=== PATIENT | female | born 1995 | race Caucasian/White ===

== ENCOUNTER 2024-06-17 13:11 | Observation (INO) | payer MEDICAID, SELFPAY ==
[2024-06-17] VITALS (9 sets, daily range): BP systolic 128–148; BP diastolic 59–83; PULSE 85–106
[2024-06-17 14:07] LABS: Basophils Percent Auto 0.2 % (0.2-2.0); Eosinophils Percent Auto 0.2 % (0.9-7.0); Hematocrit 31.7 % (36.0-48.0); Hemoglobin 10.5 g/dL (12.0-16.0); Immature Granulocytes Abs Auto 0.04 10^3/uL (0.00-0.03); Immature Granulocytes Pct Auto 0.4 % (0.0-0.5); Lymphocytes Absolute Auto 1.6 10^3/uL (1.2-3.8); Lymphocytes Percent Auto 16.9 % (20.5-60.0); Mean Corpuscular HGB Conc 33.1 g/dL (29.9-35.2); Mean Corpuscular Hemoglobin 26.5 pg (26.7-34.0); Mean Corpuscular Volume 80.1 fL (81.0-99.0); Mean Platelet Volume 14.3 fL (9.5-13.5); Monocytes Absolute Auto 0.4 10^3/uL (0.3-0.8); Monocytes Percent Auto 4.3 % (1.7-12.0); Neutrophils Absolute Auto 7.4 10^3/uL (1.4-6.5); Platelet Count 106 10^3/uL (150-450); Red Blood Count 3.96 10^6/uL (4.20-5.40); Red Cell Distribution Width 13.4 % (11.0-15.0); White Blood Count 9.5 10^3/uL (4.0-11.0)
[2024-06-17 14:17] LABS: Creatinine Urine Random 202.19 mg/dL (20.00-300.00); Protein Creatinine Ratio Urine 0.22; Total Protein Urine Random 43.5 mg/dL (<=11.9)
[2024-06-17 14:21] LABS: Alanine Aminotransferase 9 U/L (14-59); Albumin Globulin Ratio 0.6; Albumin Level 2.1 g/dL (3.4-5.0); Alkaline Phosphatase 172 U/L (46-116); Anion Gap 15.4; Aspartate Amino Transferase 10 U/L (15-37); BUN Creatinine Ratio 14.8; Bilirubin Total 0.2 mg/dL (0.2-1.0); Calcium 8.1 mg/dL (8.5-10.1); Carbon Dioxide 23.2 mmol/L (21.0-32.0); Chloride 106 mmol/L (98-107); Estimated GFR (African America >60 (>=60 mL/min/1.73m^2); Estimated GFR (Non-African Ame >60 (>=60 mL/min/1.73m^2); Globulin 3.7 g/dL; Glucose 93 mg/dL (74-106); Lactate Dehydrogenase 133 U/L (81-234); Potassium 3.6 mmol/L (3.5-5.1); Sodium 141 mmol/L (136-145); Total Protein 5.8 g/dL (6.4-8.2); Uric Acid 3.7 mg/dL (2.6-6.0)
== END 2024-06-17 15:04 | disposition home or self-care (01) ==
PROVIDERS: Admitting Provider Midwife; Visit Provider Midwife
DX: O16.3 Unspecified maternal hypertension, third trimester (principal); Z3A.37 37 weeks gestation of pregnancy
CPT/HCPCS: 36415; 80053; 82570; 83615; 84156; 84550; 85025; 86850; 86900; 86901; G0378; G0379

== ENCOUNTER 2024-07-01 12:33 | Inpatient (IN) | payer MEDICAID, SELFPAY ==
[2024-07-01] VITALS (18 sets, daily range): BP systolic 125–152; BP diastolic 57–81; PULSE 71–83; TEMP 36.3–36.8
--- NOTE | 2024-07-01 13:22 | PC.NURSE ---
1230: Patient arrived ambulatory with family for evaluation of elevated BP's in office appointment this morning. Oriented to room and plan of care. Color pink, skin warm and dry, resp easy and unlabored. Denies headache, blurred vision, epigastric or abdominal pain. Denies increased bilateral lower leg edema -currently 1-2+ pitting at the ankles. DTR's 1+ bilateral patellar and brachial. Patient pleasant and smiling -talking with family.
[2024-07-01 13:25] LABS: Bilirubin Urine NEGATIVE (NEGATIVE); Blood Urine LARGE (NEGATIVE); Clarity Urine CLEAR (CLEAR); Color Urine YELLOW (YELLOW); Glucose Urine UA NEGATIVE (NEGATIVE); Ketones Urine NEGATIVE (NEGATIVE); Leukocyte Esterase Urine NEGATIVE (NEGATIVE); Nitrite Urine NEGATIVE (NEGATIVE); Protein Urine 100 mg/dL (NEG/TRACE); Specific Gravity Urine 1.025 (1.005-1.025); Urobilinogen Urine 0.2 EU/dL (0.2-1.0)
[2024-07-01 13:29] LABS: Urine Microscopic Indicated YES
[2024-07-01 13:30] LABS: Creatinine Urine Random 161.33 mg/dL (20.00-300.00); Protein Creatinine Ratio Urine 0.52; Total Protein Urine Random 84.4 mg/dL (<=11.9)
[2024-07-01 13:30] LABS: Basophils Percent Auto 0.2 % (0.2-2.0); Eosinophils Percent Auto 0.2 % (0.9-7.0); Hematocrit 35.5 % (36.0-48.0); Hemoglobin 11.6 g/dL (12.0-16.0); Immature Granulocytes Abs Auto 0.04 10^3/uL (0.00-0.03); Immature Granulocytes Pct Auto 0.4 % (0.0-0.5); Lymphocytes Absolute Auto 1.5 10^3/uL (1.2-3.8); Lymphocytes Percent Auto 16.8 % (20.5-60.0); Mean Corpuscular HGB Conc 32.7 g/dL (29.9-35.2); Mean Corpuscular Volume 79.6 fL (81.0-99.0); Monocytes Absolute Auto 0.4 10^3/uL (0.3-0.8); Monocytes Percent Auto 4.2 % (1.7-12.0); Neutrophils Absolute Auto 7.2 10^3/uL (1.4-6.5); Neutrophils Percent Auto 78.2 % (43.0-75.0); Platelet Count 111 10^3/uL (150-450); Red Blood Count 4.46 10^6/uL (4.20-5.40); Red Cell Distribution Width 14.1 % (11.0-15.0); White Blood Count 9.2 10^3/uL (4.0-11.0)
[2024-07-01 13:32] LABS: RBC Urine 75-100 #/HPF (0-2)
[2024-07-01 13:33] LABS: Bacteria Urine TRACE #/HPF (NONE SEEN); Cast Seen? NONE SEEN #/LPF (NONE SEEN); Crystals Seen? None Seen #/HPF (None Seen); Mucus Urine MODERATE (NONE SEEN); Squamous Epithelial Cell Urine MODERATE #/LPF (NONE/RARE); Urine Culture Indicated NO
[2024-07-01 13:59] LABS: Alanine Aminotransferase 15 U/L (14-59); Albumin Globulin Ratio 0.6; Albumin Level 2.2 g/dL (3.4-5.0); Alkaline Phosphatase 203 U/L (46-116); Anion Gap 14.5; Aspartate Amino Transferase 10 U/L (15-37); Bilirubin Total 0.2 mg/dL (0.2-1.0); Calcium 8.7 mg/dL (8.5-10.1); Chloride 104 mmol/L (98-107); Estimated GFR (African America >60 (>=60 mL/min/1.73m^2); Estimated GFR (Non-African Ame >60 (>=60 mL/min/1.73m^2); Glucose 92 mg/dL (74-106); Lactate Dehydrogenase 137 U/L (81-234); Potassium 3.5 mmol/L (3.5-5.1); Sodium 137 mmol/L (136-145); Total Protein 6.2 g/dL (6.4-8.2); Uric Acid 3.3 mg/dL (2.6-6.0)
--- OUTSIDE RECORDS SUMMARY | 2024-07-01 15:56 | XMS_ITS | CCD ---
Author Organization [facility] Care Team Providers Care Geriatric Nursing Assistant Name Role Phone Adelaida Parks CNP Attending Unavailable Adelaida Parks CNP Primary Care Provider NO PCP, NO PCP Primary Care Unavailable DONTE VILLATORO Admitting Unavailable DONTE VILLATORO Attending Unavailable NO PCP, NO PCP Primary Care Unavailable DONTE VILLATORO Attending Unavailable DONTE VILLATORO Referring Unavailable NO PCP, NO PCP Primary Care Unavailable DONTE VILLATORO Attending Unavailable DONTE VILLATORO Referring Unavailable NO PCP, NO PCP Primary Care Unavailable GELACIO BOSTON Attending Unavailable NO PCP, NO PCP Primary Care Unavailable DONTE VILLATORO Admitting Unavailable DONTE VILLATORO Attending Unavailable NO PCP, NO PCP Primary Care Unavailable DONTE VILLATORO Attending Unavailable NO PCP, NO PCP Primary Care Unavailable Unavailable Primary Care Provider Unavailabl e No Pcp, No Pcp Primary Care Provider Unavailabl e DONTE VILLATORO Attending Unavailable NO PCP, NO PCP Primary Care Unavailable DONTE VILLATORO Attending Unavailable NO PCP, NO PCP Primary Care Unavailable No Pcp, No Pcp Primary Care Provider Unavailabl e ROGERS MOTA Attending Unavailable STEVE STOVER Referring Unavailable NO PCP, NO PCP Primary Care Unavailable VIVIANA BARKLEY Admitting Unavailable VIVIANA BARKLEY Attending Unavailable NO PCP, NO PCP Primary Care Unavailable DONTE VILLATORO Attending Unavailable DONTE VILLATORO Referring Unavailable NO PCP, NO PCP Primary Care Unavailable DONTE VILLATORO Referring Unavailable NO PCP, NO PCP Primary Care Unavailable BEN DANG Attending Unavailable BEN DANG Referring Unavailable NO PCP, NO PCP Primary Care Unavailable NO PCP, NO PCP Primary Care Unavailable BEN DANG Attending Unavailable Medications Current Medications Medication Drug Class(es) Dates Sig (Normalized) Sig (Original) acetaminophen 325 mg / oxyCODONE hydrochloride 5 mg oral tablet (4 sources) Opioid Agonist Start: 07-30-2023 End: 08-02-2023 oxyCODONE-acetamin ophen (PERCOCET) 5-325 mg per tablet Indications: Kidney stone Take 1 tablet by mouth 3 (three) times a day as needed for pain for up to 3 days. Max Daily Amount: 3 tablets 9 tablet 07/30/2023 08/02/2023 Active take 1 tablet by selina th every four hours as needed for pain oxyCODONE-acetaminophen (PERCOCET) 5-325 mg per tablet Indications: pain Take 1 tablet by mouth every 4 (four) hours as needed for pain Indications: pain. Suspended aspirin 81 mg delayed release oral tablet (3 sources) Platelet Aggregation Inhibitor, Nonsteroidal Anti-inflammatory Drug take 1 tablet by mouth in the morning aspirin 81 mg Take 1 tablet (81 mg total) by mouth in the morning. Active 24 hr buPROPion hydrochloride 150 mg extended release oral tablet (3 sources) Aminoketone Start: 09-12-19 take 1 tablet by mouth every twenty-four hours Wellbutrin XL 150 MG Oral Tablet Extended Release 24 Hour 09/11/2022 Provider: Cassandra Kee CNP busPIRone hydrochloride 10 mg oral tablet (6 sources) Start: 09-04-19 busPIRone HCl 10 MG Oral Tablet 09/03/2022 Provider: Adelaida Parks CNP Start: 08-08-2022 End: 09-03-2022 busPIRone HCl 5 MG Oral Tabl et 08/08/2022 - 09/03/2022 Provider: Adelaida Parks CNP cefadroxil 500 mg oral capsule (1 source) Cephalosporin Antibacterial Start: 08-09-2023 End: 08-12-2023 take 1 capsule by mouth in the morning, then take 1 capsule by mouth at bedtime cefaDROXil (DURICEF) 500 mg capsule Take 1 capsule (500 mg total) by mouth in the morning and 1 capsule (500 mg total) before bedtime. Do all this for 3 days. 6 capsule 08/09/2023 08/12/2023 Active cephalexin 500 mg oral capsule (6 sources) Cephalosporin Antibacterial Start: 06-17-2024 End: 06-27-2024 CEPHalexin (KEFLEX) 500 mg capsule Take 1 capsule (500 mg total) by mouth. 06/17/2024 06/27/2024 Active docusate sodium 100 mg oral capsule (13 sources) Start: 04-22-2024 End: 04-22-2025 take 1 capsule by mouth in the morning docusate sodium (Colace) 100 MG capsule Indications: Iron deficiency anemia, unspecified iron deficiency anemia type Take 1 capsule (100 mg) by mouth in the morning and 1 capsule (100 mg) before bedtime. 60 capsule 11 04/22/2024 04/22/2025 Active ergocalciferol 1.25 mg oral capsule (6 sources) Provitamin D2 Compound Start: 07-25-2023 take 1 capsule by mouth every week ergocalciferol (DRISDOL) 1,250 mcg (50,000 unit) capsule Take 1 capsule (50,000 Units total) by mouth once a week. Has not started 07/25/2023 Active ferrous sulfate 325 mg delayed release oral tablet (15 sources) Start: 04-22-2024 End: 04-22-2025 take 1 tablet by mouth in the morning ferrous sulfate (Fe Tabs) 325 (65 Fe) MG EC tablet Indications: Iron deficiency anemia, unspecified iron deficiency anemia type Take 1 tablet (325 mg) by mouth in the morning and 1 tablet (325 mg) before bedtime. Do not crush, chew, or split.. 60 tablet 11 04/22/2024 04/22/2025 Active ondansetron 8 mg disintegrating oral tablet (10 sources) Serotonin-3 Receptor Antagonist Start: 12-19-2023 End: 01-18-2024 take 1 tablet by mouth every eight hours for nausea ondansetron ODT (Zofran-ODT) 8 MG disintegrating tablet Indications: Nausea and vomiting during Take 1 tablet (8 mg) by mouth every 8 (eight) hours if needed for nausea or vomiting 20 tablet 1 12/19/2023 01/18/2024 Active Start: 07-30-2023 End: 08-06-2023 ondansetron ODT (ZOFRAN ODT) 4 mg disintegrating tablet Dissolve 1 tablet (4 mg total) on tongue 3 (three) times a day as needed for nausea for up to 3 doses. 3 tablet 07/30/2023 08/06/2023 Discontinued (Therapy completed) Start: 06-19-2023 take 1 tablet by selina th every eight hours as needed for nausea ondansetron ODT (ZOFRAN ODT) 4 mg disintegrating tablet Dissolve 1 tablet (4 mg total) on tongue every 8 (eight) hours as needed for nausea for up to 10 doses. 10 tablet 06/19/2023 Suspended 24 hr oxybutynin chloride 5 mg extended release oral tablet (7 sources) Cholinergic Muscarinic Antagonist Start: 08-09-2023 take 1 tablet by mouth every twenty-four hours in the morning oxybutynin XL (DITROPAN-XL) 5 mg 24 hr tablet Take 1 tablet (5 mg total) by mouth in the morning. 21 tablet 08/09/2023 Active phenazopyridine hydrochloride 100 mg oral tablet (1 source) Start: 08-09-2023 End: 08-11-2023 take 1 tablet by mouth three times daily phenazopyridine (PYRIDIUM) 100 mg tablet Take 1 tablet (100 mg total) by mouth 3 (three) times a day for 6 doses. 6 tablet 08/09/2023 08/11/2023 Active PNV no.95/ferrous fum/folic ac ( ORAL) (3 sources) take 1 tablet by mouth in the morning PNV no.95/ferrous fum/folic ac ( ORAL) Take 1 tablet by mouth in the morning. Active MV & Min w/FA-DHA ( GUMMIES PO) (20 sources) MV & Mi n w/FA-DHA ( GUMMIES PO) Take by mouth Active Completed/Discontinued Medications Medication Drug Class(es) Dates Sig (Normalized) Sig (Original) amoxicillin 875 mg / clavulanate 125 mg oral tablet (3 sources) Penicillin-class Antibacterial Start: 09-11-2022 End: 10-11-2022 Amoxicillin-Pot Clavulanate 875-125 MG Oral Tablet 09/11/2022 - 10/11/2022 Provider: Cassandra Kee CORRESPONDENCE COORDINATOR azithromycin 250 mg oral tablet (3 sources) Macrolide Antimicrobial Start: 08-08-2022 End: 09-11-2022 Azithromycin 250 MG Oral Tablet 08/08/2022 - 09/11/2022 Provider: Adelaida Parks CNP ibuprofen 600 mg oral tablet (4 sources) Nonsteroidal Anti-inflammatory Drug Start: 06-19-2023 take 1 tablet by mouth every eight hours as needed for pain ibuprofen (MOTRIN) 600 mg tablet Take 1 tablet (600 mg total) by mouth every 8 (eight) hours as needed for pain for up to 21 doses. 21 tablet 06/19/2023 Suspended Problems Active Problems Problem Classification Problem Date Documented Date Episodic/Chronic Anxiety disorders (19 sources) Generalized anxiety disorder; Translations: [Generalized anxiety disorder] Onset: 08-08-2022 08-08-2022 Chronic Coagulation and hemorrhagic disorders (4 sources) Platelet count below reference range; Translations: [Thrombocytopenia, unspecified] 06-24-2024 Chronic Deficiency and other anemia (3 sources) Normocytic anemia; Translations: [Anemia, unspecified] Onset: 06-26-2024 06-26-2024 Episodic Disorders of teeth and jaw (3 sources) Toothache; Translations: [Unspecified disorder of the teeth and supporting structures] Onset: 09-11-2022 Episodic Genitourinary symptoms and ill-defined conditions (8 sources) Presence of urogenital implants; Translations: [Other postprocedural status] Onset: 08-14-2023 08-14-2023 Chronic Hypertension complicating ; childbirth and the puerperium (2 sources) Hypertension complicating ; Translations: [Unspecified maternal hypertension, third trimester] 07-01-2024 Chronic Immunizations and screening for infectious disease (3 sources) Encounter for screening for human immunodeficiency virus [HIV]; Translations: [Screening For Hiv] Onset: 08-08-2022 Episodic Menstrual disorders (2 sources) Amenorrhea; Translations: [Amenorrhea, unspecified] 11-20-2023 Chronic Mood disorders (10 sources) Depressive disorder; Translations: [Depressive disorder] Onset: 07-05-2017 07-05-2017 Chronic Other complications of (4 sources) Finding related to ; Translations: [ related conditions, unspecified, second trimester] 01-16-2024 Episodic Other complications of (5 sources) Thrombocytopenic disorder; Translations: [Other diseases of the blood and blood-forming organs and certain disorders involving the immune mechanism complicating , unspecified trimester] Onset: 03-03-2024 03-03-2024 Episodic Other infections; including parasitic (4 sources) Personal history of other infectious and parasitic diseases; Translations: [History of COVID-19] 03-19-2024 Episodic Other nutritional; endocrine; and metabolic disorders (8 sources) Finding of body mass index; Translations: [Body mass index (observable entity)] Onset: 08-08-2022 Chronic Other nutritional; endocrine; and metabolic disorders (3 sources) Disorder of mineral metabolism, unspecified; 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, unspecified] Onset: 10-21-2023 Chronic Other nutritional; endocrine; and metabolic disorders (7 sources) Disorder of mineral metabolism; 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, unspecified] Onset: 10-21-2023 03-30-2024 Chronic Other and delivery including normal (16 sources) Second trimester ; Translations: [Encounter for supervision of normal first , second trimester] 01-16-2024 Episodic Other screening for suspected conditions (not mental disorders or infectious disease) (7 sources) Encounter for screening for diabetes mellitus; Translations: [Diabetes Risk Test Score] Onset: 08-08-2022 04-16-2024 Episodic Other upper respiratory infections (3 sources) Acute frontal sinusitis; Translations: [Acute frontal sinusitis] Onset: 08-08-2022 Episodic Unclassified (1 source) Nephrolithiasis [N20.0] Onset: 08-09-2023 Unclassified (20 sources) OB Reminders Onset: 01-03-2024 01-03-2024 Unclassified (1 source) Nephrolithiasis Onset: 07-31-2023 Unclassified (1 source) New Patient Onset: 06-26-2024 Past or Other Problems Problem Classification Problem Date Documented Da te Episodic/Chronic Abdominal pain (2 sources) Flank pain; Translations: [Abdominal pain] Onset: 07-29-2023 Episodic Calculus of urinary tract (18 sources) Calculus of kidney; Translations: [Kidney stone] Onset: 07-31-2023 03-30-2024 Episodic Gastrointestinal hemorrhage (4 sources) Hematemesis; Translations: [Hematemesis] Onset: 03-02-2024 03-03-2024 Episodic Nausea and vomiting (1 source) Vomiting Onset: 03-02-2024 Episodic Other complications of (3 sources) Disease caused by 2019-nCoV; Translations: [Other viral diseases complicating , second trimester] Onset: 03-03-2024 03-03-2024 Episodic Results Test Name Value Interpretation Reference Range Facility [facility] UA (CLEAN/CATCH) PURCHASER AUTOMOTIVE PARTS/KASSY RO IF IND.on 07-01-2024 BILIRUBIN URINE Negative NEGATIVE [facility] BLOOD URINE LARGE Abnormal NEGATIVE [facility] Clarity (U) CLEAR CLEAR [facility] Color (U) YELLOW YELLOW [facility] GLUCOSE URINE UA Negative NEGATIVE mg/dL [facility] Interpretation and review of laboratory results Abnormal [facility] Ketones Ql (U) Negative NEGATIVE mg/dL [facility] H e[facility]care Leukocyte esterase Test strip Ql (U) Negative NEGATIVE [facility] NITRITE URINE Negative NEGATIVE [facility] pH (U) 6.0 [pH] 5.0 - 9.0 [facility] Protein (U) [Mass/Vol] 100 mg/dL Abnormal NEG/TRACE [facility] SPECIFIC GRAVITY URINE 1.025 1.005 - 1.025 [facility] URINE MICROSCOPIC INDICATED YES [facility] UROBILINOGEN URINE 0.2 EU/dL 0.2 - 1.0 EU/dL [facility] ALL CBC WITH AUTO DIFFon BASOPHILS ABSOLUTE AUTO 0 [facility] Basophils/100 WBC (Bld) 0.2 % 0.2 - 2.0 % [facility] Eosinophils/100 WBC (Bld) 0.2 % Low 0.9 - 7.0 % [facility] Erythrocyte distribution width (RBC) [Ratio] 13.4 % 11.0 - 15.0 % [facility] Hematocrit (Bld) [Volume fraction] 31.7 % Low 36.0 - 48.0 % [facility] e Hemoglobin (Bld) [Mass/Vol] 10.5 g/dL Low 12.0 - 16.0 g/dL [facility] IMMATURE GRANULOCYTES ABS AUTO 0.04 High [facility] Immature granulocytes/100 WBC (Bld) 0.4 % 0.0 - 0.5 % [facility] Interpretation and review of laboratory results Abnormal [facility] LYMPHOCYTES ABSOLUTE AUTO 1.6 [facility] Lymphocytes/100 WBC (Bld) 16.9 % Low 20.5 - 60.0 % [facility] MCH (RBC) [Entitic mass] 26.5 pg Low 26.7 - 34.0 pg [facility] MCHC (RBC) [Mass/Vol] 33.1 g/dL 29.9 - 35.2 g/dL [facility] MCV (RBC) [Entitic vol] 80.1 fL Low 81.0 - 99.0 fL [facility] MONOCYTES ABSOLUTE AUTO 0.4 [facility] Monocytes/100 WBC (Bld) 4.3 % 1.7 - 12.0 % [facility] NEUTROPHILS ABSOLUTE AUTO 7.4 High [facility] Neutrophils/100 WBC (Bld) 78 % High 43.0 - 75.0 % [facility] Platelet mean volume (Bld) [Entitic vol] 14.3 fL High 9.5 - 13.5 fL [facility] EO # 0 [facility] PLT 106 Low [facility] RBC 3.96 Low [facility] WBC 9.5 [facility] URINE T PROTEIN CREAT RA TIOon 06-17-2024 CREATININE URINE RANDOM 202.19 mg/dL 20.00 - 300.00 mg/dL [facility] Interpretation and review of laboratory results Abnormal [facility] Protein (U) [Mass/Vol] 43.5 mg/dL High NINF - 11.9 mg/dL [facility] PROTEIN CREATININE RATIO URINE 0.22 [facility] COMPLETE BLOOD COUNTon 03-03 Erythrocyte distribution width (RBC) [Ratio] 13.8 % Normal 11.5-15.0 [facility] Comment on above: Performed By: #### C BC, CMP #### [facility] ([id number]) [address] [place] [address] 04438 Hematocrit (Bld) [Volume fraction] 33.4 % Low 35-47 [facility] Comment on above: Performed By: #### C BC, CMP #### [facility] ([id number]) [address] [place] [address] 50724 Hemoglobin (Bld) [Mass/Vol] 11.8 g/dL Normal 11.7-15.5 [facility] Comment on above: Performed By: #### C BC, CMP #### [facility] ([id number]) [address] [place] [address] 64032 MCH (RBC) [Entitic mass] 30.5 pg Normal 27-34 [facility] Comment on above: Performed By: #### C BC, CMP #### [facility] ([id number]) [address] [place] [address] 13409 MCHC (RBC) [Mass/Vol] 35.4 g/dL Normal 32-36 [facility] Comment on above: Performed By: #### C BC, CMP #### [facility] ([id number]) [address] [place] [address] 53951 MCV (RBC) [Entitic vol] 86 fL Normal 80-100 [facility] Comment on above: Performed By: #### C BC, CMP #### [facility] ([id number]) [address] [place] [address] 95464 Platelet mean volume (Bld) [Entitic vol] 12.5 fL High 7-12 [facility] Comment on above: Performed By: #### C BC, CMP #### [facility] ([id number]) [address] [place] [address] 20076 Platelets (Bld) [#/Vol] 108 10*3/uL Low 150-450 [facility] Comment on above: Performed By: #### C BC, CMP #### [facility] ([id number]) [address] [place] [address] 42116 RBC COUNT 3.87 X10E12/L Normal 3.80-5.20 [facility] Comment on above: Performed By: #### C BC, CMP #### [facility] ([id number]) [address] [place] [address] 62983 WBC (Bld) [#/Vol] 7.1 10*3/uL Normal 4.0-11.0 [facility] Comment on above: Performed By: #### C BC, CMP #### [facility] ([id number]) [address] [place] [address] 52439 COMPREHENSIVE METABOLIC PANE Skinny 03-03-2024 Albumin [Mass/Vol] 3.0 g/dL Low 3.2-5.3 [facility] Comment on above: Performed By: #### C BC, CMP #### [facility] ([id number]) [address] [place] [address] 75575 ALP [Catalytic activity/Vol] 53 U/L Normal 39-130 [facility] Comment on above: Performed By: #### C BC, CMP #### [facility] ([id number]) [address] [place] [address] 03326 ALT [Catalytic activity/Vol] 13 U/L Normal 0-31 [facility] Comment on above: Performed By: #### C BC, CMP #### [facility] ([id number]) [address] [place] [address] 98155 Anion gap [Moles/Vol] 11 mmol/L Normal 5-15 [facility] Comment on above: Performed By: #### C BC, CMP #### [facility] ([id number]) [address] [place] [address] 32029 AST [Catalytic activity/Vol] 20 U/L Normal 0-41 [facility] Comment on above: Performed By: #### C BC, CMP #### [facility] ([id number]) [address] [place] [address] 16858 Bilirubin [Mass/Vol] 0.2 mg/dL Low 0.3-1.2 [facility] Comment on above: Performed By: #### C BC, CMP #### [facility] ([id number]) [address] [place] [address] 11185 Calcium [Mass/Vol] 8.5 mg/dL Normal 8.5-10.5 [facility] Comment on above: Performed By: #### C BC, CMP #### [facility] ([id number]) [address] [place] [address] 58012 Chloride [Moles/Vol] 102 mmol/L Normal 98-109 [facility] Comment on above: Performed By: #### C BC, CMP #### [facility] ([id number]) [address] [place] [address] 21376 CO2 [Moles/Vol] 21 mmol/L Low 22-32 [facility] Comment on above: Performed By: #### C BC, CMP #### [facility] ([id number]) [address] [place] [address] 32935 Creatinine [Mass/Vol] 0.54 mg/dL Normal 0.40-1.00 [facility] Comment on above: Result Comment: METH OD TRACEABLE TO IDMS STANDARD Performed By: #### C BC, CMP #### [facility] ([id number]) [address] [place] [address] [place] [address] eGFR (CKD-EPI) NON-RACE DEPENDENT >90 Normal >59 [facility] Comment on above: Result Comment: Reported eGFR is based on the CKD-EPI 1 equation that does not use a race coefficient. Performed By: #### C BC, CMP #### [facility] ([id number]) [address] [place] [address] 42069 Glucose [Mass/Vol] 85 mg/dL Normal 65-99 [facility] Comment on above: Performed By: #### C BC, CMP #### [facility] ([id number]) [address] [place] [address] 87814 Potassium [Moles/Vol] 3.4 mmol/L Low 3.5-5.0 [facility] Comment on above: Performed By: #### C BC, CMP #### [facility] ([id number]) [address] [place] [address] 00901 Protein [Mass/Vol] 6.3 g/dL Normal 6.0-8.0 [facility] Comment on above: Performed By: #### C BC, CMP #### [facility] ([id number]) [address] [place] [address] 33763 Sodium [Moles/Vol] 134 mmol/L Normal 134-146 [facility] Comment on above: Performed By: #### C BC, CMP #### [facility] ([id number]) [address] [place] [address] 16837 Urea nitrogen [Mass/Vol] 8 mg/dL Normal 5-23 [facility] Comment on above: Performed By: #### C BC, CMP #### [facility] ([id number]) [address] [place] [address] 41997 DRUG SCREEN, URINEon 024 AMPHETAMINE/METHAMP Negative Normal NEG [facility] Comment on above: Result Comment: AMPH /METH screening cut off = 1000 ng/mL Performed By: #### C BC, CMP #### [facility] ([id number]) [address] [place] [address] 17723 BARBITURATES Negative Normal NEG [facility] Comment on above: Result Comment: Breonna iturates screening cut off value = 200 ng/mL Performed By: #### C BC, CMP #### [facility] ([id number]) [address] [place] [address] [place] [address] BENZODIAZEPINES Negative Normal NEG [facility] Comment on above: Result Comment: Eyal odiazepines screening cut off value = 200 ng/mL Performed By: #### C BC, CMP #### [facility] ([id number]) [address] [place] [address] 58049 CANNABINOIDS Negative Normal NEG [facility] Comment on above: Result Comment: Mary Ellen abinoids/THC screening cut off value = 50 ng/mL Performed By: #### C BC, CMP #### [facility] ([id number]) [address] [place] [address] [place] [address] COCAINE METABOLITE Negative Normal NEG [facility] Comment on above: Result Comment: Coca ine screening cut off value = 300 ng/mL Performed By: #### C BC, CMP #### [facility] ([id number]) [address] [place] [address] 48807 ECSTASY Negative Normal NEG [facility] Comment on above: Result Comment: Ecst asy screening cut off value = 500 ng/mL This report is intended for use in clinical monitoring or management of patients. Performed By: #### C BC, CMP #### [facility] ([id number]) [address] [place] [address] 07944 METHADONE Negative Normal [facility] Comment on above: Result Comment: Meth adone screening cut off value = 300 ng/mL. Performed By: #### C BC, CMP #### [facility] ([id number]) [address] [place] [address] 93638 OPIATES Negative Normal [facility] Comment on above: Result Comment: Opia sandra screening cut off value = 300 ng/mL NOTE: This test is used for the detection of codeine, hydrocodone (>1000 ng/mL), morphine and hydromorphone (>900 ng/mL) in urine. Performed By: #### C BC, CMP #### [facility] ([id number]) [address] [place] [address] [place] [address] OXYCODONE Negative Normal NEG [facility] Comment on above: Result Comment: Oxyc odone screening cut off value = 300 ng/mL NOTE: This test is used for the detection of oxycodone and oxymorphone in urine. Performed By: #### C BC, CMP #### [facility] ([id number]) [address] [place] [address] 64229 PHENCYCLIDINE Negative Normal NEG [facility] Comment on above: Result Comment: Phen cyclidine screening cut off value = 25 ng/mL Performed By: #### C BC, CMP #### [facility] ([id number]) [address] [place] [address] 53797 S. pyogenes Ag Ql (Throat)on 03-03-2024 DIRECT STREP A Negative Normal NEG [facility] Comment on above: Performed By: #### 1 8481-2 #### [facility] ([id number]) [address] [place] [address] 47677 #### [id number] #### [facility] ([id number]) [address] [place] [address] S. pyogenes DNA GHAZALA+probe No m (Unsp spec)on 03-03-2024 STREP PCR THROAT Negative Normal NEG [facility] Comment on above: Result Comment: Streptococcus Group A NOT detected by nucleic acid amplification. Performed By: #### 1 8481-2 #### [facility] ([id number]) [address] [place] [address] 16774 #### [id number] #### [facility] ([id number]) [address], [address] [place] [address] SARS/FLU A+B/RSV by NAAT/Mol ecularon 03-03-2024 SARS/FLU A+B/RSV by NAAT/Molecular FLU A PCR Negative (qualifier value) FLU B PCR Negative (qualifier value) RSV by PCR Negative (qualifier value) SARS CoV 2 Detected (qualifier value) NOTE The [employer] SARS-CoV-2/Flu/RSV Plus test is a rapid, multiplexed real-time RT-PCR test intended for the simultaneous qualitative detection and differentiation of SARS-CoV-2, influenza A, influenza B and respiratory syncytial virus (RSV) viral RNA from individuals suspected of respiratory viral infection consistent with COVID-19 by their healthcare provider. This test has not been validated in asymptomatic patients. The Xpert Xpress SARS-CoV-2 test is intended for use by qualified and trained operators who are performing tests using either GeneXpert DX or GeneXpert Chewse systems and is limited to laboratories that meet the CLIA requirements to perform high and moderate complexity tests. The Xpert Xpress SARS-CoV-2/Flu/RSV Plus is only for use under the Food and Drug Administration's Emergency Use Authorization. Results are for the simultaneous detection and differentiation of SARS-CoV-2, influenza A, influenza B and RSV nucleic acids in clinical specimens. SARS-CoV-2, influenza A, influenza B and RSV RNA identified by this test are generally detectable in upper respiratory samples during the acute phase of infection. Positive results are indicative of the presence of the identified virus, but do not rule out bacterial infection or co-infection with other pathogens not detected by this test. Clinical correlation with patient history and other diagnostic information is necessary to determine patient infection status. The agent detected may not be the definite cause of disease. Negative results do not preclude SARS-CoV-2, influenza A, influenza B and RSV infection and should not be used as the sole basis for treatment or other patient management decisions. Negative results must be combined with clinical observations, patient history and epidemiological information. An Invalid result may occur with specimen-associated inhibition unable to be resolved with specimen repeat. Fact Sheet for Healthcare Providers: https://www.fda.gov/ media/237239/downloa d Fact Sheet for Patients: https://www.fda.gov/ media/800937/downloa d Normal [facility] Comment on above: Performed By: #### C HARSH, CMP #### [facility] ([id number]) [address] [place] [address] 79691 URINALYSISon 03-03-2024 Bilirubin Ql (U) Negative Normal NEG [facility] Comment on above: Performed By: #### C HARSH, CMP #### [facility] ([id number]) [address] [place] [address] 39875 BLOOD/HGB Negative Normal NEG [facility] Comment on above: Performed By: #### C HARSH, CMP #### [facility] ([id number]) [address] [place] [address] 24370 Color (U) YELLOW Normal YELLOW [facility] Comment on above: Performed By: #### C BC, CMP #### [facility] ([id number]) [address] [place] [address] 23587 Glucose Ql (U) Negative Normal NEG [facility] Comment on above: Performed By: #### C BC, CMP #### [facility] ([id number]) [address] [place] [address] 61373 Ketones Ql (U) Negative Normal NEG [facility] Comment on above: Performed By: #### C BC, CMP #### [facility] ([id number]) [address] [place] [address] 76824 Leukocyte esterase Test strip Ql (U) Trace Abnormal NEG [facility] Comment on above: Performed By: #### C BC, CMP #### [facility] ([id number]) [address] [place] [address] [place] [address] Nitrite Ql (U) Negative Normal NEG [facility] Comment on above: Performed By: #### C BC, CMP #### [facility] ([id number]) [address] [place] [address] [place] [address] pH (U) 6.0 [pH] Normal 5.0-8.5 [facility] Comment on above: Performed By: #### C BC, CMP #### [facility] ([id number]) [address] [place] [address] [place] [address] Protein Ql (U) Negative Normal NEG [facility] Comment on above: Performed By: #### C BC, CMP #### [facility] ([id number]) [address] [place] [address] [place] [address] R.B.CELLS 0 /hpf Normal 0-5 [facility] Comment on above: Performed By: #### C BC, CMP #### [facility] ([id number]) [address] [place] [address] 43461 Specific gravity (U) [Rel density] 1.020 Normal 1.003-1.035 [facility] Comment on above: Performed By: #### C BC, CMP #### [facility] ([id number]) [address] [place] [address] 81225 SQUAMOUS EPITHELIUM 6 /hpf High 0-5 [facility] Comment on above: Performed By: #### C BC, CMP #### [facility] ([id number]) [address] [place] [address] 84725 TURBIDITY CLEAR Normal CLEAR [facility] Comment on above: Performed By: #### C BC, CMP #### [facility] ([id number]) [address] [place] [address] 70893 Urobilinogen Qn (U) 0.2 {Kyra'U}/dL Normal <1.1 [facility] Comment on above: Performed By: #### C BC, CMP #### [facility] ([id number]) [address] [place] [address] 58247 W.B.CELLS 1 /hpf Normal 0-5 [facility] Comment on above: Performed By: #### C BC, CMP #### [facility] ([id number]) [address] [place] [address] 95462 URINE CULTUREon 03-03-2024 Bacteria identified Cx Nom (U) CULTURE RESULTS 10-50,000 ORGANISMS/mL NORMAL UROGENITAL LEONCIO Normal [facility] Comment on above: Performed By: #### C BC, CMP #### [facility] ([id number]) [address] [place] [address] 13113 US RETROPERITONEAL COMPLETEo n 12-27-2023 US RETROPERITONEAL COMPLETE US RETROPERITONEAL COMPLETE COMPLETE RETROPERITONEAL ULTRASOUND CLINICAL STATEMENT: Nephrolithiasis, mineral metabolism disorder COMPARISON: Retroperitoneal ultrasound 09/20/2023 Technique: Multiple real-time grayscale images in transverse and sagittal projections. Color Doppler, and Doppler spectral analysis was performed. FINDINGS: Right kidney: 11.19 cm x 5.55 cm x 5.59 cm cm. Cortical thickness is 0.7 cm. Unremarkable echogenicity without evidence of focal lesion or shadowing foci. No contour deforming mass. Unremarkable color flow. Mild prominence of the right renal pelvis without calyceal dilatation. Left kidney: 12.34 cm x 5.68 cm x 5.74 cm cm. Cortical thickness is 0.70 cm cm. 2 shadowing echogenic foci with twinkle artifact, largest in the inferior pole measures 0.4 cm. Unremarkable parenchymal color flow no collecting system dilatation. The urinary bladder prevoid volume is 49.59 ml mL. Bilateral ureteral jets were visualized. IMPRESSION: * There are 2 left renal calculi, largest in the inferior pole measures 0.4 cm. * Mild prominence of the right renal pelvis without calyceal dilatation. Approved by Resident Lit Leonard DO on 12/27/2023 2:19 PM IDonte MD have personally reviewed the image(s) and agree with and/or edited the report Finalized by Donte Rey MD on 12/27/2023 2:34 PM Normal [facility] HCG ( test) Ql (U)o n 11-20-2023 Interpretation and review of laboratory results Abnormal [facility] Healthcare Preg Test, Ur Positive [facility] Healthcar e US RETROPERITONEAL COMPLETEo n 09-21-2023 US RETROPERITONEAL COMPLETE US RETROPERITONEAL COMPLETE HISTORY: A 27-year-old female with the history of the ureteroscopy and removal of the calculus in July 2023. Follow-up examination for nephrolithiasis. TECHNIQUE: Multiple real-time images of both kidneys and the urinary bladder are obtained. Color Doppler study is performed. COMPARISON: Comparison is made with renal ultrasound examination of 11/24/[address] scan of the abdomen and pelvis of 07/29/2023. FINDINGS: Kidneys are normal in position and configuration. Right kidney measures 11.4 x 5.0 x 5.3 cm. Right renal cortical thickness measures 1 cm. Left kidney measures 12.2 x 4.7 x 5.4 cm. Left renal cortical thickness was a 1.1 cm. There is a 7 mm echogenic focus in the left mid kidney suggestive of calculus. There is a residual hydronephrosis of the left kidney. There is fullness of the right renal pelvis and measures 1.2 cm. No significant hydronephrosis is seen. There is no evidence of the cystic or solid renal mass. No perinephric fluid collection is seen. Urinary bladder volume is 77 mL. No intraluminal abnormality seen. Left-sided ureteric jets are visualized. Right-sided ureteric jets are not visualized. Small amount of post void residual urine and measures 3 mL. IMPRESSION: * There is a 7 mm echogenic calculus in the left mid kidney. Residual left-sided hydronephrosis. Fullness of the right renal pelvis without evidence of hydronephrosis. * No evidence of renal mass. * Left-sided ureteric jets are visualized. Right-sided ureteric jets are not visualized. Small amount of post void residual urine and measures 3 mL. Finalized by Renny York MD on 09/21/2023 10:14 AM Normal [facility] HCG ( test) Ql (U)o n 08-09-2023 Beta HCG ( test) Ql (U) Negative Normal NEG [facility] Comment on above: Result Comment: TEST PERFORMED AT [facility] [address] [facility] [address] CT ABDOMEN AND PELVIS WO CON Ton 07-30-2023 CT ABDOMEN AND PELVIS WO CONT CT ABDOMEN AND PELVIS WO CONT CLINICAL INFORMATION: Abdominal/flank pain, stone suspected. TECHNIQUE: CT Abdomen and Pelvis without intravenous contrast. All CT scans at this facility use dose modulation, iterative reconstruction, and/or weight based dosing when appropriate to reduce radiation dose to as low as reasonably achievable. COMPARISON: CT abdomen pelvis 06/19/2023 FINDINGS: 6 mm calcified stone at the proximal left renal pelvis is grossly stable. The remaining renal exam is unremarkable. Visceral organs are grossly unremarkable given lack of IV dye. Bowel loops are unremarkable. Urinary bladder, uterus and both adnexa are unremarkable. There is decrease in left ovarian cyst likely within physiologic range for patient's age group. IMPRESSION: * Stable 6 mm left renal pelvis stone with mild peripelvic stranding. Finalized by Loan Leon MD on 07/30/2023 12:34 AM Normal [facility] COMPLETE BLOOD COUNTon 07-28 Erythrocyte distribution width (RBC) [Ratio] 13.4 % Normal 11.5-15.0 [facility] Comment on above: Performed By: #### C BC, CMP #### [facility] ([id number]) [address] [place] [address] 67561 Hematocrit (Bld) [Volume fraction] 41.4 % Normal 35-47 [facility] Comment on above: Performed By: #### C HARSH, CMP #### [facility] ([id number]) [address] [place] [address] 19097 Hemoglobin (Bld) [Mass/Vol] 13.9 g/dL Normal 11.7-15.5 [facility] Comment on above: Performed By: #### C HARSH, CMP #### [facility] ([id number]) [address] [place] [address] 35934 MCH (RBC) [Entitic mass] 28.4 pg Normal 27-34 [facility] Comment on above: Performed By: #### C HARSH, CMP #### [facility] ([id number]) [address] [place] [address] 24630 MCHC (RBC) [Mass/Vol] 33.7 g/dL Normal 32-36 [facility] Comment on above: Performed By: #### C BC, CMP #### [facility] ([id number]) [address] [place] [address] 07954 MCV (RBC) [Entitic vol] 84 fL Normal 80-100 [facility] Comment on above: Performed By: #### C BC, CMP #### [facility] ([id number]) [address] [place] [address] 88598 Platelet mean volume (Bld) [Entitic vol] 11.6 fL Normal 7-12 [facility] Comment on above: Performed By: #### C BC, CMP #### [facility] ([id number]) [address] [place] [address] 54292 Platelets (Bld) [#/Vol] 146 10*3/uL Low 150-450 [facility] Comment on above: Performed By: #### C BC, CMP #### [facility] ([id number]) [address] [place] [address] 73092 RBC COUNT 4.90 X10E12/L Normal 3.80-5.20 [facility] Comment on above: Performed By: #### C BC, CMP #### [facility] ([id number]) [address] [place] [address] 14098 WBC (Bld) [#/Vol] 11.2 10*3/uL High 4.0-11.0 [facility] Comment on above: Performed By: #### C BC, CMP #### [facility] ([id number]) [address] [place] [address] 77785 COMPREHENSIVE METABOLIC PANE Skinny 07-29-2023 Albumin [Mass/Vol] 4.0 g/dL Normal 3.2-5.3 [facility] Comment on above: Performed By: #### C BC, CMP #### [facility] ([id number]) [address] [place] [address] 50958 ALP [Catalytic activity/Vol] 67 U/L Normal 39-130 [facility] Comment on above: Performed By: #### C BC, CMP #### [facility] ([id number]) [address] [place] [address] 88317 ALT [Catalytic activity/Vol] 30 U/L Normal 0-31 [facility] Comment on above: Performed By: #### C BC, CMP #### [facility] ([id number]) [address] [place] [address] 56034 Anion gap [Moles/Vol] 6 mmol/L Normal 5-15 [facility] Comment on above: Performed By: #### C BC, CMP #### [facility] ([id number]) [address] [place] [address] 89069 AST [Catalytic activity/Vol] 25 U/L Normal 0-41 [facility] Comment on above: Performed By: #### C BC, CMP #### [facility] ([id number]) [address] [place] [address] 70206 Bilirubin [Mass/Vol] 1.1 mg/dL Normal 0.3-1.2 [facility] Comment on above: Performed By: #### C BC, CMP #### [facility] ([id number]) [address] [place] [address] 42321 Calcium [Mass/Vol] 8.4 mg/dL Low 8.5-10.5 [facility] Comment on above: Performed By: #### C HARSH, CMP #### [facility] ([id number]) [address] [place] [address] 38530 Chloride [Moles/Vol] 104 mmol/L Normal 98-109 [facility] Comment on above: Performed By: #### C BC, CMP #### [facility] ([id number]) [address] [place] [address] 57405 CO2 [Moles/Vol] 23 mmol/L Normal 22-32 [facility] Comment on above: Performed By: #### C BC, CMP #### [facility] ([id number]) [address] [place] [address] 77834 Creatinine [Mass/Vol] 0.60 mg/dL Normal 0.40-1.00 [facility] Comment on above: Result Comment: METH OD TRACEABLE TO IDMS STANDARD Performed By: #### C BC, CMP #### [facility] ([id number]) [address] [place] [address] 63344 eGFR (CKD-EPI) NON-RACE DEPENDENT >90 Normal >59 [facility] Comment on above: Result Comment: Reported eGFR is based on the CKD-EPI 2020 equation that does not use a race coefficient. Performed By: #### C BC, CMP #### [facility] ([id number]) [address] [place] [address] 52536 Glucose [Mass/Vol] 107 mg/dL High 65-99 [facility] Comment on above: Performed By: #### C BC, CMP #### [facility] ([id number]) [address] [place] [address] 16256 Potassium [Moles/Vol] 3.7 mmol/L Normal 3.5-5.0 [facility] Comment on above: Performed By: #### C BC, CMP #### [facility] ([id number]) [address] [place] [address] 11774 Protein [Mass/Vol] 7.2 g/dL Normal 6.0-8.0 [facility] Comment on above: Performed By: #### C BC, CMP #### [facility] ([id number]) [address] [place] [address] 97054 Sodium [Moles/Vol] 133 mmol/L Low 134-146 [facility] Comment on above: Performed By: #### C BC, CMP #### [facility] ([id number]) [address] [place] [address] 77724 Urea nitrogen [Mass/Vol] 9 mg/dL Normal 5-23 [facility] Comment on above: Performed By: #### C BC, CMP #### [facility] ([id number]) [address] [place] [address] 63504 HCG ( test) Ql (U)o n 07-29-2023 Beta HCG ( test) Ql (U) Negative Normal NEG [facility] Comment on above: Performed By: #### 2 106-3 #### [facility] ([id number]) [address] [place] [address] 84909 UA (MICROSCOPIC)on 4 R.B.CELLS >100 High 0-5 [facility] Comment on above: Performed By: #### U KASSY #### [facility] ([id number]) [address] [place] [address] 60889 SQUAMOUS EPITHELIUM PRESENT Normal 0-5 [facility] Comment on above: Performed By: #### U KASSY #### [facility] ([id number]) [address] [place] [address] 92387 Urinalysis dipstick W Reflex Microscopic panel (U) Results maybe affected due to High RBC count, interpretwith caution. Normal [facility] Comment on above: Performed By: #### U KASSY #### [facility] ([id number]) [address] [place] [address] 74701 W.B.CELLS PRESENT Normal 0-[address] [place] [address] Comment on above: Performed By: #### U KASSY #### [facility] ([id number]) [address] [place] [address] 52619 URINE CULTUREon 07-29-2023 Bacteria identified Cx Nom (U) CULTURE RESULTS 50-100,000 ORGANISMS/ML NORMAL UROGENITAL LEONCIO Normal [facility] Comment on above: Performed By: #### 6 30-4 #### [facility] ([id number]) [address] [place] [address] Vital Signs Date Time Vital Sign Value Performing Clinician Facility 07-01-2024 10:33-0400 Body mass index (BMI) [Ratio] 45.53 kg/m2 Steve Stover [facility] Work Phone: [facility] 07-01-2024 10:33-0400 Body weight 116.57 kg Steve Stover CNM Work Phone: [facility] 07-01-2024 10:33-0400 Diastolic blood pressure 100 mm[Hg] Steve Stover CNM Work Phone: [facility] Comment on above: recheck 150/100 07-01-2024 10:33-0400 Systolic blood pressure 150 mm[Hg] Steve Stover CNM Work Phone: [facility] Comment on above: recheck 150/100 06-26-2024 09:52-0400 Body height 162.6 cm Rogers [facility] 06-26-2024 09:52-0400 Body mass index (BMI) [Ratio] 44.5 kg/m2 Rogers Mota MD [facility] 06-26-2024 09:52-0400 Body temperature 97.9 [degF] Rogers Mota MD Work Phone: [facility] [employer] 06-26-2024 09:52-0400 Body weight 117.66 kg [facility] 06-26-2024 09:52-0400 Diastolic blood pressure 89 mm[Hg] Rogers [facility] 06-26-2024 09:52-0400 Heart rate 81 /min Rogers Mota MD [facility] 06-26-2024 09:52-0400 Respiratory rate 20 /min Rogers Mota MD [facility] 06-26-2024 09:52-0400 SaO2% (BldA) [Mass fraction] 100 % Rogers Mota MD [facility] 06-26-2024 09:52-0400 Systolic blood pressure 146 mm[Hg] Rogers Mota MD [facility] Phone[facility] 06-24-2024 11:35-0400 Body mass index (BMI) [Ratio] 45.53 kg/m2 Steve Floro CNM Work Phone: [facility] 06-24-2024 11:35-0400 Body weight 116.57 kg Steve Floro CNM Work Phone: [facility] 06-24-2024 11:35-0400 Diastolic blood pressure 80 mm[Hg] Steve Floro CNM Work Phone: [facility] 06-24-2024 11:35-0400 Systolic blood pressure 120 mm[Hg] Steve Floro CNM Work Phone: [facility] 06-10-2024 10:50-0400 Body mass index (BMI) [Ratio] 45.17 kg/m2 Steve Floro CNM Work Phone: [facility] 06-10-2024 10:50-0400 Body weight 115.67 kg Steve Floro CNM Work Phone: [facility] 06-10-2024 10:50-0400 Diastolic blood pressure 80 mm[Hg] Steve Floro CNM Work Phone: [facility] 06-10-2024 10:50-0400 Systolic blood pressure 120 mm[Hg] Steve Floro CNM Work Phone: [facility] 04-16-2024 09:33-0500 Body mass index (BMI) [Ratio] 42.51 kg/m2 Steve Floro CNM Work Phone: [facility] 04-16-2024 09:33-0500 Body weight 108.86 kg Steve Floro CNM Work Phone: [facility] 04-16-2024 09:33-0500 Diastolic blood pressure 80 mm[Hg] Steve Floro CNM Work Phone: [facility] 04-16-2024 09:33-0500 Systolic blood pressure 118 mm[Hg] Steve Floro CNM Work Phone: [facility] 03-30-2024 16:18-0500 Body height 162.6 cm Donte Villatoro MD Work Phone: [facility] 03-30-2024 16:18-0500 Body mass index (BMI) [Ratio] 39.99 kg/m2 Donte Villatoro MD Work Phone: [facility] 03-30-2024 16:18-0500 Body weight 105.69 kg Donte Villatoro MD Work Phone: [facility] 03-30-2024 16:18-0500 Diastolic blood pressure 47 mm[Hg] Donte Villatoro MD Work Phone: [facility] 03-30-2024 16:18-0500 Heart rate 79 /min Donte Villatoro MD Work Phone: [facility] 03-30-2024 16:18-0500 Systolic blood pressure 130 mm[Hg] Donte Villatoro MD Work Phone: [facility] 03-19-2024 09:52-0500 Body mass index (BMI) [Ratio] 41.81 kg/m2 Steve Floro CNM Work Phone: [facility] 03-19-2024 09:52-0500 Body weight 107.05 kg Steve Floro CNM Work Phone: [facility] 03-19-2024 09:52-0500 Diastolic blood pressure 80 mm[Hg] Steve Floro CNM Work Phone: [facility] 03-19-2024 09:52-0500 Systolic blood pressure 122 mm[Hg] Steve Floro CNM Work Phone: [facility] 02-12-2024 09:09-0500 Body mass index (BMI) [Ratio] 40.21 kg/m2 Steve Floro CNM Work Phone: [facility] 02-12-2024 09:09-0500 Body weight 102.97 kg Steve Floro CNM Work Phone: [facility] 02-12-2024 09:09-0500 Diastolic blood pressure 80 mm[Hg] Steve Floro CNM Work Phone: [facility] 02-12-2024 09:09-0500 Systolic blood pressure 118 mm[Hg] Steve Floro CNM Work Phone: [facility] 01-16-2024 10:04-0400 Body mass index (BMI) [Ratio] 39.33 kg/m2 Steve Floro CNM Work Phone: [facility] 01-16-2024 10:04-0400 Body weight 100.7 kg Steve Floro CNM Work Phone: [facility] 01-16-2024 10:04-0400 Diastolic blood pressure 80 mm[Hg] Steve Floro CNM Work Phone: [facility] 01-16-2024 10:04-0400 Systolic blood pressure 120 mm[Hg] Steve Floro CNM Work Phone: [facility] 11-20-2023 11:14-0400 Diastolic blood pressure 80 mm[Hg] Steve Floro CNM Work Phone: [facility] 11-20-2023 11:14-0400 Systolic blood pressure 122 mm[Hg] Steve Floro CNM Work Phone: [facility] 10-21-2023 15:00-0400 Body height 162.6 cm Donte Villatoro MD Work Phone: [facility] 10-21-2023 15:00-0400 Body mass index (BMI) [Ratio] 38.11 kg/m2 Donte Villatoro MD Work Phone: [facility] 10-21-2023 15:00-0400 Body weight 100.7 kg Donte Villatoro MD Work Phone: [facility] 10-21-2023 15:00-0400 Diastolic blood pressure 80 mm[Hg] Donte Villatoro MD Work Phone: [facility] 10-21-2023 15:00-0400 Heart rate 65 /min Donte Villatoro MD Work Phone: [facility] 10-21-2023 15:00-0400 Systolic blood pressure 127 mm[Hg] Donte Villatoro MD Work Phone: [facility] 08-06-2023 15:29-0400 Body height 162.6 cm [facility] 08-06-2023 15:29-0400 Body mass index (BMI) [Ratio] 38.11 kg/m2 [facility] 08-06-2023 15:29-0400 Body weight 100.7 kg [facility] 07-31-2023 14:09-0400 Body height 162.6 cm Donte Villatoro MD Work Phone: [facility] 07-31-2023 14:09-0400 Body mass index (BMI) [Ratio] 38.11 kg/m2 Donte Villatoro MD Work Phone: [facility] 07-31-2023 14:09-0400 Body weight 100.7 kg Donte Villatoro MD Work Phone: [facility] 07-31-2023 14:09-0400 Diastolic blood pressure 82 mm[Hg] Donte Villatoro MD Work Phone: [facility] 07-31-2023 14:09-0400 Heart rate 58 /min Donte Villatoro MD Work Phone: [facility] 07-31-2023 14:09-0400 Systolic blood pressure 129 mm[Hg] Donte Villatoro MD Work Phone: [facility] 10-11-2022 13:56-0400 Body height 157.48 cm Adelaida Parks CNP Work Phone: [facility] Work Phone: 10-11-2022 13:56-0400 Body mass index (BMI) [Ratio] 43.5 kg/m2 Adelaida Parks CNP Work Phone: [facility] Work Phone: 10-11-2022 13:56-0400 Body surface area Derived from formula 2.1 m2 Adelaida Parks CNP Work Phone: [facility] Work Phone: 10-11-2022 13:56-0400 Body temperature 98.4 [degF] Adelaida Parks CORRESPONDENCE COORDINATOR Work Phone: [facility] Work Phone: 10-11-2022 13:56-0400 Body weight 107.96 kg Adelaida Parks CORRESPONDENCE COORDINATOR Work Phone: [facility] Work Phone: 10-11-2022 13:56-0400 Diastolic blood pressure 84 mm[Hg] Adelaida Parks CORRESPONDENCE COORDINATOR Work Phone: [facility] Work Phone: 10-11-2022 13:56-0400 Heart rate 78 /min Adelaida Parks CORRESPONDENCE COORDINATOR Work Phone: [facility] Work Phone: 10-11-2022 13:56-0400 SaO2% (BldA) [Mass fraction] 98 % Adelaida Parks CNP Work Phone: [facility] Work Phone: 10-11-2022 13:56-0400 Systolic blood pressure 123 mm[Hg] Adelaida Parks CORRESPONDENCE COORDINATOR Work Phone: [facility] Work Phone: 09-19-2022 17:02-0400 Diastolic blood pressure 73 mm[Hg] Adelaida Parks CORRESPONDENCE COORDINATOR Work Phone: [facility] Work Phone: 09-19-2022 17:02-0400 Heart rate 71 /min Adelaida Parks CORRESPONDENCE COORDINATOR Work Phone: [facility] Work Phone: 09-19-2022 17:02-0400 Systolic blood pressure 127 mm[Hg] Adelaida Parks CNP Work Phone: [facility] Work Phone: 09-11-2022 16:33-0400 Diastolic blood pressure 86 mm[Hg] Adelaida Parks CNP Work Phone: [facility] Work Phone: 09-11-2022 16:33-0400 Systolic blood pressure 123 mm[Hg] Adelaida Parks CNP Work Phone: [facility] Work Phone: 09-11-2022 16:29-0400 Body height 157.48 cm Adelaida Parks CNP Work Phone: [facility] Work Phone: 09-11-2022 16:29-0400 Body mass index (BMI) [Ratio] 43.9 kg/m2 Adelaida Parks CNP Work Phone: [facility] Work Phone: 09-11-2022 16:29-0400 Body surface area Derived from formula 2.1 m2 Adelaida Parks CNP Work Phone: [facility] Work Phone: 09-11-2022 16:29-0400 Body temperature 98.6 [degF] Adelaida Parks CNP Work Phone: [facility] Work Phone: 09-11-2022 16:29-0400 Body weight 108.86 kg Adelaida Parks CNP Work Phone: [facility] Work Phone: 09-11-2022 16:29-0400 Diastolic blood pressure 91 mm[Hg] Adelaida Parks CNP Work Phone: [facility] Work Phone: 09-11-2022 16:29-0400 Heart rate 68 /min Adelaida Parks CNP Work Phone: [facility] Work Phone: 09-11-2022 16:29-0400 SaO2% (BldA) [Mass fraction] 98 % Adelaida Parks CNP Work Phone: [facility] Work Phone: 09-11-2022 16:29-0400 Systolic blood pressure 137 mm[Hg] Adelaida Parks CNP Work Phone: [facility] Work Phone: 08-08-2022 17:13-0400 Body height 157.48 cm Adelaida Parks CNP Work Phone: [facility] Work Phone: 08-08-2022 17:13-0400 Body mass index (BMI) [Ratio] 43.2 kg/m2 Adelaida Parks CNP Work Phone: [facility] Work Phone: 08-08-2022 17:13-0400 Body surface area Derived from formula 2.1 m2 Adelaida Parks CNP Work Phone: [facility] Work Phone: 08-08-2022 17:13-0400 Body temperature 97.4 [degF] Adelaida Parks CNP Work Phone: [facility] Work Phone: 08-08-2022 17:13-0400 Body weight 107.05 kg Adelaida Parks CNP Work Phone: [facility] Work Phone: 08-08-2022 17:13-0400 Diastolic blood pressure 80 mm[Hg] Adelaida Parks CNP Work Phone: [facility] Work Phone: 08-08-2022 17:13-0400 Heart rate 111 /min Adelaida Parks CNP Work Phone: [facility] Work Phone: 08-08-2022 17:13-0400 SaO2% (BldA) [Mass fraction] 98 % Adelaida Parks CNP Work Phone: [facility] Work Phone: 08-08-2022 17:13-0400 Systolic blood pressure 130 mm[Hg] Adelaida Parks CNP Work Phone: [facility] Work Phone: Encounters Encounter Date Encounter Type Care Provider Facility Start: 07-01-2024 End: 07-01-2024 Bamboo flowsheet Steve Vorao CNM Work Phone: [facility] Start: 07-01-2024 End: 07-01-2024 Bamboo flowsheet Steve Vorao CNM Work Phone: [facility] Start: 07-01-2024 End: 07-01-2024 Clinisync Result Encounter Steve Ian Vorao CNM Work Phone: [facility] Unsolicited Start: 07-01-2024 End: 07-01-2024 Office outpatient visit 15 minutes Steve Vorao CNM Work Phone: [facility] Comment on above: Encounter for prenat al care of first , third trimester (Primary Dx); Low platelet count (CMS/HCC); History of COVID-19; Elevated blood pressure affecting in third trimester, antepartum Start: 06-26-2024 End: 06-26-2024 Documentation procedure Contreras [facility] Start: 06-26-2024 End: 06-26-2024 ambulatory ROGERS MOTA [facility] Start: 06-26-2024 End: 06-26-2024 Office outpatient new 60 minutes Rogers Mota MD [facility] Comment on above: Thrombocytopenia aff ecting (Primary Dx); Normocytic anemia Start: 06-24-2024 End: 06-24-2024 Bamboo flowsheet Steve L Floro CNM Work Phone: [facility] Start: 06-24-2024 End: 06-24-2024 Bamboo flowsheet Steve L Floro CNM Work Phone: [facility] Start: 06-24-2024 End: 06-24-2024 Office outpatient visit 15 minutes Steve L Floro CNM Work Phone: [facility] Comment on above: Encounter for prenat al care of first , third trimester (Primary Dx); Low platelet count (CMS/HCC) Start: 06-17-2024 End: 06-17-2024 Bamboo flowsheet Steve L Floro CNM Work Phone: [facility] Start: 06-17-2024 End: 06-17-2024 Bamboo flowsheet Steve L Floro CNM Work Phone: [facility] Start: 06-17-2024 End: 06-17-2024 Clinisync Result Encounter Stvee L Floro CNM Work Phone: [facility] Unsolicited Start: 06-10-2024 End: 06-10-2024 Bamboo flowsheet Steve L Floro CNM Work Phone: [facility] Start: 06-10-2024 End: 06-10-2024 Bamboo flowsheet Steve L Floro CNM Work Phone: [facility] Start: 06-10-2024 End: 06-10-2024 Office outpatient visit 15 minutes Steve L Floro CNM Work Phone: [facility] Comment on above: Encounter for prenat al care of first , third trimester (Primary Dx) Start: 05-13-2024 End: 05-13-2024 Bamboo flowsheet Steve L Floro CNM Work Phone: [facility] Start: 05-13-2024 End: 05-13-2024 Bamboo flowsheet Steve L Floro CNM Work Phone: [facility] Start: 04-16-2024 End: 04-16-2024 Bamboo flowsheet Steve L Floro CNM Work Phone: [facility] Start: 04-16-2024 End: 04-16-2024 Bamboo flowsheet Steve L Floro CNM Work Phone: [facility] Start: 04-16-2024 End: 04-16-2024 Office outpatient visit 15 minutes Steve L Floro CNM Work Phone: [facility] Comment on above: Encounter for prenat al care of first , third trimester (Primary Dx); Screening for diabetes mellitus (DM); Screening for iron deficiency anemia; related condition in third trimester Start: 03-30-2024 End: 03-30-2024 Office outpatient visit 15 minutes Donte Villatoro MD Work Phone: [facility] Comment on above: Nephrolithiasis (Courtney nicko Dx); Mineral metabolism disorder Start: 03-30-2024 End: 03-30-2024 ambulatory DONTE VILLATORO [facility] Start: 03-19-2024 End: 03-19-2024 Bamboo flowsheet Steve L Floro CNM Work Phone: [facility] Start: 03-19-2024 End: 03-19-2024 Bamboo flowsheet Steve L Floro CNM Work Phone: [facility] Start: 03-19-2024 End: 03-19-2024 Office outpatient visit 15 minutes Steve L Floro CNM Work Phone: [facility] Comment on above: Encounter for prenat al care of first , second trimester (Primary Dx); History of COVID-19 Start: 03-03-2024 End: 04-23-2024 Telephone encounter Steve L Floro CNM Work Phone: [facility] Start: 03-02-2024 End: 03-03-2024 ambulatory VIVIANA BARKLEY [facility] Start: 02-11-2024 End: 02-11-2024 Office outpatient visit 15 minutes Steve L Floro CNM Work Phone: [facility] Comment on above: Encounter for prenat al care of first , second trimester (Primary Dx) Start: 01-16-2024 End: 01-16-2024 Bamboo flowsheet Steve L Floro CNM Work Phone: [facility] Start: 01-16-2024 End: 01-16-2024 Bamboo flowsheet Steve L Floro CNM Work Phone: [facility] Start: 01-16-2024 End: 01-16-2024 Office outpatient visit 15 minutes Steve L Floro CNM Work Phone: [facility] Comment on above: Encounter for prenat al care of first , second trimester (Primary Dx); related condition in second trimester Start: 12-26-2023 End: 12-26-2023 ambulatory DONTE VILLATORO [facility] Start: 11-20-2023 End: 11-20-2023 Bamboo flowsheet Steve L Floro CNM Work Phone: [facility] Start: 11-20-2023 End: 11-20-2023 Bamboo flowsheet Steve L Floro CNM Work Phone: [facility] Start: 11-20-2023 End: 11-20-2023 Office outpatient visit 15 minutes Steve L Floro CNM Work Phone: [facility] Comment on above: examinatio n or test, positive result; Amenorrhea Start: 10-23-2023 End: 10-23-2023 Telephone encounter Soha Kitchen [facility] Start: 10-21-2023 End: 10-21-2023 Office outpatient visit 15 minutes Donte Villatoro MD Work Phone: [facility] Comment on above: Mineral metabolism d isorder (Primary Dx); Nephrolithiasis Start: 10-21-2023 End: 10-21-2023 ambulatory DONTE VILLATORO [facility] Start: 09-20-2023 End: 09-20-2023 [facility] Start: 08-20-2023 End: 08-20-2023 Telephone encounter Donte Villatoro MD Work Phone: [facility] Start: 08-20-2023 End: 08-20-2023 [facility] Start: 08-09-2023 End: 08-09-2023 Telephone encounter Donte Villatoro MD Work Phone: [facility] Start: 08-09-2023 End: 08-10-2023 [facility] Start: 08-09-2023 End: 08-09-2023 Evaluation and management of inpatient [facility] Start: 08-06-2023 End: 08-06-2023 Evaluation and management of inpatient NO PCP NO PCP [facility] Start: 08-05-2023 End: 08-06-2023 Admission to [facility] Phone Call Provider 3 [facility] Start: 07-31-2023 End: 07-31-2023 Office outpatient new 45 minutes Donte Villatoro MD Work Phone: [facility] Comment on above: Nephrolithiasis (Courtney nicko Dx) Start: 07-31-2023 End: 07-31-2023 Telephone encounter Donte Villatoro MD Work Phone: [facility] Start: 07-31-2023 End: 07-31-2023 ambulatory DONTE Lopez [facility] Start: 07-30-2023 End: 07-31-2023 Emergency department patient visit BEN DANG [facility] Start: 07-29-2023 End: 07-30-2023 Emergency department patient visit NO PCP NO PCP [facility] Start: 10-11-2022 End: 10-11-2022 FQHC visit, estab pt Tran MCCOY Work Phone: [facility] Work Phone: Start: 09-19-2022 End: 09-19-2022 General Leah Phillips DDS Work Phone: [facility] Work Phone: Start: 09-11-2022 End: 09-11-2022 FQHC visit, estab pt Tran GOODWS Work Phone: [facility] Work Phone: Start: 08-08-2022 End: 08-08-2022 General Leah Phillips DDS Work Phone: [facility] Work Phone: Start: 08-08-2022 End: 08-08-2022 Adult health examination Adelaida Parks CORRESPONDENCE COORDINATOR Work Phone: [facility] Work Phone: Start: 08-08-2022 End: 08-08-2022 FQHC visit new patient Adelaida Parks CORRESPONDENCE COORDINATOR Work Phone: [facility] Work Phone: Start: 08-08-2022 End: 09-11-2022 FQHC visit, estab pt Cassandra Kee CORRESPONDENCE COORDINATOR Work Phone: [facility] Work Phone: Start: 08-08-2022 comprehensive oral evaluation - new or established patient Leah Phillips DDS Work Phone: [facility] Start: 07-06-2022 ambulatory Adelaida Parks PAPITO [facility] Procedures Date Procedure Procedure Detail Performing Clinician Start: 07-01-2024 TB UA (CLEAN/CATCH) PURCHASER AUTOMOTIVE PARTS/MICRO IF IND. Steve Ian Vorao CNM Work Phone: Start: 06-17-2024 ALL CBC WITH AUTO DIFF Steve L Floro CNM Work Phone: Start: 06-17-2024 TB URINE T PROTEIN CREAT RATIO Steve L Floro CNM Work Phone: Start: 11-20-2023 Urine test visual color cmprsn meths Steve L Floro CNM Work Phone: Start: 10-21-2023 Follow-up visit Follow-up DONTE VILLATORO Start: 07-31-2023 Follow-up visit Follow-up DONTE VILLATORO Start: 10-11-2022 Most recent diastoli c blood pressure 80-89 mm hg Adelaida Parks CORRESPONDENCE COORDINATOR Work Phone: Start: 10-11-2022 Most recent systolic blood pressure <130 mm hg Adelaida Parks CORRESPONDENCE COORDINATOR Work Phone: Start: 10-11-2022 Psychotherapy w/yadiel ent 30 minutes Tran Short [facility] Work Phone: Start: 09-19-2022 extraction, erupted tooth or exposed root (elevation and/or forceps removal) Leah Phillips DDS Work Phone: Start: 09-11-2022 Most recent diastoli c blood pressure 80-89 mm hg Cassandra Kee CORRESPONDENCE COORDINATOR Work Phone: Start: 09-11-2022 Most recent systolic blood pressure <130 mm hg Cassandra Kee CORRESPONDENCE COORDINATOR Work Phone: Start: 09-11-2022 Psychotherapy w/yadiel ent 30 minutes Tran Short [facility] Work Phone: Start: 08-08-2022 Antibody hiv-1&hiv-2 single result Adelaida Kasey CORRESPONDENCE COORDINATOR Work Phone: Start: 08-08-2022 Extraction of wisdom tooth Adelaida Parks CNP Work Phone: Start: 08-08-2022 Hemoglobin glycosylated a1c Adelaida Parks CNP Work Phone: Start: 08-08-2022 intraoral - complete series of radiographic images Leah Phillips DDS Work Phone: Start: 08-08-2022 Most recent diastoli c blood pressure 80-89 mm hg Adelaida Parks CNP Work Phone: Start: 08-08-2022 Most recent systolic blood press 130-139mm hg Adelaida Parks CNP Work Phone: Start: 08-08-2022 panoramic radiograph ic image Leah Phillips DDS Work Phone: Start: 08-08-2022 Pt-focused hlth risk assmt score doc stnd instrm Adelaida Parks CNP Work Phone: Plan of Treatment Date Care Activity Detail Author Start: 03-30-2025 Adult BMI Screening Adult BMI Screen ing [facility] Start: 03-30-2025 Tobacco Screening Tobacco Screening [facility] Start: 11-16-2024 Influenza vaccination [facility] Start: 10-20-2024 Adult BMI Screening Adult BMI Screen ing [facility] Start: 10-20-2024 Tobacco Screening Tobacco Screening [facility] Start: 09-30-2024 End: 09-30-2024 Patient encounter procedure 09/30/2024 2:15 PM EDT Office Visit [facility] [address] [place] [address] [place] [address] Donte Villatoro MD [address] [place] [address] [facility] Start: 09-15-2024 End: 06-26-2025 CBC W Auto Differential panel - Blood CBC with auto diff Lab Routine Nephrolithiasis Thrombocytopenia affecting Expected: 09/15/2024, Expires: 06/26/2025 [facility] Work Phone: Comment on above: Expected: 09/15/2024 , Expires: 06/26/2025 Start: 09-15-2024 End: 06-26-2025 Ferritin [Mass/volume] in Serum or Plasma Ferritin Lab Routine Nephrolithiasis Thrombocytopenia affecting Expected: 09/15/2024, Expires: 06/26/2025 [facility] Comment on above: Expected: 09/15/2024 , Expires: 06/26/2025 Start: 09-15-2024 End: 06-26-2025 Iron and TIBC Iron and TIBC Lab Routine Nephrolithiasis Thrombocytopenia affecting Expected: 09/15/2024, Expires: 06/26/2025 [facility] Comment on above: Expected: 09/15/2024 , Expires: 06/26/2025 Start: 08-19-2024 Adult BMI Screening Adult BMI Screen ing [facility] Start: 08-19-2024 Tobacco Screening Tobacco Screening [facility] Start: 08-08-2024 Adult BMI Screening Adult BMI Screen ing [facility] Start: 08-08-2024 Tobacco Screening Tobacco Screening [facility] Start: 07-30-2024 Adult BMI Screening Adult BMI Screen ing [facility] Start: 07-30-2024 Tobacco Screening Tobacco Screening [facility] Start: 07-06-2024 End: 07-06-2024 Patient encounter procedure 07/06/2024 1:30 PM EDT Routine [facility] [address] [place] [phone] Steve Stover, CNM [address] [place] [address] [facility] Start: 07-01-2024 End: 07-01-2024 Patient encounter procedure 07/01/2024 10:30 AM EDT Routine [facility] [address] [place] [phone] Steve Stover, CNM [address] [place] [address] [facility] Start: 06-24-2024 End: 06-24-2024 Patient encounter procedure 06/24/2024 11:30 AM EDT Routine [facility] [address] [facility] [place] [phone] Steve Stover, CN [address] [place] [address] [facility] Start: 06-17-2024 End: 06-17-2024 Patient encounter procedure 06/17/2024 10:45 AM EDT Routine [facility] [address] [facility] [place] [phone] Steve Stover, CN [address] [place] [address] [facility] Start: 05-13-2024 End: 05-13-2024 Patient encounter procedure [facility] Comment on above: Arrived Start: 05-01-2024 End: 05-01-2024 Professional / ancillary services management 05/01/2024 10:00 AM EST Ancillary Procedure [facility] [address] [place] [address] [facility] Start: 04-29-2024 End: 04-29-2024 Patient encounter procedure 04/29/2024 3:00 PM EST Office Visit [facility] [address] [place] [phone] Steve Stover, CNM [address] [place] [address] [facility] Start: 04-16-2024 End: 04-16-2025 CBC panel - Blood by Automated count CBC Lab Routine Screening for iron deficiency anemia Expected: 04/16/2024 (Approximate), Expires: 04/16/2025 [facility] Comment on above: Expected: 04/16/2024 (Approximate), Expires: 04/16/2025 Start: 04-16-2024 End: 04-16-2025 GLUCOSE, GESTATIONAL SCREEN (50G)-135 CUTOFF GLUCOSE, GESTATIONAL SCREEN (50G)-135 CUTOFF Lab Routine Screening for diabetes mellitus (DM) Expected: 04/16/2024 (Approximate), Expires: 04/16/2025 [facility] Work Phone: Comment on above: Expected: 04/16/2024 (Approximate), Expires: 04/16/2025 Start: 04-16-2024 End: 04-16-2025 US for US OB follow up transabdominal approach Imaging Routine related condition in third trimester Expected: 04/16/2024, Expires: 04/16/2025 [facility] Comment on above: Expected: 04/16/2024 , Expires: 04/16/2025 Start: 04-16-2024 End: 04-16-2024 Patient encounter procedure 04/16/2024 9:30 AM EST Routine [facility] [address] [place] [address] Steve Stover, CN [address] [place] [address] [facility] Start: 02-11-2024 End: 02-11-2024 Patient encounter procedure 02/11/2024 10:30 AM EST Routine [facility] [address] [place] [phone] Steve Stover, CNM [address] [place] [address] [facility] Start: 02-11-2024 End: 02-11-2024 Professional / ancillary services management 02/11/2024 10:00 AM EST Ancillary Procedure [facility] [address] [address] [facility] Start: 01-16-2024 End: 01-15-2025 US for US OB 14+ weeks anatomy scan Imaging Routine related condition in second trimester Expected: 01/16/2024, Expires: 01/15/2025 [facility] Work Phone: Comment on above: Expected: 01/16/2024 , Expires: 01/15/2025 Start: 01-16-2024 End: 01-16-2024 Patient encounter procedure 01/16/2024 10:00 AM EDT Routine [facility] [address] [place] [phone] Steve Stover, [place] [address] [place] [address] Arrived [facility] Comment on above: Arrived Start: 12-30-2023 End: 12-30-2023 Patient encounter procedure 12/30/2023 3:15 PM EDT Office Visit [facility] [address] [place] [address] A [facility] [place] [address] Donte Villatoro MD [address] [place] [address] [facility] Start: 12-26-2023 End: 10-20-2024 US Retroperitoneum Ultrasound retroperitoneal complete Imaging Routine Mineral metabolism disorder Nephrolithiasis Expected: 12/26/2023 (Approximate), Expires: 10/20/2024 [facility] Work Phone: Comment on above: Expected: 12/26/2023 (Approximate), Expires: 10/20/2024 Start: 12-19-2023 End: 12-19-2023 Patient encounter procedure 12/19/2023 10:00 AM EDT Routine [facility] [address] [place] [phone] Steve Stover, [address] [address] [facility] Start: 11-20-2023 End: 11-19-2024 Bacteria identified in Urine by Culture Urine culture Microbiology Routine Amenorrhea examination or test, positive result Expected: 11/20/2023 (Approximate), Expires: 11/19/2024 [facility] Comment on above: Expected: 11/20/2023 (Approximate), Expires: 11/19/2024 Start: 11-20-2023 End: 11-19-2024 DRUG TOX MONITORIGN 6 W/ CONF,URINE DRUG TOX MONITORIGN 6 W/ CONF,URINE Lab Routine Amenorrhea examination or test, positive result Expected: 11/20/2023 (Approximate), Expires: 11/19/2024 [facility] Comment on above: Expected: 11/20/2023 (Approximate), Expires: 11/19/2024 Start: 11-20-2023 End: 11-19-2024 Neisseria gonorrhoeae DNA [Presence] in Cervical mucus by GHAZALA with probe detection C. trachomatis / N. gonorrhoeae, DNA probe Lab Routine Amenorrhea examination or test, positive result Expected: 11/20/2023 (Approximate), Expires: 11/19/2024 [facility] Comment on above: Expected: 11/20/2023 (Approximate), Expires: 11/19/2024 Start: 11-20-2023 End: 11-19-2024 TSH W/REFLEX TO FT4 TSH W/REFLEX TO FT4 Lab Routine Amenorrhea examination or test, positive result Expected: 11/20/2023 (Approximate), Expires: 11/19/2024 [facility] Comment on above: Expected: 11/20/2023 (Approximate), Expires: 11/19/2024 Start: 11-20-2023 End: 11-19-2024 URINALYSIS MICROSCOPIC URINALYSIS MICROSCOPIC Lab Routine Amenorrhea examination or test, positive result Expected: 11/20/2023 (Approximate), Expires: 11/19/2024 [facility] Comment on above: Expected: 11/20/2023 (Approximate), Expires: 11/19/2024 Start: 11-20-2023 End: 11-20-2023 Patient encounter procedure 11/20/2023 11:30 AM EDT Routine [facility] [address] [place] [address] Steve Stover, CNM [address] [place], [place] [phone] Arrived [facility] Comment on above: Arrived Start: 11-20-2023 End: 11-20-2023 Professional / ancillary services management 11/20/2023 10:30 AM EDT Ancillary Procedure [facility] [address] [place] [address] [facility] Start: 11-17-2023 Influenza vaccination P [facility] Start: 08-09-2023 End: 08-09-2023 Admission to same day surgery center 08/09/2023 7:00 AM EDT - 08/09/2023 8:15 AM EDT [facility] [address] [place] [address] [address] [place] [phone] Donte Villatoro MD [address] [place] [address] LASER HOLMIUM URETEROSCOPY RENAL STONES < OR=1CM [08288 (CPT )] [facility] Surgery A Division [facility] Comment on above: LASER HOLMIUM URETER OSCOPY RENAL STONES < OR=1CM [97180 (CPT )] Start: 08-09-2023 End: 08-09-2023 Anesthesia consultation 08/09/2023 7:00 AM EDT Anesthesia Event [facility] Surgery A Division [facility] Surgery [address] [place] [address] [address] [place] [id number] Gelacio Boston DO [address] [place] [address] [facility] Start: 08-09-2023 End: 08-09-2023 Cysto w/insert ureteral stent [facility] Start: 08-09-2023 End: 08-09-2023 Cysto w/ureteroscopy w/lithotripsy [facility] Start: 08-09-2023 Subsequent hospital visit by physician Kate [facility] of [facility] - Surgery Comment on above: Arrived Start: 11-12-2022 FQHC visit, estab pt Medical E stablished Patient [facility] Work Phone: Start: 10-29-2022 Emergency department patient visit Dental Emergency [facility] Work Phone: Start: 10-16-2022 Emergency department patient visit Dental Emergency [facility] Work Phone: Start: 10-11-2022 FQHC visit, estab pt Medical E stablished Patient [facility] Work Phone: Start: 10-11-2022 End: 10-11-2022 Patient education based on identified need [facility] Start: 09-19-2022 Extraction Health Par [facility] Work Phone: Start: 09-11-2022 End: 09-11-2022 Patient education based on identified need [facility] Start: 08-13-2022 CBC W Auto Different ial panel - Blood [facility] Start: 08-13-2022 Lipid 1996 panel - S salma or Plasma LIPID PROFILE [facility] Start: 08-08-2022 End: 08-08-2022 Patient education based on identified need [facility] Start: 2017 Screening for malign ant neoplasm of cervix Pap Smear [facility] Start: 10-25-2015 DTaP,Tdap and Td Vaccines (1 - Tdap) DTaP,Tdap and Td Vaccines (1 - Tdap) [facility] Start: 2014 Adult BMI Follow Up Plan Adult BMI F ollow Up Plan [facility] Start: 2008 Depression Screening Depression Scre ening [facility] ABO/Rh ABO/Rh Lab Routi ne Amenorrhea examination or test, positive result Ordered: 11/20/2023 [facility] Comment on above: Ordered: 11/20/2023 Antibody screen Antibody screen Lab Routine Amenorrhea examination or test, positive result Ordered: 11/20/2023 [facility] Comment on above: Ordered: 11/20/2023 CBC panel - Blood by Automated count CBC Lab Routine Amenorrhea examination or test, positive result Ordered: 11/20/2023 [facility] Comment on above: Ordered: 11/20/2023 Hemoglobin A1c/Hemoglobin.total in Blood Hemoglobin A1c Lab Routine Amenorrhea examination or test, positive result Ordered: 11/20/2023 [facility] Comment on above: Ordered: 11/20/2023 Hepatitis B virus surface Ag [Presence] in Serum or Plasma by Immunoassay Hepatitis B surface antigen Lab Routine Amenorrhea examination or test, positive result Ordered: 11/20/2023 [facility] Work Phone: Comment on above: Ordered: 11/20/2023 Hepatitis C virus Ab [Presence] in Serum or Plasma by Immunoassay Hepatitis C antibody Lab Routine Amenorrhea examination or test, positive result Ordered: 11/20/2023 [facility] Comment on above: Ordered: 11/20/2023 HIV-1/HIV-2 antigen/antibody combination immunoassay HIV-1 and HIV-2 antibodies Lab Routine Amenorrhea examination or test, positive result Ordered: 11/20/2023 [facility] Comment on above: Ordered: 11/20/2023 End: 10-20-2024 Litholink 48 Hour Litholink 48 Hour Lab Routine Mineral metabolism disorder Nephrolithiasis 1 Occurrences starting 10/21/2023 until 10/20/2024 [facility] Comment on above: 1 Occurrences starti ng 10/21/2023 until 10/20/2024 Reagin Ab [Presence] in Serum by RPR RPR Lab Routine Amenorrhea examination or test, positive result Ordered: 11/20/2023 [facility] Comment on above: Ordered: 11/20/2023 Rubella antibody, IgG Rubella an tibody, IgG Lab Routine Amenorrhea examination or test, positive result Ordered: 11/20/2023 [facility] Comment on above: Ordered: 11/20/2023 Immunizations Immunization Date Immunization Notes Care Provider Nicci morelos 11-22-2009 tetanus toxoid, redu arnaldo diphtheria toxoid, and acellular pertussis vaccine, adsorbed Adelaida Parks CORRESPONDENCE COORDINATOR Work Phone: [facility] 01-12-2003 hepatitis B vaccine, pediatric or pediatric/adolescent dosage Adelaida Kasey CORRESPONDENCE COORDINATOR Work Phone: [facility] 01-12-2003 poliovirus vaccine, inactivated Adelaida Kasey CORRESPONDENCE COORDINATOR Work Phone: [facility] 12-01-2002 measles, mumps and rubella virus vaccine Adelaida Kasey CORRESPONDENCE COORDINATOR Work Phone: [facility] 12-01-2002 poliovirus vaccine, inactivated Adelaida Kasey CORRESPONDENCE COORDINATOR Work Phone: [facility] 11-04-2002 hepatitis B vaccine, pediatric or pediatric/adolescent dosage Adelaida Kasey CORRESPONDENCE COORDINATOR Work Phone: [facility] 11-04-2002 measles, mumps and rubella virus vaccine Adelaida Kasey CORRESPONDENCE COORDINATOR Work Phone: [facility] 11-04-2002 poliovirus vaccine, inactivated Adelaida Kasey CORRESPONDENCE COORDINATOR Work Phone: [facility] 1996 hepatitis B vaccine, pediatric or pediatric/adolescent dosage Adelaida Kasey CORRESPONDENCE COORDINATOR Work Phone: [facility] Payers Date Payer Category Payer Medicaid [id number] 2022 Medicaid [id number] 1995 Unknown [id number] 2.16.8 [id number] 1996 Unknown [id number] 2.16.8 [id number] 1996 Unknown [id number] 2.16.8 [id number] 1996 Unknown [id number] 2.16.8 [id number] 1996 Unknown [id number] 2.16.8 [id number] 1996 Unknown [id number] 2.16.8 [id number] 1996 Unknown [id number] 2.16.8 [id number] 1996 Unknown [id number] 2.16.8 [id number] 1996 Unknown [id number] 2.16. [id number] 1996 Unknown [id number] 2.16.8 [id number] 1996 Unknown [id number] 2.16. [id number] 1996 Unknown [id number] 2.16.8 [id number] 1996 Unknown [id number] 2.16.8 [id number] 1996 Unknown [id number] 2.16.8 [id number] 1996 Unknown [id number] 2.16.8 [id number] 1996 Unknown [id number] 2.16.8 [id number] Self-pay [id number] [id number] Social History Date Type Detail Facility Assertion Lives with miranda nion (finding) [facility] Emotional stress (finding) [facility] Assertion Gender identity finding (finding) [facility] Assertion Exposure to poll ution (event) [facility] Finding of sexua l orientation (finding) [facility] Social drinker (finding) [facility] Attending school (finding) [facility] Lives alone (finding) [facility] Assertion Full-time employ ment (finding) [facility] Assertion Sexually active (finding) [facility] Tobacco smoking status Unknown if ever smoked [facility] Work Phone: Start: 04-25-2023 End: 07-31-2023 Tobacco smoking status NHIS Never smoked tobacco [facility] Start: 04-25-2023 End: 07-31-2023 Tobacco use and exposure Smokeless tobacco non-user [facility] Start: 11-20-2023 End: 06-26-2024 Alcoholic beverage intake Current drinker of alcohol (finding) [facility] Start: 04-25-2023 End: 11-20-2023 History of Social function [facility] Start: 04-25-2023 End: 11-20-2023 Tobacco use panel [facility] Start: 10-11-2023 [facility] Start: 1995 [facility] Start: 04-25-2023 Gender identity Identifies as female gender (finding) [facility] Start: 04-25-2023 Sexual orientation Heterosexual (fin ding) [facility] How hard is it for you to pay for the very basics like food, housing, medical care, and heating Not very hard [facility] Start: 03-30-2024 Alcohol Comment Maybe once kate r 3 months [facility] Start: 1995 Sex assigned at Not on file [facility] Start: 10-19-2014 Sex Female (finding) [facility] Start: 08-09-2023 Alcohol Comment occasional [facility] Start: 08-06-2023 Alcoholic beverage intake Ex-drinker (finding) [facility] NEGATED: Highlighted row Assertion Current drinker of alcohol (finding) [facility] NEGATED: Highlighted row Assertion [facility] NEGATED: Highlighted row Assertion Contraception (finding) [facility] NEGATED: Highlighted row Assertion Exposure to pollution (event) [facility] Medical Equipment Procedure Code Equipment Code Equipment Origin al Text Equipment Identifier Dates Stent Uret 6fr 26cm 2 Pgtl Crv Rdpq Pstnr Mfl [facility] [id number] - [id number], [id number], [id number] FDA Start: 08-09-2023 Comment on above: Description: string off Goals Date Patient Goal Desired Activity /State Personal health goal Mental Status Date Assessment Result Facility Cognitive function The estimated intelligence was normal Intelligence finding (finding) [facility] Work Phone: Clinical Notes 08-08-2022 to 07-01-2024 Steve Stover CNM - 07/01/2024 10:30 AM Joanie Whitten RN - 06/26/2024 10:16 AM Vinh Mota MD - 06/26/2024 9:45 AM EDTPatient Cherelle Stover CNM - 06/24/2024 11:30 AM EDT Note Date & Type Note Facility 07-01-2024 History of Presen t illness Narrative Subjective No chief complaint on file. Osiris Hayward is a 28 y.o. at 39w5d with a working estimated date of delivery of 07/03/2024, by Last Menstrual Period who presents for a routine visit. She denies vaginal bleeding, leakage of fluid, decreased movements, or contractions. OB History Para Term AB Living 1 0 0 0 0 0 SAB IAB Ectopic Multiple Live Births 0 0 0 0 0 # Outcome Date GA Lbr Crow/2nd Weight Sex Type Anes PTL Lv 1 Current Her is complicated by: Objective Physical Exam weight: 257 lb Expected Total Weight Gain: 11 lb-19 lb Pregravid BMI: 38.27 BP: (!) 150/100 Urine protein +100 Urine glucose negative Blood noted- s/p vaginal exam Assessment/Plan Diagnoses and all orders for this visit: Encounter for care of first , third trimester Low platelet count (CMS/HCC) History of COVID-19 Elevated blood pressure affecting in third trimester, antepartum Continue vitamin. Labs reviewed. GBS negative Expected mode of delivery Patient's blood pressure is elevated today, orders called to [facility] for patient. I want her to go to the hospital for pre-clampsia work up documented in this encounter [facility] 06-26-2024 History of Presen t illness Narrative Pt here for consult low plt. Per Dr. Mota: Ok for procedure as long as plt over 100K. CBC and iron studies 3 months after delivery. Hold aspirin from now. Labs scheduled. documented in this encounter [facility] 06-26-2024 History of Presen t illness Narrative Images from the original note were not included. [facility] 06/26/24 Osiris Hayward is a 28 y.o. year old female seen today in the oncology clinic. Chief Complaint Patient presents with New Patient History of Present Illness: Ms. Hayward is a 28 y.o. female currently in her 3rd trimester of with baby boy. Her due date is going to be July 03. She is referred to Hematology for thrombocytopenia. The patient's platelet count after dropped down from normal to 120 in December 2023, down to 108 in February 2024. Most recently her platelet count is still stable around 106 K. she denies any significant bleeding. She had a COVID infection February 2024, was started on baby aspirin for DVT prophylaxis. She has no previous complications. She is considering using epidural during delivery. Past Medical History: Diagnosis Date Arthritis Kidney stones 10/28/2023 Past Surgical History: Procedure Laterality Date CYSTOSCOPY INSERTION STENT URETER Left 08/09/2023 Performed by Donte Villatoro MD at [facility] CYSTOSCOPY REMOVAL STENT Left 08/20/2023 Performed by Donte Villatoro MD at [facility] CYSTOSCOPY RETROGRADE PYELOGRAM Left 08/09/2023 Performed by Donte Villatoro MD at [facility] LASER HOLMIUM URETEROSCOPY RENAL STONES < OR=1CM Left 08/09/2023 Performed by Donte Villatoro MD at [facility] Family History Problem Relation Age of Onset COPD Father Social History Socioeconomic History Marital status: Single Tobacco Use Smoking status: Never Smokeless tobacco: Never Vaping Use Vaping status: Every Day Substances: THC Devices: Pre-filled pod Substance and Sexual Activity Alcohol use: Yes Comment: Maybe once ever 3 months Drug use: Yes Types: Marijuana Comment: Last use 08/19/2023 Sexual activity: Yes Partners: Male control/protection: None Social Drivers of Health Financial Resource Strain: Low Risk (03/03/2024) Overall Financial Resource Strain (CARDIA) Difficulty of Paying Living Expenses: Not very hard Food Insecurity: No Food Insecurity (03/30/2024) Hunger Screening Food Insecurity - Worry: Never True Food Insecurity - Inability: Never True Transportation Needs: No Transportation Needs (03/03/2024) PRAPARE - Transportation Lack of Transportation (Medical): No Lack of Transportation (Non-Medical): No Housing Instability: Low Risk (03/03/2024) Housing Instability Housing Instability: No No Known Allergies Medication List Accurate as of June 26, 2024 10:29 AM. If you have any questions, ask your nurse or doctor. Medications Continued This Visit aspirin 81 mg Refills: 0 Dose: 81 mg CEPHalexin 500 mg capsule Refills: 0 Dose: 500 mg Commonly known as: KEFLEX ergocalciferol 1,250 mcg (50,000 unit) capsule Refills: 0 Dose: 50,000 Units Commonly known as: DRISDOL ferrous sulfate 325 (65 FE) mg EC tablet Refills: 0 Dose: 325 mg oxybutynin XL 5 mg 24 hr tablet Quantity: 21 tablet Refills: 0 Dose: 5 mg Signed by: Dr. Vlilatoro 5 mg, oral, Daily Commonly known as: DITROPAN-XL ORAL Refills: 0 Dose: 1 tablet Review of Symptoms: Review of Systems ECO- Symptomatic; fully ambulatory Physical Exam: General: Well appearing, in no acute distress. Vitals: BP 146/89 Pulse 81 Temp 36.6 C (97.9 F) (Oral) Resp 20 Ht 162.6 cm (5' 4.02 ) Wt 117.7 kg (259 lb 6.4 oz) LMP 09/27/2023 Comment: urine hcg 08-09-2023 negative SpO2 100% BMI 44.50 kg/m Body mass index is 44.5 kg/m . Eyes: No icterus, no conjuctival erythema ENT: Pharyngeal mucosa was moist without exudate and inflammation or ulcerations. Tongue was midline and appeared normal.Gums were unremarkable. Lymph nodes: No palpable adenopathy Neck: Supple. There were no masses, tenderness. Trachea was midline. Respiratory: Respirations were non-labored. Lungs were clear to auscultation. There was no dullness to percussion. Cardiac: Regular rate and rhythm, S1 and S2 sounds were normal. There were no rubs or gallops. Abdomen: Soft, non-tender, Nondistended. Bowel sounds audible in all four quadrants. There were no palpable masses. The liver and spleen were not enlarged. Extremities: There was no clubbing, Cyanosis, edema. Skin: There was no obvious rashes, bruising or ecchymosis. Back exam: No palpable tenderness was appreciated. Neurologic: There was no unilateral weakness. Mood and affect: Normal. Recent Imaging: No results found. Recent Labs: No results found for this or any previous visit (from the past 2 weeks). Diagnosis Problem list: Problem List Items Addressed This Visit Hematopoietic and Hemostatic Thrombocytopenia affecting - Primary Relevant Medications ferrous sulfate 325 (65 FE) mg EC tablet Normocytic anemia Relevant Medications ferrous sulfate 325 (65 FE) mg EC tablet Impression: Gestational thrombocytopenia Plan: I reviewed the patient's blood work, her platelet count slowly drift down from normal range to 100-120K after . Overall it remains very stable over the past 3 months. Most recent platelet count rating is 108K. Hemoglobin is stable around 10.6-11. Ok for invasive procedure such as epidural as long as plt over 100K. CBC and iron studies 3 months after delivery. Hold aspirin from now. Return to Hematology as needed. Thank you. Rogers Mota MD Please note that portions of this note were generated using voice recognition [employer] dictation software. Although every effort was made to ensure the accuracy of this automated program analyst, some errors in program analyst may have occurred. CC: Patient Care Team: No Pcp No Pcp as PCP - General (Family Medicine) PCP:NO PCP, NO PCP Referring MD: Steve Stover APRN-CNM documented in this encounter [facility] 06-26-2024 Instructions Rogers Mota MD - 06/26/2024 9:45 AM EDT Ok for procedure as long as plt over 100K. CBC and iron studies 3 months after delivery. Hold aspirin from now. documented in this encounter [facility] 06-24-2024 History of Presen t illness Narrative Subjective No chief complaint on file. Osiris Hayward is a 28 y.o. at 38w5d with a working estimated date of delivery of 07/03/2024, by Last Menstrual Period who presents for a routine visit. She denies vaginal bleeding, leakage of fluid, decreased movements, or contractions. OB History Para Term AB Living 1 0 0 0 0 0 SAB IAB Ectopic Multiple Live Births 0 0 0 0 0 # Outcome Date GA Lbr Crow/2nd Weight Sex Type Anes PTL Lv 1 Current Her is complicated by: history of kidney stones, low platelets Objective Physical Exam weight: 257 lb Expected Total Weight Gain: 11 lb-19 lb Pregravid BMI: 38.27 BP: 120/80 Urine protein-negative Urine glucose-negative Assessment/Plan Diagnoses and all orders for this visit: Encounter for care of first , third trimester Low platelet count (CMS/HCC) Continue vitamin. Labs reviewed. GBS negative Expected mode of delivery Follow up in 1 week for a routine visit. documented in this encounter [facility] 06-10-2024 History of Presen t illness Narrative Subjective No chief complaint on file. Osiris Hayward is a 28 y.o. at 36w5d with a working estimated date of delivery of 07/03/2024, by Last Menstrual Period who presents for a routine visit. She denies vaginal bleeding, leakage of fluid, decreased movements, or contractions. OB History Para Term AB Living 1 0 0 0 0 0 SAB IAB Ectopic Multiple Live Births 0 0 0 0 0 # Outcome Date GA Lbr Crow/2nd Weight Sex Type Anes PTL Lv 1 Current Her is complicated by: Objective Physical Exam weight: 255 lb Expected Total Weight Gain: 11 lb-19 lb Pregravid BMI: 38.27 BP: 120/80 visit today. Patient is doing well, reports frequent, regular movement. No c/o at this visit. Denies pain, leaking of fluid, no bleeding and no contractions. Urine protein Urine glucose Assessment/Plan Diagnoses and all orders for this visit: Encounter for care of first , third trimester Continue vitamin. Labs reviewed. GBS negative Expected mode of delivery Follow up in 1 week for a routine visit. documented in this encounter [facility] 04-16-2024 History of Presen t illness Narrative Subjective No chief complaint on file. Osiris Leal is a 28 y.o. at 28w6d with a working estimated date of delivery of 07/03/2024, by Last Menstrual Period who presents for a routine visit. She denies vaginal bleeding, leakage of fluid, decreased movements, or contractions. OB History Para Term AB Living 1 0 0 0 0 0 SAB IAB Ectopic Multiple Live Births 0 0 0 0 0 # Outcome Date GA Lbr Crow/2nd Weight Sex Type Anes PTL Lv 1 Current Her is complicated by: The following portions of the chart were reviewed this encounter and updated as appropriate: Objective Physical Exam weight: 240 lb Expected Total Weight Gain: 11 lb-19 lb Pregravid BMI: 38.27 BP: 118/80 Urine protein Urine glucose Labs: reviewed Imaging Assessment/Plan Diagnoses and all orders for this visit: Encounter for care of first , third trimester Screening for diabetes mellitus (DM) - GLUCOSE, GESTATIONAL SCREEN (50G)-135 CUTOFF; Future Screening for iron deficiency anemia - CBC; Future related condition in third trimester - US OB follow up transabdominal approach; Future Continue vitamin. Labs reviewed. Rhogam GTT . Follow up in 2 weeks for a routine visit. documented in this encounter [facility] 03-30-2024 History of Presen t illness Narrative Images from the original note were not included. [address] [place] [address] [address] [facility] [id number] Patient: Osiris Hayward Date of : 1995 Encounter Date: 03/30/2024 History of Present Illness: The patient is a 28 y.o. female, an established patient, and is here for Chief Complaint Patient presents with Follow-up . History stones. Had an ultrasound. No renal colic. She is currently 6 months . No 24 urine litho link yet but that is fine. Urinalysis today: No results for input(s): EXTPOCURCO , EXTPOCURCH , EXTPOCAPP , EXTPOCURBS , EXTPOCURBIL , EXTPOCUKET , EXTPOCUSPG , EXTPOCUHGB , EXTPOCUPRO , EXTPOCUURO , EXTPOCULEU , EXTPOCUNIT , EXTPOCUWBC , EXTPOCUBLD , EXTPOCURBC , EXTPOCUCRY , EXTPOCUBAC , EXTPOCUTREP , EXTPOCUPH , EXTPOCULEE in the last 72 hours. Last BUN and creatinine: Lab Results Component Value Date BUN 8 03/03/2024 Lab Results Component Value Date CREATININE 0.54 03/03/2024 Last PSA: No results found for: PSA No results found for: PROSTATICSP Past Medical, Family, and Social History Update: The following portions of the patient's history were reviewed and updated as appropriate: allergies, current medications, past family history, past medical history, past social history, past surgical history and problem list. Past Medical History: Diagnosis Date Arthritis Kidney stones 10/28/2023 Past Surgical History: Procedure Laterality Date CYSTOSCOPY INSERTION STENT URETER Left 08/09/2023 Performed by Donte Villatoro MD at [facility] CYSTOSCOPY REMOVAL STENT Left 08/20/2023 Performed by Donte Villatoro MD at [facility] CYSTOSCOPY RETROGRADE PYELOGRAM Left 08/09/2023 Performed by Donte Villatoro MD at [facility] LASER HOLMIUM URETEROSCOPY RENAL STONES < OR=1CM Left 08/09/2023 Performed by Donte Villatoro MD at [facility] Family History Problem Relation Age of Onset COPD Father Current Outpatient Medications Medication Sig Dispense Refill aspirin 81 mg Take 1 tablet (81 mg total) by mouth in the morning. PNV no.95/ferrous fum/folic ac ( ORAL) Take 1 tablet by mouth in the morning. ergocalciferol (DRISDOL) 1,250 mcg (50,000 unit) capsule Take 1 capsule (50,000 Units total) by mouth once a week. Has not started (Patient not taking: Reported on 03/30/2024) oxybutynin XL (DITROPAN-XL) 5 mg 24 hr tablet Take 1 tablet (5 mg total) by mouth in the morning. (Patient not taking: Reported on 03/30/2024) 21 tablet 0 No current facility-administered medications for this visit. (All medications reviewed and updated by provider since last office visit or hospitalization) Allergies: Patient has no known allergies. Tobacco History: Social History Tobacco Use Smoking Status Never Smokeless Tobacco Never (If patient a smoker, smoking cessation counseling offered) Social History: Social History Substance and Sexual Activity Alcohol Use Yes Comment: Maybe once ever 3 months Review of Systems: General: Negative for chills and fever. Cardiovascular: Negative for chest pain and shortness of breath. Gastrointestinal: Negative for constipation, diarrhea, nausea, and vomitting. -per HPI Physical Exam: BP 130/47 Pulse 79 Ht 162.6 cm (5' 4 ) Wt 105.7 kg (233 lb) LMP 09/27/2023 Comment: urine hcg 08-09-2023 negative BMI 39.99 kg/m Nontoxic no apparent distress. Respirations nonlabored. Skin is dry. Awake alert oriented x3. Assessment and Plan: Osiris was seen today for follow-up. Diagnoses and all orders for this visit: Nephrolithiasis Mineral metabolism disorder Problem List High Nephrolithiasis - Primary Overview ==== 03/30/2024 ==== no hydronephrosis. Doing well asymptomatic currently . Will see her in 6 months ==== 10/21/2023 ==== ##### status post left-sided stone treatment left ureteroscopy holmium laser lithotripsy. Stent placement stent removal asymptomatic. Ultrasound discusses some potential dilation left side. But she does have a left ureteral jet. Right side pelvis maybe lateral full but she had a CT scan that was negative any stones at all and that was just recently. Plan: Monitor. Repeat ultrasound few months any questions then CT ==== 07/31/2023 ==== history of left renal pelvic stone. About 7 mm. Appears calcified. Hounsfield units about 850 or so. Subjective fevers at the time of the ER that did resolve. At the time of ER visit white count was barely elevated her culture was negative. No fever as well. Clinically she is nontoxic. Mineral metabolism disorder Overview ==== 03/30/2024 ==== Currently 6 months. Will have to see her back in 6 months and then initiate litho link ==== 10/21/2023 ==== history of 4th stone episode. Her serum calcium is below 9. No chronic diarrhea. Potentially family history stones but not strong PLAN: 48 hour urine litho link return clinic Follow-up: Donte Villatoro MD This note was created with the assistance of a speech recognition program. While intending to generate a timely document that accurately reflects the content of the visit, no guarantee can be provided that every grammatical or spelling mistake has been or will be identified or corrected. Thank you for your understanding. documented in this encounter [facility] 03-19-2024 History of Presen t illness Narrative Subjective No chief complaint on file. Osiris Leal is a 28 y.o. at 24w6d with a working estimated date of delivery of 07/03/2024, by Last Menstrual Period who presents for a routine visit. She denies vaginal bleeding, leakage of fluid, decreased movements, or contractions. OB History Para Term AB Living 1 0 0 0 0 0 SAB IAB Ectopic Multiple Live Births 0 0 0 0 0 # Outcome Date GA Lbr Crow/2nd Weight Sex Type Anes PTL Lv 1 Current Her is complicated by: early hyperemesis, and COVID before Earth. Taking baby ASA daily The following portions of the chart were reviewed this encounter and updated as appropriate: Objective Physical Exam weight: 236 lb Expected Total Weight Gain: 11 lb-19 lb Pregravid BMI: 38.27 BP: 122/80 Urine protein Urine glucose Labs: reviewed Imaging Assessment/Plan Diagnoses and all orders for this visit: Encounter for care of first , second trimester History of COVID-19 Continue vitamin. Labs reviewed. Rhogam GTT at 28 weeks Follow up in 2 weeks for a routine visit. documented in this encounter [facility] 03-16-2024 Telephone encounter Note Called pt left vm to call me back. [facility] 03-16-2024 Miscellaneous Notes Called pt left vm to call me back. Pt called back, read Jamgle message. Pt is scheduled. She states she feels better from ER visit, they only gave tylenol and something for nausea while pt was there- nothing sent home with her I have called pt multiple times. She is due to for an appt with [facility] as well. Left vm to call me back Called pt left vm to call me back Pt is currently 22 wks and was at [facility] last night diagnosted with covid, sx headache, body aches, sore throat, was vomitting and vomit had blood which is why she went to ER. Fever was 107 did break with tylenol. Pt states she feels better, but not her best, they advised her to let OB know in case you wanted to see her at all. documented in this encounter [facility] 03-13-2024 Telephone encounter Note Pt called back, read vals message. Pt is scheduled. She states she feels better from ER visit, they only gave tylenol and something for nausea while pt was there- nothing sent home with her [facility] 03-13-2024 Telephone encounter Note I have called pt multiple times. She is due to for an appt with June as well. [facility] 03-06-2024 Telephone encounter Note Left vm to call me back [facility] 03-04-2024 Telephone encounter Note Called pt left vm to call me back [facility] 03-03-2024 Telephone encounter Note Pt is currently 22 wks and was at [facility] last night diagnosted with covid, sx headache, body aches, sore throat, was vomitting and vomit had blood which is why she went to ER. Fever was 107 did break with tylenol. Pt states she feels better, but not her best, they advised her to let OB know in case you wanted to see her at all. [facility] 02-11-2024 History of Presen t illness Narrative Subjective No chief complaint on file. Osiris Leal is a 28 y.o. at 19w5d with a working estimated date of delivery of 07/03/2024, by Last Menstrual Period who presents for a routine visit. She denies vaginal bleeding, leakage of fluid, decreased movements, or contractions. OB History Para Term AB Living 1 0 0 0 0 0 SAB IAB Ectopic Multiple Live Births 0 0 0 0 0 # Outcome Date GA Lbr Crow/2nd Weight Sex Type Anes PTL Lv 1 Current Her is complicated by: history of COVID this , patient taking baby ASA, kidney stones July 2023 The following portions of the chart were reviewed this encounter and updated as appropriate: Objective Physical Exam weight: 227 lb Expected Total Weight Gain: 11 lb-19 lb Pregravid BMI: 38.27 BP: 118/80 Urine protein-negative Urine glucose-negative Labs: reviewed Imaging Assessment/Plan Continue vitamin. Labs reviewed. Rhogam GTT . Follow up in 2 weeks for a routine visit. documented in this encounter [facility] 01-16-2024 History of Presen t illness Narrative Subjective No chief complaint on file. Osiris Leal is a 28 y.o. at 15w6d with a working estimated date of delivery of 07/03/2024, by Last Menstrual Period who presents for a routine visit. She denies vaginal bleeding, leakage of fluid, decreased movements, or contractions. OB History Para Term AB Living 1 0 0 0 0 0 SAB IAB Ectopic Multiple Live Births 0 0 0 0 0 # Outcome Date GA Lbr Crow/2nd Weight Sex Type Anes PTL Lv 1 Current Her is complicated by: kidney stones The following portions of the chart were reviewed this encounter and updated as appropriate: Objective Physical Exam weight: 222 lb Expected Total Weight Gain: 11 lb-19 lb Pregravid BMI: 38.27 BP: 120/80 Urine protein Urine glucose Labs: reviewed Imaging Assessment/Plan Diagnoses and all orders for this visit: Encounter for care of first , second trimester related condition in second trimester - US OB 14+ weeks anatomy scan; Future Continue vitamin. Labs reviewed Rhogam not needed A+ positive GTT at 28 weeks Follow up in 4 weeks for a routine visit. documented in this encounter [facility] 11-20-2023 History of Presen t illness Narrative Subjective Osiris Leal is a 28 y.o. at 7w5d with a working estimated date of delivery of 07/03/2024, by Last Menstrual Period who presents for an initial visit. This is planned. 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 OB History Para Term AB Living 1 0 0 0 0 0 SAB IAB Ectopic Multiple Live Births 0 0 0 0 0 # Outcome Date GA Lbr Crow/2nd Weight Sex Type Anes PTL Lv 1 Current Her is complicated by: Patient referred by self Gynecology History Last Pap 04/25/23 The following portions of the chart were reviewed this encounter and updated as appropriate: Review of Systems Negative Objective Physical Exam Expected Total Weight Gain: Could not be calculated Pregravid BMI: Could not be calculated Urine protein Urine glucose Labs Assessment/Plan Diagnoses and all orders for this visit: examination or test, positive result - Hepatitis B surface antigen - Rubella antibody, IgG - CBC - Antibody screen - RPR - Hemoglobin A1c - TSH W/REFLEX TO FT4; Future - HIV-1 and HIV-2 antibodies - ABO/Rh - DRUG TOX MONITORIGN 6 W/ CONF,URINE; Future - Hepatitis C antibody - Urine culture; Future - URINALYSIS MICROSCOPIC; Future - C. trachomatis / N. gonorrhoeae, DNA probe; Future Amenorrhea - POCT , urine - Hepatitis B surface antigen - Rubella antibody, IgG - CBC - Antibody screen - RPR - Hemoglobin A1c - TSH W/REFLEX TO FT4; Future - HIV-1 and HIV-2 antibodies - ABO/Rh - DRUG TOX MONITORIGN 6 W/ CONF,URINE; Future - Hepatitis C antibody - Urine culture; Future - URINALYSIS MICROSCOPIC; Future - C. trachomatis / N. gonorrhoeae, DNA probe; Future Blue education folder given. Patient educated on safe medication list. Genetic testing information given. Discussed the do's and don'ts in the blue folder. We discussed labs and what we draw and what we are testing for. Patient is also informed that we do a urine drug test. Patient also given office phone number and [facility] number to call in case of an emergency or after hours needs. PVU and all questions answered. We did discuss place of delivery. Patient should plan to go to [facility] for all services unless an emergency and they need to go to the closest ER. We can make other arrangements possibly if patient would like to deliver at another facility but I did explain I am now at [facility] 100% of the time and would like to do all deliveries there. Patient was smoking marijuana and states she stopped when she found out she was . She does not desire genetic testing and we will obtain labs at the next appt. documented in this encounter [facility] 10-23-2023 Miscellaneous Notes Litholink order faxed 10/23/23 documented in this encounter [facility] 10-23-2023 Telephone encounter Note Litholink order faxed 10/23/23 [facility] 10-21-2023 History of Presen t illness Narrative Images from the original note were not included. [address] [place] [id number] Patient: Osiris Hayward Date of : 1995 Encounter Date: 10/21/2023 History of Present Illness: The patient is a 27 y.o. female, an established patient, and is here for History of potential mineral metabolism disorder. Details as below. No chronic diarrhea. She has done well after stent removal. Ultrasound as below.. Urinalysis today: No results for input(s): EXTPOCURCO , EXTPOCURCH , EXTPOCAPP , EXTPOCURBS , EXTPOCURBIL , EXTPOCUKET , EXTPOCUSPG , EXTPOCUHGB , EXTPOCUPRO , EXTPOCUURO , EXTPOCULEU , EXTPOCUNIT , EXTPOCUWBC , EXTPOCUBLD , EXTPOCURBC , EXTPOCUCRY , EXTPOCUBAC , EXTPOCUTREP , EXTPOCUPH in the last 72 hours. Last BUN and creatinine: Lab Results Component Value Date BUN 9 07/29/2023 Lab Results Component Value Date CREATININE 0.60 07/29/2023 Last PSA: No results found for: PSA No results found for: PROSTATICSP Past Medical, Family, and Social History Update: The following portions of the patient's history were reviewed and updated as appropriate: allergies, current medications, past family history, past medical history, past social history, past surgical history and problem list. Past Medical History: Diagnosis Date Kidney stones Past Surgical History: Procedure Laterality Date CYSTOSCOPY INSERTION STENT URETER Left 08/09/2023 Performed by Donte Villatoro MD at [facility] CYSTOSCOPY REMOVAL STENT Left 08/20/2023 Performed by Donte Villatoro MD at [facility] CYSTOSCOPY RETROGRADE PYELOGRAM Left 08/09/2023 Performed by Donte Villatoro MD at [facility] LASER HOLMIUM URETEROSCOPY RENAL STONES < OR=1CM Left 08/09/2023 Performed by Donte Villatoro MD at [facility] History reviewed. No pertinent family history. Current Outpatient Medications Medication Sig Dispense Refill ergocalciferol (DRISDOL) 1,250 mcg (50,000 unit) capsule Take 1 capsule (50,000 Units total) by mouth once a week. Has not started (Patient not taking: Reported on 10/21/2023) oxybutynin XL (DITROPAN-XL) 5 mg 24 hr tablet Take 1 tablet (5 mg total) by mouth in the morning. (Patient not taking: Reported on 10/21/2023) 21 tablet 0 No current facility-administered medications for this visit. (All medications reviewed and updated by provider since last office visit or hospitalization) Allergies: Patient has no known allergies. Tobacco History: Social History Tobacco Use Smoking Status Never Smokeless Tobacco Never (If patient a smoker, smoking cessation counseling offered) Social History: Social History Substance and Sexual Activity Alcohol Use Yes Comment: occasional Review of Systems: General: Negative for chills and fever. Cardiovascular: Negative for chest pain and shortness of breath. Gastrointestinal: Negative for constipation, diarrhea, nausea, and vomitting. Physical Exam: BP 127/80 Pulse 65 Ht 162.6 cm (5' 4 ) Wt 100.7 kg (222 lb) BMI 38.11 kg/m Nontoxic no apparent distress. Respirations nonlabored. Skin is dry. Awake alert oriented x3. Assessment and Plan: Osiris was seen today for follow-up. 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 Stent placement stent removal asymptomatic. Ultrasound discusses some potential dilation left side. But she does have a left ureteral jet. Right side pelvis maybe lateral full but she had a CT scan that was negative any stones at all and that was just recently. Plan: Monitor. Repeat ultrasound few months any questions then CT ==== 07/31/2023 ==== history of left renal pelvic stone. About 7 mm. Appears calcified. Hounsfield units about 850 or so. Subjective fevers at the time of the ER that did resolve. At the time of ER visit white count was barely elevated her culture was negative. No fever as well. Clinically she is nontoxic. Relevant Orders Ultrasound retroperitoneal complete Litholink 48 Hour Mineral metabolism disorder - Primary Overview ==== 10/21/2023 ==== history of beer 4th stone episode. Her serum calcium is below 9. No chronic diarrhea. Potentially family history stones but not strong PLAN: 48 hour urine litho link return clinic Relevant Orders Ultrasound retroperitoneal complete Litholink 48 Hour Follow-up: 40 hour urine litho link. Return clinic after. Few weeks before she comes back to the office also renal bladder ultrasound. Donte Villatoro MD This note was created with the assistance of a speech recognition program. While intending to generate a timely document that accurately reflects the content of the visit, no guarantee can be provided that every grammatical or spelling mistake has been or will be identified or corrected. Thank you for your understanding. documented in this encounter [facility] 08-20-2023 Miscellaneous Notes Have patient see me in the office in about 6 weeks or so renal ultrasound 1 week prior. Spoke with pt, she is going to call central scheduling to get the US and will call back to schedule follow up documented in this encounter [facility] 08-20-2023 Telephone encounter Note Have patient see me in the office in about 6 weeks or so renal ultrasound 1 week prior. [facility] 08-20-2023 Telephone encounter Note Spoke with pt, she is going to call central scheduling to get the US and will call back to schedule follow up [facility] 08-09-2023 Miscellaneous Notes Approximately 10 day cysto stent removal local [place] left side diagnosis left stent documented in this encounter [facility] 08-09-2023 Telephone encounter Note Approximately 10 day cysto stent removal local [place] left side diagnosis left stent [facility] 08-05-2023 Instructions Formatting of th is note might be different from the original. Your Procedure/Surgery is scheduled at [facility] on 08/09[facility]2023 [facility], [address] [place] [address] You will receive a phone call from [facility] the day before your surgery to verify your arrival time. If you have any questions prior to your surgery, please call Pre-Admission Clinic at [phone] between 7:30 am and 4:30 pm Saturday through Saturday. For questions the day of surgery, please call the Pre-op Department at [phone]. Notify your SURGEON if you develop any illness such as a cold, cough, fever, sore throat, vomiting or are hospitalized between now and your surgery. CONTINUE TO TAKE YOUR MEDICATIONS PRESCRIBED. DO NOT STOP YOUR PRESCRIBED MEDICATIONS UNLESS DIRECTED BY YOUR PRESCRIBING PHYSICIAN Take the following medications the morning of surgery with a sip of water: Percocet if needed. Weight loss medications: NA Take inhalers as prescribed the morning of surgery. . Blood thinners: Medications such as Coumadin, Heparin, Aspirin, Plavix, Eliquis, Pradaxa) Please contact your physician regarding a stop/hold date for these medications. Diabetics: If you take insulin, contact your prescribing doctor for instructions on how to manage this the night before and the morning of surgery. Non-steriodal Anti-Inflammatory Drugs (NSAIDS)- Stop 3 days prior to surgery unless otherwise directed by your surgeon. Vitamins/Herbal Products: You may continue to take your prescribed vitamins such as potassium, iron, vitamin B, vitamin C, or multivitamin unless specifically instructed by your surgeon to stop. STOP taking all herbal products/teas one week prior to your surgery. Marijuana: Stop marijuana 72 hours prior to surgery, stop CBD oil 48 hours prior to surgery. If you have been given bowel prep instructions by your surgeon, please call the surgeon's office with any questions about these instructions. What do I do the day of Surgery? Age 2 through adult - Stop all solids by midnight, You may have clear liquids up to 2 hours before surgery, unless otherwise instructed by your surgeon Clear liquids are: water, sports drinks such as Gatorade or G2, or apple juice. You may NOT have: tube feedings, dairy products, alcoholic beverages, orange juice, or any liquids with solids or pulp in it If applicable, shower again with CHG soap the morning of your surgery. If you received a green plastic bracelet, bring it with you the day of surgery and your nurse will put it on you. What do I need to do to prepare for surgery? If you will be going home the same day as your surgery, arrange for an adult over [address] If your transportation is by cab, uber, bus, you must be accompanied by somone over 18 years of age. You cannot ride alone. You should not smoke or drink alcohol 24 hours before your surgery. Do not wear lotion, cream, powder, perfume, make up, cologne or after-shaves day of surgery. Remove ALL jewelry including wedding rings, body piercings,hair extensions that contain metal,make-up, and contact lens. You may brush your teeth the morning of surgery. Wear your dentures and partial plates to the hospital (no adhesive). If applicable, the evening before surgery, shower with chlorhexidine gluconate (CHG soap). What should I bring to the hospital? If you received a green plastic bracelet, bring it with you the day of surgery and your nurse will put it on you. Eyeglass, contact lens and/or denture cases. If you will be spending the night, please bring personal care items and leave them in the car until you are taken to your room after surgery. Leave ALL valuables at home. If any of these instructions conflict with those you recieved from the surgeon, please seek clarification from your surgeon's office. DEEP BREATHING EXERCISES This exercise helps promote good air exchange and helps to prevent pneumonia after surgery. Breathe in slowly and deeply through the nose. Hold your breath for a few seconds and then exhale slowly through the mouth. Repeat this three times and then cough.Coughing helps to clear your lungs. If you have had a surgery with an incision into your abdomen or chest, press gently against your incision with a pillow or a folded blanket when you cough. Please be aware - it may not be stewart to cough following some types of surgeries involving the eyes, ears, sinuses and throat. Always follow your doctor's instructions. LEG EXERCISE These exercises help promote good circulation and help to prevent blood clots after surgery. Point your toes to the ceiling and then point them to the wall. Do this slowly about 15-20 times. You may also move your feet in circles. Do the exercise that is most comfortable for you. If you have had surgery involving your shoulder or arm, we recommend you move your fingers. PRACTICING We ask that you begin practicing these exercises before your surgery. After surgery try to do both exercises at least every 2 hours during the day and early evening. Surgical Site Infection Prevention What is a Surgical Site Infection? Infection can happen to the area of the body where surgery is done. This is called a surgical site infection (SSI). A SSI does not happen very often. Can SSIs be treated? Antibiotics are used to treat SSI. Some patients may need another surgery to treat the infection. The doctor will discuss treatment options with you. What are some of the things that hospitals are doing to prevent SSIs? Soap and water or alcohol hand rub are used before and after caring for each patient. Special soap is used to clean surgery workers hands and arms just before the surgery. Masks, gowns, gloves and hair covers are worn during the surgery to keep the area clean. Hair in the surgery area may be removed with clippers (not razors). A special soap that kills germs is used to clean the skin at the surgery site. Antibiotics may be given before the surgery starts. What can you do to prevent SSIs? Before surgery: You may be asked to shower or bathe with a special soap that kills germs the night before and the day of surgery. Use the soap as you were told. If you smoke, stop or cut down. Ask your doctor about ways to quit. Do not shave near where you will have surgery. Shaving can irritate the skin and make it easier to get and infection. After surgery: Be sure that the doctors and nurses clean their hands before and after touching you. Be sure your family and friends clean their hands before and after visiting you. Do not be afraid to remind them. * Care for your wound at home as told by your doctor or nurse * Call your doctor right away if you have fever, redness, increased pain, or drainage at the surgery site. Further questions? Contact the doctor, nurse or the Infection Prevention and Control department if you have any questions. PATIENT RIGHTS AND RESPONSIBILITIES As a patient at [facility], you have the right to: Receive medical care and be informed of who is taking care of you Be treated with dignity and respect Have a family member/cash applications representative of choice and your physician notified of your admission Receive information and actively participate in decisions about your care and treatment Refuse care, treatment and services Decide who may provide your support and speak for you Access religion and spiritual services Participate in ethical issues and questions about your care Receive private and confidential care Have appropriate assessment and management of your pain Know guest visitation restrictions or limitations Have an advance directive Access protective services Consent or refuse to participate in research studies or production or recordings, films or other images Have resolution of your complaints Receive information of hospital charges and payment methods Patient/patient cash applications representative responsibilities are to: Provide information about health status to facilitate care, treatment and services Follow the treatment, plan, keep appointments and speak up when you do not understand the plan Respect the rights of other patients and healthcare personnel Follow organizational rules and regulations that support quality care and a safe environment Fulfill financial obligations as promptly as possible PATIENT RIGHTS AND RESPONSIBILITIES As a patient at [facility], you have the right to: Receive medical care and be informed of who is taking care of you Be treated with dignity and respect Have a family member/cash applications representative of choice and your physician notified of your admission Receive information and actively participate in decisions about your care and treatment Refuse care, treatment and services Decide who may provide your support and speak for you Access religion and spiritual services Participate in ethical issues and questions about your care Receive private and confidential care Have appropriate assessment and management of your pain Know guest visitation restrictions or limitations Have an advance directive Access protective services Consent or refuse to participate in research studies or production or recordings, films or other images Have resolution of your complaints Receive information of hospital charges and payment methods Patient/patient cash applications representative responsibilities are to: Provide information about health status to facilitate care, treatment and services Follow the treatment, plan, keep appointments and speak up when you do not understand the plan Respect the rights of other patients and healthcare personnel Follow organizational rules and regulations that support quality care and a safe environment Fulfill financial obligations as promptly as possible Surgical Site Infection Prevention What is a Surgical Site Infection? Infection can happen to the area of the body where surgery is done. This is called a surgical site infection (SSI). A SSI does not happen very often. Can SSIs be treated? Antibiotics are used to treat SSI. Some patients may need another surgery to treat the infection. The doctor will discuss treatment options with you. What are some of the things that hospitals are doing to prevent SSIs? Soap and water or alcohol hand rub are used before and after caring for each patient. Special soap is used to clean surgery workers hands and arms just before the surgery. Masks, gowns, gloves and hair covers are worn during the surgery to keep the area clean. Hair in the surgery area may be removed with clippers (not razors). A special soap that kills germs is used to clean the skin at the surgery site. Antibiotics may be given before the surgery starts. What can you do to prevent SSIs? Before surgery: You may be asked to shower or bathe with a special soap that kills germs the night before and the day of surgery. Use the soap as you were told. If you smoke, stop or cut down. Ask your doctor about ways to quit. Do not shave near where you will have surgery. Shaving can irritate the skin and make it easier to get and infection. After surgery: Be sure that the doctors and nurses clean their hands before and after touching you. Be sure your family and friends clean their hands before and after visiting you. Do not be afraid to remind them. * Care for your wound at home as told by your doctor or nurse * Call your doctor right away if you have fever, redness, increased pain, or drainage at the surgery site. Further questions? Contact the doctor, nurse or the Infection Prevention and Control department if you have any questions. [facility] 08-05-2023 Miscellaneous Notes Your Procedure/Surgery is scheduled at [facility] on 08/09/2023 [facility], [address] [place] [address] You will receive a phone call from [facility] the day before your surgery to verify your arrival time. If you have any questions prior to your surgery, please call Pre-Admission Clinic at [phone] between 7:30 am and 4:30 pm Saturday through Saturday. For questions the day of surgery, please call the Pre-op Department at [phone]. Notify your SURGEON if you develop any illness such as a cold, cough, fever, sore throat, vomiting or are hospitalized between now and your surgery. CONTINUE TO TAKE YOUR MEDICATIONS PRESCRIBED. DO NOT STOP YOUR PRESCRIBED MEDICATIONS UNLESS DIRECTED BY YOUR PRESCRIBING PHYSICIAN Take the following medications the morning of surgery with a sip of water: Percocet if needed. Weight loss medications: NA Take inhalers as prescribed the morning of surgery. . Blood thinners: Medications such as Coumadin, Heparin, Aspirin, Plavix, Eliquis, Pradaxa) Please contact your physician regarding a stop/hold date for these medications. Diabetics: If you take insulin, contact your prescribing doctor for instructions on how to manage this the night before and the morning of surgery. Non-steriodal Anti-Inflammatory Drugs (NSAIDS)- Stop 3 days prior to surgery unless otherwise directed by your surgeon. Vitamins/Herbal Products: You may continue to take your prescribed vitamins such as potassium, iron, vitamin B, vitamin C, or multivitamin unless specifically instructed by your surgeon to stop. STOP taking all herbal products/teas one week prior to your surgery. Marijuana: Stop marijuana 72 hours prior to surgery, stop CBD oil 48 hours prior to surgery. If you have been given bowel prep instructions by your surgeon, please call the surgeon's office with any questions about these instructions. What do I do the day of Surgery? Age 2 through adult - Stop all solids by midnight, You may have clear liquids up to 2 hours before surgery, unless otherwise instructed by your surgeon Clear liquids are: water, sports drinks such as Gatorade or G2, or apple juice. You may NOT have: tube feedings, dairy products, alcoholic beverages, orange juice, or any liquids with solids or pulp in it If applicable, shower again with CHG soap the morning of your surgery. If you received a green plastic bracelet, bring it with you the day of surgery and your nurse will put it on you. What do I need to do to prepare for surgery? If you will be going home the same day as your surgery, arrange for an adult over [address] If your transportation is by cab, uber, bus, you must be accompanied by somone over 18 years of age. You cannot ride alone. You should not smoke or drink alcohol 24 hours before your surgery. Do not wear lotion, cream, powder, perfume, make up, cologne or after-shaves day of surgery. Remove ALL jewelry including wedding rings, body piercings,hair extensions that contain metal,make-up, and contact lens. You may brush your teeth the morning of surgery. Wear your dentures and partial plates to the hospital (no adhesive). If applicable, the evening before surgery, shower with chlorhexidine gluconate (CHG soap). What should I bring to the hospital? If you received a green plastic bracelet, bring it with you the day of surgery and your nurse will put it on you. Eyeglass, contact lens and/or denture cases. If you will be spending the night, please bring personal care items and leave them in the car until you are taken to your room after surgery. Leave ALL valuables at home. If any of these instructions conflict with those you recieved from the surgeon, please seek clarification from your surgeon's office. DEEP BREATHING EXERCISES This exercise helps promote good air exchange and helps to prevent pneumonia after surgery. Breathe in slowly and deeply through the nose. Hold your breath for a few seconds and then exhale slowly through the mouth. Repeat this three times and then cough.Coughing helps to clear your lungs. If you have had a surgery with an incision into your abdomen or chest, press gently against your incision with a pillow or a folded blanket when you cough. Please be aware - it may not be stewart to cough following some types of surgeries involving the eyes, ears, sinuses and throat. Always follow your doctor's instructions. LEG EXERCISE These exercises help promote good circulation and help to prevent blood clots after surgery. Point your toes to the ceiling and then point them to the wall. Do this slowly about 15-20 times. You may also move your feet in circles. Do the exercise that is most comfortable for you. If you have had surgery involving your shoulder or arm, we recommend you move your fingers. PRACTICING We ask that you begin practicing these exercises before your surgery. After surgery try to do both exercises at least every 2 hours during the day and early evening. Surgical Site Infection Prevention What is a Surgical Site Infection? Infection can happen to the area of the body where surgery is done. This is called a surgical site infection (SSI). A SSI does not happen very often. Can SSIs be treated? Antibiotics are used to treat SSI. Some patients may need another surgery to treat the infection. The doctor will discuss treatment options with you. What are some of the things that hospitals are doing to prevent SSIs? Soap and water or alcohol hand rub are used before and after caring for each patient. Special soap is used to clean surgery workers hands and arms just before the surgery. Masks, gowns, gloves and hair covers are worn during the surgery to keep the area clean. Hair in the surgery area may be removed with clippers (not razors). A special soap that kills germs is used to clean the skin at the surgery site. Antibiotics may be given before the surgery starts. What can you do to prevent SSIs? Before surgery: You may be asked to shower or bathe with a special soap that kills germs the night before and the day of surgery. Use the soap as you were told. If you smoke, stop or cut down. Ask your doctor about ways to quit. Do not shave near where you will have surgery. Shaving can irritate the skin and make it easier to get and infection. After surgery: Be sure that the doctors and nurses clean their hands before and after touching you. Be sure your family and friends clean their hands before and after visiting you. Do not be afraid to remind them. * Care for your wound at home as told by your doctor or nurse * Call your doctor right away if you have fever, redness, increased pain, or drainage at the surgery site. Further questions? Contact the doctor, nurse or the Infection Prevention and Control department if you have any questions. PATIENT RIGHTS AND RESPONSIBILITIES As a patient at [facility], you have the right to: Receive medical care and be informed of who is taking care of you Be treated with dignity and respect Have a family member/cash applications representative of choice and your physician notified of your admission Receive information and actively participate in decisions about your care and treatment Refuse care, treatment and services Decide who may provide your support and speak for you Access religion and spiritual services Participate in ethical issues and questions about your care Receive private and confidential care Have appropriate assessment and management of your pain Know guest visitation restrictions or limitations Have an advance directive Access protective services Consent or refuse to participate in research studies or production or recordings, films or other images Have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 Behavior: - Motor Activity Normal Activity. - Eye Contact Appropriate. Affect: - Tearful. Thought Content: - Insight was intact. - No delusions. - No suicidal ideation. - No Passive thoughts of . - No suicidal plans. - No suicidal intent. - No homicidal ideations. - No homicidal plans. - No homicidal intent. Past Medical: - No repetitive self injurious behavior. - No access to weapons / guns in home. Assessment - F41.1 - Generalized anxiety disorder Therapy - Brief solution-focused therapy. - Adherent with medications. - Plan - do not modify medication at this time. Patient was encouraged to resume taking medications as prescribed. Patient feels that they were somehwat helpful when she did take them. Collaborated with patient and provider: Counseling/Education [facility] provided supportive and active listening, allowing patient the space to discuss concerns and explored with patient coping strategies to manage increased anxiety and stressors. [facility] discussed community resourcces should they be needed. Health instructional coach to reach out to patient next week regarding additional resources. P discussed benefit in individual counseling and supports. Plan Patient to take medications as prescribed and contact the office with any questions or concerns. Patient to implement coping skills and positive supports as discussed. P spoke with dental regarding follow-up and they will put patient on the schedule to further evaluate. [facility] to follow-up with patient at next visit as scheduled. Health Reminders - Assess Tobacco Use satisfied 10/11/2022. [facility]06-27-2023 Evaluation note Includes: Assessments for all patient encounters Findings Encounter Date Generalized anxiety disorder BH Establis hed Patient with Tran Short LISWS 09/11/2022 Last Documented On 3 7:50PM ; [facility] [K08.89 - Other specified di sorders of teeth and supporting structures] tooth pain Medical Established Patient with Cassandra Kee CORRESPONDENCE COORDINATOR 09/11/2022 Last Documented On 3 8:31AM ; [facility] [Z68.41 - Body mass index [B OK] 40.0-44.9, adult] assessment of body mass index Medical Established Patient with Cassandra Kee CORRESPONDENCE COORDINATOR 09/11/2022 Last Documented On 3 8:31AM ; [facility] Generalized anxiety disorder Medical Est ablished Patient with Cassandra Kee CORRESPONDENCE COORDINATOR 09/11/2022 Last Documented On 3 8:31AM ; [facility] Generalized anxiety disorder BH Establis hed Patient with Tran Short LISWS 08/08/2022 Last Documented On 3 7:40PM ; [facility] [F41.1 - Generalized anxiety disorder] generalized anxiety disorder Medical New Patient with Adelaida Parks CORRESPONDENCE COORDINATOR 08/08/2022 Last Documented On 3 5:55PM ; [facility] [J01.10 - Acute frontal sinu sitis, unspecified] acute frontal sinusitis Medical New Patient with Adelaida Parks CORRESPONDENCE COORDINATOR 08/08/2022 Last Documented On 3 5:55PM ; [facility] [Z68.41 - Body mass index [B OK] 40.0-44.9, adult] assessment of body mass index Medical New Patient with Adelaida Parks CORRESPONDENCE COORDINATOR 08/08/2022 Last Documented On 3 5:55PM ; [facility] Diabetes Risk Test Score was three score 08/08/2022 Medical New Patient with Adelaida Parks CORRESPONDENCE COORDINATOR 08/08/2022 Last Documented On 3 5:55PM ; [facility] Screening for HIV Medical New Patient with Adelaida Parks CORRESPONDENCE COORDINATOR 08/08/2022 Last Documented On 3 5:55PM ; [facility] Visit for routine adult H&P without abnormal findings Medical New Patient with Adelaida Parks CORRESPONDENCE COORDINATOR 08/08/2022 Last Documented On 3 5:55PM ; [facility] Work Phone: 1(645) 266-957506-27-2023 History general Narrative - Reported Includes: Medical History in patient's chart Description Last Updated No previous hospitalizations 09/11/2022 Last Documented On 3 8:31AM ; [facility] No previous suicide attempt 08/08/2022 Last Documented On 3 7:40PM ; [facility] Safety Measures BHP discusse d with patient crisis resource information should it be needed 08/08/2022 Last Documented On 3 7:40PM ; [facility] broke left wrist as a child 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 ~history of kidney stones 08/08/2022 Last Documented On 3 5:55PM ; [facility] Planning to have a baby in the next 12 m [facility] 08/08/2022 Last Documented On 3 5:55PM ; [facility] Work Phone: [phone]) 421-681306-27-2023 History general Narrative - Reported Includes: Medical History in patient's chart Description Last Updated No previous hospitalizations 09/11/2022 Last Documented On 3 8:31AM ; [facility] No previous suicide attempt 08/08/2022 Last Documented On 3 7:40PM ; [facility] Safety Measures BHP discusse d with patient crisis resource information should it be needed 08/08/2022 Last Documented On 3 7:40PM ; [facility] broke left wrist as a child 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 ~history of kidney stones 08/08/2022 Last Documented On 3 5:55PM ; [facility] Planning to have a baby in the next 12 m [facility] 08/08/2022 Last Documented On 3 5:55PM ; [facility] Work Phone: [phone]) 126-166906-27-2023 History general Narrative - Reported Includes: Medical History in patient's chart Description Last Updated No previous hospitalizations 09/11/2022 Last Documented On 3 8:31AM ; [facility] No previous suicide attempt 08/08/2022 Last Documented On 3 7:40PM ; [facility] Safety Measures [facility] discusse d with patient crisis resource information should it be needed 08/08/2022 Last Documented On 3 7:40PM ; [facility] broke left wrist as a child 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 ~history of kidney stones 08/08/2022 Last Documented On 3 5:55PM ; [facility] Planning to have a baby in the next 12 m [facility] 08/08/2022 Last Documented On 3 5:55PM ; [facility] Work Phone: [phone]) 635-336506-27-2023 Progress note* Progress note Date Encounter Last Documented by 09/11/2022 [facility] Patient Last docu mented on 09/11/2022; 7:50 PM, Tran MCCOY; [facility] Active Problems & Conditions - F41.1 - Generalized Anxiety Disorder Chief Complaint The Chief Complaint is: [facility] met with patient to follow-up regarding mood and medications. Patient reports that she has taken Buspar as prescribed, but unable to tell if there was an improvement to anxiety. Patient reports that she has had a lot of stressors recently with completing school and car issues, but feels that she has been able to cope more effectively than she did prior to starting medications. Patient does feel that she zones out some initially when taking Buspar, but feels that it passes. Patient reports that she is concerned about concentration and focus and mood and anxiety. Patient has not yet further looked into counseling. No thoughts of harm toward self or others. History of Present Illness Osiris Hayward is a 26 year old female. - No Irritability - Normal appetite - Anxiety - Depression - Loss of interest in activities - Energy level is fair - Feeling guilty - Easily distracted - Racing thoughts - No sleep disturbances - No social isolation - No impulsive behavior Current Medication - Amoxicillin-Pot Clavulanate 875-125 MG Oral Tablet Take one tablet by mouth twice daily x 7 days, 7 days, 0 refills - busPIRone HCl 10 MG Oral Tablet take 1 tablet by mouth twice daily (d/c rx for 5 mg tablets), 30 days, 5 refills - Wellbutrin XL 150 MG Oral Tablet Extended Release 24 Hour Take one tablet by mouth daily in the morning., 30 days, 1 refills Social History Environmental Exposure: No secondhand cigarette smoke exposure. Personal: Recent emotional stress. Behavioral: Not a current tobacco user. Alcohol: Not using alcohol. Drug Use: Not using drugs. Housing And Economic Circumstances: Lives with significant other. Physical Findings General Appearance: - Normal Appearance. Neurological: - Estimated intelligence was normal. - Oriented to time, place, and person. - No hallucinations. - Judgement was not impaired. Speech: - Is Normal. Psychiatric: - Mood was anxious. - Mood was concerned. - Attitude Open. Demonstrated Behavior: - Motor Activity Normal Activity. - Eye Contact Appropriate. Affect: - Congruent with the mood. Thought Content: - Insight was intact. - No delusions. - No suicidal ideation. - No Passive thoughts of . - No suicidal plans. - No suicidal intent. - No homicidal ideations. - No homicidal plans. - No homicidal intent. Past Medical: - No repetitive self injurious behavior. - No access to weapons / guns in home. Assessment - F41.1 - Generalized anxiety disorder Therapy - Brief solution-focused therapy. - Adherent with medications. - Plan - PCP to have patient continue Buspar and start Wellbutrin XL 150 MG in the morning. Patient verbalized understanding and Collaborated with patient and provider: Counseling/Education P offered active and supportive listening. P discussed coping skills to implement in daily routine. P encouraged patient to contact a therapist to schedule counseling. Plan Patient to take medications as prescribed and contact the office with any questions or concerns. Patient to implement coping skills and positive supports as discussed. P to follow-up with patient via phone in 2 weeks and at next visit as scheduled. Health Reminders - Assess Tobacco Use satisfied 09/11/2022. [facility]06-27-2023 Progress note* Progress note Date Encounter Last Documented by 09/11/2022 Medical Established Patient Last documented on 09/12/2022; 8:31 AM, Cassandra Kee CNP; [facility] Active Problems & Conditions - F41.1 - Generalized Anxiety Disorder Chief Complaint The Chief Complaint is: 1 month medication F/U. Referred Here No prior encounters. History of Present Illness Osiris Hayward is a 26 year old female. - Allergy list reviewed - Reviewed Medications - Medication list reviewed Patient presents for a one month F/U. Her Buspar was increased a month ago. She doesn't feel a big difference however, she seems to be handling life stressors more effectively than she did prior to starting the medication one month medication follow up, buspar increase to 10mg BID, she states after the first 2 hours of taking the medication she is dazed and then nothing changes. She is sleeping and states this is more than usual d/t her sleep schedule changing. She typically is on an ATB for dental work, should she get some for her appt next week. Current Medication - busPIRone HCl 10 MG Oral Tablet take 1 tablet by mouth twice daily (d/c rx for 5 mg tablets), 30 days, 5 refills Past Medical/Surgical History Other: No previous suicide attempt Reported: Safety Measures BHP discussed with patient crisis resource information should it be needed. Medical: No previous hospitalizations. : Planning to have a baby in the next 12 months. 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 Surgical: - Extraction of wisdom tooth Social History Environmental Exposure: Secondhand cigarette smoke exposure. Behavioral: Not a current tobacco user. Tobacco use: Not using electronic cigarettes/vaping. Sexual: Sexual orientation Straight (not lesbian or dangelo) and gender identity Female. Allergies - No Known Allergies Family History Systemic hypertension paternal grandfather Review Of Systems Cardiovascular: No cardiovascular symptoms and no chest pain or discomfort. Pulmonary: No pulmonary symptoms. Neurological: No neurological symptoms, no dizziness, no vertigo, and no lightheadedness. Psychological: Anxiety, depression, sleep, and thought content. Physical Findings - Vitals taken 09/11/2022 04:29 pm BP-Sitting R137/91 mmHg BP Cuff SizeLarge Pulse Rate-Fueqlzo59 bpm Temp-Oral98.6 F Qcoiky61 in Muqhth826 lbs Body Mass Index43.9 kg/m2 Body Surface Area2.1 m2 Oxygen Awofpwtazk48 % - Vitals taken 09/11/2022 04:33 pm BP-Sitting R123/86 mmHg General Appearance: - Awake. - Alert. - Well developed. - Well nourished. - In no acute distress. Lungs: - Normal. - Respiration rhythm and depth was normal. - Clear to auscultation. Cardiovascular: Auscultation: - Normal. Heart Rate And Rhythm: - Normal. Heart Sounds: - Normal. Neurological: - No confusion was observed. - No delirium was noted. - No disorientation was observed. - Oriented to time, place, and person. Speech: - Normal. Coordination / Cerebellum: - No coordination/cerebellum abnormalities were noted. Balance: - Normal. Gait And Stance: - Normal. Psychiatric: - Mood was anxious. - Expression of emotions finding was normal. - Mood normal. Appearance: - Not tired. - Clothing was appropriate. - Grooming was normal. Demonstrated Behavior: - Appropriate behavior for patient. Attitude: - Not abnormal. Affect: - Normal. Thought Processes: - No thought disorder was noted. General body state finding: - In good general health. Assessment - K08.89 - Other specified disorders of teeth and supporting structures - Z68.41 - Body mass index [BMI] 40.0-44.9, adult - F41.1 - Generalized anxiety disorder Therapy - Patient refused flu vaccine. Discussed benefits of flu vaccine with Patient. Vaccinations - Did not receive dose of Reported: Patient has not received the Covid Vaccine Counseling/Education - Discussed nutritional needs teach healthy choices including fruits and vegetables - Patient education about a proper diet - Lifestyle education - Patient education about medication - Patient education about mental health - Discussed concerns about exercise: promote physical activity Plan StartCited- Generalized anxiety disorder Wellbutrin XL 150 MG tablet Take one tablet by mouth daily in the morning., 30 days, 1 refills EndCited StartCited- Other Follow-up Appointment F/U 1 month for med check EndCited StartCited- Other specified disorders of teeth and supporting structures Amoxicillin-Pot Clavulanate 875-125 MG tablet Take one tablet by mouth twice daily x 7 days, 7 days, 0 refills EndCited - Continue current medication Start Wellbutrin daily in the morning. Augmentin for tooth pain. F/U in 1 month for med check. Practice Management Systolic blood pressure < 130 mmHg and diastolic 80-89 mmHg diastolic 80-89 mmHg. Health Reminders - Assess BMI satisfied 09/11/2022. - Assess Tobacco Use satisfied 09/11/2022. - Follow Up Plan BMI Management satisfied 09/11/2022. [facility]05-24-2023 Progress note* Progress note Date Encounter Last Documented by 08/08/2022 Established Patient Last docu mented on 08/08/2022; 7:40 PM, Tran MCCOY; [facility] Active Problems & Conditions - F41.1 - Generalized Anxiety Disorder Chief Complaint The Chief Complaint is: Patient is in to establish care and [facility] met with patient to follow-up regarding mood and PHQ score of 4 and DEUCE score of 11. Patient reports that she has not been to a family doctor as an adult and only saw a doctor growing up if something was wrong. Patient reports that she has noticed increased anxiety with racing thoughts, worry, trouble relaxing, restlessness and feeling easily annoyed. Patient reports that she has about 3 weeks left of school at [employer] and her graduation date keeps getting pushed back due to calling in due to anxiety. Patient reports that she is experiencing low energy, feeling poorly about herself and trouble concentrating in addition to anxiety. Patient is open to starting medications. Patient reports no thoughts of harm towards self or others. History of Present Illness Osiris Hayward is a 26 year old female. - Normal appetite. - Anxiety with persistent worry - With fear of losing self-control - With rapid heartbeat - Feelings of panic - Interfering with social activities - Interfering with work - Sleep disturbances - Energy level is fair - Easily distracted - Racing thoughts - No depression - No loss of interest in activities - No social isolation - No impulsive behavior - No high involvement in pleasurable activities - Irritability Current Medication - Azithromycin 250 MG Oral Tablet take 2 tablets by mouth today then 1 tablet daily on days 2-5, 5 days, 0 refills - busPIRone HCl 5 MG Oral Tablet take 1 tablet by mouth twice daily, 30 days, 1 refills Past Medical/Surgical History Other: No previous suicide attempt Reported: Safety Measures [facility] discussed with patient crisis resource information should it be needed. Social History Environmental Exposure: No secondhand cigarette smoke exposure. Personal: Recent emotional stress. Behavioral: Not a current tobacco user. Alcohol: A social drinker. Drug Use: Using marijuana only from dispensary. Housing And Economic Circumstances: Lives alone. Education: Currently in school. 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 Physical Findings General Appearance: - Normal Appearance. Neurological: - Estimated intelligence was normal. - Oriented to time, place, and person. - No hallucinations. - Judgement was not impaired. Speech: - Is Normal. Psychiatric: - Mood was anxious. - Mood was concerned. - Attitude Open. Demonstrated Behavior: - Motor Activity Normal Activity. - Eye Contact Appropriate. Affect: - Tearful. Thought Content: - Insight was intact. - No delusions. - No suicidal ideation. - No Passive thoughts of . - No suicidal plans. - No suicidal intent. - No homicidal ideations. - No homicidal plans. - No homicidal intent. Past Medical: - No repetitive self injurious behavior in several years. Patient reports in 2017 she went through a very bad break up and attempted to engage in SIB but ex called the defence force member other ranks and she was admitted in to [facility]. - No access to weapons / guns in home. Assessment - F41.1 - Generalized anxiety disorder Therapy - SBIRT Screen Neg. - Brief solution-focused therapy. - Referral to mental health team. - Plan - PCP to start patient on Buspar 5mg twice daily. Patient verbalized understanding of plan and Collaborated with patient and provider: Counseling/Education [facility] introduced patient to [facility] integrated model of care. [facility] offered active and supportive listening, normalized emotions and feelings, and processed current stressors related to school. [facility] discussed with patient coping skills and supports that can be implemented such as breathing techniques, mindfulness and meditation. [facility] discussed potential benefit in individual therapy. Patient discussed history of previous therapy as a teenager and feeling that the therapist was not helpful and is not sure that she wants to try again. [facility] discussed with patient potential resources where she is able to pick her own therapist and talk with them prior to establishing care. [facility] discussed with patient dental services and connected patient with [facility] dental team. Plan Patient to take medications as prescribed and contact the office with any questions or concerns. Patient to implement coping skills and positive supports as discussed. [facility]HP to follow-up with patient via phone in 2 weeks and at next visit as scheduled. Health Reminders - Assess Tobacco Use satisfied 08/08/2022. - PHQ9 / PHQA satisfied 08/08/2022. - SBIRT satisfied 08/08/2022. User Defined 1 Has not worked without getting the payment you thought you would, has not felt pressured to do something against will to keep job, have not felt threatened in a relationship, has not been put down, humilitated, or someone has tried to control them, has not been hit, kicked, punched, or sexually forced to do something, or hurt, and not afraid of someone you have a relationship with. Domestic Violence/ Human Trafficking Screening was completed. She has not had 4 or more drinks in a day within the past year., no misuse of prescription only drugs, and not illicit. Little interest or pleasure in doing things in the last 2 weeks? 0 pt Not at all, Feeling down, depressed, or hopeless in the last 2 weeks? 0 pt Not at all, and [PHQ-2] Patient Health Questionnaire 2 item total score: 0 pts (Scale: 0-6) PHQ2. DEUCE-7 score was eleven 08/08/2022 [DEUCE-7] Feeling nervous, anxious or on edge? + 2 pt : More than half the days, [DEUCE-7] Not being able to stop or control worrying? + 1 pt : Several days, [DEUCE-7] Worrying too much about different things? + 0 pt : Not at all, [DEUCE-7] Trouble relaxing? + 1 pt : Several days, [DEUCE-7] Being so restless that it's hard to sit still? + 2 pt : More than half the days, [DEUCE-7] Becoming easily annoyed or irritable? + 3 pt : Nearly every day, [DEUCE-7] Feeling afraid as if something awful might happen? + 2 pt : More than half the days, Patient Health Questionnaire 9-Item total score was four 08/08/2022 If you checked off problems, how difficult is it for you to do your work? + : Somewhat difficult, [PHQ-9-1] Little interest or pleasure in doing things? + 0 pt : Not at all, [PHQ-9-2] Feeling down, depressed, or hopeless? + 0 pt : Not at all, [PHQ-9-3] Trouble falling or staying asleep or sleeping too much? + 0 pt : Not at all, [PHQ-9-4] Feeling tired or having little energy? + 1 pt : Several days, [PHQ-9-5] Poor appetite or overeating? + 0 pt : Not at all, [PHQ-9-6] Feeling bad about yourself-or that you are a failure + 1 pt : Several days, [PHQ-9-7] Trouble concentrating on things such as reading the newspaper + 2 pt : More than half the days, [PHQ-9-8] Moving or speaking so slowly that other people have noticed. + 0 pt : Not at all, [PHQ-9-9] Thoughts that you would be better off or hurting yourself? + 0 pt : Not at all, and DEUCE If you checked off problems, how difficult is it for you to do your work, take care of things, or get along? Somewhat difficult. [facility]05-24-2023 Progress note* Progress note Date Encounter Last Documented by 08/08/2022 Medical New Patient Sukhwinder zavala on 08/08/2022; 5:55 PM, Adelaida Parks CNP; [facility] Active Problems & Conditions - F41.1 - Generalized Anxiety Disorder Chief Complaint The Chief Complaint is: Establish care Feelings of anxiety and depression for awhile now. Referred Here No prior encounters. History of Present Illness Osiris Hayward is a 26 year old female. - Allergy list reviewed - Reviewed Medications - Medication list reviewed - Date of last menstruation 07/23/2022 Presents to establish care and talk about anxiety . getting ready to graduate [employer] Records. upper respiratory congestion x 1 week Patient has had cold symptoms from over a week. Wakes up in the a.m. with sore and dry throat. Sinus pressure and dry cough. No fevers. Loss of appetite. Nausea at times. No vomitting. No loss of taste or smell. OTC: dayquil and nyquil. Past Medical/Surgical History Reported: : Planning to have a baby in the next 12 months. 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 Surgical: - Extraction of wisdom tooth Social History Environmental Exposure: No secondhand cigarette smoke exposure. Behavioral: Not a current tobacco user. Tobacco use: Using electronic cigarettes/vaping. Alcohol: Not using alcohol. Drug Use: Using marijuana daily. Sexual: Sexually active age of sexual partner is years old 24, sexual orientation Straight (not lesbian or dangelo), and gender identity Female. No report of control being practiced. Allergies - No Known Allergies Family History Systemic hypertension paternal grandfather Review Of Systems Head: No head symptoms. Neck: No neck symptoms. Eyes: No eye symptoms. Otolaryngeal: Ear symptoms and nasal discharge. No nose and sinus finding, no throat symptoms, no oral cavity symptoms, and no jaw symptoms. Breasts: No breast symptoms. Cardiovascular: No cardiovascular symptoms. Pulmonary: No pulmonary symptoms. Gastrointestinal: No gastrointestinal symptoms. Genitourinary: No genitourinary symptoms. Musculoskeletal: No musculoskeletal symptoms. Neurological: No neurological symptoms. Psychological: Anxiety. No depression. Skin: No skin symptoms. Physical Findings - Vitals taken 08/08/2022 05:13 pm BP-Sitting L130/80 mmHg BP Cuff SizeLarge Pulse Rate-Ugnpdtr867 bpm Temp-Uctsmswm99.4 F Pginjh85 in Udxjok933 lbs Body Mass Index43.2 kg/m2 Body Surface Area2.1 m2 Oxygen Ndriesnfpp48 % General Appearance: - Awake. - Alert. - Well developed. - Well nourished. - In no acute distress. Head: Appearance: - Head normocephalic. Scar: - No scar on the head. Scalp: - Normal. Skull Tenderness: - No skull tenderness. Crepitus: - Head showed no crepitus. Temporal Arteries: - Normal. Neck: Appearance: - Of the neck was normal. Palpation: - Of the neck revealed no abnormalities. Suppleness: - Neck demonstrated no decrease in suppleness. Maneuvers: - Neck maneuvers elicited no abnormal responses. Weakness: - No neck weakness was seen. Thyroid: - Not diffusely enlarged. - Did not have a mass. - Did not have a nodule. - Not irregular to palpation. - Not tender. Cervical Mass: - No cervical mass was seen. Scar: - No surgical/traumatic scar was seen on the neck. Eyes: General/bilateral: Extraocular Movements: - Normal. Pupils: - PERRLA. - Size of the pupil was normal. - Reactive to light. - Showed normal accommodation. - No abnormal pupil function. External: - Eyelids showed no abnormalities. Sclera: - Normal. Ears: General/bilateral: Outer Ear: - Normal. Tympanic Membrane: - Examined. - Bulging. Hearing: - No hearing abnormalities. Right Ear: - Examined. Left Ear: - Examined. Nose: General/bilateral: Discharge: - No nasal discharge. Nasal Malformation: - No nasal malformation. External Deformities: - No external nose deformities. External Mass: - No external nasal mass. Piercings: - Nose was not pierced. Cavity: - No nasal cavity abnormalities. Nasal Erythema: - No nasal erythema was noted. Nasal Edema: - No nasal edema was noted. Nasal Bone Tenderness: - No nasal bone tenderness. Sinus Tenderness: - No sinus tenderness. Oral Cavity: - Odor of breath was normal. Lips: - Showed no abnormalities. Frenum Attachment: - Showed no abnormalities. Gums: - Examination showed no abnormalities. Teeth: - Dental no abnormalities. Buccal Mucosa: - Showed no mucosal abnormalities. Tongue: - Examination showed no abnormalities. Salivary Glands: - No salivary calculus was found. - Sublingual glands were not tender. - Sublingual glands were not swollen. - Sublingual glands did not have erythematous overlying mucosa. Palate: - Hard palate was normal. - Not cleft. - Showed no mucosal abnormalities. Pharynx: Nasopharynx: - Normal. Oropharynx: - Normal. Hypopharynx: - Normal. Mucosal: - Pharynx had no mucosal abnormalities. Lungs: - Respiration rhythm and depth was normal. Cardiovascular: Heart Rate And Rhythm: - Normal. Heart Sounds: - Normal. Abdomen: Visual Inspection: - Abdomen was normal on visual inspection. Musculoskeletal System: General/bilateral: - Normal movement of all extremities. Neurological: - Oriented to time, place, and person. Skin: - General appearance was normal. Tests Blood Analysis: Blood Endocrine Laboratory Tests: ValueDate Blood glucose level by fingerstick Non-fasting 110 mg/dl08/08/2022 Blood hemoglobin A1c 4.7%08/08/2022 Laboratory-based Chemistry: Immunology Studies: HIV test was negative. Assessment - Z00.00 - Encounter for general adult medical examination without abnormal findings - Z11.4 - Encounter for screening for human immunodeficiency virus [HIV] - Z68.41 - Body mass index [BMI] 40.0-44.9, adult - Z13.1 - Encounter for screening for diabetes mellitus - J01.10 - Acute frontal sinusitis, unspecified - F41.1 - Generalized anxiety disorder Therapy - Patient refused flu vaccine. Discussed benefits of flu vaccine with Patient. Vaccinations - Hep B, adolescent or pediatric (Engerix-B) Dose #1 Status: Prev Hist Date: 1996 - Hep B, adolescent or pediatric (Engerix-B) Dose #2 Status: Prev Hist Date: 11/04/2002 - Hep B, adolescent or pediatric (Engerix-B) Dose #3 Status: Prev Hist Date: 01/12/2003 - IPV (IPOL) Dose #1 Status: Prev Hist Date: 11/04/2002 - IPV (IPOL) Dose #2 Status: Prev Hist Date: 12/01/2002 - IPV (IPOL) Dose #3 Status: Prev Hist Date: 01/12/2003 - MMR (MMR-II) Dose #1 Status: Prev Hist Date: 11/04/2002 - MMR (MMR-II) Dose #2 Status: Prev Hist Date: 12/01/2002 - Tdap (Boostrix) Dose #1 Status: Prev Hist Date: 11/22/2009 - Did not receive dose of Reported: Patient has not received the Covid Vaccine Counseling/Education - No not wishing to stop using electronic cigarettes/vaping - Discussed nutritional needs teach healthy choices including fruits and vegetables - Patient education about a proper diet - Discussed concerns about exercise: promote physical activity Plan StartCited- Acute frontal sinusitis, unspecified Azithromycin 250 MG tablet take 2 tablets by mouth today then 1 tablet daily on days 2-5, 5 days, 0 refills EndCited StartCited- Encntr for general adult medical exam w/o abnormal findings Lab: CBC WITH DIFF Lab: COMP METABOLIC PROF Lab: THYROXINE, FREE Lab: LIPID PROFILE Lab: TRIIODOTHYRONINE T3 Lab: TOTAL INSULIN Lab: THYROID STIM. HORM. Lab: VITAMIN D 25 OH EndCited StartCited- Generalized anxiety disorder busPIRone HCl 5 MG tablet take 1 tablet by mouth twice daily, 30 days, 1 refills EndCited StartCited- Other Follow-up Appointment 1 month med check EndCited Notes - Patient is not interested in the COVID-19 vaccination at this time. Practice Management Hemoglobin A1c level < 7.0%, for blood pressure systolic < 140 mmHg systolic 130 - 139 mmHg systolic 130 - 139 mmHg, and diastolic 80-89 mmHg diastolic 80-89 mmHg. Health Reminders - Adult Well Visit 18 years and older satisfied 08/08/2022. - Assess BMI satisfied 08/08/2022. - Assess Tobacco Use satisfied 08/08/2022. - Diabetes Risk Screening Needed satisfied 08/08/2022. - Follow Up Plan BMI Management satisfied 08/08/2022. - HIV Screen satisfied 08/08/2022. User Defined 1 No (0 points) [Pre-DM]: Patient has not been diagnosed with gestational diabetes or given to a baby weighing 9 pounds or more, No (0 points) [Pre-DM]: No, mother, father, sister, or brother does not have DM, No (0 points) [Pre-DM]: No, patient has not been diagnosed with high blood pressure, No (1 point) [Pre-DM]: No, not physically active, and Woman (0 Points) [Pre-DM]. Less than 40 years (0 points) [Pre-DM]. [facility]05-24-[facility]23 Reason for referral (narrative)* Date Encounter Description Provider Reason for Referral 08/08/22 Established Patient Tran MACDONALD S Referral To Mental Health Team Health [facility] Work Phone: Evaluation note* Diagnosis Encounter for care of first , second trimester- Primary related condition in second trimester [facility] Diagnosis examination or test, positive result Amenorrhea Absence of menstruation [facility] Diagnosis Encounter for care of first , second trimester- Primary History of COVID-19 [facility]* Diagnosis Nephrolithiasis- Primary Calculus of kidney Nephrolithiasis- Primary Calculus of kidney 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 [facility] Diagnosis Encounter for care of first , third trimester- Primary Screening for diabetes mellitus (DM) Screening for diabetes mellitus Screening for iron deficiency anemia related condition in third trimester [facility] Diagnosis Nephrolithiasis- Primary Calculus of kidney [facility] Diagnosis 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 Nephrolithiasis Calculus of kidney [facility] Diagnosis Encounter for care of first , second trimester- Primary [facility] Diagnosis Encounter for care of first , third trimester- Primary [facility]* Diagnosis Encounter for care of first , third trimester- Primary Low platelet count (CMS/HCC) [facility] Diagnosis Nephrolithiasis- Primary Calculus of kidney Nephrolithiasis- Primary Calculus of kidney Thrombocytopenia affecting [facility] Diagnosis Nephrolithiasis- Primary Calculus of kidney Thrombocytopenia affecting - Primary Normocytic anemia Unspecified anemia [facility] Diagnosis Encounter for care of first , third trimester- Primary Low platelet count (CMS/HCC) History of COVID-19 Elevated blood pressure affecting in third trimester, antepartum [facility] Narrative History of Present Illness not supported for this document type No History of Present Illness RecordedHealth [facility] Work Phone: Instructions Includes: Instructions for all patient encounters Education and Decision Aids were provided during visit for: [facility] offered active and suppo rtive listening. ~[facility] discussed coping skills to implement in daily routine. [facility] encouraged patient to contact a therapist to schedule counseling Last Documented On 3 7:49PM ; [facility] Discussed nutritional needs teach healthy choices including fruits and vegetables Last Documented On 3 4:31PM ; [facility] Patient education about a pr oper diet Last Documented On 3 4:31PM ; [facility] Lifestyle education Last Documented On 3 5:08PM ; [facility] Patient education about medi cation Last Documented On 3 5:08PM ; [facility] Patient education about ment al health Last Documented On 3 5:08PM ; [facility] Discussed concerns about exe rcise : promote physical activity Last Documented On 3 4:31PM ; [facility] introduced patient to [facility] integrated model of care. ~[facility] offered active and supportive listening, normalized emotions and feelings, and processed current stressors related to school. ~[facility] discussed with patient coping skills and supports that can be implemented such as breathing techniques, mindfulness and meditation. ~[facility] discussed potential benefit in individual therapy. Patient discussed history of previous therapy as a teenager and feeling that the therapist was not helpful and is not sure that she wants to try again. [facility] discussed with patient potential resources where she is able to pick her own therapist and talk with them prior to establishing care. ~[facility] discussed with patient dental services and connected patient with [facility] dental team Last Documented On 3 7:35PM ; [facility] Discussed nutritional needs teach healthy choices including fruits and vegetables Last Documented On 3 5:17PM ; [facility] Patient education about a pr oper diet Last Documented On 3 5:17PM ; [facility] Discussed concerns about exe rcise : promote physical activity Last Documented On 3 5:17PM ; [facility] Work Phone: Instructions Includes: Instructions for all patient encounters Education and Decision Aids were provided during visit for: Discussed nutritional needs teach healthy choices including fruits and vegetables Last Documented On 3 1:59PM ; [facility] Patient education about a pr oper diet Last Documented On 3 1:59PM ; [facility] Discussed concerns about exe rcise : promote physical activity Last Documented On 3 1:59PM ; [facility] offered active and suppo rtive listening. ~[facility] discussed coping skills to implement in daily routine. [facility] encouraged patient to contact a therapist to schedule counseling Last Documented On 3 7:49PM ; [facility] Discussed nutritional needs teach healthy choices including fruits and vegetables Last Documented On 3 4:31PM ; [facility] Patient education about a pr oper diet Last Documented On 3 4:31PM ; [facility] Lifestyle education Last Documented On 3 5:08PM ; [facility] Patient education about medi cation Last Documented On 3 5:08PM ; [facility] Patient education about ment al health Last Documented On 3 5:08PM ; [facility] Discussed concerns about exe rcise : promote physical activity Last Documented On 3 4:31PM ; [facility] introduced patient to [facility] integrated model of care. ~[facility] offered active and supportive listening, normalized emotions and feelings, and processed current stressors related to school. ~[facility] discussed with patient coping skills and supports that can be implemented such as breathing techniques, mindfulness and meditation. ~[facility] discussed potential benefit in individual therapy. Patient discussed history of previous therapy as a teenager and feeling that the therapist was not helpful and is not sure that she wants to try again. [facility] discussed with patient potential resources where she is able to pick her own therapist and talk with them prior to establishing care. ~[facility] discussed with patient dental services and connected patient with [facility] dental team Last Documented On 3 7:35PM ; [facility] Discussed nutritional needs teach healthy choices including fruits and vegetables Last Documented On 3 5:17PM ; [facility] Patient education about a pr oper diet Last Documented On 3 5:17PM ; [facility] Discussed concerns about exe rcise : promote physical activity Last Documented On 3 5:17PM ; [facility] Work Phone: Instructions Includes: Instructions for all patient encounters Education and Decision Aids were provided during visit for: [facility] provided supportive and active listening, allowing patient the space to discuss concerns and explored with patient coping strategies to manage increased anxiety and stressors. ~[facility] discussed community resourcces should they be needed. Health instructional coach to reach out to patient next week regarding additional resources. ~[facility] discussed benefit in individual counseling and supports Last Documented On 3 9:45AM ; [facility] Discussed nutritional needs teach healthy choices including fruits and vegetables Last Documented On 3 1:59PM ; [facility] Patient education about a pr oper diet Last Documented On 3 1:59PM ; [facility] Discussed concerns about exe rcise : promote physical activity Last Documented On 3 1:59PM ; [facility] offered active and suppo rtive listening. ~[facility] discussed coping skills to implement in daily routine. [facility] encouraged patient to contact a therapist to schedule counseling Last Documented On 3 7:49PM ; [facility] Discussed nutritional needs teach healthy choices including fruits and vegetables Last Documented On 3 4:31PM ; [facility] Patient education about a pr oper diet Last Documented On 3 4:31PM ; [facility] Lifestyle education Last Documented On 3 5:08PM ; [facility] Patient education about medi cation Last Documented On 3 5:08PM ; [facility] Patient education about ment al health Last Documented On 3 5:08PM ; [facility] Discussed concerns about exe rcise : promote physical activity Last Documented On 3 4:31PM ; [facility] introduced patient to [facility] integrated model of care. ~[facility] offered active and supportive listening, normalized emotions and feelings, and processed current stressors related to school. ~[facility] discussed with patient coping skills and supports that can be implemented such as breathing techniques, mindfulness and meditation. ~[facility] discussed potential benefit in individual therapy. Patient discussed history of previous therapy as a teenager and feeling that the therapist was not helpful and is not sure that she wants to try again. [facility] discussed with patient potential resources where she is able to pick her own therapist and talk with them prior to establishing care. ~[facility] discussed with patient dental services and connected patient with [facility] dental team Last Documented On 3 7:35PM ; [facility] Discussed nutritional needs teach healthy choices including fruits and vegetables Last Documented On 3 5:17PM ; [facility] Patient education about a pr oper diet Last Documented On 3 5:17PM ; [facility] Discussed concerns about exe rcise : promote physical activity Last Documented On 3 5:17PM ; [facility] Work Phone: InstructionsNot on filedocumented in this encounter [facility] filedocument[facility] in this encounter [facility] filedocumented in this encounter [facility] filedocumented in this encounter [facility] on filedocumented in this encounter [facility] on filedocumented in this encounter [facility] outcome Narrative Includes: Evaluations & Outcomes for active Goals [facility]: Review of systems Narrative - Reported Review of Systems not supported for this document type No [facility]: Summary Purpose Family History Description Last Updated Family history of systemic hypertension paternal grandfather 08/08/2022 Last Documented On 3 5:55PM ; [facility] Description Last Updated Family history of systemic hypertension paternal grandfather 08/08/2022 Last Documented On 3 5:55PM ; [facility] Description Last Updated Family history of systemic hypertension paternal grandfather 08/08/2022 Last Documented On 3 5:55PM ; [facility] Advance Directives No Advanced Directives Records Found Includes: Current Advance Directives No Advance Directives Recorded Includes: Current Advance Directives No Advance Directives Recorded Includes: Current Advance Directives No Advance Directives RecordedNo Advanced Directives Records FoundNo Advanced Directives Records FoundNo Advanced Directives Records FoundNo Advanced Directives Records Found Physical Exam Physical Exam not supported for this document type No Physical Exam Recorded Physical Exam not supported for this document type No Physical Exam Recorded Physical Exam not supported for this document type No Physical Exam Recorded Additional Source Comments INFORMATION SOURCE (unrecogn ized section and content) DATE CREATED AUTHOR 07/07/2022 [facility] - [facility] DATE CREATED AUTHOR AUTHOR'S ORGANIZ ATION 08/21/2023 [facility] DATE CREATED AUTHOR AUTHOR'S ORGANIZ ATION 10/23/2023 [facility] DATE CREATED AUTHOR AUTHOR'S ORGANIZ ATION 04/03/2024 [facility] DATE CREATED AUTHOR AUTHOR'S ORGANIZ ATION 06/28/2024 [facility] Reason for Visit (unrecogniz ed section and content) Reason Comments Initial Visit Reason Comments Follow-up Reason Comments Nephrolithiasis Follow-up Reason Comments New Patient Specialty Diagnoses / Procedures Referred By Janene garcia Referred To Contact Hematology Diagnoses Low platelet count Procedures [place] OFFICE OUTPATIENT VISIT 60-74 MINS HIGH MDM [id number] (SNOMED CT) - AMB REFERRAL TO HEMATOLOGY Steve Stover APRN-CNM [address] [place] [address] Phone: tel: fax: Rogers Mota MD [address] [place] [id number] Phone: tel: fax: Referral ID Status Reason Start Date Expiration Date Visits Re quested Visits Authorized [id number] Closed 06/10/2024 12/07/2024 1 1 Care Teams (unrecognized sec tion and content) Geriatric Nursing Assistant Relationship Specialty Start Date End Date No Pcp, [place] [address] PCP - General Family Medicine 06/19/23 Geriatric Nursing Assistant Relationship Specialty Start Date End Date No Pcp, [place] [address] PCP - General Family Medicine 06/19/23 Geriatric Nursing Assistant Relationship Specialty Start Date End Date No Pcp, [place] [address] PCP - General Family Medicine 06/19/23 Geriatric Nursing Assistant Relationship Specialty Start Date End Date No Pcp, [place] [address] PCP - General Family Medicine 06/19/23 Geriatric Nursing Assistant Relationship Specialty Start Date End Date No Pcp, [place] [address] PCP - General Family Medicine 06/19/23 Geriatric Nursing Assistant Relationship Specialty Start Date End Date No Pcp, [place] [address] PCP - General Family Medicine 06/19/23 Geriatric Nursing Assistant Relationship Specialty Start Date End Date No Pcp, [place] [address] PCP - General Family Medicine 06/19/23 Geriatric Nursing Assistant Relationship Specialty Start Date End Date No Pcp, [place] [address] PCP - General Family Medicine 06/19/23 Geriatric Nursing Assistant Relationship Specialty Start Date End Date No Pcp, [place] [address] PCP - General Family Medicine 06/19/23 FOR RECORDS PERTAINING TO PATIENTS WHO ARE OR HAVE BEEN ENROLLED IN A CHEMICAL DEPENDENCY/SUBSTANCEABUSE PROGRAM, SOME INFORMATION MAY BE OMITTED. This clinical summary was aggregated from multiple sources. Caution should be exercised in using it in the provision of clinical care. This summary normalizes information from multiple sources, and as a consequence, information in this document may materially change the coding, format and clinical context of patient data. In addition, data may be omitted in some cases. CLINICAL DECISIONS SHOULD BE BASED ON THE PRIMARY CLINICAL RECORDS. [employer] [facility]. provides no warranty or guarantee of the accuracy or completeness of information in this document.
[2024-07-01] MEDS: DINOPROSTONE 10 MG VAG INSERT.ER VAGINAL (16:22)
[2024-07-01] MEDS: LABETALOL HCL 100 MG TABLET PO (16:22)
[2024-07-01 17:30] LABS: Amphetamine Screen Urine NEGATIVE (NEGATIVE); Barbiturates Screen Urine NEGATIVE (NEGATIVE); Benzodiazepines Screen Urine NEGATIVE (NEGATIVE); Buprenorphine Screen Urine NEGATIVE (NEGATIVE); Cannabinoid Screen Urine NEGATIVE (NEGATIVE); Cocaine Screen Urine NEGATIVE (NEGATIVE); Methadone Screen Urine NEGATIVE (NEGATIVE); Methamphetamines Screen Urine NEGATIVE (NEGATIVE); Opiate Screen Urine NEGATIVE (NEGATIVE); Oxycodone Screen Urine NEGATIVE (NEGATIVE); Phencyclidine Screen Urine NEGATIVE (NEGATIVE); Tricyclic Antidepressant Urine NEGATIVE (NEGATIVE)
[2024-07-01] MEDS: ACETAMINOPHEN 500 MG TABLET 1000 MG PO (21:35)
[2024-07-01] MEDS: ONDANSETRON PF 4 MG/2 ML VIAL IV (22:44)
[2024-07-01] MEDS: ZOLPIDEM TARTRATE 5 MG TABLET PO (23:01)
[2024-07-02] VITALS (19 sets, daily range): BP systolic 123–145; BP diastolic 58–78; PULSE 75–114; TEMP 36.6–37.1
[2024-07-02] MEDS: NALBUPHINE HCL 10 MG/ML AMPULE 20 MG IM (02:04)
[2024-07-02] MEDS: LACTATED RINGER'S SOLUTION 1,000 ML 125 ML IV (04:45)
[2024-07-02] MEDS: OXYTOCIN/0.9 % SODIUM CHLORIDE 20 UNITS/1,000 ML PLAST..BAG 125 UNIT IV (05:30)
[2024-07-02] MEDS: LIDOCAINE HCL 1% 200 MG/20 ML MDV INJ (05:30)
--- NOTE | 2024-07-02 06:46 | P.OBHP_ITS ---
OB - H&P: HPI History of Present Illness Chief complaint: HIGH BLOOD PRESSURE 39 WKS : 1 Para: 0 Gestational age based on last menstrual period: 39.5 Indications for induction: maternal hypertension History of Present Dating criteria: LMP confirmed by 1st trimester US care: good care Ultrasounds: normal 1st trimester US complications comment: elevated blood pressure [id number] in office Medical complications OB: none Labs Blood type: A (+) positive Rubella: nonimmune RPR/VDLR: nonreactive GBS status: negative HBsAG: negative Review of Systems ROS Status of ROS: 10 or more systems reviewed and unremarkable except as noted in history and below PFSH PFSH Social History Little interest or pleasure in doing things: not at all Feeling down, depressed, or hopeless: not at all Meds Home Medications and Allergies Home Medications ?Medication ?Instructions ?Recorded ?Confirmed ?Type ferrous sulfate 325 mg (65 mg 65 mg PO DAILY 06/17/24 06/17/24 History iron) tablet,delayed release Allergies Allergy/AdvReac Type Severity Reaction Status Date / Time No Known Drug Allergies Allergy Verified 06/17/24 13:36 Exam Constitutional Vital Signs, click to edit/add: Last Vital Signs Temp 97.3 F L 07/01/24 16:45 Pulse 85 07/02/24 06:31 BP 132/63 07/02/24 06:31 O2 Del Method Room Air 07/01/24 16:45 Documenting provider has reviewed patient's vital signs: yes Common normals: no apparent distress and oriented x3 General appearance: cooperative Orientation/consciousness: Yes awake, Yes oriented to person, Yes oriented to p lace and Yes oriented to time HENMT Common normals: normocephalic Eye Common normals: EOMs intact bilaterally General eye: normal appearance of both eyes Neck & C-Spine Common normals: no lymphadenopathy General: normal visual inspection Lymph Lymphatic: no lymphadenopathy noted Chest Common normals: inspection of chest normal Respiratory Common normals: normal respiratory effort Effort & inspection: able to speak in complete sentences Auscultation: clear to auscultation bilaterally Cardio Common normals: regular rate and regular rhythm Rate: regular rate Rhythm: regular rhythm GI Common normals: Normal to inspection, nondistended, normoactive bowel sounds present Palpation: soft Common normals: no CVA tenderness Back & Pelvis Common normals: no CVA tenderness Extremity Common normals: normal to inspection and full ROM Neuro Common normals: oriented x3 Sensorium/orientation: awake, alert, oriented to person, oriented to place and oriented to time Psych Common normals: mental status grossly normal, thought process normal, cooperative, affect normal, speech normal, activity/motor behavior normal, denies hallucinations, denies homicidal ideation and denies suicidal ideation Attitude: calm Speech: normal speech Thought process: normal thought process Results Labs Labs: Short CBC 07/01/24 Range/Units 13:00 WBC 9.2 (4.0-11.0) 10^3/uL Hgb 11.6 L (12.0-16.0) g/dL Hct 35.5 L (36.0-48.0) % Plt Count 111 L (150-450) 10^3/uL BMP 07/01/24 13:00 Sodium 137 Potassium 3.5 Chloride 104 Carbon Dioxide 22.0 BUN 9.0 Creatinine 0.53 L Glucose 92 Calcium 8.7 Liver Function 07/01/24 Range/Units 13:00 Total Bilirubin 0.2 (0.2-1.0) mg/dL AST 10 L (15-37) U/L ALT 15 (14-59) U/L Alkaline Phosphatase 203 H (46-116) U/L Albumin 2.2 L (3.4-5.0) g/dL Urine 07/01/24 Range/Units 12:55 Urine Color Yellow (YELLOW) Urine Clarity Clear (CLEAR) Urine pH 6.0 (5.0-9.0) Ur Specific [place] 1.025 (1.005-1.025) Urine Protein 100 A (NEG/TRACE) mg/dL Urine Glucose (UA) Negative (NEGATIVE) mg/dL OB - A/P Assessment and Plan (1) Elevated blood pressure affecting in third trimester, antepartum: (2) Term :
--- NOTE | 2024-07-02 06:52 | PM.OBPRCVD ---
Procedure Induction method: other (cervidil ) Delivery monitor: external FHT and external uterine Route of delivery: Episiotomy Description: none L&D Laceration Description: perineal - 2nd degree and labial (periclitoral not repaired- no bleeding noted ) Delivery repair: Vicryl Estimated blood loss (mL): 400 Anesthesia type: Local (lidocaine 2% injected locally before repair ) Infant Delivery date: 07/02/24 Gender: male presentation: vertex Placental delivery description: Spontaneous cord description: 3 Vessels heart rate - 1 minute: 100 bpm or Greater respiratory effort - 1 minute: Spontaneous/Strong Cry muscle tone - 1 minute: Active Movement reflex response - 1 minute: Prompt Response color - 1 minute: Bluish Hands or Feet total score - 1 minute: 9 heart rate - 5 minute: 100 bpm or Greater respiratory effort - 5 minute: Spontaneous/Strong Cry muscle tone - 5 minute: Active Movement reflex response - 5 minute: Prompt Response color - 5 minute: [place]/No Cyanosis total score - 5 minute: 10
[2024-07-02] MEDS: BENZOCAINE/MENTHOL 85 GRAM SPRAY BOTTLE 1 APPLIC TOPICAL (14:45)
[2024-07-02] MEDS: IBUPROFEN 600 MG TABLET PO (14:45)
[2024-07-02] MEDS: GLYCERIN/WITCH HAZEL PADS 1 PAD TOPICAL (14:46)
[2024-07-02] MEDS: ACETAMINOPHEN 500 MG TABLET 1000 MG PO (18:07)
[2024-07-02] MEDS: LABETALOL HCL 100 MG TABLET PO (19:23)
[2024-07-03] MEDS: IBUPROFEN 600 MG TABLET PO ×3 (00:57→13:26)
[2024-07-03 05:22] VITALS: BP 119/59; PULSE 91
[2024-07-03 05:25] VITALS: TEMP 36.6
[2024-07-03 06:59] LABS: Basophils Percent Auto 0.2 % (0.2-2.0); Eosinophils Percent Auto 0.3 % (0.9-7.0); Hematocrit 26.3 % (36.0-48.0); Hemoglobin 8.3 g/dL (12.0-16.0); Immature Granulocytes Abs Auto 0.06 10^3/uL (0.00-0.03); Immature Granulocytes Pct Auto 0.5 % (0.0-0.5); Lymphocytes Absolute Auto 2.8 10^3/uL (1.2-3.8); Lymphocytes Percent Auto 23.4 % (20.5-60.0); Mean Corpuscular HGB Conc 31.6 g/dL (29.9-35.2); Mean Corpuscular Hemoglobin 25.8 pg (26.7-34.0); Mean Corpuscular Volume 81.7 fL (81.0-99.0); Monocytes Absolute Auto 0.6 10^3/uL (0.3-0.8); Neutrophils Absolute Auto 8.4 10^3/uL (1.4-6.5); Neutrophils Percent Auto 70.6 % (43.0-75.0); Platelet Count 101 10^3/uL (150-450); Red Blood Count 3.22 10^6/uL (4.20-5.40); Red Cell Distribution Width 14.3 % (11.0-15.0); White Blood Count 11.8 10^3/uL (4.0-11.0)
[2024-07-03 09:15] VITALS: TEMP 36.6
[2024-07-03 09:16] VITALS: BP 117/54; PULSE 96
[2024-07-03] MEDS: LABETALOL HCL 100 MG TABLET PO (09:19)
--- NOTE | 2024-07-03 10:55 | P.OBPN_ITS ---
OB - PN: Subj Subjective Patient comments: no complaints and pain well controlled [place] status: doing well Exam Constitutional Vital Signs, click to edit/add: Last Vital Signs Temp 97.8 F 07/03/24 05:25 Pulse 96 H 07/03/24 09:16 Resp 18 07/03/24 05:25 BP 117/54 07/03/24 09:16 O2 Del Method Room Air 07/03/24 05:25 Documenting provider has reviewed patient's vital signs: yes Common normals: no apparent distress Respiratory Common normals: clear to auscultation bilaterally Cardio Common normals: regular rate and regular rhythm GI Common normals: Normal to inspection, nondistended, normoactive bowel sounds present Extremity Common normals: no calf tenderness Results Labs Labs: Short CBC 07/03/24 Range/Units 06:44 WBC 11.8 H (4.0-11.0) 10^3/uL Hgb 8.3 L (12.0-16.0) g/dL Hct 26.3 L (36.0-48.0) % Plt Count 101 L (150-450) 10^3/uL OB - PN: A/P Assessment and Plan (1) Elevated blood pressure affecting in third trimester, antepartum: (2) Term : Plan - Vaginal Delivery day: 1 Plan: routine care, discharge home and follow up 6 weeks Time Spent with Patient Time: Total time spent is greater than 50% in coordination of care (as documented) at patient's floor/unit and/or counseling patient: Total time spent with greater than 50% in coordination of care (as documented) at patient's floor/unit and/or counseling patient: less than 15 minutes
[2024-07-03] MEDS: MEASLES,MUMPS,RUBELLA VACC/PF 0.5 ML VIAL SQ (16:06)
== END 2024-07-03 18:00 | disposition home or self-care (01) | DRG 560 ==
PROVIDERS: Admitting Provider Midwife; Visit Provider Midwife
DX: O16.4 Unspecified maternal hypertension, complicating childbirth (principal); O70.1 Second degree perineal laceration during delivery; Z3A.39 39 weeks gestation of pregnancy; Z37.0 Single live birth; Z23 Encounter for immunization
CPT/HCPCS: 36415; 59025; 59050; 59410; 80053; 80307; 81001; 82570; 83615; 84156; 84550; 85025; 86850; 86900; 86901; 90707; J2300; J2405

== ENCOUNTER 2024-09-30 10:10 | Outpatient (OUT) | payer MEDICAID, SELFPAY ==
--- OUTSIDE RECORDS SUMMARY | 2023-12-03 10:23 | XMS_ITS | Continuity of Care Document ---
Author Organization [facility] Address [address] [place] [phone] Phone Care Team Providers Care Paper Hanger Name Role Phone Shanna Khan APRN Unavailable [...] Diagnoses Date Provider Providers Copied on Encounter [facility], [address] [place] [address], [id number] , [place] tel:+ [phone] [facility] No Information 4 Romana VALLEJO-Nahid Otero. [address] [place] [address], [address], [place]. tel:+ [phone] [facility], [address] [place] [address], [id number] , [place] tel:+ [phone] [facility] History of kidney stonesVitamin D deficiencyPlatelets decreased 4 Romana VALLEJO-C Shanna. [address] [place] [address], [address], [place]. tel:+ [phone] PREV VISIT, NEW, AGE 18-39 [facility], [address] [place] [address], [id number] , [place] tel:+ [phone] [facility] Establish care (chief complaint) Lab draw (chief complaint) Encounter for general adult medical examination without abnormal findingsHistory of kidney stonesEncounter for screening for HIVNeed for hepatitis C screening testEncounter for vitamin deficiency screeningScreening for diabetes mellitusScreening for thyroid disorderEncounter for screening for cardiovascular disordersBody mass index [BMI] 39.0-39.9, adultEncounter for screening for COVID-19Increased urinary frequencySore throatNasal congestionMarijuana abuse Romana Otero. [address] [place] [address], [address], [place]. tel:+ [phone] Family History Family Member Type Diagnosis Age At Onset Mother Problem Illegal drug use Mother Problem Alcoholism Payers Payer name Insurance type Covered republican ID Authoriza tion(s) Hum[employer] Medicaid [facility] 0223 [id number] Medicaid Wrap - [facility] [id number] Social History Type Description Quantity Date Captured [...] use screening . Due on due Goal Hep A. Due on du e Goal PRAPARE ASSESSMENT. Due on due Goal Influenza vaccine. Due on Ma due Goal Tdap. Due on due Goal [...] Date Complaint History Of Prese nt Illness Counts Include [facility] care Presents to diego valladares. Reports [...] single. No children. Is employed at a [employer] in [employer] and [employer]. Does not drink ETOH. Does not smoke cigarettes. Vapes marijuana and uses gummies. No other drug use. 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
--- OUTSIDE RECORDS SUMMARY | 2024-09-16 14:25 | XMS_ITS | Encounter Summary ---
Author Organization [facility] [employer] [facility] tem Address [facility] – [id number] [address] [place] [address] Care Team Providers Care Bolt Maker Name Role Phone No Pcp, No Pcp Primary Care Provider Unavailabl e Reason for Referral * Consultation (Routine) - Pending Review Specialty Diagnoses / Procedures Referred By Janene garcia Referred To Contact Urology Diagnoses Nephrolithiasis Stacey Hankins, TALENT SOLUTIONS MANAGER-TURN DOWN WORKER [address] [place] [address] Phone: tel: fax: Jarret Villatoro MD [address] [place] [address] Phone: tel: fax: Referral ID Status Reason Start Date Expiration Date Visits Requested Visits Authorized [id number] Pending Review Specialty Services Required 09/16/2024 09/16/2025 1 1 Reason for Visit * Reason Comments Blood in Urine Blood in urine recen tly , pain in the left flank , hx of kidney stones. Encounter Details Date Type Department Care Team (Late st Contact Info) Description 09/16/2024 2:25 PM EDT - 09/16/2024 5:38 PM EDT Emergency [facility] - Emergency [address] [place] [id number] Kevin Michaud MD [address] [place] [address] Nephrolithiasis (Primary Dx) Discharge Disposition: Home Social History Tobacco Use Types Packs/Day Years Used Date Smoking Tobacco: Never Smokeless Tobacco: Never Alcohol Use Standard Drinks/Week Comments Yes 0 (1 standard drink = 0.6 oz pur e alcohol) Maybe once ever 3 months Overall Financial Resource Strain (CARDIA) Answe r Date Recorded How hard is it for you to pa y for the very basics like food, housing, medical care, and heating? Not very hard 03/03/2024 PRAPARE - Transportation Answer Date Re corded In the past 12 months, has l ack of transportation kept you from medical appointments or from getting medications? No 02/15 In the past 12 months, has l ack of transportation kept you from meetings, work, or from getting things needed for daily living? No 03/03/2024 Housing Instability Answer Date Recorde d Are you worried or concerned that in the next two months you may not have stable housing that you own, rent or stay in as a part of a household? No 03/03/2024 Childcare Answer Date Recorded Childcare Unknown 08/25/2018 Employment Answer Date Recorded Employment Unknown 08/25/2018 Hunger Screening Answer Date Recorded Within the past 12 months we worried whether our food would run out before we got money to buy more. Never True 09/16/2024 Within the past 12 months th e food we bought just didn't last and we didn't have money to get more. Never True 09/16/2024 Purpose - Life Answer Date Recorded Purpose and direction in life Unknown Comments Unknown Sex and Gender Information Value Date Recorded Sex Assigned at Not on file Legal Sex Female 4:36 PM EDT Gender Identity Not on file Sexual Orientation Not on file documented as of this encounter Last Filed Vital Signs Vital Sign Reading Time Taken Comments Blood Pressure 120/62 09/16/2024 5:15 PM EDT Pulse 80 09/16/2024 5:15 PM EDT Temperature 36.9 C (98.4 F) 09/16/2024 2:21 PM EDT Respiratory Rate 19 09/16/2024 5:15 PM EDT Oxygen Saturation 96% 09/16/2024 5:15 PM EDT Inhaled Oxygen Concentration - - Weight 100 kg (220 lb 7.4 oz) 09/16/2024 2:21 PM EDT Height 160 cm (5' 3 ) 09/16/2024 2:21 PM EDT Body Mass Index 39.05 09/16/2024 2:21 PM EDT documented in this encounter Discharge Instructions * Discharge Instructions* MARQUITA Doran - 09/16/2024 4:42 PM EDT Tylenol or motrin for pain Please call to follow up with urology - see referral Return to ER immediately for new, worse or worrisome concerns * Attachments The following attachments cannot be sent through Care Everywhere. * Kidney Stone? Adult ED (Portuguese) documented in this encounter Medications at Time of Discharge ergocalciferol (DRISDOL) 1,250 mcg (50,000 unit) capsule Take 1 capsule (50,000 Units total) by mouth once a week. Has not started 07/25/2023 oxybutynin XL (DITROPAN-XL) 5 mg 24 hr tablet Take 1 tablet (5 mg total) by mouth in the morning. 21 tablet 08/09/2023 documented as of this encounter ED Notes * Kevin Michaud MD - 09/16/2024 4:25 PM EDT Images from the original note were not included. [facility] - EMERGENCY Pt Name: Osiris Hayward Birthdate: 1995 Chief Complaint: Chief Complaint Patient presents with Blood in Urine Blood in urine recently , pain in the left flank , hx of kidney stones. History of Present Illness: Patient here for left sided flank pain and blood in the urine for about 2 weeks. She has had kidneystones in the past, one needing intervention with Dr. Villatoro. She denies frequency, urgency, or dysuria. No fevers or chills. Nausea without vomiting. She is currently breast feeding. She denies any other medical problems. Taking otc meds at home for pain. Past Medical History: Past Medical History: Diagnosis Date Arthritis Kidney stones 10/28/2023 Past Surgical History: Past Surgical History: Procedure Laterality Date CYSTOSCOPY INSERTION STENT URETER Left 08/09/2023 Performed by Jarret Villatoro MD at [facility] CYSTOSCOPY REMOVAL STENT Left 08/20/2023 Performed by Jarret Villatoro MD at [facility] CYSTOSCOPY RETROGRADE PYELOGRAM Left 08/09/2023 Performed by Jarret Villatoro MD at [facility] LASER HOLMIUM URETEROSCOPY RENAL STONES < OR=1CM Left 08/09/2023 Performed by Jarret Villatoro MD at [facility] Family History: Family History Problem Relation Age of Onset COPD Father Social History: Social History Socioeconomic History Marital status: Single [...] very hard Food Insecurity: No Food Insecurity (09/16/2024) Hunger Screening Food Insecurity - Worry: Never True Food Insecurity - Inability: Never True Transportation Needs: No Transportation Needs (03/03/2024) PRAPARE - Transportation Lack of Transportation (Medical): No Lack of Transportation (Non-Medical): No Housing Instability: Low Risk (03/03/2024) Housing Instability Housing Instability: No Review of Systems: Review of Systems Physical Exam: ED Triage Vitals Temp Heart Rate Resp BP SpO2 09/16/24 1421 09/16/24 1421 09/16/24 1421 09/16/24 1421 09/16/24 1421 36.9 ??C (98.4 ??F) 81 18 135/80 99 % Temp Source Heart Rate Source Patient Position BP Location FiO2 (%) 09/16/24 1421 09/16/24 1540 09/16/24 1540 09/16/24 1540 -- Oral Monitor High-fowlers Right arm Vitals: 09/16/24 1630 09/16/24 1645 09/16/24 1700 09/16/24 1715 BP: 113/58 115/63 113/65 120/62 Temp: TempSrc: Pulse: 70 71 70 80 Resp: 14 15 21 19 SpO2: 98% 95% 97% 96% MAP (mmHg): Height: Weight: Physical Exam Vitals reviewed. HENT: Head: Normocephalic and atraumatic. Eyes: Conjunctiva/sclera: Conjunctivae normal. Cardiovascular: Rate and Rhythm: Normal rate. Pulmonary: Effort: Pulmonary effort is normal. Breath sounds: Normal breath sounds. Abdominal: General: There is no distension. Palpations: Abdomen is soft. Tenderness: There is no right CVA tenderness or left CVA tenderness. Musculoskeletal: General: Normal range of motion. Cervical back: Normal range of motion and neck supple. Skin: General: Skin is warm and dry. Neurological: General: No focal deficit present. Mental Status: She is alert and oriented to person, place, and time. GCS: GCS eye subscore is 4. GCS verbal subscore is 5. GCS motor subscore is 6. Procedure: Procedures Re-evaluation: Re-Evaluation Medical Decision Making Here for 2 weeks of left flank pain and hematuria, nausea without vomiting. Previous history of kidney stones. Work up here shows left intrarenal stone which seems to have been seen previously as they comment the stone is larger. She is afebrile, non toxic, tolerating oral. Pain controlled. Urine does not appear to be infected and was sent for culture. I will refer her back to Dr Villatoro. I sent referral asked that she call the next business day. To return including worsening pain, fever, intractable vomiting, or any new worse or worrisome concerns. 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 The patient verbalized understanding and she is agreeable to the plan of care Amount and/or Complexity of Data Reviewed Labs: ordered. Details: Labs notable for: normal kidney function. Urine with leuks and blood Radiology: ordered. Risk Prescription drug management. ED Course: Clinical Impressions as of 09/16/24 1728 Nephrolithiasis . ED Disposition ED Disposition Discharge Date/Time SatSep 16, 2024 4:42 PM Comment At the time of discharge, the plan has been discussed with the patient regarding the diagnosis and prognosis. All questions have been answered. Verbal discharge instructions were discussed with the patient. The patient has been advised to follow up w ith their Specialist as needed. The patient was also instructed to return to the ED if their symptoms change, worsen, new symptoms arise or if they have any additional concerns. Shared/Split Visit 16:26 EDT Deepa Baxter (scribe), scribed for and in the presence of: Dr. Dmitry Michaud who performed the above service. I, Dr. Dr. Dmitry Michaud personally performed a wjwy-[id number] diagnostic evaluation on this patient. I personally made and approved the management plan for this patient and take responsibility for the patient management. Additional Notes/Findings: Osiris Hayward is a 28 y.o. female presenting to the ED for chief complaint of blood in urine. Exam findings as follows: Constitutional: Awake and alert HENT: Head normocephalic and atraumatic Eyes: conjunctiva unremarkable Cardiovascular: Heart rate regular Pulmonary: Easy work of breathing, speaking full sentences Abdominal: Flat and non-distended, blood in urine, large kidney stone Skin: Warm and dry Musculoskeletal: Moving all extremities spontaneously Neurological: no focal deficit Please note that portions of this note were completed with a voice recognition program. Efforts were made to edit the dictations but occasionally words are mis-transcribed. MARQUITA Doran 09/16/24 1625 Deepa Hogan 09/16/24 1629 MARQUITA Doran 09/16/24 1706 Stacey Hankins APRNPAPITO 09/16/24 1728 Kevin Michaud MD 09/16/24 9889 documented in this encounter Plan of Treatment Scheduled Referrals Name Type Priority Associated Diagnoses Order Schedule Ambulatory referral to Urology (Non-[facility]) Outpatient Referral Routine Nephrolithiasis 1 Occurrences starting 09/16/2024 until 09/16/2025 documented as of this encounter Procedures Procedure Name Priority Date/Time Associated Diagnosis Comments CT ABDOMEN AND PELVIS WO CONT STAT 09/16/2024 3:38 PM EDT EXTRA TUBES BLUE TOP Routine 09/16/2024 3:18 PM EDT EXTRA TUBES Routine 09/16/2024 3:18 PM EDT CBC WITH AUTO DIFFERENTIAL STAT 09/16/2024 3:18 PM EDT COMPREHENSIVE METABOLIC PANEL STAT 09/16/2024 3:18 PM EDT POCT , URINE (NUCG) Routine 09/16/2024 2:46 PM EDT POCT NURSING URINE MACROSCOPIC UA Routine 09/16/2024 2:45 PM EDT ER EXTRA URINE MARBLE STAT 09/16/2024 2:34 PM EDT ER EXTRA URINE STAT 09/16/2024 2:34 PM EDT URINE CULTURE STAT 09/16/2024 2:34 PM EDT documented in this encounter Results * CT abdomen and pelvis without contrast (09/16/2024 3:38 PM EDT) Anatomical Region Laterality Modality Body, Abdomen, Body Covera N/A Compu lucas Tomography 09/16/2024 4:17 PM EDT Narrative 09/16/2024 4:19 PM EDT STUDY: Abdomen and pelvis CT without intravenous contrast . CLINICAL HISTORY: Flank pain, progressive. COMPARISON: None. TECHNIQUE: Abdomen and pelvis CT was performed without intravenous contrast utilizing 5 mm axial reconstructions with coronal and sagittal reformatted images. Automated exposure control was utilized. FINDINGS: Assessment in the absence of intravenous contrast is suboptimal, especially with respect to vasculature, metastatic disease, and infectious precesses [if clinically relevant]. Despite this constraint, best attempt is made: No significant findings lower thorax. Unremarkable liver,, spleen, adrenal glands, pancreas. Cholelithiasis without acute cholecystitis. Left renal pelvic calculi, larger of which measures 1.4 cm; associated urothelial thickening. Mild right caliectasis. Adjacent smaller calculus. 2 mm nonobstructing right lower pole renal calculus. No definite calculus along the course of either ureter. Unremarkable uterus, ovaries. No dilatation or wall thickening of the bowel. Normal appendix. No free fluid or fluid collections. IMPRESSION: 1. Left renal pelvic calculi, larger measures 1.4 cm; associated renal pelvic urothelial thickening and indistinctness, which may be reactive to the calculus. Mild right caliectasis. All CT scans at this facility use dose modulation, iterative reconstruction, and/or weight based dosing when appropriate to reduce radiation dose to as low as reasonably achievable. Finalized by David Freitas MD on 09/16/2024 4:19 PM Procedure Note David Freitas MD - 09/16/2024 STUDY: Abdomen and pelvis CT without intravenous contrast . CLINICAL HISTORY: Flank pain, progressive. COMPARISON: None. TECHNIQUE: Abdomen and pelvis CT was performed without intravenouscontrast utilizing 5 mm axial reconstructions with coronal and sagittalreformatted images. Automated exposure control was utilized. FINDINGS: Assessment in the absence of intravenous contrast is suboptimal,especially with respect to vasculature, metastatic disease, and infectiousprecesses [if clinically relevant]. Despite this constraint, best attemptis made: No significant findings lower thorax. Unremarkable liver,, spleen, adrenal glands, pancreas. Cholelithiasiswithout acute cholecystitis. Left renal pelvic calculi, larger of which measures 1.4 cm; associatedurothelial thickening. Mild right caliectasis. Adjacent smallercalculus. 2 mm nonobstructing right lower pole renal calculus. No definite calculusalong the course of either ureter. Unremarkable uterus, ovaries. No dilatation or wall thickening of thebowel. Normal appendix. No free fluid or fluid collections. IMPRESSION: 1. Left renal pelvic calculi, larger measures 1.4 cm; associated renalpelvic urothelial thickening and indistinctness, which may be reactive tothe calculus. Mild right caliectasis. All CT scans at this facility use dose modulation, iterativereconstruction, and/or weight based dosing when appropriate to reduceradiation dose to as low as reasonably achievable. Finalized by David Freitas MD on 09/16/2024 4:19 PM Stacye Hankins TALENT SOLUTIONS MANAGER-TURN DOWN WORKER IMG CT ORDERABLES Fin al Result * Light Blue Top (09/16/2024 3:18 PM EDT) Extra Tube Auto Resulted 09/16/2024 5:02 PM EDT [facility] Blood Venous blood / Unknown 09/16/2024 3:18 PM EDT 09/16/2024 3:21 PM EDT Stacey Hankins TALENT SOLUTIONS MANAGER-TURN DOWN WORKER LAB BLOOD ORDERABLES Final Result [facility] [address] [place] [address], * (ABNORMAL) Comprehensive metabolic panel (09/16/2024 3:18 PM EDT) SODIUM 137 134 - 146 mmol/L 09/16/2024 3:44 PM EDT [facility] POTASSIUM 4.3 3.5 - 5.0 mmol/L 09/16/2024 3:44 PM EDT [facility] CHLORIDE 103 98 - 109 mmol/L 09/16/2024 3:44 PM EDT [facility] CARBON DIOXIDE 22 22 - 32 mmol/L 09/16/2024 3:44 PM EDT [facility] ANION GAP 12 5 - 15 mmol/L 09/16/2024 3:44 PM EDT [facility] BLOOD UREA NITROGEN 13 5 - 23 mg/dL 09/16/2024 3:44 PM EDT [facility] CREATININE 0.68 0.40 - 1.00 mg/dL 09/16/2024 3:44 PM EDT [facility] Comment:METHOD TRACEABLE TO IDMS STANDARD GLUCOSE 105(H) 65 - 99 mg/dL 09/16/2024 3:44 PM EDT [facility] CALCIUM 9.1 8.5 - 10.5 mg/dL 09/16/2024 3:44 PM EDT [facility] TOTAL PROTEIN 7.7 6.0 - 8.0 g/dL 09/16/2024 3:44 PM EDT [facility] ALBUMIN 3.9 3.2 - 5.3 g/dL 09/16/2024 3:44 PM EDT [facility] ALKALINE PHOSPHATASE 114 39 - 130 U/L 09/16/2024 3:44 PM EDT [facility] AST 18 <=41 U/L 09/16/2024 3:44 PM EDT [facility] ALT 23 <=31 U/L 09/16/2024 3:44 PM EDT [facility] BILIRUBIN,TOTAL 0.7 0.3 - 1.2 mg/dL 09/16/2024 3:44 PM EDT [facility] EGFR Non-Race Dependent >90 >=60 ml/min/1.7 3sq.m 09/16/2024 3:44 PM EDT [facility] Comment: eGFR not reported due to non-numeric value for Creatinine. Reported eGFR is based on the CKD-EPI 2020 equation that does not use a race coefficient. Blood Venous blood / Unknown 09/16/2024 3:18 PM EDT 09/16/2024 3:21 PM EDT us Stacey Hankins TALENT SOLUTIONS MANAGER-TURN DOWN WORKER LAB BLOOD ORDERABLES Final Result [facility] [address] [place] [address], * (ABNORMAL) CBC auto differential (09/16/2024 3:18 PM EDT) WBC 8.8 4 - 11 x10E9/L 09/16/2024 4:13 PM EDT [facility] RBC Count 5.25(H) 3.8 - 5.2 X10E12/L 09/16/2024 4:13 PM EDT [facility] Hemoglobin 12.3 11.7 - 15.5 g/dL 09/16/2024 4:13 PM EDT [facility] Hematocrit 38.5 35 - 47 % 09/16/2024 4:13 PM EDT [facility] MCV 73(L) 80 - 100 fL 09/16/2024 4:13 PM EDT [facility] MCH 23.4(L) 27 - 34 pg 09/16/2024 4:13 PM EDT [facility] MCHC 31.9(L) 32 - 36 g/dL 09/16/2024 4:13 PM EDT [facility] RDW 14.6 11.5 - 15 % 09/16/2024 4:13 PM EDT [facility] Platelet Count 161 150 - 450 X10E9/L 09/16/2024 4:13 PM EDT [facility] MPV 11.5 7 - 12 fL 09/16/2024 4:13 PM EDT [facility] Neutrophils % 87.5 % 09/16/2024 4:13 PM EDT [facility] Lymphocytes % 9.5 % 09/16/2024 4:13 PM EDT [facility] Monocytes % 2.7 % 09/16/2024 4:13 PM EDT [facility] Eosinophils % 0.1 % 09/16/2024 4:13 PM EDT [facility] Basophils % 0.2 % 09/16/2024 4:13 PM EDT [facility] Neutrophils Absolute (A) 7.7(H) 1.5 - 6.6 10*3/uL 09/16/2024 4:13 PM EDT [facility] Lymphocytes Absolute 0.8(L) 1.0 - 3.5 10*3/uL 09/16/2024 4:13 PM EDT [facility] Monocytes Absolute 0.2 0.0 - 0.9 10*3/uL 09/16/2024 4:13 PM EDT [facility] Eosinophils Absolute 0.0 0.0 - 0.4 10*3/uL 09/16/2024 4:13 PM EDT [facility] Basophils Absolute 0.0 0.0 - 0.2 10*3/uL 09/16/2024 4:13 PM EDT [facility] Differential Type AUTOMATED DIFFERENTIAL 09/16/2024 4:13 PM EDT [facility] Blood Venous blood / Unknown 09/16/2024 3:18 PM EDT 09/16/2024 3:21 PM EDT Stacey Hankins TALENT SOLUTIONS MANAGER-TURN DOWN WORKER LAB BLOOD ORDERABLES Final Result Performing Organization Address City/[facility]/ZIP Co de Phone Number [address] [place] [address], [place] * POCT , urine (09/16/2024 2:46 PM EDT) POC Urine Negative Negative, Indeterminate 09/16/2024 2:44 PM EDT [facility] Urine 09/16/2024 2:46 PM EDT 09/16/2024 2:44 PM EDT us POINT OF CARE TEST ORDERABLES Fi nal Result Performing Organization Address City/[facility] Co de Phone Number [address] [place] [address], [place] * (ABNORMAL) POCT Nursing Urine Macroscopic UA (09/16/2024 2:45 PM EDT) POC Urine Specific [place] >=1.030(A) 1.010, 1.015, 1.020, 1.025 09/16/2024 2:38 PM EDT [facility] POC Urine Leukocyte Esterase Trace(A) Negative 09/16/2024 2:38 PM EDT [facility] POC Urine Nitrite Negative Negative 09/16/2024 2:38 PM EDT [facility] POC Urine pH 6.0 5.0, 6.0, 6.5, 7.0, 7.5, 8.0, 8.5, 5.5 09/16/2024 2:38 PM EDT [facility] POC Urine Protein 100 mg/dL(A) Negative 09/16/2024 2:38 PM EDT [facility] POC Urine Glucose Negative Negative 09/16/2024 2:38 PM EDT [facility] POC Urine Ketones Negative Negative 09/16/2024 2:38 PM EDT [facility] POC Urine Urobilinogen 0.2 E.U./dL 09/16/2024 2:38 PM EDT [facility] POC Urine Bilirubin Negative Negative 09/16/2024 2:38 PM EDT [facility] POC Urine Blood/HGB Large(A) Negative 09/16/2024 2:38 PM EDT [facility] Urine 09/16/2024 2:45 PM EDT 09/16/2024 2:38 PM EDT us POINT OF CARE TEST ORDERABLES Fi nal Result Performing Organization Address [facility]/ZIP Co de Phone Number [facility] [address] [place] [address], [place] * Urine Culture Urine, Clean Catch Midstream (09/16/2024 2:34 PM EDT) CULTURE RESULTS 10-50,000 ORGANISMS/mL NORMAL UROGENITAL LEONCIO 09/17/2024 2:40 PM EDT [facility] Urine Urine specimen collection, clean catch / Unknown 09/16/2024 2:34 PM EDT 09/16/2024 2:53 PM EDT us Stacey Hankins TALENT SOLUTIONS MANAGER-TURN DOWN WORKER MICROBIOLOGY - GENERA L ORDERABLES Final Result [facility] [address] [place] [address], [place] [phone] * Extra Urine [place] (09/16/2024 2:34 PM EDT) Extra Tube Auto Resulted 09/16/2024 4:02 PM EDT [facility] Urine Urine specimen collection, clean catch / Unknown 09/16/2024 2:34 PM EDT 09/16/2024 2:53 PM EDT Stacey Hankins TALENT SOLUTIONS MANAGER-TURN DOWN WORKER URINE ORDERABLES Marilee l Result Performing Organization Address City/[facility] Co de Phone Number [address] [place] [address], [place] * Extra Urine (09/16/2024 2:34 PM EDT) Extra Tube Auto Resulted 09/16/2024 4:02 PM EDT [facility] Urine Urine specimen collection, clean catch / Unknown 09/16/2024 2:34 PM EDT 09/16/2024 2:52 PM EDT Stacey Hankins TALENT SOLUTIONS MANAGER-TURN DOWN WORKER URINE ORDERABLES Marilee l Result Performing Organization Address [facility] Co de Phone Number [address] [place] [address], documented in this encounter Visit Diagnoses Diagnosis Nephrolithiasis- Primary Calculus of kidney documented in this encounter Administered Medications Inactive Administered Medications - up to 3 most recent administrations Medication Order MAR Action Action Date Dose Rate Site ketorolac (TORADOL) injection 15 mg 15 mg, intravenous, Once, On Sat09/16/24 at 1450, For 1 dose, Look-alike/sound-alike medication - verify indication for use. Duration of therapy is not to exceed 5 days. Maximum recommended dose + 120mg/24 hours. Given 09/16/2024 3:22 PM EDT 15 mg ondansetron (PF) (ZOFRAN) injection 4 mg 4 mg, intravenous, Once, On Sat09/16/24 at 1450, For 1 dose, Intravenous administration preferred to be given over 2-5 minutes. Given 09/16/2024 3:18 PM EDT 4 mg sodium chloride 0.9 % bolus 1,000 mL, intravenous, at 984 mL/hr, Administer over 61 Minutes, Once, On Sat09/16/24 at 1450, For 1 dose Restarted 09/16/2024 3:39 PM EDT 999 mL/hr New Bag 09/16/2024 3:11 PM EDT 1,000 mL 999 mL/hr sodium chloride 0.9 % flush 3 mL 3 mL, intravenous, As needed, line care, before and after each intermittent use, Starting on Sat09/16/24 at 1443 documented in this encounter Active and Recently Administered Medications Times are shown in EDT. Scheduled Medication Order 09/14/2024 09/15/2024 09/16/2024 ketorolac (TORADOL) injection 15 mg (COMPLETED) 15 mg, intravenous, Once, On Sat09/16/24 at 1450, For 1 dose, Look-alike/sound-alike medication - verify indication for use. Duration of therapy is not to exceed 5 days. Maximum recommended dose + 120mg/24 hours. 1522 (Given - Provid er: Kristi Garcia RN) ondansetron (PF) (ZOFRAN) injection 4 mg (COMPLETED) 4 mg, intravenous, Once, On Sat09/16/24 at 1450, For 1 dose, Intravenous administration preferred to be given over 2-5 minutes. 1518 (Given - Provid er: Kristi Garcia RN) sodium chloride 0.9 % bolus (COMPLETED) 1,000 mL, intravenous, at 984 mL/hr, Administer over 61 Minutes, Once, On Sat09/16/24 at 1450, For 1 dose 1511 (New Bag - Prov ider: Kristi Garcia RN)1528 (Paused - Provider: Kristi Garcia, RN)1539 (Restarted - Provider: Kristi Garcia, RN)1627 (Stop Bag - Provider: Kristi Garcia, RN) PRN Medication Order 09/14/2024 09/15/2024 09/16/2024 sodium chloride 0.9 % flush 3 mL 3 mL, intravenous, As needed, line care, before and after each intermittent use, Starting on Sat09/16/24 at 1443 documented in this encounter Care Teams Bolt Maker Relationship Specialty Start Date End Date No Pcp, No Pcp [place], [place] [id number] PCP - General Family Medicine 09/16/24 documented as of this encounter
--- OUTSIDE RECORDS SUMMARY | 2024-09-24 23:59 | XMS_ITS | Continuity of Care Document ---
Author Organization [facility] Address [address] [place] [address] Encounter VINCENT_VETO [id number] Date(s): 09/24/24 - 09/24/24 [facility] [address], [address] [place] [address]- Encounter Diagnosis History of kidney stones(Discharge Diagnosis) - 09/24/24 Kidney stones(Discharge Diagnosis) - 09/24/24 Gross hematuria(Discharge Diagnosis) - 09/24/24 Discharge Disposition: Home (Routine DC) Attending Physician: Tigist Blount MD Encounter Type: Clinic Allergies, Adverse Reactions, Alerts No Known Allergies Medications No Known Medications Problem List Condition Confirmation Course Effective Dates Status Health St atus Informant Acute arthritis Confirmed Active Gross hematuria Confirmed Active History of kidney stones Confirmed Active Kidney disease Confirmed Active Kidney stones Confirmed Active Social History Social History Type Response Smoking Status Never (less than 100 in lifetime);Never entered on: 09/24/24 Sex Female Sex Representation Female (finding) Hospital Discharge Instructions Patient Education 09/24/2024 10:51:25 Dietary Guidelines to Help Prevent Kidney Stones Dietary Guidelines to Help Prevent Kidney Stones Kidney stones are deposits of minerals and salts that form inside your kidneys. Your risk of developing kidney stones may be greater depending on your diet, your lifestyle, the medicines you take, and whether you have certain medical conditions. Most people can lower their risks of developing kidney stones by following these dietary guidelines. Your dietitian may give you more specific instructions depending on your overall health and the type of kidney stones you tend to develop. What are tips for following this plan? Reading food labels ??? Choose foods with no salt added or low-salt labels. Limit your salt (sodium) intake to lessthan 1,500 mg a day. ??? Choose foods with calcium for each meal and snack. Try to eat about 300 mg of calcium at each meal. Foods that contain 200???500 mg of calcium a serving include: ??? 8 oz (237 mL) of milk, pjqgxcc-skepaproiunh-hvtqc milk, and calcium- fortifiedfruit juice. Calcium-fortified means that calcium has been added to these drinks. ??? 8 oz (237 mL) of kefir, yogurt, and soy yogurt. ??? 4 oz (114 g) of tofu. ??? 1 oz (28 g) of cheese. ??? 1 cup (150 g) of dried figs. ??? 1 cup (91 g) of cooked broccoli. ??? One 3 oz (85 g) can of sardines or mackerel. Most people need 1,000???1,500 mg of calcium a day. Talk to your dietitian about how much calcium is recommended for you. Shopping ??? Buy plenty of fresh fruits and vegetables. Most people do not need to avoid fruits and vegetables, even if these foods contain nutrients that may contribute to kidney stones. ??? When shopping for convenience foods, choose: ??? Whole pieces of fruit. ??? Pre-made salads with dressing on the side. ??? Low-fat fruit and yogurt smoothies. ??? Avoid buying frozen meals or prepared deli foods. These can be high in sodium. ??? Look for foods with live cultures, such as yogurt and kefir. ??? Choose high-fiber grains, such as whole-wheat breads, oat bran, and wheat cereals. Cooking ??? Do not add salt to food when cooking. Place a salt shaker on the table and allow each person toadd their own salt to taste. ??? Use vegetable protein, such as beans, textured vegetable protein (TVP), or tofu, instead of meat in pasta, casseroles, and soups. Meal planning ??? Eat less salt, if told by your dietitian. To do this: ??? Avoid eating processed or pre-made food. ??? Avoid eating fast food. ??? Eat less animal protein, including cheese, meat, poultry, or fish, if told by your dietitian. To do this: ??? Limit the number of times you have meat, poultry, fish, or cheese each week. Eat a diet free ofmeat at least 2 days a week. ??? Eat only one serving each day of meat, poultry, fish, or seafood. ??? When you prepare animal proteins, cut pieces into small portion sizes. For most meat and fish, one serving is about the size of the palm of your hand. ??? Eat at least five servings of fresh fruits and vegetables each day. To do this: ??? Keep fruits and vegetables on hand for snacks. ??? Eat one piece of fruit or a handful of berries with breakfast. ??? Have a salad and fruit at lunch. ??? Have two kinds of vegetables at dinner. ??? You may be told to limit foods that are high in a substance called oxalate. These include: ??? Spinach (cooked), rhubarb, beets, sweet potatoes, and [place] chard. ??? Peanuts. ??? Potato chips, sammarinese fries, and baked potatoes with skin on. ??? Nuts and nut products. ??? Chocolate. ??? If you regularly take a diuretic medicine, make sure to eat at least 1 or 2 servings of fruits or vegetables that are high in potassium each day. These include: ??? Avocado. ??? Banana. ??? [place], prune, carrot, or tomato juice. ??? Baked potato. ??? Cabbage. ??? Beans and split peas. Lifestyle ??? Drink enough fluid to keep your urine pale yellow. This is the most important thing you can do.Spread your fluid intake throughout the day. ??? If you drink alcohol: ??? Limit how much you have to: ??? 0???1 drink a day for women who are not . ??? 0???2 drinks a day for men. ??? Know how much alcohol is in your drink. In the [place] one drink equals one 12 oz bottle of beer (355 mL), one 5 oz glass of wine (148 mL), or one 1?? oz glass of hard liquor (44 mL). ??? Lose weight if told by your health care provider. Work with your dietitian to find an eating plan and weight loss strategies that work best for you. General information ??? Talk to your health care provider and dietitian about taking daily supplements. Depending on your health and the cause of your kidney stones, you may be told: ??? Do not take high-dose supplements of vitamin C (1,000 mg a day or more). ??? To take a calcium supplement. ??? To take a daily probiotic supplement. ??? To take other supplements such as magnesium, fish oil, or vitamin B6. ??? Take bify-usx-ekxpxhb and prescription medicines only as told by your health care provider. These include supplements. What foods should I limit? Limit your intake of the following foods, or eat them as told by your dietitian. Vegetables Spinach. Rhubarb. Beets. Canned vegetables. Pickles. Olives. Baked potatoes with skin. Grains Wheat bran. Baked goods. Salted crackers. Cereals high in sugar. Meats and other proteins Nuts. Nut butters. Large portions of meat, poultry, or fish. Salted, precooked, or cured meats, such as sausages, meat loaves, and hot dogs. Dairy Cheeses. Beverages Regular soft drinks. Regular vegetable juice. Seasonings and condiments Seasoning blends with salt. Salad dressings. Soy sauce. Ketchup. Barbecue sauce. Other foods Canned soups. Canned pasta sauce. Casseroles. Pizza. Lasagna. Frozen meals. Potato chips. [place]rugu[place] fries. The items listed above may not be a complete list of foods and beverages you should limit. Contact a dietitian for more information. What foods should I avoid? Talk to your dietitian about specific foods you should avoid based on the type of kidney stones youhave and your overall health. Fruits Grapefruit. The item listed above may not be a complete list of foods and beverages you should avoid. Contact adietitian for more information. Summary ??? Kidney stones are deposits of minerals and salts that form inside your kidneys. ??? You can lower your risk of kidney stones by making changes to your diet. ??? The most important thing you can do is drink enough fluid. Drink enough fluid to keep your urine pale yellow. ??? Talk to your dietitian about how much calcium you should have each day, and eat less salt and animal protein as told by your dietitian. This information is not intended to replace advice given to you by your health care provider. Make sure you discuss any questions you have with your health care provider. Document Revised: 06/14/2022 Document Reviewed: 06/14/2022 [employer] Patient Education ?? 2023 [email or web address]. 09/24/2024 10:51:24 Ureteroscopy Ureteroscopy Ureteroscopy is a procedure to check for and treat problems inside part of the urinary tract. In this procedure, a long rigid or flexible tube with a lens and light at the end (ureteroscope) is used to look at the inside of the kidneys and the ureters. The ureters are the tubes that carry urine from the kidneys to the bladder. The ureteroscope is inserted into one or both of the ureters. You may need this procedure if you have frequent urinary tract infections (UTIs), blood in your urine, or a stone in one or both of your ureters. A ureteroscopy can be done: ??? To find the cause of urine blockage in a ureter and to evaluate other abnormalities inside the ureters or kidneys. ??? To remove stones. ??? To remove or treat growths of tissue (polyps), abnormal tissue, and some types of tumors. ??? To remove a tissue sample and check it for disease under a microscope (biopsy). Tell a health care provider about: ??? Any allergies you have. ??? All medicines you are taking, including vitamins, herbs, eye drops, creams, and flfu-qrq-jvurrjc medicines. ??? Any problems you or family members have had with anesthetic medicines. ??? Any bleeding problems you have. ??? Any surgeries you have had. ??? Any medical conditions you have. ??? Whether you are or may be . What are the risks? Your health care provider will talk with you about risks. These may include: ??? Abdominal pain or a burning feeling or pain while urinating. ??? Abnormal bleeding. ??? A UTI. ??? Allergic reactions to medicines. ??? Scarring that narrows the ureter (stricture) or swelling. ??? Creating a hole (perforation) in the ureter. ??? Damage to other structures or organs, such as the part of your body that drains urine from yourbladder (urethra), your bladder, or your uterus. What happens before the procedure? When to stop eating and drinking ??? 8 hours before your procedure ??? Stop eating most foods. Do not eat meat, fried foods, or fatty foods. ??? Eat only light foods, such as toast or crackers. ??? All liquids are okay except energy drinks and alcohol. ??? 6 hours before your procedure ??? Stop eating. ??? Drink only clear liquids, such as water, clear fruit juice, black coffee, plain tea, and sportsdrinks. ??? Do not drink energy drinks or alcohol. ??? 2 hours before your procedure ??? Stop drinking all liquids. ??? You may be allowed to take medicines with small sips of water. Medicines Ask your health care provider about: ??? Changing or stopping your regular medicines. These include any diabetes medicines or blood thinners you take. ??? Taking medicines such as aspirin and ibuprofen. These medicines can thin your blood. Do not take these medicines unless your health care provider tells you to. ??? Taking mmmn-bef-lofiulg medicines, vitamins, herbs, and supplements. General instructions ??? Do not use any products that contain nicotine or tobacco for at least 4 weeks before the procedure. These products include cigarettes, chewing tobacco, and vaping devices, such as e-cigarettes. If you need help quitting, ask your health care provider. ??? If you will be going home right after the procedure, plan to have a responsible adult: ??? Take you home from the hospital or clinic. You will not be allowed to drive. ??? Care for you for the time you are told. ??? Ask your health care provider what steps will be taken to help prevent infection. These may include: ??? Washing skin with a soap that kills germs. ??? Receiving antibiotic medicine. Tests ??? You may have an exam or testing. ??? You may have a urine sample taken to check for infection. What happens during the procedure? An IV will be inserted into one of your veins. ??? You may be given: ??? A sedative. This helps you relax. ??? Anesthesia. This will: ??? Numb certain areas of your body. ??? Make you fall asleep for surgery. ??? Your urethra will be cleaned with a germ-killing solution. ??? The ureteroscope will be passed through your urethra into your bladder. ??? A salt-water solution will be sent through the ureteroscope to fill your bladder. This will help the health care provider see the openings of your ureters more clearly. ??? The ureteroscope will be passed into your ureter. ??? If a growth is found, a biopsy may be done. ??? If a stone is found, it may be removed through the ureteroscope, or the stone may be broken up using a laser, shock waves, or electrical energy. ??? In some cases, if the ureter is too small, a tube may be inserted that keeps the ureter open (ureteral stent). The stent may be left in place for 1 or 2 weeks, and then the ureteroscopy procedurewill be done again. ??? The scope will be removed, and your bladder will be emptied. The procedure may vary among health care providers and hospitals. What happens after the procedure? Your blood pressure, heart rate, breathing rate, and blood oxygen level will be monitored untilyou leave the hospital or clinic. ??? It is up to you to get the results of your procedure. Ask your health care provider, or the department that is doing the procedure, when your results will be ready. Summary ??? Ureteroscopy is a procedure used to look at the inside of the kidneys and the ureters. ??? You may need this procedure if you have frequent urinary tract infections (UTIs), blood in yoururine, or a stone in one or both of your ureters. ??? Follow instructions from your health care provider about eating and drinking. ??? In some cases, if the ureter is too small, a tube may be inserted that keeps the ureter open (ureteral stent). The stent may be left in place for 1 or 2 weeks to keep the ureter open, and then the ureteroscopy procedure will be done again. This information is not intended to replace advice given to you by your health care provider. Make sure you discuss any questions you have with your health care provider. Document Revised: 02/04/2023 Document Reviewed: 02/04/2023 [employer] Patient Education ?? 2023 [employer] Follow Up Care 09/23/2024 16:13:48 With:Jose Alejandro RUBIO, MAGGIE Gonzalez, URO Address: When: Unknown Insurance Providers Guarantor name: [employer] Plan Information #: 1 Payer: NA Payer Identifier: [id number] Member Number: [id number] Group Number: [id number] Subscriber Identifier: [id number] Relationship to Subscriber: Self Coverage Type: MEDICAID Coverage Verification Date: 24 Telecom: JOHNATHAN Address: NA
--- OUTSIDE RECORDS SUMMARY | 2024-09-30 10:12 | XMS_ITS | Encounter Summary ---
Author Organization [facility] Address [address] [place] [address] Care Team Providers Care Bacteriology Research Assistant Name Role Phone Unavailable Primary Care Provider Unavailabl e Encounter Details Date Type Department Care Team (Late st Contact Info) Description 06/18/2024 Orders Only [facility] [address] [place] [address] Unallocated, [facility] Provider, [address] [place] [address] Social History Tobacco Use Types Packs/Day Years Used Date Smoking Tobacco: Never Smokeless Tobacco: Never Alcohol Use Standard Drinks/Week Comments Yes 0 (1 standard drink = 0.6 oz pur e alcohol) Comments Yes Sex and Gender Information Value Date Recorded Sex Assigned at Female 04/25/2023 2:44 PM EST Legal Sex Female 12:13 PM EST Gender Identity Female 04/25/2023 2:44 PM EST Sexual Orientation Straight 04/25/2023 2: 44 PM EST documented as of this encounter Plan of Treatment Not on file documented as of this encounter Goals Goal Patient Goal Type Associated Problems Recent Progress Patient-Stated? Author Reminders Care Plan OB Reminders No Open Scheduling, Background documented as of this encounter Procedures Procedure Name Priority Date/Time Associated Diagnosis Comments SCANNED LABS Routine 06/18/2024 10:28 AM EDT documented in this encounter Results * SCANNED LABS (06/18/2024 10:28 AM EDT) us [facility] Provider Unallocated LAB CHG PERFORMABLE S Final Result documented in this encounter Visit Diagnoses Not on filedocumented in this encounter Additional Health Concerns Active Problems Noted Date Diagnosed Date OB Reminders 01/03/2024 documented as of this encounter
--- OUTSIDE RECORDS SUMMARY | 2024-09-30 10:12 | XMS_ITS | Encounter Summary ---
Author Organization [facility] Address [id number] [address] [place] [address] Care Team Providers Care Accounts Receivable Collector Name Role Phone No Pcp, No Pcp Primary Care Provider Unavailabl e Encounter Details Date Type Department Care Team (Late st Contact Info) Description 11/12/2023 Orders Only [facility] [address] [place] [id number] Bren Davila Mineral metabolism disorder; Nephrolithiasis Social History Tobacco Use Types Packs/Day Years Used Date Smoking Tobacco: Never Smokeless Tobacco: Never Alcohol Use Standard Drinks/Week Comments Yes 0 (1 standard drink = 0.6 oz pur e alcohol) occasional Childcare Answer Date Recorded Childcare Unknown 08/25/2018 Employment Answer Date Recorded Employment Unknown 08/25/2018 Hunger Screening Answer Date Recorded Within the past 12 months we worried whether our food would run out before we got money to buy more. Never True 10/21/2023 Within the past 12 months th e food we bought just didn't last and we didn't have money to get more. Never True 10/21/2023 Purpose - Life Answer Date Recorded Purpose and direction in life Unknown Comments No Sex and Gender Information Value Date Recorded Sex Assigned at Not on file Legal Sex Female 4:36 PM EDT Gender Identity Not on file Sexual Orientation Not on file documented as of this encounter Plan of Treatment Not on file documented as of this encounter Procedures Procedure Name Priority Date/Time Associated Diagnosis Comments LITHOLINK 48 HOUR Routine 11/04/2023 Mineral metabolism disorder Nephrolithiasis documented in this encounter Results * Litholink 48 Hour (11/04/2023) 11/04/2023 us Jarret Villatoro MD URINE ORDERABLES Final Resul t MANUALLY TRANSCRIBED RESULTS documented in this encounter Visit Diagnoses Diagnosis 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
--- OUTSIDE RECORDS SUMMARY | 2024-09-30 10:12 | XMS_ITS | Encounter Summary ---
Author Organization [facility] Address [id number] [address] [place] [address] Care Team Providers Care Tanning Drum Operator Name Role Phone No Pcp, No Pcp Primary Care Provider Unavailabl e Encounter Details Date Type Department Care Team (Late st Contact Info) Description 09/21/2024 Telephone [facility] [address] [place] [address] Lisbet Roberson RMA Social History Tobacco Use Types Packs/Day Years [...] on file documented as of this encounter Miscellaneous Notes * Telephone Encounter - ANTHONY [place] - 09/21/2024 2:22 PM EDT Pt calls stating she was in the ED on 09/16/2024 for a kidney stone. She is asking if you can look ather CT and advise from there? * Telephone Encounter - Jarret Villatoro MD - 09/21/2024 2:22 PM EDT Sorry I was off last week and just getting to messages. Patient should be seen in the office with myself or mid level provider for further discussion as to what to do regarding the stone. * Telephone Encounter - ANTHONY [place] - 09/21/2024 2:22 PM EDT I left a detailed vm to call back and schedule. documented in this encounter Plan of Treatment Not on file documented as of this encounter Visit Diagnoses Not on filedocumented in this encounter Care Teams Tanning Drum Operator Relationship Specialty Start Date End Date No Pcp, [place] [id number] PCP - General Family Medicine 09/16/24 documented as of this encounter
--- OUTSIDE RECORDS SUMMARY | 2024-09-30 10:12 | XMS_ITS | Clinical Summary ---
Author Organization [facility] Address [address] [place] [address] Care Team Providers Care Agency Sales Representative Name Role Phone Unavailable Primary Care Provider Unavailabl e Allergies No known active allergies Medications docusate sodium (Colace) 100 MG capsuleIndicatio ns:Iron deficiency anemia, unspecified iron deficiency anemia type Take 1 capsule (100 mg) by mouth in the morning and 1 capsule (100 mg) before bedtime. 60 capsule 11 04/22/2024 04/22/19 26 Active labetalol (Normodyne) 200 MG tablet Take 1 tablet by mouth in the morning and 1 tablet before bedtime. 07/03/2024 Active Encounters Date Type Department Care Team Description 07/15/2024 10:45 AM EDT Visit [facility] OB [facility] [place] [phone] Smita Stover CNM Elevated blood pressure affecting in third trimester, antepartum ([facility]) (Primary Dx) 07/09/2024 2:30 PM EDT Visit [facility] OB [address] [place] [phone] Smita Stover CNM 07/06/2024 11:30 AM EDT Visit [facility] OB [facility] [place] [phone] Smita Stover CNM Elevated blood pressure affecting in third trimester, antepartum ([facility]) (Primary Dx) 07/03/2024 Clinisync Result Encounter [facility] External Department Unsolicited Smita Stover CNM 07/01/2024 10:30 AM EDT Routine [facility] [address] [place] [address] Smita Stover CNM Encounter for care of first , third trimester ([facility]) (Primary Dx); Low platelet count; History of COVID-19; Elevated blood pressure affecting in third trimester, antepartum ([facility]) 07/01/2024 Clinisync Result Encounter [facility] Department Unsolicited Smita Stover CNM 07/01/2024 Bamboo flowsheet [facility] [address] [place] [phone] Smita Stover CNM from Last 3 Months Family History Medical History Relation Name Comments COPD Father Relation Name Status Comments Father Alive Mother Alive Social History Tobacco Use Types Packs/Day Years Used Date Smoking Tobacco: Never Smokeless Tobacco: Never Tobacco Cessation:Counseling Given: Not Answered Alcohol Use Standard Drinks/Week Comments Not Currently 0 (1 standard drink = 0.6 oz pur e alcohol) Comments No Sex and Gender Information Value Date Recorded Sex Assigned at Female 04/25/2023 2:44 PM EST Legal Sex Female 12:13 PM EST Gender Identity Female 04/25/2023 2:44 PM EST Sexual Orientation Straight 04/25/2023 2: 44 PM EST Last Filed Vital Signs Vital Sign Reading Time Taken Comments Blood Pressure 120/80 07/15/2024 10:45 AM EDT Pulse - - Temperature - - Respiratory Rate - - Oxygen Saturation - - Inhaled Oxygen Concentration - - Weight 105 kg (232 lb) 07/15/2024 10:45 AM EDT Height 160 cm (5' 3 ) 04/25/2023 2:02 PM EST Body Mass Index 41.1 04/25/2023 2:02 PM EST Plan of Treatment Health Maintenance Due Date Last Done Comments Influenza Vaccine (#1) 2024 Goals Goal Patient Goal Type Associated Problems Recent Progress Patient-Stated? Author Reminders Care Plan OB Reminders No Open Scheduling, Background Procedures Procedure Name Priority Date/Time Associated Diagnosis Comments ALL CBC WITH AUTO DIFF Routine 07/03/2024 6:44 AM EDT [facility] DRUG SCREEN RAPID (URINE) Routine 07/01/2024 1:00 PM EDT ALL LDH Routine 07/01/2024 1:00 PM EDT ALL URIC ACID Routine 07/01/2024 1:00 PM EDT [facility] CMP (CMP) (FOR REMOTE [facility] USE) Routine 07/01/2024 1:00 PM EDT ALL CBC WITH AUTO DIFF Routine 07/01/2024 1:00 PM EDT TBH URINE MICROSCOPIC ONLY Routine 07/01/2024 12:55 PM EDT TBH URINE T PROTEIN CREAT RATIO Routine 07/01/2024 12:55 PM EDT TBH UA (CLEAN/CATCH) SENIOR FIRE PROTECTION ENGINEER/MICRO IF IND. Routine 07/01/2024 12:55 PM EDT from Last 3 Months Results * (ABNORMAL) ALL CBC WITH AUTO DIFF (07/03/2024 6:44 AM EDT) Only the most recent of2 resultswithin the time period is included. TBH WBC 11.8(H) 4.0 - 11.0 10 3/uL TBH TBH RBC 3.22(L) 4.20 - 5.40 10 6/uL TBH TBH HGB 8.3(L) 12.0 - 16.0 g/dL TBH TBH HCT 26.3(L) 36.0 - 48.0 % TBH TBH MCV 81.7 81.0 - 99.0 fL TBH TBH MCH 25.8(L) 26.7 - 34.0 pg TBH TBH MCHC 31.6 29.9 - 35.2 g/dL TBH TBH RDW 14.3 11.0 - 15.0 % TBH TBH PLT 101(L) 150 - 450 10 3/uL TBH NEUTROPHILS PERCENT AUTO 70.6 43.0 - 75.0 % TBH LYMPHOCYTES PERCENT AUTO 23.4 20.5 - 60.0 % TBH MONOCYTES PERCENT AUTO 5.0 1.7 - 12.0 % TBH TBH EO % 0.3(L) 0.9 - 7.0 % TBH BASOPHILS PERCENT AUTO 0.2 0.2 - 2.0 % TBH IMMATURE GRANULOCYTES PCT AUTO 0.5 0.0 - 0.5 % TBH NEUTROPHILS ABSOLUTE AUTO 8.4(H) 1.4 - 6.5 10 3/uL TBH LYMPHOCYTES ABSOLUTE AUTO 2.8 1.2 - 3.8 10 3/uL TBH MONOCYTES ABSOLUTE AUTO 0.6 0.3 - 0.8 10 3/uL TBH TBH EO # 0.0 0.0 - 0.7 10 3/uL TBH BASOPHILS ABSOLUTE AUTO 0.0 0.0 - 0.1 10 3/uL TBH IMMATURE GRANULOCYTES ABS AUTO 0.06(H) 0.00 - 0.03 10 3/uL TBH 07/03/2024 6:44 AM EDT 07/03/2024 6:49 AM EDT Narrative CLINISYNC - 07/03/2024 7:04 AM EDT Smita Stover CNM CLINISYNC Final Result CLINIS[facility]NC [facility] * TBH DRUG SCREEN RAPID (URINE) (07/01/2024 1:00 PM EDT) Pathologist [facility] CANNABINOID SCREEN URINE NEGATIVE NEGATIVE TBH PHENCYCLIDINE SCREEN URINE NEGATIVE NEGATIVE TBH COCAINE SCREEN URINE NEGATIVE NEGATIVE TBH METHAMPHETAMINES SCREEN URINE NEGATIVE NEGATIVE TBH OPIATE SCREEN URINE NEGATIVE NEGATIVE TBH AMPHETAMINE SCREEN URINE NEGATIVE NEGATIVE TBH BENZODIAZEPINES SCREEN URINE NEGATIVE NEGATIVE TBH TRICYCLIC ANTIDEPRESSANT URINE NEGATIVE NEGATIVE TBH METHADONE SCREEN URINE NEGATIVE NEGATIVE TBH BARBITURATES SCREEN URINE NEGATIVE NEGATIVE TBH OXYCODONE SCREEN URINE NEGATIVE NEGATIVE TBH BUPRENORPHINE SCREEN URINE NEGATIVE NEGATIVE TBH Comment: DRUG CLASS TEST SYSTEM CUT-OFF CONCENTRATIONS ARE FOLLOWS: AMP (Amphetamine): 500 ng/mL BAR (Barbiturates): 200 ng/mL BZO (Benzodiazepines): 150 ng/mL BUP (Buprenorphine): 10 ng/mL DARIEN (Cocaine): 150 ng/mL mAMP (Methamphetamine): 500 ng/mL MTD (Methadone): 200 ng/mL OPI (Opiates): 100 ng/mL OXY (Oxycodone): 100 ng/mL PCP (Phencyclidine): 25 ng/mL THC (Cannabinoids): 50 ng/mL TCA (Trycyclic Antidepressants): 300 ng/mL 07/01/2024 1:00 PM EDT 07/01/2024 5:17 PM EDT Narrative CLINISYNC - 07/01/2024 5:30 PM EDT us Smita Stover CNCindy CLINISYNC Final Result CLINISYNC TB * (ABNORMAL) [facility] CMP (CMP) (FOR REMOTE [facility] USE) (07/01/2024 1:00 PM EDT) SODIUM 137 136 - 145 mmol/L TBH POTASSIUM 3.5 3.5 - 5.1 mmol/L TBH CHLORIDE 104 98 - 107 mmol/L TBH CARBON DIOXIDE 22.0 21.0 - 32.0 mmol/L TBH ANION GAP 14.5 TBH GLUCOSE 92 74 - 106 mg/dL TBH BLOOD UREA NITROGEN 9.0 7.0 - 18.0 mg/dL TBH CREATININE 0.53(L) 0.55 - 1.02 mg/dL TBH TBH EGFR-AF UGANDAN >60 >=60 mL/min/1. 73m 2 TBH TBH EGFR-NON AF UGANDAN >60 >=60 mL/min/1. 73m 2 TBH BUN CREATININE RATIO 17.0 TBH CALCIUM 8.7 8.5 - 10.1 mg/dL TBH BILIRUBIN TOTAL 0.2 0.2 - 1.0 mg/dL TBH ASPARTATE AMINO TRANSFERASE 10(L) 15 - 37 U/L TBH ALANINE AMINOTRANSFERASE 15 14 - 59 U/L TBH ALKALINE PHOSPHATASE 203(H) 46 - 116 U/L TBH TOTAL PROTEIN 6.2(L) 6.4 - 8.2 g/dL TBH ALBUMIN LEVEL 2.2(L) 3.4 - 5.0 g/dL TBH GLOBULIN 4.0 g/dL TBH ALBUMIN GLOBULIN RATIO 0.6 TBH 07/01/2024 1:00 PM EDT 07/01/2024 1:20 PM EDT Narrative CLINISYNC - 07/01/2024 2:00 PM EDT us Smita L Floro CNM CLINISYNC Final Result CLINISYNC TBH * ALL URIC ACID (07/01/2024 1:00 PM EDT) URIC ACID 3.3 2.6 - 6.0 mg/dL TBH 07/01/2024 1:00 PM EDT 07/01/2024 1:20 PM EDT Narrative CLINISYNC - 07/01/2024 2:00 PM EDT us Smita L Floro CN CLINISYNC Final Result Performing Organization Address [facility]/ZIP Co de Phone Number CLINISYNC TBH * ALL LDH (07/01/2024 1:00 PM EDT) LACTATE DEHYDROGENASE 137 81 - 234 U/L TBH 07/01/2024 1:00 PM EDT 07/01/2024 1:20 PM EDT Narrative CLINISYNC - 07/01/2024 2:00 PM EDT us Smita L Floro CN CLINISYNC Final Result Performing Organization Address [facility]/ZIP Co de Phone Number CLINISYNC TBH * (ABNORMAL) TBH URINE T PROTEIN CREAT RATIO (07/01/2024 12:55 PM EDT) TOTAL PROTEIN URINE RANDOM 84.4(H) <=11.9 mg/dL TBH CREATININE URINE RANDOM 161.33 20.00 - 300.00 mg/dL TBH PROTEIN CREATININE RATIO URINE 0.52 TBH 07/01/2024 12:5 5 PM EDT 07/01/2024 1:20 PM EDT Narrative CLINISYNC - 07/01/2024 1:31 PM EDT Smita ROBLES CLINISYNC Final Result Performing Organization Address [facility] de Phone Number CLINISYNC TBH * (ABNORMAL) TBH URINE MICROSCOPIC ONLY (07/01/2024 12:55 PM EDT) TB WBC 2-5(A) NONE SEEN #/HPF TBH TBH RBC 75-100(A) 0 - 2 #/HPF TBH BACTERIA URINE TRACE(A) NONE SEEN #/HPF TBH MUCUS URINE MODERATE(A ) NONE SEEN TBH SQUAMOUS EPITHELIAL CELL URINE MODERATE(A ) NONE/RARE #/LPF TBH CRYSTALS SEEN? None Seen None Seen #/HPF TBH CAST SEEN? NONE SEEN NONE SEEN #/LPF TBH URINE CULTURE INDICATED NO TBH 07/01/2024 12:5 5 PM EDT 07/01/2024 1:20 PM EDT Narrative CLINISYNC - 07/01/2024 1:33 PM EDT Smita Ian ROBLES CLINISYNC Final Result Performing Organization Address [facility] de Phone Number CLINISYNC TBH * (ABNORMAL) TBH UA (CLEAN/CATCH) SENIOR FIRE PROTECTION ENGINEER/MICRO IF IND. (07/01/2024 12:55 PM EDT) COLOR URINE YELLOW YELLOW TBH CLARITY URINE CLEAR CLEAR TBH SPECIFIC GRAVITY URINE 1.025 1.005 - 1.025 TBH PH URINE 6.0 5.0 - 9.0 TBH PROTEIN URINE 100(A) NEG/TRACE mg/dL TBH GLUCOSE URINE UA NEGATIVE NEGATIVE mg/dL TBH BILIRUBIN URINE NEGATIVE NEGATIVE TBH KETONES URINE NEGATIVE NEGATIVE mg/dL TBH BLOOD URINE LARGE(A) NEGATIVE TBH NITRITE URINE NEGATIVE NEGATIVE TBH UROBILINOGEN URINE 0.2 0.2 - 1.0 EU/dL TBH LEUKOCYTE ESTERASE URINE NEGATIVE NEGATIVE TBH URINE MICROSCOPIC INDICATED YES TBH 07/01/2024 12:5 5 PM EDT 07/01/2024 1:20 PM EDT Narrative CLINISYNC - 07/01/2024 1:33 PM EDT us Smita Stover CNM CLINISYNC Final Result CLINISYNC TBH from Last 3 Months Additional Health Concerns Active Problems Noted Date Diagnosed Date OB Reminders 01/03/2024 Insurance [employer]
--- OUTSIDE RECORDS SUMMARY | 2024-09-30 10:12 | XMS_ITS | Encounter Summary ---
Author Organization [facility] Address [id number] [place] [address] Care Team Providers Care Classifier Operator Name Role Phone No Pcp, No Pcp Primary Care Provider Unavailabl e Encounter Details Date Type Department Care Team (Latest Contact Info) Description 09/16/2024 Travel Social History Tobacco Use Types Packs/Day Years [...] on filedocumented in this encounter Care Teams Classifier Operator Relationship Specialty Start Date End Date No Pcp, [place] [address] PCP - General Family Medicine 09/16/24 documented as of this encounter
--- OUTSIDE RECORDS SUMMARY | 2024-09-30 10:12 | XMS_ITS | Encounter Summary ---
Author Organization [facility] tem Address [id number] [address] [place] [address] Care Team Providers Care Television Schedule Coordinator Name Role Phone No Pcp, No Pcp Primary Care Provider Unavailabl e Encounter Details Date Type Department Care Team (Late st Contact Info) Description 03/05/2024 Orders Only [facility] [address] [place] [address] Marysol Loredo RN Social History Tobacco Use Types Packs/Day Years Used Date Smoking Tobacco: Never Smokeless Tobacco: Never Alcohol Use Standard Drinks/Week Comments Yes 0 (1 standard drink = 0.6 oz pur e alcohol) occasional Overall Financial Resource Strain (CARDIA) Answe r [...] got money to buy more. Never True 03/03/2024 Within the past 12 months th e food we bought just didn't last and we didn't have money to get more. Never True 03/03/2024 Purpose - Life Answer Date Recorded Purpose and direction in life Unknown Comments Yes Sex and Gender Information Value Date Recorded Sex Assigned at Not on file Legal Sex Female 4:36 PM EDT Gender Identity Not on file Sexual Orientation Not on file documented as of this encounter Plan of Treatment Not on file documented as of this encounter Visit Diagnoses Not on filedocumented in this encounter Additional Health Concerns Infection Onset Date Last Indicated Resolved Time COVID-19 Positive Comment:Past 10 day isolation window 03/03/2024 03/03/202408/2024 8:16 AM EST documented as of this encounter Care Teams Television Schedule Coordinator Relationship Specialty Start Date End Date No Pcp, [place] [address] PCP - General Family Medicine 09/16/24 documented as of this encounter
--- OUTSIDE RECORDS SUMMARY | 2024-09-30 10:12 | XMS_ITS | Clinical Summary ---
Author Organization [employer] Address [id number] [address] [place] [address] Care Team Providers Care Kitchen Food Assembler Name Role Phone No Pcp, No Pcp Primary Care Provider Unavailabl e Allergies No known active allergies Medications * This document contains information received from the source organization and may not represent a complete record from that organization. oxybutynin XL (DITROPAN-XL) 5 mg 24 hr tablet Take 1 tablet (5 mg total) by mouth in the morning. 21 tablet 08/09/19 24 Active Additional Information Patient not taking.Reported on 06/26/2024 ergocalciferol (DRISDOL) 1,250 mcg (50,000 unit) capsule Take 1 capsule (50,000 Units total) by mouth once a week. Has not started 07/25/19 24 Active PNV no.95/ferrous fum/folic ac ( ORAL) Take 1 tablet by mouth in the morning. 025 Discontinued aspirin 81 mg Take 1 tablet (81 mg total) by mouth in the morning. 025 Discontinued ferrous sulfate 325 (65 FE) mg EC tablet Take 1 tablet (325 mg total) by mouth in the morning and 1 tablet (325 mg total) before bedtime. 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 Will have to see her back in 6 months and then initiate litho link ==== 10/21/2023 ==== history of 4th stone episode. Her serum calcium is below 9. No chronic diarrhea. Potentially family history stones but not strong PLAN: 48 hour urine litho link return clinic Ureteral stent present 08/14/2023 Nephrolithiasis 07/31/2023 Overview (03/30/2024): ==== 03/30/2024 ==== no hydronephrosis. Doing well [...] fever as well. Clinically she is nontoxic. Assessment & Plan (07/31/2023 2:32 PM EDT): Stone I believe was too large the [...] in that fashion. Will set it up. Depressive disorder 07/05/2017 Encounters Date Type Department Care Team Description 09/21/2024 [facility] [address] [place] [address] Da LisbetANTHONY 09/16/2024 2:25 PM EDT - 09/16/2024 5:38 PM EDT Emergency [facility] - Emergency [address] [place] [address] Kevin Michaud MD Nephrolithiasis (Primary Dx) Discharge Disposition: Home 09/16/2024 Travel from Last 3 Months Family History Medical History Relation Name Comments COPD Father Sanjay Hayward Relation Name Status Comments Father Sanjay Hayward Social History Tobacco Use Types Packs/Day Years Used Date Smoking Tobacco: Never Smokeless Tobacco: Never Tobacco Cessation:Counseling Given: Not Answered Alcohol Use Standard Drinks/Week Comments Yes 0 [...] on file Sexual Orientation Not on file Last Filed Vital Signs Vital Sign Reading [...] Mass Index 39.05 09/16/2024 2:21 PM EDT Plan of Treatment Health Maintenance Due Date Last Done Comments Depression Screening 2008 Adult BMI Follow Up Plan 2014 Pap Smear 2017 DTaP,Tdap and Td Vaccines (6 - Td or Tdap) 11/23/2019 11/22/2009, 07/20/2003, 01/12/2003, Additional history exists Influenza Vaccine 11/16/2024 Tobacco Screening 06/26/2025 06/26/2024 Adult BMI Screening 09/16/2025 09/16/2024 Medical Devices Explanted Type Area Slabbing Machine Operator Device Identifier Shelf Expiration Date Model / Serial / Lot Stent Uret 6fr 26cm 2 Pgtl Crv Rdpq Pstnr Mfl [facility] [id number] - [id number] Implanted:Qty : 1 on 08/09/2023 by Jarret Villatoro MD at [facility] Explanted:Qty : 1 on 08/20/2023 by Jarret Villatoro MD at [facility] Stent Left: Ureter [employer] [id number] 06/06/2026 [id number] / [id number] / [id number] Description:string off Procedures Procedure Name Priority Date/Time Associated Diagnosis Comments CT ABDOMEN AND PELVIS WO CONT STAT 09/16/2024 3:38 PM EDT EXTRA TUBES BLUE TOP Routine 09/16/2024 3:18 PM EDT EXTRA TUBES Routine 09/16/2024 3:18 PM EDT COMPREHENSIVE METABOLIC PANEL STAT 09/16/2024 3:18 PM EDT CBC WITH AUTO DIFFERENTIAL STAT 09/16/2024 3:18 PM EDT POCT , URINE (NUCG) Routine 09/16/2024 2:46 PM EDT POCT NURSING URINE MACROSCOPIC UA Routine 09/16/2024 2:45 PM EDT ER EXTRA URINE MARBLE STAT 09/16/2024 2:34 PM EDT ER EXTRA URINE STAT 09/16/2024 2:34 PM EDT URINE CULTURE STAT 09/16/2024 2:34 PM EDT from Last 3 Months Results * CT abdomen and pelvis without [...] David Freitas MD on 09/16/2024 4:19 PM us Stacey Hankins MACHINE CEMENTER-QUALITY CONTROL REPRESENTATIVE IMG CT ORDERABLES Fin al Result * Light Blue Top (09/16/2024 3:18 PM EDT) Extra Tube Auto Resulted 09/16/2024 5:02 PM EDT [facility] Blood Venous blood / Unknown 09/16/2024 3:18 PM EDT 09/16/2024 3:21 PM EDT us Stacey Hankins MACHINE CEMENTER-QUALITY CONTROL REPRESENTATIVE LAB BLOOD ORDERABLES Final Result [facility] [address] [place] [address], [place] * (ABNORMAL) CBC auto differential (09/16/2024 3:18 PM EDT) WBC 8.8 4 - 11 x10E9/L 09/16/2024 4:13 PM EDT [facility] RBC Count 5.25(H) 3.8 - 5.2 X10E12/L 09/16/2024 4:13 PM EDT [facility] Hemoglobin 12.3 11.7 - 15.5 g/dL 09/16/2024 4:13 PM EDT [facility] Hematocrit 38.5 35 - 47 % 09/16/2024 4:13 PM EDT [facility] MCV 73(L) 80 - 100 fL 09/16/2024 4:13 PM EDT [facility] MCH 23.4(L) 27 - 34 pg 09/16/2024 4:13 PM EDT [facility] MCHC 31.9(L) 32 - 36 g/dL 09/16/2024 4:13 PM EDT [facility] RDW 14.6 11.5 - 15 % 09/16/2024 4:13 PM EDT [facility] Platelet Count 161 150 - 450 X10E9/L 09/16/2024 4:13 PM EDT [facility] MPV 11.5 7 - 12 fL 09/16/2024 4:13 PM EDT [facility] Neutrophils % 87.5 % 09/16/2024 4:13 PM EDT [facility] Lymphocytes % 9.5 % 09/16/2024 4:13 PM EDT [facility] Monocytes % 2.7 % 09/16/2024 4:13 PM EDT [facility] Eosinophils % 0.1 % 09/16/2024 4:13 PM EDT [facility] Basophils % 0.2 % 09/16/2024 4:13 PM EDT [facility] Neutrophils Absolute (A) 7.7(H) 1.5 - 6.6 10*3/uL 09/16/2024 4:13 PM EDT [facility] Lymphocytes Absolute 0.8(L) 1.0 - 3.5 10*3/uL 09/16/2024 4:13 PM EDT [facility] Monocytes Absolute 0.2 0.0 - 0.9 10*3/uL 09/16/2024 4:13 PM EDT [facility] Eosinophils Absolute 0.0 0.0 - 0.4 10*3/uL 09/16/2024 4:13 PM EDT [facility] Basophils Absolute 0.0 0.0 - 0.2 10*3/uL 09/16/2024 4:13 PM EDT [facility] Differential Type AUTOMATED DIFFERENTIAL 09/16/2024 4:13 PM EDT [facility] Blood Venous blood / Unknown 09/16/2024 3:18 PM EDT 09/16/2024 3:21 PM EDT us Stacey Hankins MACHINE CEMENTER-QUALITY CONTROL REPRESENTATIVE LAB BLOOD ORDERABLES Final Result [facility] [address] [place] [address]. [place] [address], [place] * (ABNORMAL) Comprehensive metabolic panel (09/16/2024 3:18 PM EDT) SODIUM 137 134 - 146 mmol/L 09/16/2024 3:44 PM EDT [facility] POTASSIUM 4.3 3.5 - 5.0 mmol/L 09/16/2024 3:44 PM EDT [facility] CHLORIDE 103 98 - 109 mmol/L 09/16/2024 3:44 PM EDT [facility] CARBON DIOXIDE 22 22 - 32 mmol/L 09/16/2024 3:44 PM EDT [facility] ANION GAP 12 5 - 15 mmol/L 09/16/2024 3:44 PM EDT [facility] BLOOD UREA NITROGEN 13 5 - 23 mg/dL 09/16/2024 3:44 PM EDT [facility] CREATININE 0.68 0.40 - 1.00 mg/dL 09/16/2024 3:44 PM EDT [facility] Comment:METHOD TRACEABLE TO IDMS STANDARD GLUCOSE 105(H) 65 - 99 mg/dL 09/16/2024 3:44 PM EDT [facility] CALCIUM 9.1 8.5 - 10.5 mg/dL 09/16/2024 3:44 PM EDT [facility] TOTAL PROTEIN 7.7 6.0 - 8.0 g/dL 09/16/2024 3:44 PM EDT [facility] ALBUMIN 3.9 3.2 - 5.3 g/dL 09/16/2024 3:44 PM EDT [facility] ALKALINE PHOSPHATASE 114 39 - 130 U/L 09/16/2024 3:44 PM EDT [facility] AST 18 <=41 U/L 09/16/2024 3:44 PM EDT [facility] ALT 23 <=31 U/L 09/16/2024 3:44 PM EDT [facility] BILIRUBIN,TOTAL 0.7 0.3 - 1.2 mg/dL 09/16/2024 3:44 PM EDT [facility] EGFR Non-Race Dependent >90 >=60 ml/min/1.7 3sq.m 09/16/2024 3:44 PM EDT [facility] Comment: eGFR not reported due to non-numeric value for Creatinine. Reported eGFR is based on the CKD-EPI 2020 equation that does not use a race coefficient. Blood Venous blood / Unknown 09/16/2024 3:18 PM EDT 09/16/2024 3:21 PM EDT Stacey Hankins MACHINE CEMENTER-QUALITY CONTROL REPRESENTATIVE LAB BLOOD ORDERABLES Final Result Performing Organization Address City/[facility]/ZIP Co de Phone Number [address] [place] [address], [place] * POCT , urine (09/16/2024 2:46 PM EDT) POC Urine Negative Negative, Indeterminate 09/16/2024 2:44 PM EDT [facility] Urine 09/16/2024 2:46 PM EDT 09/16/2024 2:44 PM EDT POINT OF CARE TEST ORDERABLES Fi nal Result Performing Organization Address [facility]/ZIP Co de Phone Number [address] [place] [address], [place] * (ABNORMAL) POCT Nursing Urine Macroscopic UA (09/16/2024 2:45 PM EDT) POC Urine Specific [place] >=1.030(A) 1.010, 1.015, 1.020, 1.025 09/16/2024 2:38 PM EDT [facility] POC Urine Leukocyte Esterase Trace(A) Negative 09/16/2024 2:38 PM EDT [facility] POC Urine Nitrite Negative Negative 09/16/2024 2:38 PM EDT [facility] POC Urine pH 6.0 5.0, 6.0, 6.5, 7.0, 7.5, 8.0, 8.5, 5.5 09/16/2024 2:38 PM EDT [facility] POC Urine Protein 100 mg/dL(A) Negative 09/16/2024 2:38 PM EDT [facility] POC Urine Glucose Negative Negative 09/16/2024 2:38 PM EDT [facility] POC Urine Ketones Negative Negative 09/16/2024 2:38 PM EDT [facility] POC Urine Urobilinogen 0.2 E.U./dL 09/16/2024 2:38 PM EDT [facility] POC Urine Bilirubin Negative Negative 09/16/2024 2:38 PM EDT [facility] POC Urine Blood/HGB Large(A) Negative 09/16/2024 2:38 PM EDT [facility] Urine 09/16/2024 2:45 PM EDT 09/16/2024 2:38 PM EDT us POINT OF CARE TEST ORDERABLES Fi nal Result Performing Organization Address [facility]/ZIP Co de Phone Number [address] [place] [address], [place] * Extra Urine [place] (09/16/2024 2:34 PM EDT) Extra Tube Auto Resulted 09/16/2024 4:02 PM EDT [facility] Urine Urine specimen collection, clean catch / Unknown 09/16/2024 2:34 PM EDT 09/16/2024 2:53 PM EDT us Stacey Hankins MACHINE CEMENTER-QUALITY CONTROL REPRESENTATIVE URINE ORDERABLES Marilee l Result Performing Organization Address City/[facility]/ZIP Co de Phone Number [address] [place] [address], [place] * Extra Urine (09/16/2024 2:34 PM EDT) Extra Tube Auto Resulted 09/16/2024 4:02 PM EDT [facility] Urine Urine specimen collection, clean catch / Unknown 09/16/2024 2:34 PM EDT 09/16/2024 2:52 PM EDT Stacey Hankins MACHINE CEMENTER-QUALITY CONTROL REPRESENTATIVE URINE ORDERABLES Marilee l Result [facility] [address] [facility] [place] [address], [place] * Urine Culture Urine, Clean Catch Midstream (09/16/2024 2:34 PM EDT) CULTURE RESULTS 10-50,000 ORGANISMS/mL NORMAL UROGENITAL LEONCIO 09/17/2024 2:40 PM EDT [facility] Urine Urine specimen collection, clean catch / Unknown 09/16/2024 2:34 PM EDT 09/16/2024 2:53 PM EDT Stacey Hankins APRN-QUALITY CONTROL REPRESENTATIVE MICROBIOLOGY - GENERA L ORDERABLES Final Result [facility] [address] [place] [address], [place] [phone] from Last 3 Months Insurance [facility] Care Teams Kitchen Food Assembler Relationship Specialty Start Date End Date No Pcp, [place] [address] PCP - General Family Medicine 09/16/24
--- OUTSIDE RECORDS SUMMARY | 2024-09-30 10:12 | XMS_ITS | Encounter Summary ---
Author Organization [employer] Address [id number] [address] [place] [address] Care Team Providers Care Die Designer Name Role Phone No Pcp, No Pcp Primary Care Provider Unavailabl e Encounter Details Date Type Department Care Team (Late st Contact Info) Description 08/09/2023 Telephone [facility] [address] [place] [phone] Jarret Villatoro MD [address] [place] [address] [id number] Social History Tobacco Use Types Packs/Day Years [...] got money to buy more. Never True 08/06/2023 Within the past 12 months th e food we bought just didn't last and we didn't have money to get more. Never True 08/06/2023 Purpose - Life Answer Date Recorded Purpose [...] documented as of this encounter Care Teams Die Designer Relationship Specialty Start Date End Date No Pcp, [place] [address] PCP - General Family Medicine 09/16/24 documented as of this encounter
== END 2024-09-30 10:11 | disposition home or self-care (01) ==
LOC: PST 10:10
PROVIDERS: Visit Provider Urology
DX: Z01.818 Encounter for other preprocedural examination (principal); N20.0 Calculus of kidney

== ENCOUNTER 2024-10-07 12:05 | Day surgery (SDC) | payer MEDICAID, SELFPAY ==
--- OUTSIDE RECORDS SUMMARY | 2023-12-03 10:23 | XMS_ITS | Continuity of Care Document ---
Author Organization [facility] Address [address] [place] [phone] Phone Care Team Providers Care Muffler Hand Name Role Phone Shanna Khan APRN Unavailable [...] Diagnoses Date Provider Providers Copied on Encounter [facility], [address] [place] [address], [id number] , [place] tel:+ [phone] [facility] No Information 4 Romana VALLEJO-Nahid Otero. [address] [place] [address], [address], [place]. tel:+ [phone] [facility], [address] [place] [address], [id number] , [place] tel:+ [phone] [facility] History of kidney stonesVitamin D deficiencyPlatelets decreased 4 Romana VALLEJO-C Shanna. [address] [place] [address], [address], [place]. tel:+ [phone] PREV VISIT, NEW, AGE 18-39 [facility], [address] [place] [address], [id number] , [place] tel:+ [phone] [facility] Establish care (chief complaint) Lab draw (chief complaint) Encounter for general adult medical examination without abnormal findingsHistory of kidney stonesEncounter for screening for HIVNeed for hepatitis C screening testEncounter for vitamin deficiency screeningScreening for diabetes mellitusScreening for thyroid disorderEncounter for screening for cardiovascular disordersBody mass index [BMI] 39.0-39.9, adultEncounter for screening for COVID-19Increased urinary frequencySore throatNasal congestionMarijuana abuse Romana Otero. [address] [place] [address], [address], [place]. tel:+ [phone] Family History Family Member Type Diagnosis Age At Onset Mother Problem Illegal drug use Mother Problem Alcoholism Payers Payer name Insurance type Covered democrat ID Authoriza tion(s) Humana Medicaid [facility] 0223 [id number] Medicaid Wrap - [facility] [id number] Social History Type Description Quantity Date Captured [...] Goal Influenza vaccine. Due on due Goal PAP. Due on due Goal Unhealthy drug use screening . Due on due Goal Tdap Vaccine. Due on 2023 due Goal Depression screening. Due on due Goal RLP. Due on due Goal Hepatitis C screening. Due o n due Goal Hep A. Due on du e Goal Tdap. Due on due Goal Influenza vaccine. Due on due Goal PRAPARE ASSESSMENT. Due on due Goal Unhealthy drug use screening . Due on due Goal Influenza vaccine. Due on due Goal Hepatitis C screening. Due o n due Goal PAP. Due on due Goal Tdap Vaccine. Due on 2023 due Goal Depression screening. Due on due Goal PRAPARE ASSESSMENT. Due on due Goal Tdap. Due on due Goal RLP. Due on due Goal Dietary management education , guidance, and counseling completed Goal Dietary management education , guidance, and counseling completed History Of Present Illness Encounter Date Complaint History Of Prese nt Illness [facility] care Presents to diego valladares. Reports that [...] single. No children. Is employed at a [employer] in [employer]. Does not drink ETOH. Does not smoke cigarettes. Vapes marijuana and uses gummies. No other drug use. 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
[2024-09-30 10:25] VITALS: BP 128/75; PULSE 68; TEMP 36.3; O2SAT 95; BMI 39.3
[2024-10-07] VITALS (10 sets, daily range): BP systolic 128–144; BP diastolic 52–93; PULSE 76–100; TEMP 36.1–36.4; O2SAT 93–98; BMI 38.8
--- OUTSIDE RECORDS SUMMARY | 2024-10-07 12:07 | XMS_ITS | Encounter Summary ---
Author Organization [facility] tem Address [id number] [address] [place] [address] Care Team Providers Care Head Of Ethics And Compliance Name Role Phone No Pcp, No Pcp Primary Care Provider Unavailabl e Encounter Details Date Type Department Care Team (Late st Contact Info) Description 03/05/[address] [facility] [address] [place] [address] Marysol Loredo RN Social History Tobacco Use [...] documented as of this encounter Care Teams Head Of Ethics And Compliance Relationship Specialty Start Date End Date No Pcp, [place] [address] PCP - General Family Medicine 09/16/24 documented as of this encounter
--- OUTSIDE RECORDS SUMMARY | 2024-10-07 12:07 | XMS_ITS | Clinical Summary ---
Author Organization [employer] Address [id number] [address] [place] [address] Care Team Providers Care In Home Baby Sitter Name Role Phone No Pcp, No Pcp [...] Type Department Care Team Description 09/21/2024 [facility] [address] [place] [address] Da LisbetANTHONY 09/16/2024 2:25 PM EDT - 09/16/2024 5:38 PM EDT Emergency [facility] - Emergency [address] [place] [place] [address] Kevin Michaud MD Nephrolithiasis (Primary [...] 09/16/2025 09/16/2024 Medical Devices Explanted Type Area Setter Off Device Identifier Shelf Expiration Date Model / Serial / Lot Stent Uret 6fr 26cm 2 Pgtl Crv Rdpq Pstnr Mfl [facility] [id number] - [id number] Implanted:Qty : 1 on 08/09/2023 by Jarret Villatoro MD at [facility] Explanted:Qty : 1 on 08/20/2023 by Jarret Villatoro MD at [facility] Stent Left: Ureter [employer] [id number] 06/06/2026 [id number] / [id number] / [id number] Description:string off Procedures Procedure Name Priority Date/Time [...] on 09/16/2024 4:19 PM us Stacey Hankins INTERNET SALES DIRECTOR-GENERAL DENTIST IMG CT ORDERABLES Fin al Result * Light Blue Top (09/16/2024 3:18 PM EDT) Extra Tube Auto Resulted 09/16/2024 5:02 PM EDT [facility] Blood Venous blood / Unknown 09/16/2024 3:18 PM EDT 09/16/2024 3:21 PM EDT us Stacey Hankins INTERNET SALES DIRECTOR-GENERAL DENTIST LAB BLOOD ORDERABLES Final Result [facility] [address] [place] [address], [place] * (ABNORMAL) CBC auto differential (09/16/2024 3:18 PM EDT) WBC 8.8 4 - 11 x10E9/L 09/16/2024 4:13 PM EDT [facility] RBC Count 5.25(H) 3.8 - 5.2 X10E12/L 09/16/2024 4:13 PM EDT [facility] Hemoglobin 12.3 11.7 - 15.5 g/dL 09/16/2024 4:13 PM EDT [facility] Hematocrit 38.5 35 - 47 % 09/16/2024 4:13 PM EDT [facility] MCV 73(L) 80 - 100 fL 09/16/2024 4:13 PM EDT [facility] MCH 23.4(L) 27 - 34 pg 09/16/2024 4:13 PM EDT [facility] MCHC 31.9(L) 32 - 36 g/dL 09/16/2024 4:13 PM EDT [facility] RDW 14.6 11.5 - 15 % 09/16/2024 4:13 PM EDT [facility] Platelet Count 161 150 - 450 X10E9/L 09/16/2024 4:13 PM EDT [facility] MPV 11.5 7 - 12 fL 09/16/2024 4:13 PM EDT [facility] Neutrophils % 87.5 % 09/16/2024 4:13 PM EDT [facility] Lymphocytes % 9.5 % 09/16/2024 4:13 PM EDT [facility] Monocytes % 2.7 % 09/16/2024 4:13 PM EDT [facility] Eosinophils % 0.1 % 09/16/2024 4:13 PM EDT [facility] Basophils % 0.2 % 09/16/2024 4:13 PM EDT [facility] Neutrophils Absolute (A) 7.7(H) 1.5 - 6.6 10*3/uL 09/16/2024 4:13 PM EDT [facility] Lymphocytes Absolute 0.8(L) 1.0 - 3.5 10*3/uL 09/16/2024 4:13 PM EDT [facility] Monocytes Absolute 0.2 0.0 - 0.9 10*3/uL 09/16/2024 4:13 PM EDT [facility] Eosinophils Absolute 0.0 0.0 - 0.4 10*3/uL 09/16/2024 4:13 PM EDT [facility] Basophils Absolute 0.0 0.0 - 0.2 10*3/uL 09/16/2024 4:13 PM EDT [facility] Differential Type AUTOMATED DIFFERENTIAL 09/16/2024 4:13 PM EDT [facility] Blood Venous blood / Unknown 09/16/2024 3:18 PM EDT 09/16/2024 3:21 PM EDT us Stacey Hankins INTERNET SALES DIRECTOR-GENERAL DENTIST LAB BLOOD ORDERABLES Final Result [facility] [address] [place] [address]. [place] [address], [place] * (ABNORMAL) Comprehensive metabolic panel (09/16/2024 3:18 PM EDT) SODIUM 137 134 - 146 mmol/L 09/16/2024 3:44 PM EDT [facility] POTASSIUM 4.3 3.5 - 5.0 mmol/L 09/16/2024 3:44 PM EDT [facility] CHLORIDE 103 98 - 109 mmol/L 09/16/2024 3:44 PM EDT [facility] CARBON DIOXIDE 22 22 - 32 mmol/L 09/16/2024 3:44 PM EDT [facility] ANION GAP 12 5 - 15 mmol/L 09/16/2024 3:44 PM EDT [facility] BLOOD UREA NITROGEN 13 5 - 23 mg/dL 09/16/2024 3:44 PM EDT [facility] CREATININE 0.68 0.40 - 1.00 mg/dL 09/16/2024 3:44 PM EDT [facility] Comment:METHOD TRACEABLE TO IDMS STANDARD GLUCOSE 105(H) 65 - 99 mg/dL 09/16/2024 3:44 PM EDT [facility] CALCIUM 9.1 8.5 - 10.5 mg/dL 09/16/2024 3:44 PM EDT [facility] TOTAL PROTEIN 7.7 6.0 - 8.0 g/dL 09/16/2024 3:44 PM EDT [facility] ALBUMIN 3.9 3.2 - 5.3 g/dL 09/16/2024 3:44 PM EDT [facility] ALKALINE PHOSPHATASE 114 39 - 130 U/L 09/16/2024 3:44 PM EDT [facility] AST 18 <=41 U/L 09/16/2024 3:44 PM EDT [facility] ALT 23 <=31 U/L 09/16/2024 3:44 PM EDT [facility] BILIRUBIN,TOTAL 0.7 0.3 - 1.2 mg/dL 09/16/2024 3:44 PM EDT [facility] EGFR Non-Race Dependent >90 >=60 ml/min/1.7 3sq.m 09/16/2024 3:44 PM EDT [facility] Comment: eGFR not reported due to non-numeric value for Creatinine. Reported eGFR is based on the CKD-EPI 2020 equation that does not use a race coefficient. Blood Venous blood / Unknown 09/16/2024 3:18 PM EDT 09/16/2024 3:21 PM EDT Stacey Hankins INTERNET SALES DIRECTOR-GENERAL DENTIST LAB BLOOD ORDERABLES Final Result Performing Organization Address City/[facility]/ZIP Co de Phone Number [address] [place] [address], [place] * POCT , urine (09/16/2024 2:46 PM EDT) POC Urine Negative Negative, Indeterminate 09/16/2024 2:44 PM EDT [facility] Urine 09/16/2024 2:46 PM EDT 09/16/2024 2:44 PM EDT POINT OF CARE TEST ORDERABLES Fi nal Result Performing Organization Address [facility]/ZIP Co de Phone Number [address] [place] [address], [place] * (ABNORMAL) POCT Nursing Urine Macroscopic UA (09/16/2024 2:45 PM EDT) POC Urine Specific [place] >=1.030(A) 1.010, 1.015, 1.020, 1.025 09/16/2024 2:38 PM EDT [facility] POC Urine Leukocyte Esterase Trace(A) Negative 09/16/2024 2:38 PM EDT [facility] POC Urine Nitrite Negative Negative 09/16/2024 2:38 PM EDT [facility] POC Urine pH 6.0 5.0, 6.0, 6.5, 7.0, 7.5, 8.0, 8.5, 5.5 09/16/2024 2:38 PM EDT [facility] POC Urine Protein 100 mg/dL(A) Negative 09/16/2024 2:38 PM EDT [facility] POC Urine Glucose Negative Negative 09/16/2024 2:38 PM EDT [facility] POC Urine Ketones Negative Negative 09/16/2024 2:38 PM EDT [facility] POC Urine Urobilinogen 0.2 E.U./dL 09/16/2024 2:38 PM EDT [facility] POC Urine Bilirubin Negative Negative 09/16/2024 2:38 PM EDT [facility] POC Urine Blood/HGB Large(A) Negative 09/16/2024 2:38 PM EDT [facility] Urine 09/16/2024 2:45 PM EDT 09/16/2024 2:38 PM EDT us POINT OF CARE TEST ORDERABLES Fi nal Result Performing Organization Address [facility]/ZIP Co de Phone Number [address] [place] [address], [place] * Extra Urine [place] (09/16/2024 2:34 PM EDT) Extra Tube Auto Resulted 09/16/2024 4:02 PM EDT [facility] Urine Urine specimen collection, clean catch / Unknown 09/16/2024 2:34 PM EDT 09/16/2024 2:53 PM EDT us Stacey Hankins INTERNET SALES DIRECTOR-GENERAL DENTIST URINE ORDERABLES Marilee l Result Performing Organization Address City/[facility]/ZIP Co de Phone Number [address] [place] [address], [place] * Extra Urine (09/16/2024 2:34 PM EDT) Extra Tube Auto Resulted 09/16/2024 4:02 PM EDT [facility] Urine Urine specimen collection, clean catch / Unknown 09/16/2024 2:34 PM EDT 09/16/2024 2:52 PM EDT Stacey Hankins INTERNET SALES DIRECTOR-GENERAL DENTIST URINE ORDERABLES Marilee l Result [facility] [address] [place] [address], [place] * Urine Culture Urine, Clean Catch Midstream (09/16/2024 2:34 PM EDT) CULTURE RESULTS 10-50,000 ORGANISMS/mL NORMAL UROGENITAL LEONCIO 09/17/2024 2:[address] [facility] Urine Urine specimen collection, clean catch / Unknown 09/16/2024 2:34 PM EDT 09/16/2024 2:53 PM EDT Stacey Hankins APRN-GENERAL DENTIST MICROBIOLOGY - GENERA L ORDERABLES Final Result [facility] [address] [place] [address], [place] [phone] from Last 3 Months Insurance [facility] MEDICAID Care Teams In Home Baby Sitter Relationship Specialty Start Date End Date No Pcp, [place] [id number] PCP - General Family Medicine 09/16/24
--- OUTSIDE RECORDS SUMMARY | 2024-10-07 12:07 | XMS_ITS | Clinical Summary ---
Author Organization [facility] Address [address] [place] [address] Care Team Providers Care Dialysis Equipment Technician Name Role Phone Unavailable Primary Care Provider [...] Team Description 07/15/2024 10:45 AM EDT Visit [facility] [address] [place] [phone] Smita Stover CNM Elevated blood pressure affecting in third trimester, antepartum ([facility]) (Primary Dx) 07/09/2024 2:30 PM EDT Visit [facility] [address] [place] [phone] Smita Stover CNM from Last 3 Months [...] Plan OB Reminders No Open Scheduling, Background Additional Health Concerns Active Problems Noted Date Diagnosed Date OB Reminders 01/03/2024 Insurance [employer] [place] [address]
--- OUTSIDE RECORDS SUMMARY | 2024-10-07 12:07 | XMS_ITS | Encounter Summary ---
Author Organization [facility] Address [facility] [id number] [address] [place] [address] Care Team Providers Care Licensed Esthetician Name Role Phone No Pcp, No Pcp Primary Care Provider Unavailabl e Encounter Details Date Type Department Care Team (Late st Contact Info) Description 09/21/2024 Telephone [facility] [address] [place] [phone] Lisbet Roberson RMA Social History [...] on filedocumented in this encounter Care Teams Licensed Esthetician Relationship Specialty Start Date End Date No Pcp, [place] [address] PCP - General Family Medicine 09/16/24 documented as of this encounter
--- OUTSIDE RECORDS SUMMARY | 2024-10-07 12:07 | XMS_ITS | Encounter Summary ---
Author Organization [facility] Address [address] [place] [address] Care Team Providers Care Thinner Sprayer Name Role Phone Unavailable Primary Care Provider Unavailabl e Encounter Details Date Type Department Care Team (Late st Contact Info) Description 06/18/2024 Orders Only [facility] [address] [place] [phone] Unallocated, [facility] Provider, [address] [place] [address] Social History Tobacco Use Types Packs/Day Years [...]
--- OUTSIDE RECORDS SUMMARY | 2024-10-07 12:07 | XMS_ITS | Encounter Summary ---
Author Organization [facility] Address [facility] [id number] [address] [place] [address] Care Team Providers Care Sheet Metal Roofer Name Role Phone No Pcp, No Pcp Primary Care Provider Unavailabl e Encounter Details Date Type Department Care Team (Late st Contact Info) Description 11/12/2023 Orders Only [facility] [address] [place] [phone] Bren Davila Mineral metabolism disorder; Nephrolithiasis Social [...] documented as of this encounter Care Teams Sheet Metal Roofer Relationship Specialty Start Date End Date No Pcp, [place] [address] PCP - General Family Medicine 09/16/24 documented as of this encounter
--- OUTSIDE RECORDS SUMMARY | 2024-10-07 12:07 | XMS_ITS | Encounter Summary ---
Author Organization [employer] Address [facility] [id number] [address] [place] [address] Care Team Providers Care Professional Volleyball Player Name Role Phone No Pcp, No Pcp Primary Care Provider Unavailabl e Encounter Details Date Type Department Care Team (Late st Contact Info) Description 08/09/2023 Telephone [facility] [address] [place] [phone] Jarret Villatoro MD [address] [place] [address] [phone] Social History Tobacco Use Types Packs/Day Years [...] documented as of this encounter Care Teams Professional Volleyball Player Relationship Specialty Start Date End Date No Pcp, [place] [address] PCP - General Family Medicine 09/16/24 documented as of this encounter
--- OUTSIDE RECORDS SUMMARY | 2024-10-07 12:25 | XMS_ITS | CCD ---
Author Organization [facility] Care Team Providers Care Brick Baker Name Role Phone Adelaida Parks CNP Attending Unavailable Adelaida Parks CNP Primary Care Provider [phone] NO PCP, NO PCP Primary Care Unavailable [...] Primary Care Provider Unavailabl e DONTE VILLATORO Referring Unavailable NO PCP, NO PCP Primary Care Unavailable DONTE VILLATORO Attending Unavailable DONTE VILLATORO Referring Unavailable NO PCP, NO PCP Primary Care Unavailable VIVIANA BARKLEY Admitting Unavailable VIVIANA BARKLEY Attending Unavailable NO PCP, NO PCP Primary Care Unavailable ROGERS MOTA Attending Unavailable SMITA STOVER Referring Unavailable NO PCP, NO PCP Primary Care Unavailable NO PCP, NO PCP Primary Care Unavailable YOLANDA DANIEL Attending Unavailable No Pcp, No Pcp Primary Care Provider Unavailabl e Tigist Blount Attending Unavailable Tigist Blount Attending Unavailable Allergies Allergy Classification Reported Allergen(s) Allergy Type Date of Onset Reaction(s) Facility (1 source) No Known Medication Allergies; Translations: [No Known Medication Allergies] Propensity to adverse reactions (disorder) [facility] Repository Medications Current Medications Medication Drug Class(es) Dates [...] 08/12/2023 Active cephalexin 500 mg oral capsule (2 sources) Cephalosporin Antibacterial Start: 06-17-2024 End: 06-27-2024 CEPHalexin (KEFLEX) 500 mg capsule Take 1 capsule (500 mg total) by mouth. 06/17/2024 06/27/2024 Active ergocalciferol 1.25 mg oral capsule (7 sources) Provitamin D2 Compound Start: 07-25-2023 take 1 capsule by mouth every week ergocalciferol (DRISDOL) 1,250 mcg (50,000 unit) capsule Take 1 capsule (50,000 Units total) by mouth once a week. Has not started 07/25/2023 Active ferrous sulfate 325 mg delayed release oral tablet (2 sources) Start: 04-22-2024 End: 04-22-2025 take 1 tablet by mouth in the morning, then take 1 tablet by mouth at bedtime ferrous sulfate 325 (65 FE) mg EC tablet Take 1 tablet (325 mg total) by mouth in the morning and 1 tablet (325 mg total) before bedtime. 04/22/2024 04/22/2025 Active 24 hr oxybutynin chloride 5 mg extended release oral tablet (8 sources) Cholinergic Muscarinic Antagonist Start: 08-09-2023 take [...] tablet by mouth in the morning. Active Completed/Discontinued Medications Medication Drug Class(es) Dates Sig (Normalized) Sig (Original) amoxicillin 875 mg / clavulanate 125 mg oral tablet (3 sources) Penicillin-class Antibacterial Start: 09-11-2022 End: 10-11-2022 Amoxicillin-Pot Clavulanate 875-125 MG Oral Tablet 09/11/2022 - 10/11/2022 Provider: Cassandra Kee [employer] azithromycin 250 mg oral tablet (3 sources) [...] to 21 doses. 21 tablet 06/19/2023 Suspended ondansetron 4 mg disintegrating oral tablet (7 sources) Serotonin-3 Receptor Antagonist Start: 07-30-2023 End: 08-06-2023 ondansetron ODT (ZOFRAN [...] to 10 doses. 10 tablet 06/19/2023 Suspended Problems Active Problems Problem Classification Problem Date Documented Date Episodic/Chronic Anxiety disorders (19 sources) Generalized anxiety disorder; Translations: [Generalized anxiety disorder] Onset: 08-08-2022 08-08-2022 Chronic Calculus of urinary tract (20 sources) Calculus of kidney; Translations: [Kidney stone] Onset: 07-31-2023 03-30-2024 Episodic Deficiency and other anemia (4 sources) Normocytic anemia; Translations: [Anemia, unspecified] Onset: 06-26-2024 06-26-2024 Episodic Disorders of teeth and jaw (3 sources) Toothache; Translations: [Unspecified disorder of the teeth and supporting structures] Onset: 09-11-2022 Episodic Genitourinary symptoms and ill-defined conditions (9 sources) Presence of urogenital implants; Translations: [Other postprocedural status] Onset: 08-14-2023 08-14-2023 Chronic Genitourinary symptoms and ill-defined conditions (3 sources) Blood in urine; Translations: [Gross hematuria] Onset: 09-16-2024 Episodic Immunizations and screening for infectious disease (3 sources) Encounter for screening for human immunodeficiency virus [HIV]; Translations: [Screening For Hiv] Onset: 08-08-2022 Episodic Mood disorders (11 sources) Depressive disorder; Translations: [Depressive disorder] Onset: 07-05-2017 07-05-2017 Chronic Other diseases of kidney and ureters (1 source) Kidney disease 09-24-2024 Episodic Other non-traumatic joint disorders (1 source) Acute arthritis 09-24-2024 Chronic Other nutritional; endocrine; and metabolic disorders (8 sources) Finding of body mass index; Translations: [Body mass index (observable entity)] Onset: 08-08-2022 Chronic Other nutritional; endocrine; and metabolic disorders (3 sources) Disorder of mineral metabolism, unspecified; 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, unspecified] Onset: 10-21-2023 Chronic Other nutritional; endocrine; and metabolic disorders (8 sources) Disorder of mineral metabolism; 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, unspecified] Onset: 10-21-2023 03-30-2024 Chronic Other screening for suspected conditions (not mental disorders or infectious disease) (3 sources) Encounter for screening for diabetes mellitus; Translations: [Diabetes Risk Test Score] Onset: 08-08-2022 Episodic Other upper respiratory infections (3 sources) Acute frontal sinusitis; Translations: [Acute frontal sinusitis] Onset: 08-08-2022 Episodic Unclassified (1 source) Nephrolithiasis [N20.0] Onset: 08-09-2023 Unclassified (1 source) Nephrolithiasis Onset: 07-31-2023 Unclassified (1 source) Flank Pain; Sweating; Vomiting Onset: 09-16-2024 Unclassified (1 source) New Patient Onset: 06-26-2024 Past or Other Problems Problem Classification Problem Date Documented Da te Episodic/Chronic Gastrointestinal hemorrhage (5 sources) Hematemesis; Translations: [Hematemesis] Onset: 03-03-2024 Episodic Nausea and vomiting (1 source) Vomiting Onset: 4 Episodic Other complications of (6 sources) Thrombocytopenic disorder; Translations: [Other diseases of the blood and blood-forming organs and certain disorders involving the immune mechanism complicating , unspecified trimester] Onset: 4 03-03-2024 Episodic Other complications of (4 sources) Disease caused by 2019-nCoV; Translations: [Other viral diseases complicating , second trimester] Onset: 4 03-03-2024 Episodic Results Test Name Value Interpretation Reference Range Facil ity Ambulatory Visit Summaryon 0 09-24-2024 Ambulatory Visit Summary Ambulatory Visit Summary OSIRIS HAYWARD :1995 Visit Date:09/24/2024 Ambulatory Visit Instructions Your Diagnosis Kidney stones Gross hematuria Your Care Team Attending Physician - Tigist Blount MD Discharge Vitals Temperature (Oral) 36.9 ???C Heart Rate (Peripheral) 86 Respiratory Rate 16 Blood Pressure 134/84 Height 162 cm Height 64 in Weight 99 kg Weight 218.257 lb BMI 37.72 What to do next You Need to Schedule the Following Appointments Follow Up with Tigist Blount MD, URL, URO When: Where: Allergies No Known Allergies No Known Medication Allergies Problems Ongoing - Any problem that you are currently receiving treatment for. Acute arthritis Gross hematuria Kidney disease Kidney stones Patient Survey You may receive a survey via text or e-mail asking about your office visit. Please share your experience with us by completing your survey. We appreciate your feedback and thank you for choosing us for your care. Education Materials Dietary Guidelines to Help Prevent Kidney Stones [...] labels. Limit your salt (sodium) intake to less than 1,500 mg a day. ??? Choose foods with calcium for each meal and snack. Try to eat about 300 mg of calcium at each meal. Foods that contain 200???500 mg of calcium a serving include: ? 8 oz (237 mL) of milk, calcium-fortifiednon -dairy milk, and calcium-fortifiedfru it juice. Calcium-fortified means that calcium has been added to these drinks. ? 8 oz (237 mL) of kefir, yogurt, and soy yogurt. ? 4 oz (114 g) of tofu. ? 1 oz (28 g) of cheese. ? 1 cup (150 g) of dried figs. ? 1 cup (91 g) of cooked broccoli. ? One 3 oz (85 g) can of [...] ??? When shopping for convenience foods, choose: ? Whole pieces of fruit. ? Pre-made salads with dressing on the side. ? Low-fat fruit and yogurt smoothies. ??? Avoid [...] on the table and allow each person to add their own salt to taste. ??? Use vegetable protein, such as beans, textured vegetable protein (TVP), or tofu, instead of meat in pasta, casseroles, and soups. Meal planning ??? Eat less salt, if told by your dietitian. To do this: ? Avoid eating processed or pre-made food. ? Avoid eating fast food. ??? Eat less animal protein, including cheese, meat, poultry, or fish, if told by your dietitian. To do this: ? Limit the number of times you have meat, poultry, fish, or cheese each week. Eat a diet free of meat at least 2 days a week. ? Eat only one serving each day of meat, poultry, fish, or seafood. ? When you prepare animal proteins, cut pieces into small portion sizes. For most meat and fish, one serving is about the size of the palm of your hand. ??? Eat at least five servings of fresh fruits and vegetables each day. To do this: ? Keep fruits and vegetables on hand for snacks. ? Eat one piece of fruit or a handful of berries with breakfast. ? Have a salad and fruit at lunch. ? Have two kinds of vegetables at dinner. ??? You may be told to limit foods that are high in a substance called oxalate. These include: ? Spinach (cooked), rhubarb, beets, sweet potatoes, and [place]rugu[place] chard. ? Peanuts. ? Potato chips, grenadian fries, and baked potatoes with skin on. ? Nuts and nut products. ? Chocolate. ??? If you regularly take a diuretic medicine, make sure to eat at least 1 or 2 servings of fruits or vegetables that are high in potassium each day. These include: ? Avocado. ? Banana. ? Hall, prune, carrot, or tomato juice. ? Baked potato. ? Cabbage. ? Beans and split peas. Lifestyle ??? Drink enough (more content not included)... Normal [facility] Urology Office/Clinic Noteon 09-24-2024 Urology Office/Clinic Note Urology Office/Clinic Note Chief Complaint amie f/u HPI Staff 28 yr old female here for ER f/u due to blood in urine, CT done 09/16/24 pt states she has only noticed blood in urine 2x, no blood clots. pt still having pain on left side History of Present Illness Tests reviewed: reviewed UA and external records: CT, ER note, labs. I have reviewed the previous health record information and history for this patient from external provider I have reviewed and verified the staff HPI to be accurate for this encounter. Review of Systems PHQ Score Initial Depression Screen Score: 0 SCORE ROS - Provider Constitutional: denies weight loss, denies hot flashes. Eyes: denies eye problems. Gastrointestinal: denies nausea, denies vomiting. Cardiovascular: denies chest pain or angina. Integumentary: no dryness Musculoskeletal: denies musculoskeletal symptoms. ENMT: denies otolaryngeal symptoms. Respiratory: no shortness of breath. Heme/Lymph: denies easy bleeding tendency, denies easy bruising tendency. Psychiatric: no confusion, no anxiety. Genitourinary: See HPI. Physical Exam Vitals & Measurements T: 36.9 ???C(Oral) HR: 86(Peripheral) RR: 16 BP: 134/84 HT: 162 cm HT: 64 in WT: 99 kg WT: 218.257 lb BMI: 37.72 General Appearance: alert , no acute distress, well nourished, well developed female. Head: normocephalic . Eyes: normal orbit and globe. ENMT: normal examination of external ears. Psychiatric: cooperative, affect appropriate for age, normal judgement, euthymic mood. Assessment/Plan 28 yo overall healthy F new pt here for recent [facility] ER visit. Follows with Dr. Donte Villatoro at [facility]. Currently breast feeding. BBSQ 9 1. Kidney stones (N20.0: Calculus of kidney) First stone event when she was 17 yo. Pt states from [age] yo she had no stones. Dr. Villatoro treated L sided stone last year that measured 7 mm. Did require stent. Grandfather had extensive kidney stones which resulted in nephrectomy. Pt presented to [facility] ER 09/16/24 with gross hematuria and L flank pain with associated nausea without vomiting. CT AP wo con - L renal pelvic calculi, larger of which measures 1.4 cm; associated urothelial thickening. Mild right caliectasis. Adjacent smaller calculus. 2 mm RLP calculus. Unable to independently view CT image. UCx mixed leoncio. Still experiencing L sided pain. Has only noticed gross hematuria twice, denies clots. Denies fever or chills. Denies dysuria. Discussed management options including observation (not recommended) vs intervention including extracorporeal shockwave lithotripsy w/stent (staged) vs possibly staged ureteroscopy with laser lithotripsy/stone basket extraction possible stent. Risks/benefits of each were discussed including but not limited to: observation - renal damage, pain or infection; ESWL-bleeding, hematoma, pain, infection, inability to break up the stone, ureteral obstruction, cardiac arrhythmias, damage to surrounding structures and need for additional procedures; ureteroscopy - bleeding, pain, infection, damage to surrounding structures, ureteral perforation, stricture, inability to treat the stone and need for additional procedures. If a stent is placed, pt understands this is not permanent and needs to be removed or exchanged within 3 months to prevent encrustation, infection, permanent renal damage and need for more invasive procedures. Discussed PCNL as a definitive treatment. Pt elects to proceed with URS and laser litho. Given stone burden, may need staged procedure -Increase water intake, aim for 2-3 L of water daily, dietary modifications discussed. -Complete met w/up once stone free -Pump more frequently due to upcoming anesthesia, will be unable to breastfeed post op -Schedule cysto, Left ureteroscopy with laser litho, L stent, risks as above. -Present to ER if uncontrolled pain, fever, chills, as stone may be intermittently obstructive due to renal pelvis location -Will need to review images prior to surgery, asked to push to our PACS Ordered: 1126F Pain severity quantified; no pain present Current tobacco non-user 1036F Functional status assessed 1170F Medication list documented in medical record 1159F Most recent diastolic blood pressure 80-89 mm Hg 3079F Review of all meds by a prescribing practitioner or clinical pharmacist documented in EHR 1160F Systolic BP 130-139 mm Hg (Most Recent) 3075F Urnls Dip Stick Auto w/o Microscopy POC 30220 Urology Procedure Order 2. Gross hematuria (R31.0: Gross hematuria) See #1. 3. History of kidney stones (Z87.442: Personal history of urinary calculi) See #1 Follow-up With When Contact Information Tigist Blount MD, URL, URO Additional Instructions: Schedule cysto, R URS, laser litho, stent Patient Education Dietary Guidelines to Help Prevent Kidney Stones Ureteroscopy IAnyi, personally scribed for Dr. Blount on 09/24/2024 10:52:49. Electronically signed by nikia Sims (more content not included)... Normal [facility] Comment on above: Result Comment: Elec tronically Signed By: Tigist Blount MD\.br\Date and Time Signed: 09/24/24 11:03 EDT\.br\Electronically Co-Signed By: Anyi Varner\Date and Time Co-Signed: 09/24/24 10:53 EDT CBC WITH AUTO DIFFERENTIALon 09-16-2024 BASOPHILS ABSOLUTE COUNT (10*3/UL) BY AUTOMATED COUNT 0.0 10*3/uL Normal 0.0-0.2 [facility] Comment on above: Performed By: #### C BCA ####[facility] ([address] [address] VIR BASOPHILS RELATIVE PERCENT BY AUTOMATED COUNT 0.2 % Normal [facility] Comment on above: Performed By: #### C BCA ####[address] [address] VIR CELLAVISION DIFFERENTIAL TYPE AUTOMATED DIFFERENTIAL Normal [facility] Comment on above: Performed By: #### C BCA ####[address] [address] VIR Eosinophils (Bld) [#/Vol] 0.0 10*3/uL Normal 0.0-0.4 [facility] Comment on above: Performed By: #### C BCA ####[address] [address] VIR EOSINOPHILS RELATIVE PERCENT BY AUTOMATED COUNT 0.1 % Normal [facility] Comment on above: Performed By: #### C BCA ####[address] [address] VIR Erythrocyte distribution width (RBC) [Ratio] 14.6 % Normal 11.5-15 [facility] Comment on above: Performed By: #### C BCA ####[address] [address] VIR Hematocrit (Bld) [Volume fraction] 38.5 % Normal 35-47 [facility] Comment on above: Performed By: #### C BCA ####[facility] ([address] [address] VIR Hemoglobin (Bld) [Mass/Vol] 12.3 g/dL Normal 11.7-15.5 [facility] Comment on above: Performed By: #### C BCA ####[facility] ([address] [address] VIR LYMPHOCYTES ABSOLUTE COUNT (10*3/UL) BY AUTOMATED COUNT 0.8 10*3/uL Low 1.0-3.5 [facility] Comment on above: Performed By: #### C BCA ####[facility] ([address] [address] VIR LYMPHOCYTES RELATIVE PERCENT BY AUTOMATED COUNT 9.5 % Normal [facility] Comment on above: Performed By: #### C BCA ####[address] [address] VIR MCH (RBC) [Entitic mass] 23.4 pg Low 27-34 [facility] Comment on above: Performed By: #### C BCA ####[address] [address] VIR MCHC (RBC) [Mass/Vol] 31.9 g/dL Low 32-36 [facility] Comment on above: Performed By: #### C BCA ####[address] [address] VIR MCV (RBC) [Entitic vol] 73 fL Low 80-100 [facility] Comment on above: Performed By: #### C BCA ####[address] [address] VIR MONOCYTES ABSOLUTE COUNT (10*3/UL) BY AUTOMATED COUNT 0.2 10*3/uL Normal 0.0-0.9 [facility] Comment on above: Performed By: #### C BCA ####[facility] ([address] [place] [address] VIR MONOCYTES RELATIVE PERCENT BY AUTOMATED COUNT 2.7 % Normal [facility] Comment on above: Performed By: #### C BCA ####[facility] ([facility])[address] [place] [address].[place] [address] VIR NEUTROPHILS ABSOLUTE COUNT BY AUTOMATED COUNT 7.7 10*3/uL High 1.5-6.6 [facility] Comment on above: Performed By: #### C BCA ####[facility] ([address] [place] [address] VIR NEUTROPHILS RELATIVE PERCENT BY AUTOMATED COUNT 87.5 % Normal [facility] Comment on above: Performed By: #### C BCA ####[facility] ([address] [place] [address] VIR Platelet mean volume (Bld) [Entitic vol] 11.5 fL Normal 7-12 [facility] Comment on above: Performed By: #### C BCA ####[facility] ([address] [place] [address] VIR Platelets (Bld) [#/Vol] 161 10*3/uL Normal 150-450 [facility] Comment on above: Performed By: #### C BCA ####[facility] ([address] [place] [address] VIR RBC COUNT 5.25 X10E12/L High 3.8-5.2 [facility] Comment on above: Performed By: #### C BCA ####[facility] ([address] [place] [address] VIR WBC (Bld) [#/Vol] 8.8 10*3/uL Normal 4-11 [facility] Comment on above: Performed By: #### C BCA ####[facility] ([address] [place] [address] VIR COMPREHENSIVE METABOLIC PANE Skinny 07-02-2025 Albumin [Mass/Vol] 3.9 g/dL Normal 3.2-5.3 [facility] Comment on above: Performed By: #### C MP ####[facility] ([facility] [address] VIR ALP [Catalytic activity/Vol] 114 U/L Normal 39-130 [facility] Comment on above: Performed By: #### C MP ####[facility] ([place] [address] [address] VIR ALT [Catalytic activity/Vol] 23 U/L Normal <=31 [facility] Comment on above: Performed By: #### C MP ####[facility] ([place] [address] [place] [address] VIR Anion gap [Moles/Vol] 12 mmol/L Normal 5-15 [facility] Comment on above: Performed By: #### C MP ####[facility] ([place] [address] [place] [address] VIR AST [Catalytic activity/Vol] 18 U/L Normal <=41 [facility] Comment on above: Performed By: #### C MP ####[facility] ([place] [address] [place] [address] VIR Bilirubin [Mass/Vol] 0.7 mg/dL Normal 0.3-1.2 [facility] Comment on above: Performed By: #### C MP ####[facility] ([place] [address] [place] [address] VIR Calcium [Mass/Vol] 9.1 mg/dL Normal 8.5-10.5 [facility] Comment on above: Performed By: #### C MP ####[facility] ([place] [address] [place] [address] VIR Chloride [Moles/Vol] 103 mmol/L Normal 98-109 [facility] Comment on above: Performed By: #### C MP ####[facility] ([address] [place] [address] VIR CO2 [Moles/Vol] 22 mmol/L Normal 22-32 [facility] Comment on above: Performed By: #### C MP ####[facility] ([address] [place] [address] VIR Creatinine [Mass/Vol] 0.68 mg/dL Normal 0.40-1.00 [facility] Comment on above: Result Comment: METH OD TRACEABLE TO IDMS STANDARD Performed By: #### C MP ####[facility] ([address] [address] VIR EGFR (CKD-EPI) NON-RACE DEPENDENT >^90 Normal >=60 [facility] Comment on above: Result Comment: eGFR not reported due to non-numeric value for Creatinine. Reported eGFR is based on the CKD-EPI 2021 equation that does not use a race coefficient. Performed By: #### C MP ####[facility] ([address] [address] VIR Glucose [Mass/Vol] 105 mg/dL High 65-99 [facility] Comment on above: Performed By: #### C MP ####[facility] ([address] [place] [address] VIR Potassium [Moles/Vol] 4.3 mmol/L Normal 3.5-5.0 [facility] Comment on above: Performed By: #### C MP ####[facility] ([address] [place] [address] VIR Protein [Mass/Vol] 7.7 g/dL Normal 6.0-8.0 [facility] Comment on above: Performed By: #### C MP ####[facility] ([address] [place] [address] VIR Sodium [Moles/Vol] 137 mmol/L Normal 134-146 [facility] Comment on above: Performed By: #### C MP ####[facility] ([facility])[address] [place] [address] [place] [address] VIR Urea nitrogen [Mass/Vol] 13 mg/dL Normal 5-23 [facility] Comment on above: Performed By: #### C MP ####[facility] ([facility])[address] [place] [address] [place] [address] ABDOMEN AND PELVIS WO CON Ton 09-16-2024 CT ABDOMEN AND PELVIS WO CONT CT ABDOMEN AND PELVIS WO CONT STUDY: Abdomen and pelvis CT without intravenous [...] David Freitas MD on 09/16/2024 4:19 PM Normal [facility] POCT NURSING URINE MACROSCOP IC UAon 07-02-2025 BILIRUBIN LINETTE Negative Normal Negative [facility] Comment on above: Performed By: #### N UM ####[facility] ([place] [address] [place] [address] VIR BLOOD/HGB LINETTE Large Abnormal Negative [facility] Comment on above: Performed By: #### N UM ####[facility] ([place] [address] [place] [address] VIR GLUCOSE LINETTE Negative Normal Negative [facility] [facility] Comment on above: Performed By: #### N UM ####[facility] ([place] [address] [place] [address] VIR KETONES LINETTE Negative Normal Negative [facility] Comment on above: Performed By: #### N UM ####[facility] ([address] [place] [address] VIR LEUKOCYTE ESTERASE LINETTE Trace Abnormal Negative [facility] Comment on above: Performed By: #### N UM ####[facility] ([address] [place] [address] VIR NITRITE LINETTE Negative Normal Negative [facility] Comment on above: Performed By: #### N UM ####[facility] ([address] [place] [address] VIR PH LINETTE 6.0 Normal 5.0, 6.0, 6.5, 7.0, 7.5, 8.0, 8.5, 5.5 [facility] Comment on above: Performed By: #### N UM ####[facility] ([address] [place] [address] VIR PROTEIN LINETTE 100 mg/dL Abnormal Negative [facility] Comment on above: Performed By: #### N UM ####[facility] ([place] [address] [place] [address] VIR SPECIFIC GRAVITY LINETTE >=1.030 Abnormal 1.010, 1.015, 1.020, 1.025 [facility] Comment on above: Performed By: #### N UM ####[facility] ([facility])[address] [place] [address] VIR UROBILINOGEN LINETTE 0.2 E.U./dL Normal [facility] Comment on above: Performed By: #### N UM ####[facility] ([facility])[address] [place] [address] VIR POCT , URINE (NUCG) on 09-16-2024 Beta HCG ( test) Ql (U) Negative Normal Negative, Indeterminate [facility] Comment on above: Performed By: #### N UCG ####[facility] ([facility])[address] [place] [address] VIR URINE CULTUREon 09-16-2024 Bacteria identified Cx Nom (U) CULTURE RESULTS 10-50,000 ORGANISMS/mL NORMAL UROGENITAL LEONCIO Normal [facility] Comment on above: Performed By: #### U C ####[facility] ([facility])[address] [place] [address] VIR COMPLETE BLOOD COUNTon 03-03 Erythrocyte distribution width (RBC) [Ratio] 13.8 % Normal 11.5-15.0 [facility] Comment on above: Performed By: #### C BC, CMP #### [facility] ([id number]) [address] [place] [address] Hematocrit (Bld) [Volume fraction] 33.4 % Low 35-47 [facility] Comment on above: Performed By: #### C BC, CMP #### [facility] ([id number]) [address] [place] [address] Hemoglobin (Bld) [Mass/Vol] 11.8 g/dL Normal 11.7-15.5 [facility] Comment on above: Performed By: #### C BC, CMP #### [facility] ([id number]) [address] [place] [address] 34251 MCH (RBC) [Entitic mass] 30.5 pg Normal 27-34 [facility] Comment on above: Performed By: #### C BC, CMP #### [facility] ([id number]) [address] [place] [address] 60832 MCHC (RBC) [Mass/Vol] 35.4 g/dL Normal 32-36 [facility] Comment on above: Performed By: #### C BC, CMP #### [facility] ([id number]) [address] [place] [address] 98286 MCV (RBC) [Entitic vol] 86 fL Normal 80-100 [facility] Comment on above: Performed By: #### C HARSH, CMP #### [facility] ([id number]) [address] [place] [address] 65916 Platelet mean volume (Bld) [Entitic vol] 12.5 fL High 7-12 [facility] Comment on above: Performed By: #### C HARSH, CMP #### [facility] ([id number]) [address] [place] [address] 50953 Platelets (Bld) [#/Vol] 108 10*3/uL Low 150-450 [facility] Comment on above: Performed By: #### C BC, CMP #### [facility] ([id number]) [address] [place] [address] 68501 RBC COUNT 3.87 X10E12/L Normal 3.80-5.20 [facility] Comment on above: Performed By: #### C BC, CMP #### [facility] ([id number]) [address] [place] [address] 98817 WBC (Bld) [#/Vol] 7.1 10*3/uL Normal 4.0-11.0 [facility] Comment on above: Performed By: #### C BC, CMP #### [facility] ([id number]) [address] [place] [address] 11020 COMPREHENSIVE METABOLIC PANE Skinny 03-03-2024 Albumin [Mass/Vol] 3.0 g/dL Low 3.2-5.3 [facility] Comment on above: Performed By: #### C BC, CMP #### [facility] ([id number]) [address] [place] [address] 05712 ALP [Catalytic activity/Vol] 53 U/L Normal 39-130 [facility] Comment on above: Performed By: #### C BC, CMP #### [facility] ([id number]) [address] [place] [address] 79066 ALT [Catalytic activity/Vol] 13 U/L Normal 0-31 [facility] Comment on above: Performed By: #### C BC, CMP #### [facility] ([id number]) [address] [place] [address] 06992 Anion gap [Moles/Vol] 11 mmol/L Normal 5-15 [facility] Comment on above: Performed By: #### C BC, CMP #### [facility] ([id number]) [address] [place] [address] 49814 AST [Catalytic activity/Vol] 20 U/L Normal 0-41 [facility] Comment on above: Performed By: #### C BC, CMP #### [facility] ([id number]) [address] [place] [address] 58145 Bilirubin [Mass/Vol] 0.2 mg/dL Low 0.3-1.2 [facility] Comment on above: Performed By: #### C BC, CMP #### [facility] ([id number]) [address] [place] [address] 14288 Calcium [Mass/Vol] 8.5 mg/dL Normal 8.5-10.5 [facility] Comment on above: Performed By: #### C HARSH, CMP #### [facility] ([id number]) [address] [place] [address] 90565 Chloride [Moles/Vol] 102 mmol/L Normal 98-109 [facility] Comment on above: Performed By: #### C HARSH, CMP #### [facility] ([id number]) [address] [place] [address] 38734 CO2 [Moles/Vol] 21 mmol/L Low 22-32 [facility] Comment on above: Performed By: #### C HARSH, CMP #### [facility] ([id number]) [address] [place] [address] 90534 Creatinine [Mass/Vol] 0.54 mg/dL Normal 0.40-1.00 [facility] Comment on above: Result Comment: METH OD TRACEABLE TO IDMS STANDARD Performed By: #### C HARSH, CMP #### [facility] ([id number]) [address] [place] [address] 73661 eGFR (CKD-EPI) NON-RACE DEPENDENT >90 Normal >59 [facility] Comment on above: Result Comment: Reported eGFR is based on the CKD-EPI 2020 equation that does not use a race coefficient. Performed By: #### C HARSH, CMP #### [facility] ([id number]) [address] [place] [address] 17292 Glucose [Mass/Vol] 85 mg/dL Normal 65-99 [facility] Comment on above: Performed By: #### C BC, CMP #### [facility] ([id number]) [address] [place] [address] 17974 Potassium [Moles/Vol] 3.4 mmol/L Low 3.5-5.0 [facility] Comment on above: Performed By: #### C BC, CMP #### [facility] ([id number]) [address] [place] [address] 85352 Protein [Mass/Vol] 6.3 g/dL Normal 6.0-8.0 [facility] Comment on above: Performed By: #### C BC, CMP #### [facility] ([id number]) [address] [place] [address] 82490 Sodium [Moles/Vol] 134 mmol/L Normal 134-146 [facility] Comment on above: Performed By: #### C BC, CMP #### [facility] ([id number]) [address] [place] [address] 01593 Urea nitrogen [Mass/Vol] 8 mg/dL Normal 5-23 [facility] Comment on above: Performed By: #### C BC, CMP #### [facility] ([id number]) [address] [place] [address] 22771 DRUG SCREEN, URINEon 024 AMPHETAMINE/METHAMP Negative Normal NEG [facility] Comment on above: Result Comment: AMPH /METH screening cut off = 1000 ng/mL Performed By: #### D SARMIENTO #### [facility] ([id number]) [address] [place] [address] 60730 BARBITURATES Negative Normal NEG [facility] Comment on above: Result Comment: Breonna iturates screening cut off value = 200 ng/mL Performed By: #### D SARMIENTO #### [facility] ([id number]) [address] [place] [address] 42565 BENZODIAZEPINES Negative Normal NEG [facility] Comment on above: Result Comment: Eyal odiazepines screening cut off value = 200 ng/mL Performed By: #### D SARMIENTO #### [facility] ([id number]) [address] [place] [address] 57384 CANNABINOIDS Negative Normal NEG [facility] Comment on above: Result Comment: Mary Ellen abinoids/THC screening cut off value = 50 ng/mL Performed By: #### D SARMIENTO #### [facility] ([id number]) [address] [place] [address] 38935 COCAINE METABOLITE Negative Normal NEG [facility] Comment on above: Result Comment: Coca ine screening cut off value = 300 ng/mL Performed By: #### D SARMIENTO #### [facility] ([id number]) [address] [place] [address] 65557 ECSTASY Negative Normal NEG [facility] Comment on above: Result Comment: Ecst asy screening cut off value = 500 ng/mL This report is intended for use in clinical monitoring or management of patients. Performed By: #### D SARMIENTO #### [facility] ([id number]) [address] [place] [address] 46911 METHADONE Negative Normal [facility] Comment on above: Result Comment: Meth adone screening cut off value = 300 ng/mL. Performed By: #### D SARMIENTO #### [facility] ([id number]) [address] [place] [address] 96519 OPIATES Negative Normal [facility] Comment on above: Result Comment: Opia sandra screening cut off value = 300 ng/mL NOTE: This test is used for the detection of codeine, hydrocodone (>1000 ng/mL), morphine and hydromorphone (>900 ng/mL) in urine. Performed By: #### D SARMIENTO #### [facility] ([id number]) [address] [place] [address] 65008 OXYCODONE Negative Normal [facility] Comment on above: Result Comment: Oxyc odone screening cut off value = 300 ng/mL NOTE: This test is used for the detection of oxycodone and oxymorphone in urine. Performed By: #### D SARMIENTO #### [facility] ([id number]) [address] [place] [address] 34553 PHENCYCLIDINE Negative Normal NEG [facility] Comment on above: Result Comment: Phen cyclidine screening cut off value = 25 ng/mL Performed By: #### D SARMIENTO #### [facility] ([id number]) [address] [place] [address] 39472 S. pyogenes Ag Ql (Throat)on 03-03-2024 DIRECT STREP A Negative Normal NEG [facility] Comment on above: Performed By: #### 4 9610-9 #### [facility] ([id number]) [address] [place] [address], [address] [place] [address]82 #### [id number] #### [facility] ([id number]) [address] [place] [address] 46819 S. pyogenes DNA GHAZALA+probe No m (Unsp spec)on 03-03-2024 STREP PCR THROAT Negative Normal NEG [facility] Comment on above: Result Comment: Streptococcus Group A NOT detected by nucleic acid amplification. Performed By: #### 4 9610-9 #### [facility] ([id number]) [address] [place] [address], [address] [place] [address] 47026 #### [id number] #### [facility] ([id number]) [address] [place] [address] 43459 SARS/FLU A+B/RSV by NAAT/Mol ecularon 03-03-2024 SARS/FLU [...] operators who are performing tests using either [employer] or [employer] systems and is limited to laboratories that [...] repeat. Fact Sheet for Healthcare Providers: https://www.fda.gov/ media/236310/downloa d Fact Sheet for Patients: https://www.fda.gov/ media/519311/downloa d Normal [facility] Comment on above: Performed By: #### C OVFLR #### [facility] ([id number]) [address] [place] [address] 03481 URINALYSISon 03-03-2024 Bilirubin Ql (U) Negative Normal NEG [facility] Comment on above: Performed By: #### U A #### [facility] ([id number]) [address] [place] [address] 60447 BLOOD/HGB Negative Normal NEG [facility] Comment on above: Performed By: #### U A #### [facility] ([id number]) [address] [place] [address], [place] [address] Color (U) YELLOW Normal YELLOW [facility] Comment on above: Performed By: #### U A #### [facility] ([id number]) [address] [place] [address] 25654 Glucose Ql (U) Negative Normal NEG [facility] Comment on above: Performed By: #### U A #### [facility] ([id number]) [address] [place] [address] 62263 Ketones Ql (U) Negative Normal NEG [facility] Comment on above: Performed By: #### U A #### [facility] ([id number]) [address] [place] [address] 19671 Leukocyte esterase Test strip Ql (U) Trace Abnormal NEG [facility] Comment on above: Performed By: #### U A #### [facility] ([id number]) [address] [place] [address] 75940 Nitrite Ql (U) Negative Normal NEG [facility] Comment on above: Performed By: #### U A #### [facility] ([id number]) [address] [place] [address] 01096 pH (U) 6.0 [pH] Normal 5.0-8.5 [facility] Comment on above: Performed By: #### U A #### [facility] ([id number]) [address] [place] [address] 15119 Protein Ql (U) Negative Normal NEG [facility] Comment on above: Performed By: #### U A #### [facility] ([id number]) [address] [place] [address] 28979 R.B.CELLS 0 /hpf Normal 0-5 [facility] Comment on above: Performed By: #### U A #### [facility] ([id number]) [address] [place] [address] 08854 Specific gravity (U) [Rel density] 1.020 Normal 1.003-1.035 [facility] Comment on above: Performed By: #### U A #### [facility] ([id number]) [address] [place] [address] 81414 SQUAMOUS EPITHELIUM 6 /hpf High 0-5 [facility] Comment on above: Performed By: #### U A #### [facility] ([id number]) [address] [place] [address] 04186 TURBIDITY CLEAR Normal CLEAR [facility] Comment on above: Performed By: #### U A #### [facility] ([id number]) [address] [place] [address] 48217 Urobilinogen Qn (U) 0.2 {Kyra'U}/dL Normal <1.1 [facility] Comment on above: Performed By: #### U A #### [facility] ([id number]) [address] [place] [address] 19458 W.B.CELLS 1 /hpf Normal 0-5 [facility] Comment on above: Performed By: #### U A #### [facility] ([id number]) [address] [place] [address] 36865 URINE CULTUREon 03-03-2024 Bacteria identified Cx Nom (U) CULTURE RESULTS 10-50,000 ORGANISMS/mL NORMAL UROGENITAL LEONCIO Normal [facility] Comment on above: Performed By: #### 6 30-4 #### [facility] ([id number]) [address] [place] [address] US RETROPERITONEAL COMPLETEo n 12-27-2023 US RETROPERITONEAL [...] Rey MD on 12/27/2023 2:34 PM Normal [facility] US RETROPERITONEAL COMPLETEo n 09-21-2023 US RETROPERITONEAL [...] York MD on 09/21/2023 10:14 AM Normal [facility] HCG ( test) Ql (U)o n 08-09-2023 Beta HCG ( test) Ql (U) Negative Normal NEG [facility] Comment on above: Result Comment: TEST PERFORMED AT [address] [address] Vital Signs Date Time Vital Sign Value Performing Clinician Faci lity 06-26-2024 09:52-0400 Body height 162.6 cm Rogers Mota MD Work Phone: [facility] 06-26-2024 09:52-0400 Body mass index (BMI) [Ratio] 44.5 kg/m2 Rogers Mota MD Work Phone: [facility] 06-26-2024 09:52-0400 Body temperature 97.9 [degF] Rogers Mota MD Work Phone: [facility] 06-26-2024 09:52-0400 Body weight 117.66 kg Rogers Mota MD Work Phone: [facility] 06-26-2024 09:52-0400 Diastolic blood pressure 89 mm[Hg] Rogers Mota MD Work Phone: [facility] 06-26-2024 09:52-0400 Heart rate 81 /min Rogers Mota MD Work Phone: [facility] 06-26-2024 09:52-0400 Respiratory rate 20 /min Rogers Mota MD Work Phone: [facility] 06-26-2024 09:52-0400 SaO2% (BldA) [Mass fraction] 100 % Rogers Mota MD Work Phone: [facility] 06-26-2024 09:52-0400 Systolic blood pressure 146 mm[Hg] Rogers Mota MD Work Phone: [facility] 03-30-2024 16:18-0500 Body height 162.6 cm Donte Villatoro MD Work Phone: [facility] 03-30-2024 16:18-0500 Body mass index (BMI) [Ratio] 39.99 kg/m2 Donte Villatoro MD Work Phone: [facility] 03-30-2024 16:18-0500 Body weight 105.69 kg Donte Villatoro MD Work Phone: [facility] 03-30-2024 16:18-0500 Diastolic blood pressure 47 mm[Hg] Donte Villatoro MD Work Phone: [facility] 03-30-2024 16:18-0500 Heart rate 79 /min Donte Villatoro MD Work Phone: [facility] 03-30-2024 16:18-0500 Systolic blood pressure 130 mm[Hg] Donte Villatoro MD Work Phone: [facility] 10-21-2023 15:00-0400 Body height 162.6 cm Donte Villatoro MD Work Phone: [facility] 10-21-2023 15:00-0400 Body mass index (BMI) [Ratio] 38.11 kg/m2 Donte Villatoro MD Work Phone: [facility] 10-21-2023 15:00-0400 Body weight 100.7 kg Donte Villatoro MD Work Phone: [facility] 10-21-2023 15:00-0400 Diastolic blood pressure 80 mm[Hg] Donte Villatoro MD Work Phone: [facility] 10-21-2023 15:00-0400 Heart rate 65 /min Donte Villatoro MD Work Phone: [facility] 10-21-2023 15:00-0400 Systolic blood pressure 127 mm[Hg] Donte Villatoro MD Work Phone: [facility] 08-06-2023 15:29-0400 Body height 162.6 cm [facility] 08-06-2023 15:29-0400 Body mass index (BMI) [Ratio] 38.11 kg/m2 [facility] 08-06-2023 15:29-0400 Body weight 100.7 kg [facility] 07-31-2023 14:09-0400 Body height 162.6 cm Donte Villatoro MD Work Phone: [facility] 07-31-2023 14:09-0400 Body mass index (BMI) [Ratio] 38.11 kg/m2 Donte Villatoro MD Work Phone: [facility] 07-31-2023 14:09-0400 Body weight 100.7 kg Donte Villatoro MD Work Phone: [facility] 07-31-2023 14:09-0400 Diastolic blood pressure 82 mm[Hg] Donte Villatoro MD Work Phone: [facility] 07-31-2023 14:09-0400 Heart rate 58 /min Donte Villatoro MD Work Phone: [facility] 07-31-2023 14:09-0400 Systolic blood pressure 129 mm[Hg] Donte Villatoro MD Work Phone: [facility] 10-11-2022 13:56-0400 Body height 157.48 cm Adelaida Parks CNP Work Phone: [facility] Work Phone: 10-11-2022 13:56-0400 Body mass index (BMI) [Ratio] 43.5 kg/m2 Adelaida Parks CNP Work Phone: [facility] Work Phone: 10-11-2022 13:56-0400 Body surface area Derived from formula 2.1 m2 Adelaida Parks CNP Work Phone: [facility] Work Phone: 10-11-2022 13:56-0400 Body temperature 98.4 [degF] Adelaida Parks CNP Work Phone: [facility] Work Phone: 10-11-2022 13:56-0400 Body weight 107.96 kg Adelaida Parks CNP Work Phone: [facility] Work Phone: 10-11-2022 13:56-0400 Diastolic blood pressure 84 mm[Hg] Adelaida Parks CNP Work Phone: [facility] Work Phone: 10-11-2022 13:56-0400 Heart rate 78 /min Adelaida Parks CNP Work Phone: [facility] Work Phone: 10-11-2022 13:56-0400 SaO2% (BldA) [Mass fraction] 98 % Adelaida Parks CNP Work Phone: [facility] Work Phone: 10-11-2022 13:56-0400 Systolic blood pressure 123 mm[Hg] Adelaida Parks CNP Work Phone: [facility] Work Phone: 09-19-2022 17:02-0400 Diastolic blood pressure 73 mm[Hg] Adelaida Parks CNP Work Phone: [facility] Work Phone: 09-19-2022 17:02-0400 Heart rate 71 /min Adelaida Parks CNP Work Phone: [facility] Work Phone: 09-19-2022 17:02-0400 Systolic blood pressure 127 mm[Hg] Adelaida Parks CNP Work Phone: [facility] Work Phone: 09-11-2022 16:33-0400 Diastolic blood pressure 86 mm[Hg] Adelaida Parks CNP Work Phone: [facility] Work Phone: 09-11-2022 16:33-0400 Systolic blood pressure 123 mm[Hg] Adelaida Parks CNP Work Phone: [facility] Work Phone: 09-11-2022 16:29-0400 Body height 157.48 cm Adelaida Parks CNP Work Phone: [facility] Work Phone: 09-11-2022 16:29-0400 Body mass index (BMI) [Ratio] 43.9 kg/m2 Adelaida Parks CNP Work Phone: [facility] Work Phone: 09-11-2022 16:29-0400 Body surface area Derived from formula 2.1 m2 Adelaida Parks CNP Work Phone: [facility] Work Phone: 09-11-2022 16:29-0400 Body temperature 98.6 [degF] Adelaida Parks CNP Work Phone: [facility] Work Phone: 09-11-2022 16:29-0400 Body weight 108.86 kg Adelaida Parks CNP Work Phone: [facility] Work Phone: 09-11-2022 16:29-0400 Diastolic blood pressure 91 mm[Hg] Adelaida Parks CNP Work Phone: [facility] Work Phone: 09-11-2022 16:29-0400 Heart rate 68 /min Adelaida Parks CNP Work Phone: [facility] Work Phone: 09-11-2022 16:29-0400 SaO2% (BldA) [Mass fraction] 98 % Adelaida Parks CNP Work Phone: [facility] Work Phone: 09-11-2022 16:29-0400 Systolic blood pressure 137 mm[Hg] Adelaida Parks CNP Work Phone: [facility] Work Phone: 08-08-2022 17:13-0400 Body height 157.48 cm Adelaida Parks CNP Work Phone: [facility] Work Phone: 08-08-2022 17:13-0400 Body mass index (BMI) [Ratio] 43.2 kg/m2 Adelaida Parks CNP Work Phone: [facility] Work Phone: 08-08-2022 17:13-0400 Body surface area Derived from formula 2.1 m2 Adelaida Parks CNP Work Phone: [facility] Work Phone: 08-08-2022 17:13-0400 Body temperature 97.4 [degF] Adelaida Parks CNP Work Phone: [facility] Work Phone: 08-08-2022 17:13-0400 Body weight 107.05 kg Adelaida Parks CNP Work Phone: [facility] Work Phone: 08-08-2022 17:13-0400 Diastolic blood pressure 80 mm[Hg] Adelaida Parks CNP Work Phone: [facility] Work Phone: 08-08-2022 17:13-0400 Heart rate 111 /min Adelaida Parks CNP Work Phone: [facility] Work Phone: 08-08-2022 17:13-0400 SaO2% (BldA) [Mass fraction] 98 % Adelaida Parks CNP Work Phone: [facility] Work Phone: 08-08-2022 17:13-0400 Systolic blood pressure 130 mm[Hg] Adelaida Parks CNP Work Phone: [facility] Work Phone: Encounters Encounter Date Encounter Type Care Provider Facility Start: 10-07-2024 ambulatory Tigist M. Lue Facility:C [id number] Start: 09-24-2024 End: 09-24-2024 ambulatory Tigist M. Lue Facility:[facility] Start: 09-24-2024 End: 09-24-2024 Patient encounter procedure Tigist M. Lue [facility] Start: 09-23-2024 ambulatory Tigist Lue Facility:[facility] Start: 09-21-2024 End: 09-24-2024 Telephone encounter Lisbet Roberson [facility] Start: 09-16-2024 End: 09-16-2024 Emergency department patient visit NO PCP NO PCP [facility] Start: 06-26-2024 End: 06-26-2024 Documentation procedure Contreras [facility] Start: 06-26-2024 End: 06-26-2024 ambulatory ROGERS MOTA [facility] Start: 06-26-2024 End: 06-26-2024 Office outpatient new 60 minutes Rogers Mota MD Work Phone: [facility] Comment on above: Thrombocytopenia aff ecting (Primary Dx); Normocytic anemia Start: 03-30-2024 End: 03-30-2024 Office outpatient visit 15 minutes Donte Villatoro MD Work Phone: [facility] Comment on above: Nephrolithiasis (Courtney nicko Dx); Mineral metabolism disorder Start: 03-30-2024 End: 03-30-2024 ambulatory DONTE [facility] Amb[facility] Start: 03-02-2024 End: 03-03-[address] [facility] Start: 12-26-2023 End: 12-26-2023 [facility] Start: 10-23-2023 End: 10-23-2023 Telephone encounter [facility] Start: 10-21-2023 End: 10-21-2023 Office outpatient visit 15 minutes Donte Villatoro MD Work Phone: [facility] Comment on above: Mineral metabolism d isorder (Primary Dx); Nephrolithiasis Start: 10-21-2023 End: 10-21-2023 ambulatory DONTE VILLATORO [facility] Start: 09-20-2023 End: 09-20-2023 [facility] Start: 08-20-2023 End: 08-20-2023 Telephone encounter Donte Villatoro MD Work Phone: [facility] Start: 08-20-2023 End: 08-20-2023 [facility]: 08-09-2023 End: 08-09-2023 Telephone encounter Donte Villatoro MD Work Phone: [facility] Start: 08-09-2023 End: 08-10-2023 Evaluation and management of inpatient [facility]ELAC[facility] Start: 08-09-2023 End: 08-09-2023 Evaluation and management of inpatient DONTE VILLATORO [facility] Start: 08-06-2023 End: 08-06-2023 Evaluation and management of inpatient NO PCP NO PCP [facility] Start: 08-05-2023 End: 08-06-2023 Admission to [facility] Pat Phone Call Provider 3 Kate [facility] Start: 07-31-2023 End: 07-31-2023 Office outpatient new 45 minutes Donte Villatoro MD Work Phone: [facility] Comment on above: Nephrolithiasis (Courtney nicko Dx) Start: 07-31-2023 End: 07-31-2023 Telephone encounter Donte Villatoro MD Work Phone: [facility] Start: 07-31-2023 End: 07-31-2023 ambulatory DONTE VILLATORO [facility] Start: 10-11-2022 End: 10-11-2022 [facility]QHC visit, estab pt Tran MCCOY Work Phone: [facility] Work Phone: Start: 09-19-2022 End: 09-19-2022 General Leah Phillips DDS Work Phone: [facility] Work Phone: Start: 09-11-2022 End: 09-11-2022 FQHC visit, estab pt Tran MCCOY Work Phone: [facility] Work Phone: Start: 08-08-2022 End: 08-08-2022 General Leah Phillips DDS Work Phone: [facility] Work Phone: Start: 08-08-2022 End: 08-08-2022 Adult health examination Adelaida Parks PAPITO Work Phone: [facility] Work Phone: Start: 08-08-2022 End: 08-08-2022 FQHC visit new patient Adelaida Parks CNP Work Phone: [facility] Work Phone: Start: 08-08-2022 End: 09-11-2022 FQHC visit, estab pt Cassandra Kee [employer] Work Phone: [facility] Work Phone: Start: 08-08-2022 comprehensive oral evaluation - new or established patient Leah Phillips HAILEYS Work Phone: [facility] Start: 07-06-2022 ambulatory Adelaida Parks CNP [facility] Procedures Date Procedure Procedure Detail Performing Clinician Start: 10-21-2023 Follow-up visit Follow-up DONTE VILLATORO Start: 07-31-2023 Follow-up visit Follow-up DONTE VILLATORO Start: 10-11-2022 Most recent diastoli c blood pressure 80-89 mm hg Adelaida Parks [employer] Work Phone: Start: 10-11-2022 Most recent systolic blood pressure <130 mm hg Adelaida Parks [employer] Work Phone: Start: 10-11-2022 Psychotherapy w/yadiel ent 30 minutes Tran Short LISWS Work Phone: Start: 09-19-2022 extraction, erupted tooth or exposed root (elevation and/or forceps removal) Leah Phillips DDS Work Phone: Start: 09-11-2022 Most recent diastoli c blood pressure 80-89 mm hg Cassandra Kee [employer] Work Phone: Start: 09-11-2022 Most recent systolic blood pressure <130 mm hg Cassandra Kee [employer] Work Phone: Start: 09-11-2022 Psychotherapy w/yadiel ent 30 minutes Tran Short LISWS Work Phone: Start: 08-08-2022 Antibody hiv-1&hiv-2 single result Adelaida Parks [employer] Work Phone: Start: 08-08-2022 Extraction of wisdom [...] Treatment Date Care Activity Detail Author Start: 09-16-2025 Adult BMI Screening Adult BMI Screen ing [facility] Start: 06-26-2025 Tobacco Screening Tobacco Screening [facility] Start: 03-30-2025 Adult BMI Screening Adult BMI Screen ing [facility] Start: 03-30-2025 Tobacco Screening Tobacco Screening [facility] Start: 11-16-2024 Influenza vaccination Influenza Vacc ine [facility] Start: 10-20-2024 Adult BMI Screening Adult BMI Screen ing [facility] Start: 10-20-2024 Tobacco Screening Tobacco Screening [facility] Start: 09-30-2024 End: 09-30-2024 Patient encounter procedure 09/30/2024 2:15 PM EDT Office Visit [facility] [address] [place] [address] [facility] [place] [address] Donte Villatoro MD [facility] [place] [address] [facility] Start: 09-15-2024 End: 06-26-2025 CBC W Auto Differential panel - Blood CBC with auto diff Lab Routine Nephrolithiasis Thrombocytopenia affecting Expected: 09/15/2024, Expires: 06/26/2025 [employer] Work Phone: Comment on above: Expected: 09/15/2024 , Expires: 06/26/2025 Start: 09-15-2024 End: 06-26-2025 Ferritin [Mass/volume] in Serum or Plasma Ferritin Lab Routine Nephrolithiasis Thrombocytopenia affecting Expected: 09/15/2024, Expires: 06/26/2025 [facility] Comment on above: Expected: 09/15/2024 , Expires: 06/26/2025 Start: 09-15-2024 End: 06-26-2025 Iron and TIBC Iron and TIBC Lab Routine Nephrolithiasis Thrombocytopenia affecting Expected: 09/15/2024, Expires: 06/26/2025 [facility] Comment on above: Expected: 09/15/2024 , Expires: 06/26/2025 Start: 08-19-2024 Adult BMI Screening Adult BMI Screen ing [facility] Start: 08-19-2024 Tobacco Screening Tobacco Screening [facility] Start: 08-08-2024 Adult BMI Screening Adult BMI Screen ing [facility] Start: 08-08-2024 Tobacco Screening Tobacco Screening [facility] Start: 07-30-2024 Adult BMI Screening Adult BMI Screen ing [facility] Start: 07-30-2024 Tobacco Screening Tobacco Screening [facility] Start: 12-30-2023 End: 12-30-2023 Patient encounter procedure 12/30/2023 3:15 PM EDT Office Visit [facility] [address] [place] [address] [place] [address] Donte Villatoro MD [address] [place] [address] [facility] Start: 12-26-2023 End: 10-20-2024 US Retroperitoneum Ultrasound retroperitoneal complete Imaging Routine Mineral metabolism disorder Nephrolithiasis Expected: 12/26/2023 (Approximate), Expires: 10/20/2024 [facility] Work Phone: Comment on above: Expected: 12/26/2023 (Approximate), Expires: 10/20/2024 Start: 11-17-2023 Influenza vaccination Influenza Vacc ine [facility] Start: 08-09-2023 End: 08-09-2023 Admission to same day surgery center 08/09/2023 7:00 AM EDT - 08/09/2023 8:15 AM EDT Surgery [facility] Surgery [facility] Surgery [address] [place] [address] [phone] Donte Villatoro MD [address] [place] [address] [id number] LASER HOLMIUM URETEROSCOPY RENAL STONES < OR=1CM [48841 (CPT )] [facility] Surgery A Division [facility] Comment on above: LASER HOLMIUM URETER OSCOPY RENAL STONES < OR=1CM [03298 (CPT )] Start: 08-09-2023 End: 08-09-2023 Anesthesia consultation 08/09/2023 7:00 AM EDT Anesthesia Event [facility] Surgery [address] [place] [address] [phone] [place], [address] [place] [address] [facility] Surgery Start: 08-09-2023 End: 08-09-2023 Cysto w/insert ureteral stent [facility] Start: 08-09-2023 End: 08-09-2023 Cysto w/ureteroscopy w/lithotripsy [facility] SURGERY Start: 08-09-2023 Subsequent hospital visit by physician [facility] Surgery A [facility] Comment on above: Arrived Start: 11-12-2022 FQHC visit, estab Medical E stablished Patient [facility] Work Phone: Start: 10-29-2022 Emergency department patient visit Dental Emergency [facility] Work Phone: Start: 10-16-2022 Emergency department patient visit Dental Emergency [facility] Work Phone: Start: 10-11-2022 FQHC visit, estab pt Medical E stablished Patient [facility] Work Phone: Start: 10-11-2022 End: 10-11-2022 Patient education based on identified need [facility] Start: 09-19-2022 [facility] Start: 09-11-2022 End: 09-11-2022 Patient education based on identified need [facility] Start: 08-13-2022 CBC W Auto Different ial panel - Blood [facility] Start: 08-13-2022 Lipid 1996 panel - S salma or Plasma LIPID PROFILE [facility] Start: 08-08-2022 End: 08-08-2022 Patient education based on identified need [facility] Start: 11-23-2019 DTaP,Tdap and Td Vaccines (6 - Td or Tdap) DTaP,Tdap and Td Vaccines (6 - Td or Tdap) [facility] Start: 2017 Screening for malign ant neoplasm of cervix Pap Smear [facility] Start: 10-25-2015 DTaP,Tdap and Td Vaccines (1 - Tdap) DTaP,Tdap and Td Vaccines (1 - Tdap) [facility] Start: 2014 Adult BMI Follow Up Plan Adult BMI F ollow Up Plan [facility] Start: 2008 Depression Screening Depression Scre ening [facility] End: 10-20-2024 [employer]olink 48 Hour [facility] 48 Hour Lab Routine Mineral metabolism disorder Nephrolithiasis 1 Occurrences starting 10/21/2023 until 10/20/2024 [facility] Comment on above: 1 Occurrences starti ng 10/21/2023 until 10/20/2024 Immunizations Immunization Date Immunization Notes Care Provider Nicci morelos 11-22-2009 tetanus toxoid, redu arnaldo diphtheria toxoid, and acellular pertussis vaccine, adsorbed Adelaida Kasey [employer] Work Phone: Health [facility] 01-12-2003 hepatitis B vaccine, pediatric or pediatric/adolescent dosage Adelaida Kasey [employer] Work Phone: Health [facility] 01-12-2003 poliovirus vaccine, inactivated Adelaida Kasey [employer] Work Phone: Health [facility] 12-01-2002 measles, mumps and rubella virus vaccine Adelaida Kasey [employer] Work Phone: Health [facility] 12-01-2002 poliovirus vaccine, inactivated Adelaida Kasey [employer]PER[employer] Work Phone: Health [facility] 11-04-2002 hepatitis B vaccine, pediatric or pediatric/adolescent dosage Adelaida Kasey [employer] Work Phone: Health [facility] 11-04-2002 measles, mumps and rubella virus vaccine Adelaida Kasey [employer]PER[employer] Work Phone: Health [facility] 11-04-2002 poliovirus vaccine, inactivated Adelaida Kasey [employer] OPER[employer] Work Phone: Health [facility] 1996 hepatitis B vaccine, pediatric or pediatric/adolescent dosage Adelaida Kasey [employer] OPER[employer] Work Phone: [facility] Payers Date Payer Category Payer Medicaid [id number] 2022 Medicaid [id number] 1996 Unknown [id number] 2.16.8 [id number] 1996 Unknown [id number] 2.16.8 [id number] 1996 Unknown [id number] 2.16.8 [id number] 1996 Unknown [id number] 2.16.8 [id number] 1996 Unknown [id number] 2.16.8 [id number] 1996 Unknown [id number] 2.16.8 [id number] 1996 Unknown [id number] 2.16.8 [id number] 1996 Unknown [id number] 2.16.8 [id number] 1996 Unknown [id number] 2.16. [id number] 1996 Unknown [id number] 2.16.8 [id number] 1996 Unknown [id number] 2.16 [id number] 1996 Unknown [id number] 2. [id number] 1996 Unknown [id number] 2.16.8 [id number] 1996 Unknown [id number] 2.16.8 [id number] 1996 Unknown [id number] 2.16.8 [id number] 1996 Unknown [id number] 2.16.8 [id number] Self-pay [id number] [id number] Social History Date Type Detail Facility Assertion Lives with miranda nion (finding) [facility] Assertion Emotional stress (finding) [facility] Assertion Gender identity finding (finding) [facility] Assertion Exposure to poll ution (event) [facility] Assertion Finding of sexua l orientation (finding) [facility] Assertion Social drinker (finding) [facility] Assertion Attending school (finding) [facility] Assertion Lives alone (finding) [facility] Assertion [facility] Assertion Full-time employ ment (finding) [facility] Assertion Sexually active (finding) [facility] Tobacco smoking status Unknown if ever smoked [facility] Work Phone: Start: 07-31-2023 End: 09-24-2024 Tobacco smoking status NHIS Never smoked tobacco [facility] Start: 07-31-2023 Tobacco use and exposure Smokeless tobacco non-user [facility] Start: 03-30-2024 End: 09-16-2024 Alcoholic beverage intake Current drinker of alcohol (finding) [facility] Start: 04-27-2020 End: 03-30-2024 History of Social function [facility] Start: 04-27-2020 End: 03-30-2024 Tobacco use panel [facility] How hard is it for you to pay for the very basics like food, housing, medical care, and heating Not very hard [facility] Start: 03-30-2024 Alcohol Comment Maybe once kate r 3 months [facility] Start: 1996 Sex assigned at Not on file P [facility] Start: 10-19-2014 Sex Female (finding) [facility] Start: 08-09-2023 Alcohol Comment occasional [facility] Start: 08-06-2023 Alcoholic beverage intake Ex-drinker (finding) [facility] Sexual Orientation [facility] NEGATED: Highlighted row Assertion Current drinker of alcohol (finding) [facility] NEGATED: Highlighted row Assertion [facility] NEGATED: Highlighted row Assertion Contraception (finding) [facility] NEGATED: Highlighted row Assertion Exposure to pollution (event) [facility] Medical Equipment Procedure Code Equipment Code Equipment Origin al Text Equipment Identifier Dates Stent Uret 6fr 26cm 2 Pgtl Crv Rdpq Pstnr Mfl [facility] - [id number] - [id number], [id number], [id number] [facility] Start: 08-09-2023 Comment on above: Description: string off Mental Status Date Assessment Result Facility Cognitive function The estimated intelligence was normal Intelligence finding (finding) [facility] Work Phone: Clinical Notes 08-08-2022 to 09-24-2024 Telephone Encounter - ANTHONY Carbajal - 09/21/2024 2:22 PM EDTTelephone Encounter - Donte Villatoro MD - 09/21/2024 2:22 PM EDTTelephone Encounter - ANTHONY Carbajal - 09/21/2024 2:22 PM EDT Note Date & Type Note Facility 09-24-2024 Hospital Discharg e instructions Patient Education 09/24/2024 10:51:25 Dietary Guidelines to [...] for following this plan? Reading food labels Choose foods with no salt added or low-salt labels. Limit your salt (sodium) intake to less than 1,500 mg a day. Choose foods with calcium for each meal and snack. Try to eat about 300 mg of calcium at each meal. Foods that contain 200 500 mg of calcium a serving include: ?8 oz (237 mL) of milk, tbaejhp-caffyctnfydg-rbbrs milk, and calcium-fortifiedfruit juice. Calcium-fortified means that calcium has been added to these drinks. ?8 oz (237 mL) of kefir, yogurt, and soy yogurt. ?4 oz (114 g) of tofu. ?1 oz (28 g) of cheese. ?1 cup (150 g) of dried figs. ?1 cup (91 g) of cooked broccoli. ?One 3 oz (85 g) can of sardines or mackerel. Most people need 1,000 1,500 mg of calcium a day. Talk to your dietitian about how much calcium is recommended for you. Shopping Buy plenty of fresh fruits and vegetables. Most people do not need to avoid fruits and vegetables, even if these foods contain nutrients that may contribute to kidney stones. When shopping for convenience foods, choose: ?Whole pieces of fruit. ?Pre-made salads with dressing on the side. ?Low-fat fruit and yogurt smoothies. Avoid buying frozen meals or prepared deli foods. These can be high in sodium. Look for foods with live cultures, such as yogurt and kefir. Choose high-fiber grains, such as whole-wheat breads, oat bran, and wheat cereals. Cooking Do not add salt to food when cooking. Place a salt shaker on the table and allow each person to add their own salt to taste. Use vegetable protein, such as beans, textured vegetable protein (TVP), or tofu, instead of meat in pasta, casseroles, and soups. Meal planning Eat less salt, if told by your dietitian. To do this: ?Avoid eating processed or pre-made food. ?Avoid eating fast food. Eat less animal protein, including cheese, meat, poultry, or fish, if told by your dietitian. To do this: ?Limit the number of times you have meat, poultry, fish, or cheese each week. Eat a diet free of meat at least 2 days a week. ?Eat only one serving each day of meat, poultry, fish, or seafood. ?When you prepare animal proteins, cut pieces into small portion sizes. For most meat and fish, one serving is about the size of the palm of your hand. Eat at least five servings of fresh fruits and vegetables each day. To do this: ?Keep fruits and vegetables on hand for snacks. ?Eat one piece of fruit or a handful of berries with breakfast. ?Have a salad and fruit at lunch. ?Have two kinds of vegetables at dinner. You may be told to limit foods that are high in a substance called oxalate. These include: ?Spinach (cooked), rhubarb, beets, sweet potatoes, and [place]rugu[place] chard. ?Peanuts. ?Potato chips, grenadian fries, and baked potatoes with skin on. ?Nuts and nut products. ?Chocolate. If you regularly take a diuretic medicine, make sure to eat at least 1 or 2 servings of fruits or vegetables that are high in potassium each day. These include: ?Avocado. ?Banana. ?Hall, prune, carrot, or tomato juice. ?Baked potato. ?Cabbage. ?Beans and split peas. Lifestyle Drink enough fluid to keep your urine pale yellow. This is the most important thing you can do. Spread your fluid intake throughout the day. If you drink alcohol: ?Limit how much you have to: ?0 1 drink a day for women who are not . ?0 2 drinks a day for men. ?Know how much alcohol is in your drink. In the [place] one drink equals one 12 oz bottle of beer (355 mL), one 5 oz glass of wine (148 mL), or one 1 oz glass of hard liquor (44 mL). Lose weight if told by your health care provider. Work with your dietitian to find an eating plan and weight loss strategies that work best for you. General information Talk to your health care provider and dietitian about taking daily supplements. Depending on your health and the cause of your kidney stones, you may be told: ?Do not take high-dose supplements of vitamin C (1,000 mg a day or more). ?To take a calcium supplement. ?To take a daily probiotic supplement. ?To take other supplements such as magnesium, fish oil, or vitamin B6. Take otzy-juk-pzmfuhv and prescription medicines only as told by [...] Casseroles. Pizza. Lasagna. Frozen meals. Potato chips. Montserratian fries. The items listed above may not be a complete list of foods and beverages you should limit. Contact a dietitian for more information. What foods should I avoid? Talk to your dietitian about specific foods you should avoid based on the type of kidney stones you have and your overall health. Fruits Grapefruit. The item listed above may not be a complete list of foods and beverages you should avoid. Contact a dietitian for more information. Summary Kidney stones are deposits of minerals and salts that form inside your kidneys. You can lower your risk of kidney stones by making changes to your diet. The most important thing you can do is drink enough fluid. Drink enough fluid to keep your urine pale yellow. Talk to your dietitian about how much calcium you should have each day, and eat less salt and animal protein as told by your dietitian. This information is not intended to replace advice given to you by your health care provider. Make sure you discuss any questions you have with your health care provider. Document Revised: 06/14/2022 Document Reviewed: 06/14/2022 [employer] Patient Education 2023 [employer] 09/24/2024 10:51:24 Ureteroscopy Ureteroscopy Ureteroscopy is a [...] your ureters. A ureteroscopy can be done: To find the cause of urine blockage in a ureter and to evaluate other abnormalities inside the ureters or kidneys. To remove stones. To remove or treat growths of tissue (polyps), abnormal tissue, and some types of tumors. To remove a tissue sample and check it for disease under a microscope (biopsy). Tell a health care provider about: Any allergies you have. All medicines you are taking, including vitamins, herbs, eye drops, creams, and krhc-afa-wgymjvv medicines. Any problems you or family members have had with anesthetic medicines. Any bleeding problems you have. Any surgeries you have had. Any medical conditions you have. Whether you are or may be . What are the risks? Your health care provider will talk with you about risks. These may include: Abdominal pain or a burning feeling or pain while urinating. Abnormal bleeding. A UTI. Allergic reactions to medicines. Scarring that narrows the ureter (stricture) or swelling. Creating a hole (perforation) in the ureter. Damage to other structures or organs, such as the part of your body that drains urine from your bladder (urethra), your bladder, or your uterus. What happens before the procedure? When to stop eating and drinking 8 hours before your procedure ?Stop eating most foods. Do not eat meat, fried foods, or fatty foods. ?Eat only light foods, such as toast or crackers. ?All liquids are okay except energy drinks and alcohol. 6 hours before your procedure ?Stop eating. ?Drink only clear liquids, such as water, clear fruit juice, black coffee, plain tea, and sports drinks. ?Do not drink energy drinks or alcohol. 2 hours before your procedure ?Stop drinking all liquids. ?You may be allowed to take medicines with small sips of water. Medicines Ask your health care provider about: Changing or stopping your regular medicines. These include any diabetes medicines or blood thinners you take. Taking medicines such as aspirin and ibuprofen. These medicines can thin your blood. Do not take these medicines unless your health care provider tells you to. Taking eghd-ckp-kbewwez medicines, vitamins, herbs, and supplements. General instructions Do not use any products that contain nicotine or tobacco for at least 4 weeks before the procedure. These products include cigarettes, chewing tobacco, and vaping devices, such as e-cigarettes. If you need help quitting, ask your health care provider. If you will be going home right after the procedure, plan to have a responsible adult: ?Take you home from the hospital or clinic. You will not be allowed to drive. ?Care for you for the time you are told. Ask your health care provider what steps will be taken to help prevent infection. These may include: ?Washing skin with a soap that kills germs. ?Receiving antibiotic medicine. Tests You may have an exam or testing. ?You may have a urine sample taken to check for infection. What happens during the procedure? An IV will be inserted into one of your veins. You may be given: ?A sedative. This helps you relax. ?Anesthesia. This will: ?Numb certain areas of your body. ?Make you fall asleep for surgery. Your urethra will be cleaned with a germ-killing solution. The ureteroscope will be passed through your urethra into your bladder. A salt-water solution will be sent through the ureteroscope to fill your bladder. This will help the health care provider see the openings of your ureters more clearly. The ureteroscope will be passed into your ureter. ?If a growth is found, a biopsy may be done. ?If a stone is found, it may be removed through the ureteroscope, or the stone may be broken up using a laser, shock waves, or electrical energy. ?In some cases, if the ureter is too small, a tube may be inserted that keeps the ureter open (ureteral stent). The stent may be left in place for 1 or 2 weeks, and then the ureteroscopy procedure will be done again. The scope will be removed, and your bladder will be emptied. The procedure may vary among health care providers and hospitals. What happens after the procedure? Your blood pressure, heart rate, breathing rate, and blood oxygen level will be monitored until you leave the hospital or clinic. It is up to you to get the results of your procedure. Ask your health care provider, or the department that is doing the procedure, when your results will be ready. Summary Ureteroscopy is a procedure used to look at the inside of the kidneys and the ureters. You may need this procedure if you have frequent urinary tract infections (UTIs), blood in your urine, or a stone in one or both of your ureters. Follow instructions from your health care provider about eating and drinking. In some cases, if the ureter is [...] provider. Document Revised: 02/04/2023 Document Reviewed: 02/04/2023 [employer] Patient Education 2023 [employer]. Follow Up Care 09/23/2024 16:13:48 With:Jose Alejandro RUBIO, MAGGIE Gonzalez, KATHI Address: When: Unknown [facility] 09-24-2024 Note Patient Education Nephrology Dietary Guidelines to Help Prevent Kidney Stones [...] labels. Limit your salt (sodium) intake to less than 1,500 mg a day. ??? Choose foods with calcium for each meal and snack. Try to eat about 300 mg of calcium at each meal. Foods that contain 200?500 mg of calcium a serving include: ? 8 oz (237 mL) of milk, vjmhblp-vfdnrthmpdwy-hbzwl milk, and calcium-fortifiedfruit juice. Calcium-fortified means that calcium has been added to these drinks. ? 8 oz (237 mL) of kefir, yogurt, and soy yogurt. ? 4 oz (114 g) of tofu. ? 1 oz (28 g) of cheese. ? 1 cup (150 g) of dried figs. ? 1 cup (91 g) of cooked broccoli. ? One 3 oz (85 g) can of sardines or mackerel. Most people need 1,000?1,500 mg of calcium a day. Talk to your dietitian about how much calcium is recommended for you. Shopping ??? Buy plenty of fresh fruits and vegetables. Most people do not need to avoid fruits and vegetables, even if these foods contain nutrients that may contribute to kidney stones. ??? When shopping for convenience foods, choose: ? Whole pieces of fruit. ? Pre-made salads with dressing on the side. ? Low-fat fruit and yogurt smoothies. ??? Avoid [...] on the table and allow each person to add their own salt to taste. ??? Use vegetable protein, such as beans, textured vegetable protein (TVP), or tofu, instead of meat in pasta, casseroles, and soups. Meal planning ??? Eat less salt, if told by your dietitian. To do this: ? Avoid eating processed or pre-made food. ? Avoid eating fast food. ??? Eat less animal protein, including cheese, meat, poultry, or fish, if told by your dietitian. To do this: ? Limit the number of times you have meat, poultry, fish, or cheese each week. Eat a diet free of meat at least 2 days a week. ? Eat only one serving each day of meat, poultry, fish, or seafood. ? When you prepare animal proteins, cut pieces into small portion sizes. For most meat and fish, one serving is about the size of the palm of your hand. ??? Eat at least five servings of fresh fruits and vegetables each day. To do this: ? Keep fruits and vegetables on hand for snacks. ? Eat one piece of fruit or a handful of berries with breakfast. ? Have a salad and fruit at lunch. ? Have two kinds of vegetables at dinner. ??? You may be told to limit foods that are high in a substance called oxalate. These include: ? Spinach (cooked), rhubarb, beets, sweet potatoes, and [place] chard. ? Peanuts. ? Potato chips, grenadian fries, and baked potatoes with skin on. ? Nuts and nut products. ? Chocolate. ??? If you regularly take a diuretic medicine, make sure to eat at least 1 or 2 servings of fruits or vegetables that are high in potassium each day. These include: ? Avocado. ? Banana. ? Hall, prune, carrot, or tomato juice. ? Baked potato. ? Cabbage. ? Beans and split peas. Lifestyle ??? Drink enough fluid to keep your urine pale yellow. This is the most important thing you can do. Spread your fluid intake throughout the day. ??? If you drink alcohol: ? Limit how much you have to: ? 0?1 drink a day for women who are not . ? 0?2 drinks a day for men. ? Know how much alcohol is in your drink. In the [place] one drink equals one 12 oz bottle of beer (355 mL), one 5 oz glass of wine (148 mL), or one 1? oz glass of hard liquor (44 mL). [...] your kidney stones, you may be told: ? Do not take high-dose supplements of vitamin C (1,000 mg a day or more). ? To take a calcium supplement. ? To take a daily probiotic supplement. ? To take other supplements such as magnesium, fish oil, or vitamin B6. ??? Take ubjr-wen-iuxoiup and prescription medicines only as told by your health (more content not included)... [facility] 09-21-2024 Miscellaneous Notes Pt calls stating she was in the ED on 09/16/2024 for a kidney stone. She is asking if you can look at her CT and advise from there? Sorry I was off last week and just getting to messages. Patient should be seen in the office with myself or mid level provider for further discussion as to what to do regarding the stone. I left a detailed vm to call back and schedule. documented in this encounter [facility] 09-21-2024 Telephone encounter Note Pt calls stating she was in the ED on 09/16/2024 for a kidney stone. She is asking if you can look at her CT and advise from there? [facility] 09-21-2024 Telephone encounter Note Sorry I was off last week and just getting to messages. Patient should be seen in the office with myself or mid level provider for further discussion as to what to do regarding the stone. [facility] 09-21-2024 Telephone encounter Note I left a detailed vm to call back and schedule. [facility] 06-26-2024 History of Presen t illness Narrative Pt here for consult low plt. Per Dr. Mota: Ok for procedure as long as plt over 100K. CBC and iron studies 3 months after delivery. Hold aspirin from now. Labs scheduled. documented in this encounter [facility] 06-26-2024 History of Presen t illness Narrative Images from the original note were not included. [facility] 06/26/24 Osiris Hayward is a 28 [...] 08/09/2023 Performed by Donte Villatoro MD at [facility] CYSTOSCOPY REMOVAL STENT Left 08/20/2023 Performed by Donte Villatoro MD at [facility] CYSTOSCOPY RETROGRADE PYELOGRAM Left 08/09/2023 Performed by Donte Villatoro MD at [facility] LASER HOLMIUM URETEROSCOPY RENAL STONES < OR=1CM Left 08/09/2023 Performed by Donte Villatoro MD at [facility] Family History Problem Relation Age of Onset [...] 0 Dose: 5 mg Signed by: Dr. Villatoro 5 mg, oral, Daily Commonly known as: [...] this note were generated using voice recognition Optimus dictation software. Although every effort was made to ensure the accuracy of this automated machine bookkeeper, some errors in machine bookkeeper may have occurred. CC: Patient Care Team: No Pcp No Pcp as PCP - General (Family Medicine) PCP:NO PCP, NO PCP Referring MD: Smita Stover APRN-CNM documented in this encounter [facility] 06-26-2024 Instructions Rogers Mota MD - 06/26/2024 9:45 AM EDT Ok for procedure as long as plt over 100K. CBC and iron studies 3 months after delivery. Hold aspirin from now. documented in this encounter [facility] 03-30-2024 History of Presen t illness Narrative Images from the original note were not included. [address] [place] [address] [facility] [id number] Patient: Osiris Hayward Date of : 1995 [...] 08/09/2023 Performed by Donte Villatoro MD at [facility] CYSTOSCOPY REMOVAL STENT Left 08/20/2023 Performed by Donte Villatoro MD at [facility] CYSTOSCOPY RETROGRADE PYELOGRAM Left 08/09/2023 Performed by Donte Villatoro MD at [facility] LASER HOLMIUM URETEROSCOPY RENAL STONES < OR=1CM Left 08/09/2023 Performed by Donte Villatoro MD at [facility] Family History Problem Relation Age of Onset [...] for your understanding. documented in this encounter [facility] 10-23-2023 Miscellaneous Notes [employer] order faxed 10/23/23 documented in this encounter [facility] 10-23-2023 Telephone encounter Note [employer] order faxed 10/23/23 [facility] 10-21-2023 History of Presen t illness Narrative Images from the original note were not included. [address] [place] [id number] Patient: Osiris Hayward Date of : 1995 [...] 08/09/2023 Performed by Donte Villatoro MD at [facility] CYSTOSCOPY REMOVAL STENT Left 08/20/2023 Performed by Donte Villatoro MD at [facility] CYSTOSCOPY RETROGRADE PYELOGRAM Left 08/09/2023 Performed by Donte Villatoro MD at [facility] LASER HOLMIUM URETEROSCOPY RENAL STONES < OR=1CM Left 08/09/2023 Performed by Donte Villatoro MD at [facility] History reviewed. No pertinent family history. Current [...] for your understanding. documented in this encounter [facility] 08-20-2023 Miscellaneous Notes Have patient see me in the office in about 6 weeks or so renal ultrasound 1 week prior. Spoke with pt, she is going to call central scheduling to get the US and will call back to schedule follow up documented in this encounter [facility] 08-20-2023 Telephone encounter Note Have patient see me in the office in about 6 weeks or so renal ultrasound 1 week prior. [facility] 08-20-2023 Telephone encounter Note Spoke with pt, she is going to call central scheduling to get the US and will call back to schedule follow up [facility] 08-09-2023 Miscellaneous Notes Approximately 10 day cysto stent removal local [place] left side diagnosis left stent documented in this encounter [facility] 08-09-2023 Telephone encounter Note Approximately 10 day cysto stent removal local [place] left side diagnosis left stent [facility] 08-05-2023 Instructions Formatting of th is note might be different from the original. Your Procedure/Surgery is scheduled at [facility] on 08/09/2023 [facility], [address] [place] [address] You will receive a phone call from [facility] the day before your surgery to verify your arrival time. If you have any questions prior to your surgery, please call Pre-Admission Clinic at [phone] between 7:30 am and 4:30 pm Saturday through Saturday. For questions the day of surgery, please call the Pre-op Department at [phone]. Notify your SURGEON if you develop any [...] RIGHTS AND RESPONSIBILITIES As a patient at [facility], you have the right to: Receive medical care and be informed of who is taking care of you Be treated with dignity and respect Have a family member/customer loyalty representative of choice and your physician notified of your admission Receive information and actively participate in decisions about your care and treatment Refuse care, treatment and services Decide who may provide your support and speak for you Access jehovah's witness and spiritual services Participate in ethical issues [...] of hospital charges and payment methods Patient/patient customer loyalty representative responsibilities are to: Provide information about [...] RIGHTS AND RESPONSIBILITIES As a patient at [facility], you have the right to: Receive medical care and be informed of who is taking care of you Be treated with dignity and respect Have a family member/customer loyalty representative of choice and your physician notified of your admission Receive information and actively participate in decisions about your care and treatment Refuse care, treatment and services Decide who may provide your support and speak for you Access jehovah's witness and spiritual services Participate in ethical issues [...] of hospital charges and payment methods Patient/patient customer loyalty representative responsibilities are to: Provide information about [...] Control department if you have any questions. [facility] 08-05-2023 Miscellaneous Notes Your Procedure/Surgery is scheduled at [facility] on 08/09/2023 [facility], [address] [place] [address] You will receive a phone call from [facility] the day before your surgery to verify your arrival time. If you have any questions prior to your surgery, please call Pre-Admission Clinic at [phone] between 7:30 am and 4:30 pm Saturday through Saturday. For questions the day of surgery, please call the Pre-op Department at [phone]. Notify your SURGEON if you develop any [...] RIGHTS AND RESPONSIBILITIES As a patient at [facility], you have the right to: Receive medical care and be informed of who is taking care of you Be treated with dignity and respect Have a family member/customer loyalty representative of choice and your physician notified of your admission Receive information and actively participate in decisions about your care and treatment Refuse care, treatment and services Decide who may provide your support and speak for you Access jehovah's witness and spiritual services Participate in ethical issues [...] of hospital charges and payment methods Patient/patient customer loyalty representative responsibilities are to: Provide information about [...] RIGHTS AND RESPONSIBILITIES As a patient at [facility], you have the right to: Receive medical care and be informed of who is taking care of you Be treated with dignity and respect Have a family member/customer loyalty representative of choice and your physician notified of your admission Receive information and actively participate in decisions about your care and treatment Refuse care, treatment and services Decide who may provide your support and speak for you Access jehovah's witness and spiritual services Participate in ethical issues [...] of hospital charges and payment methods Patient/patient customer loyalty representative responsibilities are to: Provide information about [...] have any questions. documented in this encounter [facility] 07-31-2023 Miscellaneous Notes Left ureteroscopy holmium laser lithotripsy. [facility]. First available. General anesthesia. Diagnosis left renal pelvic stone. Size 7- 8 mm documented in this encounter [facility] 07-31-2023 Telephone encounter Note Left ureteroscopy holmium laser lithotripsy. [facility]. First available. General anesthesia. Diagnosis left renal pelvic stone. Size 7- 8 mm [facility] 07-31-2023 Evaluation + Plan note Associated Problem(s): [...] in that fashion. Will set it up. [facility] 07-31-2023 Miscellaneous Notes Associated Problem(s): Nephrolithiasis Stone [...] set it up. documented in this encounter [facility] 07-31-2023 History of Presen t illness Narrative Images from the original note were not included. [address] [place] [address] [address] [facility] [id number] Patient: Osiris Hayward Date of : 1995 [...] for your understanding. documented in this encounter [facility] 10-11-2022 Evaluation note Includes: Assessments for all patient encounters Findings Generalized anxiety disorder Marily hed Patient with Tran Short LISWS 10/11/2022 Last Documented On 3 2:10PM ; [facility] [Z68.41 - Body mass index [B DC] 40.0-44.9, adult] assessment of body mass index Medical Established Patient with Adelaida Parks PILOT PLANT OPERATOR 10/11/2022 Last Documented On 3 2:13PM ; [facility] Generalized anxiety disorder Medical Est ablished Patient with Adelaida Parks PILOT PLANT OPERATOR 10/11/2022 Last Documented On 3 2:13PM ; [facility] Generalized anxiety disorder Establis hed Patient with Tran Short LISWS 09/11/2022 Last Documented On 3 7:50PM ; [facility] [K08.89 - Other specified di sorders of teeth and supporting structures] tooth pain Medical Established Patient with Cassandra Kee PILOT PLANT OPERATOR 09/11/2022 Last Documented On 3 8:31AM ; [facility] [Z68.41 - Body mass index [B DC] 40.0-44.9, adult] assessment of body mass index Medical Established Patient with Cassandra Kee PILOT PLANT OPERATOR 09/11/2022 Last Documented On 3 8:31AM ; [facility] Generalized anxiety disorder Medical Est ablished Patient with Cassandra Kee PILOT PLANT OPERATOR 09/11/2022 Last Documented On 3 8:31AM ; [facility] Generalized anxiety disorder BH Establis hed Patient with Tran Nette LISWS 08/08/2022 Last Documented On 3 7:40PM ; [facility] [F41.1 - Generalized anxiety disorder] generalized anxiety disorder Medical New Patient with Adelaida Parks PILOT PLANT OPERATOR 08/08/2022 Last Documented On 3 5:55PM ; [facility] [J01.10 - Acute frontal sinu sitis, unspecified] acute frontal sinusitis Medical New Patient with Adelaida Parks PILOT PLANT OPERATOR 08/08/2022 Last Documented On 3 5:55PM ; [facility] [Z68.41 - Body mass index [B DC] 40.0-44.9, adult] assessment of body mass index Medical New Patient with Adelaida Parks CNP 08/08/2022 Last Documented On 3 5:55PM ; [facility] Diabetes Risk Test Score was three score 08/08/2022 Medical New Patient with Adelaida Parks PILOT PLANT OPERATOR 08/08/2022 Last Documented On 3 5:55PM ; [facility] Screening for HIV Medical New Patient with Adelaida Parks PILOT PLANT OPERATOR 08/08/2022 Last Documented On 3 5:55PM ; [facility] Visit for routine adult H&P without abnormal findings Medical New Patient with Adelaida Parks PILOT PLANT OPERATOR 08/08/2022 Last Documented On 3 5:55PM ; [facility] Work Phone: 1(192) 935-299407-27-2023 Evaluation note Includes: Assessments for all patient encounters Findings Encounter Date Generalized anxiety disorder BH Establis hed Patient with Tran Short LISWS 10/11/2022 Last Documented On 3 9:45AM ; [facility] [Z68.41 - Body mass index [B DC] 40.0-44.9, adult] assessment of body mass index Medical Established Patient with Adealidaashley Morinen PILOT PLANT OPERATOR 10/11/2022 Last Documented On 3 2:13PM ; [facility] Generalized anxiety disorder Medical Est ablished Patient with Adelaida Kasey PILOT PLANT OPERATOR 10/11/2022 Last Documented On 3 2:13PM ; [facility] Generalized anxiety disorder BH Establis hed Patient with Rtan Short LISWS 09/11/2022 Last Documented On 3 7:50PM ; [facility] [K08.89 - Other specified di sorders of teeth and supporting structures] tooth pain Medical Established Patient with Cassandra Kee PILOT PLANT OPERATOR 09/11/2022 Last Documented On 3 8:31AM ; [facility] [Z68.41 - Body mass index [B DC] 40.0-44.9, adult] assessment of body mass index Medical Established Patient with Cassandra Kee PILOT PLANT OPERATOR 09/11/2022 Last Documented On 3 8:31AM ; [facility] Generalized anxiety disorder Medical Est ablished Patient with Cassandra Kee PILOT PLANT OPERATOR 09/11/2022 Last Documented On 3 8:31AM ; [facility] Generalized anxiety disorder BH Establis hed Patient with Tran Short LISWS 08/08/2022 Last Documented On 3 7:40PM ; [facility] [F41.1 - Generalized anxiety disorder] generalized anxiety disorder Medical New Patient with Adelaidaashley Morinen PILOT PLANT OPERATOR 08/08/2022 Last Documented On 3 5:55PM ; [facility] [J01.10 - Acute frontal sinu sitis, unspecified] acute frontal sinusitis Medical New Patient with Adelaida Kasey PILOT PLANT OPERATOR 08/08/2022 Last Documented On 3 5:55PM ; [facility] [Z68.41 - Body mass index [B DC] 40.0-44.9, adult] assessment of body mass index Medical New Patient with Adelaida Parks CNP 08/08/2022 Last Documented On 3 5:55PM ; [facility] Diabetes Risk Test Score was three score 08/08/2022 Medical New Patient with Adelaida Parks CNP 08/08/2022 Last Documented On 3 5:55PM ; [facility] Screening for HIV Medical New Patient with Adelaida Parks CNP 08/08/2022 Last Documented On 3 5:55PM ; [facility] Visit for routine adult H&P without abnormal findings Medical New Patient with Adelaida Parks CNP 08/08/2022 Last Documented On 3 5:55PM ; [facility] Work Phone: 1(425) 525-128607-27-2023 Progress note* Progress note Date Encounter Last Documented by 10/11/2022 Medical Established Patient Last documented on 10/11/2022; 2:13 PM, Adelaida Parks CNP; [facility] Active Problems & Conditions - F41.1 [...] reports she quit taking her wellbutrin on 09/19 when she had dry socket s/p extraction [...] BP-Sitting L123/84 mmHg BP Cuff SizeLarge Pulse Rate-Qepcrll89 bpm Temp-Oral98.4 F Wmtbqa62 in Dphblq803 lbs Body Mass Index43.5 kg/m2 Body Surface Area2.1 m2 Oxygen Hebuutpcit13 % Vital Signs: - Systolic blood pressure [...] Follow Up Plan BMI Management satisfied 10/11/2022. [facility]07-27-2023 Progress note* Progress note Date Encounter Last Documented by 10/11/2022 Established Patient Last docu mented on 10/12/2022; 9:45 AM, Tran MCCOY; [facility] Active Problems & Conditions - F41.1 - Generalized Anxiety Disorder Chief Complaint The Chief Complaint is: [facility] met with patient to follow-up regarding mood [...] them. Collaborated with patient and provider: Counseling/Education [facility] provided supportive and active listening, allowing patient the space to discuss concerns and explored with patient coping strategies to manage increased anxiety and stressors. [facility] discussed community resourcces should they be needed. 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 [facility] discussed benefit in individual counseling and supports. Plan Patient to take medications as prescribed and contact the office with any questions or concerns. Patient to implement coping skills and positive supports as discussed. [facility] spoke with dental regarding follow-up and they will put patient on the schedule to further evaluate. [facility] to follow-up with patient at next visit as scheduled. Health Reminders - Assess Tobacco Use satisfied 10/11/2022. [facility]06-27-2023 Evaluation note Includes: Assessments for all patient encounters Findings Encounter Date Generalized anxiety disorder Marily hed Patient with Tran Short LISWS 09/11/2022 Last Documented On 3 7:50PM ; [facility] [K08.89 - Other specified di sorders of teeth and supporting structures] tooth pain Medical Established Patient with Cassandra Kee PILOT PLANT OPERATOR 09/11/2022 Last Documented On 3 8:31AM ; [facility] [Z68.41 - Body mass index [B DC] 40.0-44.9, adult] assessment of body mass index Medical Established Patient with Cassandra Kee PILOT PLANT OPERATOR 09/11/2022 Last Documented On 3 8:31AM ; [facility] Generalized anxiety disorder Medical Est ablished Patient with Cassandra Kee PILOT PLANT OPERATOR 09/11/2022 Last Documented On 3 8:31AM ; [facility] Generalized anxiety disorder BH Establis hed Patient with Tran Short LISWS 08/08/2022 Last Documented On 3 7:40PM ; [facility] [F41.1 - Generalized anxiety disorder] generalized anxiety disorder Medical New Patient with Adelaida Parks PILOT PLANT OPERATOR 08/08/2022 Last Documented On 3 5:55PM ; [facility] [J01.10 - Acute frontal sinu sitis, unspecified] acute frontal sinusitis Medical New Patient with Adelaida Parks PILOT PLANT OPERATOR 08/08/2022 Last Documented On 3 5:55PM ; [facility] [Z68.41 - Body mass index [B DC] 40.0-44.9, adult] assessment of body mass index Medical New Patient with Adelaida Parks PILOT PLANT OPERATOR 08/08/2022 Last Documented On 3 5:55PM ; [facility] Diabetes Risk Test Score was three score 08/08/2022 Medical New Patient with Adelaida Parks PILOT PLANT OPERATOR 08/08/2022 Last Documented On 3 5:55PM ; [facility] Screening for HIV Medical New Patient with Adelaida Parks PILOT PLANT OPERATOR 08/08/2022 Last Documented On 3 5:55PM ; [facility] Visit for routine adult H&P without abnormal findings Medical New Patient with Adelaida Parks PILOT PLANT OPERATOR 08/08/2022 Last Documented On 3 5:55PM ; [facility] Work Phone: 1(568) 771-580306-27-2023 History general Narrative - Reported Includes: Medical History in patient's chart Description Last Updated No previous hospitalizations 09/11/2022 Last Documented On 3 8:31AM ; [facility] No previous suicide attempt 08/08/2022 Last Documented On 3 7:40PM ; [facility] Safety Measures BHP discusse d with patient crisis resource information should it be needed 08/08/2022 Last Documented On 3 7:40PM ; [facility] broke left wrist as a child 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 ~history of kidney stones 08/08/2022 Last Documented On 3 5:55PM ; [facility] Planning to have a baby in the next 12 m onths 08/08/2022 Last Documented On 3 5:55PM ; [facility] Work Phone: 1(666) 514-165406-27-2023 History general Narrative - Reported Includes: Medical History in patient's chart Description Last Updated No previous hospitalizations 09/11/2022 Last Documented On 3 8:31AM ; [facility] No previous suicide attempt 08/08/2022 Last Documented On 3 7:40PM ; [facility] Safety Measures BHP discusse d with patient crisis resource information should it be needed 08/08/2022 Last Documented On 3 7:40PM ; [facility] broke left wrist as a child 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 ~history of kidney stones 08/08/2022 Last Documented On 3 5:55PM ; [facility] Planning to have a baby in the next 12 m onths 08/08/2022 Last Documented On 3 5:55PM ; [facility] Work Phone: 1([phone]) 344-130206-27-2023 History general Narrative - Reported Includes: Medical History in patient's chart Description Last Updated No previous hospitalizations 09/11/2022 Last Documented On 3 8:31AM ; [facility] No previous suicide attempt 08/08/2022 Last Documented On 3 7:40PM ; [facility] Safety Measures [facility] discusse d with patient crisis resource information should it be needed 08/08/2022 Last Documented On 3 7:40PM ; [facility] broke left wrist as a child 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 ~history of kidney stones 08/08/2022 Last Documented On 3 5:55PM ; [facility] Planning to have a baby in the next 12 m [facility] 08/08/2022 Last Documented On 3 5:55PM ; [facility] Work Phone: 1([phone]) 128-778606-27-2023 Progress note* Progress note Date Encounter Last Documented by 09/11/2022 [facility] Patient Last docu mented on 09/11/2022; 7:50 PM, Tran MCCOY; [facility] Active Problems & Conditions - F41.1 - Generalized Anxiety Disorder Chief Complaint The Chief Complaint is: [facility] met with patient to follow-up regarding mood [...] coping skills to implement in daily routine. [facility] encouraged patient to contact a therapist to schedule counseling. Plan Patient to take medications as prescribed and contact the office with any questions or concerns. Patient to implement coping skills and positive supports as discussed. P to follow-up with patient via phone in 2 weeks and at next visit as scheduled. Health Reminders - Assess Tobacco Use satisfied 09/11/2022. [facility]06-27-2023 Progress note* Progress note Date Encounter Last Documented by 09/11/2022 Medical Established Patient Last documented on 09/12/2022; 8:31 AM, Cassandra Kee CNP; [facility] Active Problems & Conditions - F41.1 [...] BP-Sitting R137/91 mmHg BP Cuff SizeLarge Pulse Rate-Wmqziaq81 bpm Temp-Oral98.6 F Bwevso65 in Mzgvdk622 lbs Body Mass Index43.9 kg/m2 Body Surface Area2.1 m2 Oxygen Xtiknlryky98 % - Vitals taken 09/11/2022 04:33 pm [...] Follow Up Plan BMI Management satisfied 09/11/2022. [facility]05-24-2023 Progress note* Progress note Date Encounter Last Documented by 08/08/2022 Established Patient Last docu mented on 08/08/2022; 7:40 PM, Tran MCCOY; [facility] Active Problems & Conditions - F41.1 - Generalized Anxiety Disorder Chief Complaint The Chief Complaint is: Patient is in to establish care and [facility] met with patient to follow-up regarding mood [...] about 3 weeks left of school at [employer] and her graduation date keeps getting pushed [...] No previous suicide attempt Reported: Safety Measures [facility] discussed with patient crisis resource information should it be needed. Social History Environmental Exposure: No secondhand cigarette smoke exposure. Personal: Recent emotional stress. Behavioral: Not a current tobacco user. Alcohol: A social drinker. Drug Use: Using marijuana only from dispensary. Housing And Economic Circumstances: Lives alone. Education: Currently in school. 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 Physical Findings [...] engage in SIB but ex called the video game developer and she was admitted in to [facility]. - No access to weapons / guns in home. Assessment - F41.1 - Generalized anxiety disorder Therapy - SBIRT Screen Neg. - Brief solution-focused therapy. - Referral to mental health team. - Plan - PCP to start patient on Buspar 5mg twice daily. Patient verbalized understanding of plan and Collaborated with patient and provider: Counseling/Education [facility] introduced patient to [facility] integrated model of care. P offered active and supportive listening, normalized emotions [...] talk with them prior to establishing care. P discussed with patient dental services and connected patient with [facility] dental team. Plan Patient to take [...] of things, or get along? Somewhat difficult. [facility]05-24-2023 Progress note* Progress note Date Encounter Last Documented by 08/08/2022 Medical New Patient Sukhwinder zavala on 08/08/2022; 5:55 PM, Adelaida Parks CNP; [facility] Active Problems & Conditions - F41.1 [...] about anxiety . getting ready to graduate [employer]. upper respiratory congestion x 1 week Patient [...] BP-Sitting L130/80 mmHg BP Cuff SizeLarge Pulse Rate-Uwoeidh406 bpm Temp-Gewplpvy16.4 F Bfrlpy26 in Dksmws415 lbs Body Mass Index43.2 kg/m2 Body Surface Area2.1 m2 Oxygen Neozfwkobk39 % General Appearance: - Awake. - Alert. [...] Less than 40 years (0 points) [Pre-DM]. 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 documented in this encounter [facility] Diagnosis Nephrolithiasis- Primary Calculus of kidney documented in [facility] Diagnosis 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 Nephrolithiasis Calculus of kidney [facility] Diagnosis Nephrolithiasis- Primary Calculus of kidney Nephrolithiasis- Primary Calculus of kidney Thrombocytopenia affecting documented in this [facility] Diagnosis Nephrolithiasis- Primary Calculus of kidney Thrombocytopenia affecting - Primary Normocytic anemia Unspecified anemia documented in this encounter [facility] Narrative History of Present Illness not supported for this document type No History of Present [facility] Work Phone: Instructions Includes: Instructions for all patient encounters Education and Decision Aids were provided during visit for: [facility] offered active and suppo rtive listening. ~[facility] discussed coping skills to implement in daily routine. [facility] encouraged patient to contact a therapist to schedule counseling Last Documented On 3 7:49PM ; [facility] Discussed nutritional needs teach healthy choices including fruits and vegetables Last Documented On 3 4:31PM ; [facility] Patient education about a pr oper diet Last Documented On 3 4:31PM ; [facility] Lifestyle education Last Documented On 3 5:08PM ; [facility] Patient education about medi cation Last Documented On 3 5:08PM ; [facility] Patient education about ment al health Last Documented On 3 5:08PM ; [facility] Discussed concerns about exe rcise : promote physical activity Last Documented On 3 4:31PM ; [facility] introduced patient to [facility] integrated model of care. ~P offered active and supportive listening, normalized emotions and feelings, and processed current stressors related to school. ~P discussed with patient coping skills and supports that can be implemented such as breathing techniques, mindfulness and meditation. ~P discussed potential benefit in individual therapy. Patient discussed history of previous therapy as a teenager and feeling that the therapist was not helpful and is not sure that she wants to try again. BHP discussed with patient potential resources where she is able to pick her own therapist and talk with them prior to establishing care. ~[facility] discussed with patient dental services and connected patient with [facility] dental team Last Documented On 3 7:35PM ; [facility] Discussed nutritional needs teach healthy choices including fruits and vegetables Last Documented On 3 5:17PM ; [facility] Patient education about a pr oper diet Last Documented On 3 5:17PM ; [facility] Discussed concerns about exe rcise : promote physical activity Last Documented On 3 5:17PM ; [facility] Work Phone: Instructions Includes: Instructions for all patient encounters Education and Decision Aids were provided during visit for: Discussed nutritional needs teach healthy choices including fruits and vegetables Last Documented On 3 1:59PM ; [facility] Patient education about a pr oper diet Last Documented On 3 1:59PM ; [facility] Discussed concerns about exe rcise : promote physical activity Last Documented On 3 1:59PM ; [facility] offered active and suppo rtive listening. ~[facility] discussed coping skills to implement in daily routine. [facility] encouraged patient to contact a therapist to schedule counseling Last Documented On 3 7:49PM ; [facility] Discussed nutritional needs teach healthy choices including fruits and vegetables Last Documented On 3 4:31PM ; [facility] Patient education about a pr oper diet Last Documented On 3 4:31PM ; [facility] Lifestyle education Last Documented On 3 5:08PM ; [facility] Patient education about medi cation Last Documented On 3 5:08PM ; [facility] Patient education about ment al health Last Documented On 3 5:08PM ; [facility] Discussed concerns about exe rcise : promote physical activity Last Documented On 3 4:31PM ; [facility] introduced patient to [facility] integrated model of care. ~[facility] offered active and supportive listening, normalized emotions and feelings, and processed current stressors related to school. ~[facility] discussed with patient coping skills and supports that can be implemented such as breathing techniques, mindfulness and meditation. ~[facility] discussed potential benefit in individual therapy. Patient discussed history of previous therapy as a teenager and feeling that the therapist was not helpful and is not sure that she wants to try again. BHP discussed with patient potential resources where she is able to pick her own therapist and talk with them prior to establishing care. ~[facility] discussed with patient dental services and connected patient with [facility] dental team Last Documented On 3 7:35PM ; [facility] Discussed nutritional needs teach healthy choices including fruits and vegetables Last Documented On 3 5:17PM ; [facility] Patient education about a pr oper diet Last Documented On 3 5:17PM ; [facility] Discussed concerns about exe rcise : promote physical activity Last Documented On 3 5:17PM ; [facility] Work Phone: Instructions Includes: Instructions for all patient encounters Education and Decision Aids were provided during visit for: [facility] provided supportive and active listening, allowing patient the space to discuss concerns and explored with patient coping strategies to manage increased anxiety and stressors. ~[facility] discussed community resourcces should they be needed. 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 ~[facility] discussed benefit in individual counseling and supports Last Documented On 3 9:45AM ; [facility] Discussed nutritional needs teach healthy choices including fruits and vegetables Last Documented On 3 1:59PM ; [facility] Patient education about a pr oper diet Last Documented On 3 1:59PM ; [facility] Discussed concerns about exe rcise : promote physical activity Last Documented On 3 1:59PM ; [facility] offered active and suppo rtive listening. ~[facility] discussed coping skills to implement in daily routine. [facility] encouraged patient to contact a therapist to schedule counseling Last Documented On 3 7:49PM ; [facility] Discussed nutritional needs teach healthy choices including fruits and vegetables Last Documented On 3 4:31PM ; [facility] Patient education about a pr oper diet Last Documented On 3 4:31PM ; [facility] Lifestyle education Last Documented On 3 5:08PM ; [facility] Patient education about medi cation Last Documented On 3 5:08PM ; [facility] Patient education about ment al health Last Documented On 3 5:08PM ; [facility] Discussed concerns about exe rcise : promote physical activity Last Documented On 3 4:31PM ; [facility] BH introduced patient to [facility] integrated model of care. ~[facility] offered active and supportive listening, normalized emotions and feelings, and processed current stressors related to school. ~P discussed with patient coping skills and supports that can be implemented such as breathing techniques, mindfulness and meditation. ~Anjali discussed potential benefit in individual therapy. Patient discussed history of previous therapy as a teenager and feeling that the therapist was not helpful and is not sure that she wants to try again. TRU discussed with patient potential resources where she is able to pick her own therapist and talk with them prior to establishing care. ~Anjali discussed with patient dental services and connected patient with [facility] dental team Last Documented On 3 7:35PM ; [facility] Discussed nutritional needs teach healthy choices including fruits and vegetables Last Documented On 3 5:17PM ; [facility] Patient education about a pr oper diet Last Documented On 3 5:17PM ; [facility] Discussed concerns about exe rcise : promote physical activity Last Documented On 3 5:17PM ; [facility] Work Phone: InstructionsNot on filedocumented in this [...] & Outcomes for active Goals No [facility] Work Phone: Progress note No data available for this section [facility] Review of systems Narrative - Reported Review of Systems not supported for this document type No Review of Systems [facility] Work Phone: Summary Purpose Family History No Family History Records Found Description Last Updated Family history of systemic hypertension paternal grandfather 08/08/2022 Last Documented On 3 5:55PM ; [facility] Description Last Updated Family history of systemic hypertension paternal grandfather 08/08/2022 Last Documented On 3 5:55PM ; [facility] Description Last Updated Family history of systemic hypertension paternal grandfather 08/08/2022 Last Documented On 3 5:55PM ; [facility] Advance Directives No Advanced Directives Records [...] section and content) DATE CREATED AUTHOR 07/07/2022 [facility] - WO DATE CREATED AUTHOR AUTHOR'S ORGANIZ ATION 08/21/2023 [facility] DATE CREATED AUTHOR AUTHOR'S ORGANIZ ATION 10/23/2023 [facility] DATE CREATED AUTHOR AUTHOR'S ORGANIZ ATION 04/03/2024 [facility] DATE CREATED AUTHOR AUTHOR'S ORGANIZ ATION 09/19/2024 [facility] DATE CREATED AUTHOR AUTHOR'S ORGANIZ ATION 09/27/2024 [facility] Reason for Visit (unrecogniz ed section and content) Reason Comments Follow-up Reason Comments Nephrolithiasis Follow-up Reason Comments New Patient Specialty Diagnoses / Procedures Referred By Janene t Referred To Contact Hematology Diagnoses Low platelet count Procedures [place] OFFICE OUTPATIENT VISIT 60-74 MINS HIGH MDM [id number] (SNOMED CT) - AMB REFERRAL TO HEMATOLOGY Jolanta SmitaLEODAN-CNM [address] [place] [address] Phone: tel: fax: [place] [address] [place] [address] [address] [place] [id number] Phone: tel: fax: Referral ID Status Reason Start Date Expiration Date Visits Re quested Visits Authorized [id number] Closed 06/10/2024 12/07/2024 1 1 Care Teams (unrecognized sec tion and content) Brick Baker Relationship Specialty Start Date End Date No Pcp, [place] [address] PCP - General Family Medicine 06/19/23 Brick Baker Relationship Specialty Start Date End Date No Pcp, [place] [address] PCP - General Family Medicine 06/19/23 Brick Baker Relationship Specialty Start Date End Date No Pcp, [place] [address] PCP - General Family Medicine 06/19/23 Brick Baker Relationship Specialty Start Date End Date No Pcp, [place] [address] PCP - General Family Medicine 06/19/23 Brick Baker Relationship Specialty Start Date End Date No Pcp, [place] [address] PCP - General Family Medicine 06/19/23 Brick Baker Relationship Specialty Start Date End Date No Pcp, [place] [address] PCP - General Family Medicine 06/19/23 Brick Baker Relationship Specialty Start Date End Date No Pcp, [place] [address] PCP - General Family Medicine 06/19/23 Brick Baker Relationship Specialty Start Date End Date No Pcp, [place] [address] PCP - General Family Medicine 06/19/23 Brick Baker Relationship Specialty Start Date End Date No Pcp, [place] [address] PCP - General Family Medicine 06/19/23 Brick Baker Relationship Specialty Start Date End Date No Pcp, [place] [address] PCP - General Family Medicine 09/16/24 FOR RECORDS PERTAINING TO PATIENTS WHO ARE [...] BE BASED ON THE PRIMARY CLINICAL RECORDS. [facility]. provides no warranty or guarantee of the accuracy or completeness of information in this document.
[2024-10-07] MEDS: IOHEXOL 300 MG/ML - 50 ML BTL INJ (13:03)
[2024-10-07] MEDS: CEFAZOLIN SODIUM 2 GM/50 ML D5W PREMIX IV (13:11)
--- NOTE | 2024-10-07 14:18 | PM.URSON ---
Urology Surgery Operative Note Operative Note Procedure Date: 10/07/24 Time Out Performed: yes Pre-op Diagnosis: Left renal stone Post-op Diagnosis: same as pre-op Procedures performed: Cystoscopy, left retrograde pyelogram, ureteroscopy laser lithotripsy/stone extraction, stent placement Anesthesia: General-LMA (Dr. Batres) Primary Surgeon: Tigist Bloutn Complications: none Estimated blood loss (mL): 0 Findings: L RPG- mild pelviectasis, no extravasation Radiopaque left renal pelvis stone 1 cm yellow stone within renal pelvis and smaller 4 mm stone in lower pole, both underwent uncomplicated laser lithotripsy and basket extraction Specimens: left kidney stones Drains: 6Fr x 24 cm JJ left ureteral stent Incision: none Indications for Procedures: 28 year old female recently diagnosed with a 1.4 cm left renal pelvis stone. After discussion of risks/benefits of management options, the patient elected to proceed with cystoscopy, left retrograde pyelogram, ureteroscopy with laser lithotripsy/stone extraction, ureteral stent placement under general anesthesia for definitive stone management. Risks were discussed including but not limited to bleeding, pain, infection, damage to surrounding structures, inability to treat the stone/place a stent, and need for additional procedures. The patient understands the stent is not permanent and needs to be removed or exchanged within 3 months to prevent encrustation, infection, invasive procedures and/or permanent renal damage. Detailed description of Procedure: After informed consent was obtained, the patient was brought to the operating room and transferred onto the operating table in supine position. Sequential compression devices were placed on bilateral lower extremities. The patient received the appropriate dose of preoperative IV antibiotics and general anesthesia LMA was induced. They were positioned in modified dorsolithotomy with the appropriate pressure points padded, prepped, and draped in the usual sterile fashion for this procedure. An operative safety timeout was performed confirming the patient's identity, laterality and procedure, and all present agreed to proceed. I began by inserting a 22 Burmese rigid cystoscope with 30 degree lens into the patient's urethra and bladder without difficulty. There were no bladder tumors, lesions, stones or foreign bodies. Bilateral ureteral orifices were orthotopic and patent. I turned my attention to the left ureteral orifice and a 5- Burmese open-ended catheter was inserted into the ureteral orifice and dilute contrast was injected for retrograde pyelogram with findings as above. A Sensor wire was inserted into the ureter up to the renal pelvis confirmed on fluoroscopy. A 10/12 Burmese by 25 cm ureteral access sheath was inserted over the wire in a sequential fashion to gain access to the renal pelvis. Next a flexible ureteroscope was inserted through the sheath and advanced to the renal pelvis under fluoroscopic guidance until the stone was reached. A 270 ?m thulium laser fiber was used to break the stone into fragments which were then removed with a 1.8 tipless nitinol basket. After the stones were adequately treated, a full renoscopy was performed confirming no significant residual stones or fragments remained. Contrast was injected to assist with mapping for the renoscopy. The wire was reinserted and a pull down ureteroscopy was performed confirming no stones remained in the ureter. Contrast was injected for retrograde pyelogram confirming no extravasation of contrast, filling defects or hydronephrosis. The wire was backloaded through the cystoscope and 6 Fr x 24 cm JJ ureteral stent was advanced over the wire, noting adequate curl in the renal pelvis and bladder on fluoroscopic and direct visualization. The bladder was drained and inspected one final time to ensure adequate position of stent and no undue trauma to the bladder was done. The stones were sent for pathology and the cystoscope was removed. The patient tolerated the procedure well without complication. The patient was awakened from anesthesia and sent to PACU in stable condition. Plan: Discharge home with stent pain medications. Follow up for in-office cystoscopy, stent removal in 1 week. Other Provider present: No Post Operative care instructions: See discharge instructions Attending Doc Confirm Attending Attestation: Yes
[2024-10-15 21:10] LABS: Calcium phosphate (hydroxyl) 20 % (.)
== END 2024-10-07 15:50 | disposition home or self-care (01) ==
LOC: SURGOUT 12:05
PROVIDERS: Anesthesiology; Visit Provider Urology
PROC: (CPT 918; principal; 2024-10-07 13:00)
DX: N20.0 Calculus of kidney (principal); R31.0 Gross hematuria; Z87.442 Personal history of urinary calculi
CPT/HCPCS: 52356; 36415; 74420; 82365; 84703; 99999; J0690; J1100; J1171; J1885; J2250; J2405; J2704; J3010; Q9967

== ENCOUNTER 2025-01-21 10:59 | Outpatient (OUT) | payer MEDICAID, SELFPAY ==
--- OUTSIDE RECORDS SUMMARY | 2023-12-03 09:23 | XMS_ITS | Continuity of Care Document ---
Author Organization [facility] Address [address] [phone] Phone Care Team Providers Care Devil Tender Name Role Phone Shanna Khan APRN Unavailable Unavaila ble Allergies, Adverse Reactions, Alerts Substance Reaction Status Criticality No Known Allergies Active No Inform ation Procedures Procedure Date ROUTINE VENIPUNCTURE COVID-19 Antigen Test PREV VISIT, NEW, AGE 18-39 Advance Directives Directive Yes / No Effective Date File Name No Information Encounters Encounter Description Practice Location Reason(s) For Visit Diagnoses Date Provider Providers Copied on Encounter [facility], [address] [place] [address], [id number] , [place] tel:+ [phone] [facility] No Information 4 Romana VALLEJO-Nahid Otero. [address] [place] [address], [address], [place]. tel:+ [phone] [facility], [address] [place] [address], [id number] , [place] tel:+ [phone] [facility] History of kidney stonesVitamin D deficiencyPlatelets decreased 4 Romana VALLEJO-C Shanna. [address] [place] [address], [address], [place]. tel:+ [phone] PREV VISIT, NEW, AGE 18-39 [facility], [address] [place] [address], [id number] , [place] tel:+ [phone] [facility] Establish care (chief complaint) Lab draw (chief complaint) Encounter for general adult medical examination without abnormal findingsHistory of kidney stonesEncounter for screening for HIVNeed for hepatitis C screening testEncounter for vitamin deficiency screeningScreening for diabetes mellitusScreening for thyroid disorderEncounter for screening for cardiovascular disordersBody mass index [BMI] 39.0-39.9, adultEncounter for screening for COVID-19Increased urinary frequencySore throatNasal congestionMarijuana abuse Romana Otero. [address] [place] [address], [address], [place]. tel:+ [phone] Family History Family Member Type Diagnosis Age At Onset Mother Problem Illegal drug use Mother Problem Alcoholism Payers Payer name Insurance type Covered green party ID Authoriza tion(s) [employer] Medicaid [facility] 0223 [id number] Medicaid Wrap - [facility] [id number] Social History Type Description Quantity Date Captured Comments Alcohol Use Details Unknown Caffeine Use Details Unknown Tobacco Use Status No Information Smoking Status No Information Sex Female Sexual Orientation Straight or heterosexual July Gender Identity Female Chief Complaint And Reason For Visit No Information Reason For Referral Reason For Referral No Information Plan Of Treatment Date Type Action Status Goal Hep A. Due on du e Goal Hepatitis C screening. Due o n due Goal Depression screening. Due on due Goal Unhealthy drug use screening . Due on due Goal RLP. Due on due Goal PRAPARE ASSESSMENT. Due on S due Goal PAP. Due on due Goal Tdap. Due on due Goal Tdap Vaccine. Due on 2023 due Goal Influenza vaccine. Due on due Goal Tdap. Due on due Goal Hep A. Due on du e Goal PRAPARE ASSESSMENT. Due on due Goal Influenza vaccine. Due on Ma due Goal Hepatitis C screening. Due o n due Goal RLP. Due on due Goal Depression screening. Due on due Goal Tdap Vaccine. Due on 2023 due Goal PAP. Due on due Goal Unhealthy drug use screening . Due on due Goal RLP. Due on due Goal Tdap. Due on due Goal PRAPARE ASSESSMENT. Due on due Goal Depression screening. Due on due Goal Tdap Vaccine. Due on 2023 due Goal PAP. Due on due Goal Hepatitis C screening. Due o n due Goal Influenza vaccine. Due on due Goal Unhealthy drug use screening . Due on due Goal Dietary management education , guidance, and counseling completed Goal Dietary management education , guidance, and counseling completed History Of Present Illness Encounter Date Complaint History Of Prese nt Illness [facility] care Presents to diego valladares. Reports that she was in the ER about a month ago for a kidney stone, states she had them when she was a teenager but has not had 1 in 10 years. Denies pain/nausea today. Also reports rash to left arm pit area. Ting Gonzalez RN I have reviewed all above information and agree. Started with sore throat and nasal congestion a few days ago. Denies known exposure to COVID, strep throat or influenza. Was having kidney stone issues last week when scheduled appt and no longer having issues or pain. Treated with Flomax and pain meds and sent out the door . Was not referred to urology when was in ER. Denies urinary sx other than increased frequency. No fever/chills. No n/v. No abdominal or flank pain. No hematuria. Does not think she passed the stone but no longer having sx. Was not referred to urology when at ER. Declines flu & COVID vaccine. Is single. No children. Is employed at a [employer] in [place] and [employer]. Does not drink ETOH. Does not smoke cigarettes. Vapes marijuana and uses gummies. No other drug use. 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 Clear yellow urine sample obtained. Ting Gonzalez RN Functional Status Date Functional Assessmen t No Information Instructions Date Instruction Additional Infor mation Giving encouragement to exercise Related to Body mass index [BMI] 39.0-39.9, adult Dietary management e ducation, guidance, and counseling Related to Body mass index [BMI] 39.0-39.9, adult Dietary management e ducation, guidance, and counseling Related to Body mass index [BMI] 39.0-39.9, adult Assessments Type Assessment Date No Information Patient Care Teams Name Effective Dates (start - stop) Status Members No Information
--- OUTSIDE RECORDS SUMMARY | 2025-01-21 11:02 | XMS_ITS | Clinical Summary ---
Author Organization [facility] Address [address] [place] [address] Care Team Providers Care Tuna Purse Seiner Name Role Phone Unavailable Primary Care Provider Unavailabl e Allergies No known active allergies Medications MedicationSigDispense QuantityRefillsLast FilledStart DateEnd DateStatus docusate sodium (Colace) 100 MG capsule Indications:Iron deficiency anemia, unspecified iron deficiency anemia typeTake 1 capsule (100 mg) by mouth in the morning and 1 capsule (100 mg) before bedtime. 60 capsule 11004/22/196151/6Active labetalol (Normodyne) 200 MG tablet Take 1 tablet by mouth in the morning and 1 tablet before bedtime.07/03/2024 Active Family History Medical HistoryRelationNameCommentsCOPDFatherRelationNameStatusCommentsFather AliveMotherAlive Social History Tobacco UseTypesPacks/DayYears UsedDateSmoking Tobacco: NeverSmokeless Tobacco: Never Tobacco Cessation:Counseling Given: Not Answered Alcohol UseStandard Drinks/WeekCommentsNot Currently0 (1 standard drink = 0.6 oz pure alcohol)CommentsNoSex and Gender InformationValueDate RecordedSex Assigned at TsgyrUubzrd59/08/2024 2:44 PM ESTLegal HqsEemmbd81/30/2023 12:13 PM ESTGender EgpksfnqMzmles41/08/2024 2:44 PM ESTSexual OrientationStraight 04/25/2023 2:44 PM EST Last Filed Vital Signs Vital SignReadingTime TakenCommentsBlood Rznhzoob958/800/ 10:45 AM EDT Pulse--Temperature--Respiratory Rate--Oxygen Saturation--Inhaled Oxygen Concentration--Iisvim894 kg (232 lb)07/15/2024 10:45 AM UPXOjeefv332 cm (5' 3 ) 04/25/2023 2:02 PM ESTBody Mass Index41. 2:02 PM EST Plan of Treatment Health MaintenanceDue DateLast DoneCommentsCOVID-19 Vaccine ( season) 2024Influenza Vaccine (#1)2024Pneumococcal Vaccine: Pediatrics (0 to 5 Years) and At-Risk Patients (6 to 64 Years)Aged OutNo longer eligible based on patient's age to complete this topic Goals GoalPatient Goal TypeAssociated ProblemsRecent ProgressPatient-Stated?Author Reminders Care PlanOB RemindersNoOpen Scheduling, Background Additional Health Concerns Active ProblemsNoted DateDiagnosed DateOB Gltyirokf69/18/2024 Insurance
--- OUTSIDE RECORDS SUMMARY | 2025-01-21 11:05 | XMS_ITS | CCD ---
Author Organization [facility] Care Team Providers Care Marketing Campaign Analyst Name Role Phone Adelaida Parks CNP Attending Unavailable Adelaida Parks CNP Primary Care Provider [phone] NO PCP, NO PCP Primary Care Unavailable [...] NO PCP, NO PCP Primary Care Unavailable JACKIE MOTA Attending Unavailable STEVE STOVER Referring Unavailable NO PCP, NO PCP Primary Care Unavailable NO PCP, NO PCP Primary Care Unavailable YOLANDA DANIEL Attending Unavailable No Pcp, No Pcp Primary Care Provider Unavailabl e NONE, XXXX Primary Care Physician Unavailab Tigist Fritz Attending Unavailable Tigist Blount Referring Unavailable Tigist Blount Admitting Unavailable Tigist Blount Attending Unavailable Tigist Blount Attending Unavailable Tigist Blount Attending Unavailable Tigist Blount Attending Unavailable Tigits Blount Referring Unavailable Allergies Allergy ClassificationReported Allergen(s)Allergy TypeDate of OnsetReaction(s) Facility (1 source)No Known Medication Allergies; Translations: [No Known Medication Allergies]Propensity to adverse reactions (disorder)[facility] Repository Medications Current Medications MedicationDrug Class(es)DatesSig (Normalized)Sig (Original)acetaminophen 325 mg / oxyCODONE hydrochloride 5 mg oral tablet (4 sources)Opioid AgonistStart: 07-30-2023 End: 17-53-3788bwbPYQERJ-acetaminophen (PERCOCET) 5-325 mg per tablet Indications: Kidney stone Take 1 tablet by mouth 3 (three) times a day as needed for pain for up to 3 days. Max Daily Amount: 3 tablets 9 juvqgm8307/30/2023 08/02/2023 Activetake 1 tablet by mouth every four hours as needed for pain oxyCODONE-acetaminophen (PERCOCET) 5-325 mg per tablet Indications: pain Take 1 tablet by mouth every 4 (four) hours as needed for pain Indications: pain. Suspendedaspirin 81 mg delayed release oral tablet (3 sources)Platelet Aggregation Inhibitor, Nonsteroidal Anti-inflammatory Drug take 1 tablet by mouth in the morningaspirin 81 mg Take 1 tablet (81 mg total) by mouth in the morning. Khxcha37 hr buPROPion hydrochloride 150 mg extended release oral tablet (3 sources)AminoketoneStart: 09-88-4473oxhp 1 tablet by mouth every twenty-four hoursWellbutrin XL 150 MG Oral Tablet Extended Release 24 Hour 09/11/2022 Provider: Cassandra Kee CNPbusPIRone hydrochloride 10 mg oral tablet (6 sources)Start: 24-11-0018ndbKHFxqp HCl 10 MG Oral Tablet 09/03/2022 Provider: Adelaida Parks CNPStart: 08-08-2022 End: 20-97-1478gfiDFMpty HCl 5 MG Oral Tablet 08/08/2022 - 09/03/2022 Provider: Adelaida Parks CNPcefadroxil 500 mg oral capsule (1 source)Cephalosporin AntibacterialStart: 08-09-2023 End: 77-57-5957gbde 1 capsule by mouth in the morning, then take 1 capsule by mouth at bedtimecefaDROXil (DURICEF) 500 mg capsule Take 1 capsule (500 mg total) by mouth in the morning and 1 capsule (500 mg total) before bedtime. Do all this for 3 days. 6 capsule 08/09/2023 08/12/2023 Activedocusate sodium 100 mg oral capsule (20 sources)Start: 04-22-2024 End: 17-98-3230rven 1 capsule by mouth in the morningdocusate sodium (Colace) 100 MG capsule Indications: Iron deficiency anemia, unspecified iron deficiency anemia type Take 1 capsule (100 mg) by mouth in the morning and 1 capsule (100 mg) before bedtime. 60 capsule 11 04/22/2024 04/22/2025 Activeergocalciferol 1.25 mg oral capsule (7 sources)Provitamin D2 CompoundStart: 03-17-8184lmax 1 capsule by mouth every weekergocalciferol (DRISDOL) 1,250 mcg (50,000 unit) capsule Take 1 capsule (50,000 Units total) by mouth once a week. Has not started 07/25/2023 Active labetalol hydrochloride 200 mg oral tablet (6 sources)beta-Adrenergic BlockerStart: 29-60-4250nzfq 1 tablet by mouth in the morninglabetalol (Normodyne) 200 MG tablet Take 1 tablet by mouth in the morning and 1 tablet before bedtime. 07/03/2024 Activeondansetron 8 mg disintegrating oral tablet (10 sources)Serotonin-3 Receptor AntagonistStart: 12-19-2023 End: 87-84-2987ayoq 1 tablet by mouth every eight hours for nauseaondansetron ODT (Zofran-ODT) 8 MG disintegrating tablet Indications: Nausea and vomiting during Take 1 tablet (8 mg) by mouth every 8 (eight) hours if needed for nausea or vomiting 20 tablet 1 12/19/2023 01/18/2024 ActiveStart: 07-30-2023 End: 42-53-8261eaysxtkxhbm ODT (ZOFRAN ODT) 4 mg disintegrating tablet Dissolve 1 tablet (4 mg total) on tongue 3 (three) times a day as needed for nausea for up to 3 doses. 3 tablet 07/30/2023 08/06/2023 Discontinued (Therapy completed) Start: 01-71-9685ljdw 1 tablet by mouth every eight hours as needed for nausea ondansetron ODT (ZOFRAN ODT) 4 mg disintegrating tablet Dissolve 1 tablet (4 mg total) on tongue every 8 (eight) hours as needed for nausea for up to 10 doses. 10 tablet 06/19/2023 Bjvnldtcc97 hr oxybutynin chloride 5 mg extended release oral tablet (8 sources)Cholinergic Muscarinic AntagonistStart: 88-46-6654tpbl 1 tablet by mouth every twenty-four hours in the morningoxybutynin XL (DITROPAN-XL) 5 mg 24 hr tablet Take 1 tablet (5 mg total) by mouth in the morning. 21 tablet 08/09/2023 Activephenazopyridine hydrochloride 100 mg oral tablet (1 source)Start: 08-09-2023 End: 02-56-0977udhp 1 tablet by mouth three times dailyphenazopyridine (PYRIDIUM) 100 mg tablet Take 1 tablet (100 mg total) by mouth 3 (three) times a day for 6 doses. 6 tablet 08/09/2023 08/11/2023 ActivePNV no.95/ferrous fum/folic ac ( ORAL) (3 sources)take 1 tablet by mouth in the morningPNV no.95/ferrous fum/folic ac ( ORAL) Take 1 tablet by mouth in the morning. Active Completed/Discontinued Medications MedicationDrug Class(es)DatesSig (Normalized)Sig (Original)amoxicillin 875 mg / clavulanate 125 mg oral tablet (3 sources)Penicillin-class AntibacterialStart: 09-11-2022 End: 26-79-8759Nsbikmnaaqe-Pot Clavulanate 875-125 MG Oral Tablet 09/11/2022 - 10/11/2022 Provider: Cassandra Kee CNPazithromycin 250 mg oral tablet (3 sources)Macrolide AntimicrobialStart: 08-08-2022 End: 36-83-4350Cbuymyhbqzhy 250 MG Oral Tablet 08/08/2022 - 09/11/2022 Provider: Adelaida Parks CNPcephalexin 500 mg oral capsule (8 sources)Cephalosporin AntibacterialStart: 06-17-2024 End: 21-69-4945lgeo 1 capsule by mouth in the morning, then take 1 capsule by mouth in the evening, then take 1 capsule by mouth at bedtimecephalexin (Keflex) 500 MG capsule Indications: Hematuria, unspecified type , Acute cystitis with he maturia Take 1 capsule (500 mg) by mouth in the morning and 1 capsule (500 mg) in the evening and 1capsule (500 mg) before bedtime. Do all this for 10 days. 30 capsule 06/17/2024 06/27/2024 Expiredferrous sulfate 325 mg delayed release oral tablet (20 sources)Start: 04-22-2024 End: 83-03-0493uvpf 1 tablet by mouth in the morningferrous sulfate (Fe Tabs) 325 (65 Fe) MG EC tablet Indications: Iron deficiency anemia, unspecifiediron deficiency anemia type Take 1 tablet (325 mg) by mouth in the morning and 1 tablet (325 mg) before bedtime. Do not crush, chew, or split.. 60 tablet 11 04/22/2024 07/06/2024 Discontinued (Therapy completed)ibuprofen 600 mg oral tablet (4 sources)Nonsteroidal Anti-inflammatory DrugStart: 54-89-7110acqc 1 tablet by mouth every eight hours as needed for painibuprofen (MOTRIN) 600 mg tablet Take 1 tablet (600 mg total) by mouth every 8 (eight) hours as needed for pain for up to 21 doses. 21 tablet 06/19/2023 SuspendedPrenatal MV & Min w/FA-DHA ( GUMMIES PO) (20 sources) End: 56-97-5154Jlzurrvc MV & Min w/FA-DHA ( GUMMIES PO) Take by mouth 07/06/2024 Discontinued (Therapycompleted) MV & Min w/FA-DHA ( GUMMIES PO) Take by mouth Active Problems Active Problems Problem ClassificationProblemDateDocumented DateEpisodic/ChronicAnxiety disorders (19 sources)Generalized anxiety disorder; Translations: [Generalized anxiety disorder]Onset: 171070-52-7522QjqhhusKyngszmo of urinary tract (20 sources)Calculus of kidney; Translations: [Kidney stone]Onset: 07-31-2023 31-92-8772PnbukioiZpbwnwbbnbe and hemorrhagic disorders (4 sources)Platelet count below reference range; Translations: [Thrombocytopenia, unspecified]52-66-6715YybronyFdeimthznj and other anemia (4 sources)Normocytic anemia; Translations: [Anemia, unspecified]Onset: 635835-86-8074IhulkbpsDbxeihrrf of teeth and jaw (3 sources)Toothache; Translations: [Unspecified disorder of the teeth and supporting structures]Onset: 15-92-3854PgvefkjlBclvluezofaoq symptoms and ill- defined conditions (9 sources)Presence of urogenital implants; Translations: [Other postprocedural status]Onset: 125777-51-9634MxnbhdhUnchuvbjyuoad symptoms and ill-defined conditions (6 sources)Blood in urine; Translations: [Gross hematuria]Onset: 09-16-2024 EpisodicHypertension complicating ; childbirth and the puerperium (8 sources)Hypertension complicating ; Translations: [Unspecified maternal hypertension, third trimester]38-03-5003FugpwuqFnlybbhyfwsca and screening for infectious disease (3 sources)Encounter for screening for human immunodeficiency virus [HIV]; Translations: [Screening For Hiv]Onset: 49-70-3293HaehowsfUjczznsph disorders (2 sources)Amenorrhea; Translations: [Amenorrhea, unspecified]41-58-1840Cqkxibu Mood disorders (11 sources)Depressive disorder; Translations: [Depressive disorder]Onset: 452653-48-7646BwgbebfGxogm complications of (4 sources)Finding related to ; Translations: [ related conditions, unspecified, second trimester]29-31-0597BbieyxtmKnqdq diseases of kidney and ureters (2 sources)Kidney zkdgqsu83-52-1858QrfionekXjiyv infections; including parasitic (4 sources)Personal history of other infectious and parasitic diseases; Translations: [History of COVID-19]79-95-6590WriroiamVarkf non-traumatic joint disorders (2 sources)Acute jiymufrsb96-04-8751JuiidzhYpczw nutritional; endocrine; and metabolic disorders (8 sources)Finding of body mass index; Translations: [Body mass index (observable entity)]Onset: 93-49-7236PewwgufSjltt nutritional; endocrine; and metabolic disorders (3 sources)Disorder of mineral metabolism, unspecified; 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, unspecified]Onset: 52-73-9656KlzoslaGkuvq nutritional; endocrine; and metabolic disorders (8 sources)Disorder of mineral metabolism; 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, unspecified]Onset: 826242-92-5696NlicsyiHqbxp and delivery including normal (16 sources)Second trimester ; Translations: [Encounter for supervision of normal first , second trimester]81-87-4197XvzjivnpRhnyk screening for suspected conditions (not mental disorders or infectious disease) (7 sources)Encounter for screening for diabetes mellitus; Translations: [Diabetes Risk Test Score]Onset: 185003-02-6398UirvdyyhLxfcn upper respiratory infections (3 sources)Acute frontal sinusitis; Translations: [Acute frontal sinusitis] Onset: 24-10-4796ZbtfhmkaOckfjnxxuafi (1 source)Nephrolithiasis [N20.0]Onset: 22-72-4574Dalxpllbgppa (20 sources)OB RemindersOnset: 997349-71-5688Dwphngncvccd (1 source)NephrolithiasisOnset: 10-68-6588Hszagikjcghw (1 source)Flank Pain; Sweating; VomitingOnset: 43-41-8813Lxonwhodqhzc (1 source)New PatientOnset: 87-43-7565Akdrvex tract infections (2 sources)Acute cystitis; Translations: [Acute cystitis with hematuria] 66-74-2126Dncmmyev Past or Other Problems Problem ClassificationProblemDateDocumented DateEpisodic/ChronicGastrointestinal hemorrhage (5 sources)Hematemesis; Translations: [Hematemesis]Onset: EpisodicNausea and vomiting (1 source)VomitingOnset: 88-91-0486XdlwanxxGjyfg complications of (6 sources)Thrombocytopenic disorder; Translations: [Other diseases of the blood and blood-forming organs and certain disorders involving the immune mechanism complicating , unspecified trimester]Onset: EpisodicOther complications of (4 sources)Disease caused by 2019-nCoV; Translations: [Other viral diseases complicating , second trimester]Onset: 137053-42-5354Kqferxpi Results Test NameValueInterpretationReference RangeFacilityH&P Updateon 10-12-2024H&P UpdateH&P Update Patient: OSIRIS HAYWARD Age: 28 years Sex: Female : 1995 Associated Diagnoses: None Author: Tigist Blount MD Basic Information I have reviewed prior notes, spoke with patient, changes to history- s/p left ureteroscopy with laser lithotripsy, stent placement on 10/07/2024. Here for cystoscopy and left ureteral stent removal. Patient elects to proceed with surgery as planned. Health Status Procedure history: No active procedure history items have been selected or recorded. Social History Social & Psychosocial Habits Tobacco 09/24/2024 Tobacco Use: Never (less than 100 in l Smokeless tobacco use: Never . Allergies: Allergic Reactions (Selected) No Known Allergies No Known Medication Allergies Current medications: (Selected) Problem list: All Problems Acute arthritis / SNOMED CT 41608909 / Confirmed Gross hematuria / SNOMED CT 756420567 / Confirmed History of kidney stones / SNOMED CT 1627471046 / Confirmed Kidney disease / SNOMED CT 853891941 / Confirmed Kidney stones / SNOMED CT 538646511 / [facility]NormalBl[facility] Comment on above:Result Comment: Electronically Signed By: Jose Alejandro RUBIO, Tigist Beltran\.br\Date and Time Signed: 10/12/24 11:05EDTInpatient Patient Summaryon 71-94-5534Cytxuowol Patient SummaryInpatient Patient Summary [place] [address] Clinical Summary Person Information Name: OSIRIS HAYWARD Age: 28 Years : 1995 Sex: Female PCP: NONE, XXXX Marital Status: Single Race: White Ethnicity: Non- or Language: [place] Visit Id: Visit Reason: LEFT KIDNEY STONE Speciality: Acuity: Enc Type: Outpatient Med Service: Surgery Arrival: 10/12/2024 10:46:15 Discharge: Dispo Type: Address: [address] [place], [place] [id number] Provider Notes: Diagnosis: Encounter for removal of ureteral stent; Recurrent kidney stones Problems Active History of kidney stones Gross hematuria Kidney stones Acute arthritis Kidney disease Smoking Status: Functional Status: Sensory Deficits: History of Falls: Mobility Assistance Prior to Admission: ADLs: Current Level of Assistance for Self-Care/Mobility: Cognitive Status: Allergies No Known Medication Allergies No Known Allergies Laboratory or Other Results This Visit (last charted value for your 10/12/2024 visit) No Laboratory or Other Results This Visit Measurements: Height: Weight: Blood Pressure: Not Valued / Not Valued BMI: Procedures No Procedures Performed or Documented Immunizations No Immunizations Documented This Visit Final Med List: No Medications Documented Care Team Members: Attending Physician: Tigist Blount MD Consulting Physician: Referring Physician: Tigist Blount MD Follow up: With: Address: When: Tigist Blount [address] [place] [address] [phone] Business (1) Comments: Office to schedule follow up in 3 months to review renal ultrasound (to obtain in 2 months), 24-hour urine and lab work for metabolic stone workup Patient Education Information: Dietary Guidelines to Help Prevent Kidney Stones; EU - Cystoscopy with Stent Removal Discharge Instructions (CUSTOM)[facility] Intraoperative Recordon 39-86-8602Mzuq OR Intraoperative RecordMain OR Intraoperative Record IntraOp Document Type FTURO Summary Primary Physician: Tigist Blount MD Finalized Date/Time: 10/12/24 11:11:27 Pt. Name: OSIRIS HAYWARD/Sex: 1995 Female Med Rec #: [id number] Physician: Tigist Blount MD Financial #: [id number] Pt. Type: O Room/Bed: / Admit/Disch: 10/12/24 10:46:15 - Institution: Case Times FTURO Entry 1 Patient Times In Room 10/12/24 11:05:00 Out Room 10/12/24 11:10:00 Procedure Times Start 10/12/24 11:07:00 Stop 10/12/24 11:08:00 Anesthesia Times Last Modified By: Andria Hammond 10/12/24 11:11:23 Case Attendance FTURO Entry 1 Entry 2 Entry 3 Case Attendee Jose Alejandro RUBIO, Tigist Padilla SITE SURVEYOR, Andria Figueroa Role Performed Surgeon - Primary Scrub - Primary Community Health Counselor - Primary Time In 10/12/24 11:05:00 10/12/24 11:05:00 10/12/24 11:05:00 Time Out 10/12/24 11:10:00 10/12/24 11:10:00 10/12/24 11:10:00 Procedure CYSTOSCOPY LOCAL WITH CYSTOSCOPY LOCAL WITH CYSTOSCOPY LOCAL WITH STENT REMOVAL(Left, .) STENT REMOVAL(Left, .) STENT REMOVAL(Left, .) Comments Last Modified By: Andria Hammond Kelsie E Burgderfer, Kelsie E 10/12/24 11:11:24 10/12/24 11:11:24 10/12/24 11:11:24 Surgical Procedures FTURO Entry 1 Procedure Description Procedure CYSTOSCOPY LOCAL WITH Modifiers Left, . STENT REMOVAL Surgeon Description CYSTO LEFT STENT REMOVAL Primary Procedure Yes Primary Surgeon Jose Alejandro RUBIO, Tigist Beltran Start 10/12/24 11:07:00 Stop 10/12/24 11:08:00 Anesthesia Type Local Surgical Service Urology Wound Class 2 - Clean-Contaminated Last Modified By: Andria Hammond 10/12/24 11:09:55 General Case Data FTURO Pre-Care Text: Classifies surgical wound, implements aseptic technique, initiates traffic control Entry 1 Case Information OR URO 1 FT Case Level None Wound Class 2 - Clean-Contaminated Specialty Urology Preop Diagnosis LEFT KIDNEY STONE Postop Same As Preop Yes Postop Diagnosis LEFT KIDNEY STONE Outcomes Met? Yes Last Modified By: Andria Hammond 10/12/24 11:05:55 Post-Care Text: The patient is free from signs and symptoms of infection EU IntraOp - FTURO Pre-Care Text: Implements protective measures prior to operative or invasive procedure, confirms identity before the operative or invasive procedure, verifies operative procedure, surgical site, and laterality Entry 1 EU Perioperative Protocols Procedure(s) CYSTOSCOPY LOCAL WITH Patient Identity Birthday, ID Band STENT REMOVAL(Left, .) Verified (select at Check, Patient least 2): Participation Consents / H and P H&P, Surgery/Procedure Operative Site N/A Verified Consent Marking Verified Surgical Site Yes Laterality Verified Yes Verified Procedure Verified Yes Correct Patient Yes Position Verified Availability Equipment, Medication Time Out Tigist Blount MD, Verified (If Participants Karen Padilla CST Applicable) Manish Zamora Kelsie E Time Out Complete 10/12/24 11:06:00 Allergies Reviewed? Yes Allergies Reviewed Self/Patient With Body Position Frog Legged Prep Area HOWARD AREA Prep Agents Betasept Skin. Condition Unable to Visualize Description N/A Additional None Specimens Comment N/A Specimens Collected Vitals - EU Blood Pressure 129/73 Pulse 85 bpm Respirations 18 br/min SPO2 96 % EBL 0 I&O - EU Total Intake 0 mL Total Output 0 mL Outcomes Met? Yes Last Modified By: Andria Hammond 10/12/24 11:08:01 Post-Care Text: The patient is free from signs and symptoms of injury caused by extraneous objects Sign Out FTURO Entry 1 Before Patient Leaves OR Nurse verbally Yes Nurse verbally n/a confirms with the confirms with the team the name of team that the procedure(s) instrument, sponge, recorded and needle counts are correct (or N/A) Nurse verbally n/a Nurse verbally Yes confirms with the confirms with the team how the team whether there specimen is labeled are any equipment (including patient problems to be name), if applicable addressed Sign Out Complete 10/12/24 11:08:00 Last Modified By: Andria Hammond 10/12/24 11:09:53 Case Comments Finalized By: Andria Hammond Document Signatures Signed By: Andria Hammond 10/12/24 11:11[facility] OR Preoperative Recordon [id number] OR Preoperative RecordMain OR Preoperative Record Holding Area Document Type FTURO Summary Primary Physician: Tigist Blount MD Finalized Date/Time: 10/12/24 11:06:33 Pt. Name: BEVERLYOSIRIS/Sex: 1995 Female Med Rec #: [id number] Physician: Tigist Blount MD Financial #: [id number] Pt. Type: O Room/Bed: / Admit/Disch: 10/12/24 10:46:15 - Institution: Case Times Holding FTURO Pre-Care Text: Verifies consent for planned procedure, identifies individual values and wishes concerning care, includes family members in perioperative teaching Secures patient's records' belongings, and valuables, maintains patient's dignity and privacy, and maintains patient confidentiality Entry 1 In Holding 10/12/24 10:54:00 Outcomes Met? Yes Last Modified By: Brandie Ordonez LPN 10/12/24 11:01:16 Post-Care Text: The patient participates in decisions affecting his or her perioperative plan of care The patient'sright to privacy is maintained Surgery Checklist FTURO Entry 1 Patient Birthday, Patient Procedure Surgical Consent, With Identification: Participation Verification: Patient NPO after Midnight: n/a Limitations: up ad alejandra Complaints of Pain: No Skin Integrity Intact, [place], Warm, & Dry Vitals - EU Blood Pressure 129/73 Pulse 85 bpm Respirations 18 br/min SPO2 96 % Additional None RN Reviewed Yes Specimens Collected Last Modified By: Andria Hammond 10/12/24 11:06:32 Finalized By: Andria Hammond Document Signatures Signed By: Brandie Ordonez LPN 10/12/24 11:02 Andria Hammond 10/12/24 11:06 Unfinalized History Date/Time Username Reason for Unfinalizing Freetext Reason for Unfinalizing 10/12/24 11:06 [id number] Modifying Existing DataUniversity [facility]als [facility] Center Operative Reporton [id number] ReportOperative Report Patient: OSIRIS HAYWARD Age: 28 years Sex: Female : 1995 Associated Diagnoses: None Author: Tigist Blount MD Procedure Operative Information Details: Date/ Time: 10/12/2024 11:14:00. Pre-Op Dx: Encounter for removal of ureteral stent (TWP10-RO Z46.6, Discharge, Medical). Post-Op Dx: Same. Anesthesia Type: Local. Procedure: Local Cystoscopy with Stent Removal. Complications: None. Risks/Benefits/Informed Consent: Surgical risks, benefits, details of the procedure have been explained to the patient, Full informed consent has been obtained. Intraoperative Information Prepped: The patient was placed in supine position, The patient was prepped with the Betadine solution (Hibiclens). Anesthesia: 2% Xylocaine Jelly per urethra. Procedure: Cystoscopy and Left Stent Removal, The flexible Cystoscope was passed in retrograde fashion into the bladder without difficulty, The bladder was viewed in entirety and found to be without tumors or stones, Mild inflammation was seen surrounding the orifice with the stent seen protruding from it, The stent was then grasped and removed in its entirety. Specimens Removed: None. Devices Implanted: None. Postoperative Information Discharge: The patient tolerated the procedure well and was subsequently discharged home, Stone analysis not available yet. Obtain renal ultrasound at [facility] in 2 months to ensure no silent obstruction develops. Risk and benefits discussed. Patient wishes to proceed with metabolic stone workup given recurrent stones. 24-hour urine information and lab order provided today. Litholink to be mailed. Will review the above in 3 months with follow-up appointment..[facility] CenterComment on above:Result Comment: Electronically Signed By: Tigist Blount MD\.br\Date and Time Signed: 10/12/24 11:16EDTOutpatient Surgery Discharge Instructionon 09-15-8109Hbbbosbcia Surgery Discharge InstructionOutpatient Surgery Discharge Instruction [address] [address] Patient Discharge Instructions PERSON INFORMATION Name: OSIRIS HAYWARD Date of : 1995 Current Date: 10/12/2024 11:12:44 PHYSICIANS Admitting Physician: Tigist Blount MD Comment: Discharge Diagnosis: Encounter for removal of ureteral stent; Recurrent kidney stones OSIRIS HAYWARD has been given the following list of follow-up instructions, prescriptions, and patient education materials: IF UNABLE TO CONTACT YOUR PHYSICIAN AND YOU FEEL IT IS AN EMERGENCY, GO TO THE NEAREST EMERGENCY ROOM OR CALL 911 Follow up: With: Address: When: Tigist Blount [address] [place] [address] [phone] Business (1) Comments: Office to schedule follow up in 3 months to review renal ultrasound (to obtain in 2 months), 24-hour urine and lab work for metabolic stone workup Comment: PATIENT EDUCATION INFORMATION Instructions: Dietary Guidelines to Help Prevent Kidney Stones [...] ? 8 oz (237 mL) of milk, ywpovkr-pxoradusxkfj-xcinr milk, and calcium- fortifiedfruit juice. Calcium-fortified means [...] Spinach (cooked), rhubarb, beets, sweet potatoes, and Uzbek chard. ? Peanuts. ? Potato chips, kenyan fries, and baked potatoes with skin on. ? Nuts and nut products. ? Chocolate. ??? If you regularly take a diuretic medicine, make sure to eat at least 1 or 2 servings of fruits or vegetables that are high in potassium each day. These include: ? Avocado. ? Banana. ? [place], prune, carrot, or tomato juice. ? Baked potato. ? Cabbage. ? Beans and split peas. Lifestyle ??? Drink enough fluid to keep your urine pale yellow. This is the most important thing yo (more content not included)...[facility] CenterAmbulatory Visit Summaryon [id number] Visit SummaryAmbulatory Visit Summary OSIRIS HAYWARD :1995 Visit Date:09/24/2024 [...] about 300 mg of calcium at each meal.Foods that contain 200???500 mg of calcium a serving include: ? 8 oz (237 mL) of milk, rjlmivx-wqrwxwgkltcy-kmbna milk, and calcium- fortifiedfruit juice. Calcium-fortified means [...] the table and allow each person to addtheir own salt to taste. ??? Use vegetable protein, such as beans, textured vegetable protein (TVP), or tofu, instead of meat inpasta, casseroles, and soups. Meal planning ??? Eat less salt, if told by your dietitian. To do this: ? Avoid eating processed or pre-made food. ? Avoid eating fast food. ??? Eat less animal protein, including cheese, meat, poultry, or fish, if told by your dietitian. To dothis: ? Limit the number of times you [...] Spinach (cooked), rhubarb, beets, sweet potatoes, and Uzbek chard. ? Peanuts. ? Potato chips, kenyan fries, and baked potatoes with skin on. ? Nuts and nut products. ? Chocolate. ??? If you regularly take a diuretic medicine, make sure to eat at least 1 or 2 servings of fruits or vegetables that are high in potassium each day. These include: ? Avocado. ? Banana. ? [place], prune, carrot, or tomato juice. ? Baked potato. ? Cabbage. ? Beans and split peas. Lifestyle ??? Drink enough (more content not included)...[facility] Urology Office/Clinic Noteon [id number] Office/Clinic NoteUrology Office/Clinic Note Chief Complaint amie f/u HPI [...] healthy F new pt here for recent [facility] ER visit. Follows with Dr. Donte Villatoro at [facility]. Currently breast feeding. BBSQ 9 1. Kidney stones (N20.0: Calculus of kidney) First stone event when she was 17 yo. Pt states from [age] yo she had no stones. Dr. Villatoro treated L sided stone last year that measured 7 mm. Did require stent. Grandfather had extensive kidney stones which resulted in nephrectomy. Pt presented to [facility] ER 09/16/24 with gross hematuria and L flank pain with associated nausea without vomiting. CT AP wo con - L renal pelvic calculi, larger of which measures 1.4 cm; associated urothelial thickening. Mild right caliectasis. Adjacent smaller calculus. 2 mm RLP calculus. Unable to independentlyview CT image. UCx mixed jewel. Still experiencing L sided pain. Has only noticed gross hematuria twice, denies clots. Denies feveror chills. Denies dysuria. Discussed management options including observation (not recommended) vs intervention including extracorporeal shockwave lithotripsy w/stent (staged) vs possibly staged ureteroscopy with laser lithotripsy/stone basket extraction possible stent. Risks/benefits of each were discussed including but notlimited to: observation - renal damage, pain or [...] prevent encrustation, infection, permanent renal damage and needfor more invasive procedures. Discussed PCNL as a [...] Urnls Dip Stick Auto w/o Microscopy POC 54491 Urology Procedure Order 2. Gross hematuria (R31.0: Gross hematuria) See #1. 3. History of kidney stones (Z87.442: Personal history of urinary calculi) See #1 Follow-up With When Contact Information Jose Alejandro RUBIO, Tigist Beltran, URL, URO Additional Instructions: Schedule cysto, R URS, laser litho, stent Patient Education Dietary Guidelines to Help Prevent Kidney Stones Ureteroscopy I, Anyi Varner, personally scribed for Dr. Blount on 09/24/2024 10:52:49. Electronically signed by nikia Sims (more content not included)...[facility] Medical CenterComment on above:Result Comment: Electronically Signed By: Tigist Blount MD\.br\Date and Time Signed: 09/24/24 11:03EDT\.br\Electronically Co-Signed By: Anyi Varner.br\Date and Time Co-Signed: 09/24/24 10:53 EDTCBC WITH AUTO DIFFERENTIALon [id number] ABSOLUTE COUNT (10*3/UL) BY AUTOMATED COUNT0.0 10*3/uLNormal0.0-0.2ProMedica [facility] Regional Medical CenterComment on above:Performed By: #### CBCA ####[facility] ([address] [place] [address] VIRBASOPHILS RELATIVE PERCENT BY AUTOMATED COUNT 0.2 %NormalGreen Cross HospitalComment on above:Performed By: #### CBCA ####[facility] ([address], [id number] VIRCELLAVISION DIFFERENTIAL TYPEAUTOMATED DIFFERENTIALNormalGreen Cross HospitalComment on above:Performed By: #### CBCA ####[facility] ([address], [place] VIREosinophils (Bld) [#/Vol] 0.0 10*3/uLNormal0.0-0.4Green Cross HospitalComment on above:Performed By: #### CBCA ####[address], [id number] VIREOSINOPHILS RELATIVE PERCENT BY AUTOMATED COUNT0.1 % NormalGreen Cross HospitalComment on above:Performed By: #### CBCA ####[facility] ([address], [id number] VIRErythrocyte distribution width (RBC) [Ratio]14.6 %Nnxivz04.5-15Green Cross HospitalComment on above:Performed By: #### CBCA ####[address], [place] VIRHematocrit (Bld) [Volume fraction]38.5 %Jevjee08-17BmxHtilqgChristus Spohn Hospital Corpus Christi – ShorelineComment on above: Performed By: #### CBCA ####[facility] ([address], [id number] VIRHemoglobin (Bld) [Mass/Vol]12.3 g/uWMaevrr27.7-15.5 Green Cross HospitalComment on above:Performed By: #### CBCA ####[facility] ([address], [id number] VIR LYMPHOCYTES ABSOLUTE COUNT (10*3/UL) BY AUTOMATED COUNT0.8 10*3/uLLow1.0-3.5 Green Cross HospitalComment on above:Performed By: #### CBCA ####[facility] ([facility])[address] [place], [place] [address]VE.[place], [id number] VIR LYMPHOCYTES RELATIVE PERCENT BY AUTOMATED COUNT9.5 %NormalProChristus Spohn Hospital Corpus Christi – ShorelineComment on above:Performed By: #### CBCA ####[facility] ([facility])[address] [place], [place] [address], [id number] VIRMCH (RBC) [Entitic mass] 23.4 heYmk99-86JvxHufdheGreen Cross HospitalComment on above:Performed By: #### CBCA ####[facility] ([address] [place] [address] VIRMCHC (RBC) [Mass/Vol]31.9 g/qLUym21-48HdkDflflkChristus Spohn Hospital Corpus Christi – ShorelineComment on above:Performed By: #### CBCA ####[facility] ([address], [place] VIRMCV (RBC) [Entitic vol]73 fLLow 80-100Green Cross HospitalComment on above:Performed By: #### CBCA ####[facility] ([address], [id number] VIRMONOCYTES ABSOLUTE COUNT (10*3/UL) BY AUTOMATED COUNT0.2 10*3/uLNormal0.0-0.9 [facility] Cross HospitalComment on above:Performed By: #### CBCA ####[facility] ([address], [id number] VIRMONOCYTES RELATIVE PERCENT BY AUTOMATED COUNT2.7 %NormalGreen Cross HospitalComment on above:Performed By: #### CBCA ####[facility] ([address] [facility].[place], [address] VIRNEUTROPHILS ABSOLUTE COUNT BY AUTOMATED COUNT7.7 10*3/uLHigh1.5-6.6Green Cross HospitalComment on above: Performed By: #### CBCA ####[facility] ([facility])[address] [place] [address] [address]VE.[place], [id number] VIRNEUTROPHILS RELATIVE PERCENT BY AUTOMATED COUNT87.5 %NormalProChristus Spohn Hospital Corpus Christi – ShorelineComment on above:Performed By: #### CBCA ####[facility] ([address], [id number] VIRPlatelet mean volume (Bld) [Entitic vol]11.5 fLNormal7-12PGalion Community HospitalComment on above:Performed By: #### CBCA ####[facility] ([address], [place] VIRPlatelets (Bld) [#/Vol]161 10*3/gLYwthcw027-383PwoKwmdqe Fremont HospitalComment on above:Performed By: #### CBCA ####[facility] ([address], [place] VIRRBC COUNT5.25 X10E12/LHigh3.8-5.2PGalion Community HospitalComment on above:Performed By: #### CBCA ####[facility] ([address], [id number] VIRWBC (Bld) [#/Vol]8.8 10*3/uLNormal4-11ProChristus Spohn Hospital Corpus Christi – ShorelineComment on above:Performed By: #### CBCA ####[facility] ([facility])[address] [place], [place] [address]E.[place] [address] VIRCOMPREHENSIVE METABOLIC PANELon 09-79-6322Jqxhwxs [Mass/Vol]3.9 g/dL Normal3.2-5.3PGalion Community HospitalComment on above:Performed By: #### CMP ####[facility] ([place] [address], [place] [address] VIRALP [Catalytic activity/Vol]114 U/WFywsnm78-425NulVwoiojChristus Spohn Hospital Corpus Christi – ShorelineComment on above:Performed By: #### CMP ####[facility] ([place] [address] [place] [address] VIRALT [Catalytic activity/Vol]23 U/LNormal<=31ProMedica [facility] Regional Medical CenterComment on above: Performed By: #### CMP ####[facility] ([place] [address] [place] [address] VIRAnion gap [Moles/Vol]12 mmol/LNormal5-15ProChristus Spohn Hospital Corpus Christi – ShorelineComment on above:Performed By: #### CMP ####[facility] ([address] [address] VIRAST [Catalytic activity/Vol]18 U/LNormal<=41ProChristus Spohn Hospital Corpus Christi – ShorelineComment on above: Performed By: #### CMP ####[facility] ([place] [address] [place] [address] VIRBilirubin [Mass/Vol]0.7 mg/dLNormal0.3-1.2 Green Cross HospitalComment on above:Performed By: #### CMP ####[facility] ([address] [address] VIRCalcium [Mass/Vol]9.1 mg/dLNormal8.5-10.5PGalion Community HospitalComment on above: Performed By: #### CMP ####[facility] ([place] [address] [place] [address] VIRChloride [Moles/Vol]103 mmol/DVagjol62-451 ProMMercy Health Perrysburg Hospital HospitalComment on above:Performed By: #### CMP ####[facility])[address] [place] [address] VIRCO2 [Moles/Vol]22 mmol/UXtuuyf82-51FvrEzfcsx [facility] Regional Medical CenterComment on above: Performed By: #### CMP ####[facility] ([address] [place] [address] VIRCreatinine [Mass/Vol]0.68 mg/dLNormal0.40-1.00 [facility] Cross HospitalComment on above:Result Comment: METHOD TRACEABLE TO IDMS STANDARDPerformed By: #### CMP ####[facility] ([address] [place] [address] VIREGFR (CKD-EPI) NON-RACE DEPENDENT >^90Normal>=60ProChristus Spohn Hospital Corpus Christi – ShorelineComment on above:Result Comment: eGFR not reported due to non-numeric value for Creatinine. Reported eGFR is based on the CKD-EPI 2020 equation that does not use a race coefficient.Performed By: #### CMP ####[facility] ([address] [place] [address] VIRGlucose [Mass/Vol]105 mg/vEAmfm01-38RkjWuzvrgChristus Spohn Hospital Corpus Christi – ShorelineComment on above:Performed By: #### CMP ####[facility] ([address], [place] [address] VIRPotassium [Moles/Vol]4.3 mmol/LNormal3.5-5.0[facility] Comment on above:Performed By: #### CMP ####[address] [place] [address] VIRProtein [Mass/Vol]7.7 g/dLNormal 6.0-8.0Green Cross HospitalComment on above:Performed By: #### CMP ####[facility] ([address], [place] [address] VIRSodium [Moles/Vol]137 mmol/AWnyqvg046-554YtlHwqxutGreen Cross Hospital Comment on above:Performed By: #### CMP ####[facility] ([facility])[address] [place] [address] [place] [address] VIRUrea nitrogen [Mass/Vol]13 mg/dL Normal5-23ProChristus Spohn Hospital Corpus Christi – ShorelineComment on above:Performed By: #### CMP ####[facility] ([facility])[address] [place] [address] [address]VE.[place], [place] [address] VIRCT ABDOMEN AND PELVIS WO CONTon [id number] ABDOMEN AND PELVIS WO CONT CT ABDOMEN [...] measures 1.4 cm; associated renal pelvic urothelial thickeningand indistinctness, which may be reactive to the calculus. Mild right caliectasis. All CT scans at this facility use dose modulation, iterative reconstruction, and/or weight based dosing when appropriate to reduce radiation dose to as low as reasonably achievable. Finalized by David Freitas MD on 09/16/2024 4:19 PMNormalProChristus Spohn Hospital Corpus Christi – ShorelinePOCT NURSING URINE MACROSCOPIC UAon 34-53-4255PDUZGGPXB NURNegative NormalNegativeProChristus Spohn Hospital Corpus Christi – ShorelineComment on above:Performed By: #### NUM ####[facility] ([address], [place] [address] VIRBLOOD/HGB NURLargeAbnormalNegativeProKettering Healthca El Centro Regional Medical CenterComment on above:Performed By: #### NUM ####[facility] ([address] [place] [address] VIRGLUCOSE NURNegativeNormalNegativeProMedica Saucier HospitalComment on above:Performed By: #### NUM ####[facility] ([address] [place] [address] VIRKETONES LINETTE NegativeNormalNegativeProKettering Healthca El Centro Regional Medical CenterComment on above:Performed By: #### NUM ####[facility] ([address] [place] [address] VIRLEUKOCYTE ESTERASE NURTraceAbnormalNegativeProKettering Healthca Saucier HospitalComment on above:Performed By: #### NUM ####[facility] ([address] [place] [address] VIRNITRITE LINETTE NegativeNormalNegativeProKettering Healthca El Centro Regional Medical CenterComment on above:Performed By: #### NUM ####[facility] ([address] [place] [address] VIRPH NUR6.3Pzysvq8.0, 6.0, 6.5, 7.0, 7.5, 8.0, 8.5, 5.5 [facility] HospitalComment on above:Performed By: #### NUM ####[facility] ([address] [place] [address] VIRPROTEIN BIZ656 mg/dLAbnormalNegativeProMain Campus Medical Center HospitalComment on above:Performed By: #### NUM ####[facility] ([address] [place] [address] VIRSPECIFIC GRAVITY LINETTE>=1.266Oowfwrez1.010, 1.015, 1.020, 1.025ProChristus Spohn Hospital Corpus Christi – ShorelineComment on above:Performed By: #### NUM ####[facility] ([facility])[address] [place] [address] VIRUROBILINOGEN NUR0.2 E.U./dLNormalProChristus Spohn Hospital Corpus Christi – ShorelineComment on above:Performed By: #### NUM ####[facility] ([facility])[address] [place] [address] VIRPOCT , URINE (NUCG)on 09-16-2024 Beta HCG ( test) Ql (U)NegativeNormalNegative, IndeterminateProChristus Spohn Hospital Corpus Christi – ShorelineComment on above:Performed By: #### NUCG ####[facility] ([facility])[address] [place] [address] [place], [place] VIRURINE CULTUREon 35-69-1136Bbuvohmu identified Cx Nom (U)CULTURE RESULTS 10-50,000 ORGANISMS/mL NORMAL UROGENITAL FLORANoLicking Memorial Hospital Comment on above:Performed By: #### UC ####[facility] ([facility])[address] [facility] [address], [place] [address] VIRALL CBC WITH AUTO DIFFon 03-87-1426OHSNPADYS ABSOLUTE PBMW3XZQH HealthcareBasophils/100 WBC (Bld)0.2 %0.2 - 2.0 %NOMS HealthcareEosinophils/100 WBC (Bld)0.3 %Low0.9 - 7.0 %NOMS HealthcareErythrocyte distribution width (RBC) [Ratio]14.3 %11.0 - 15.0 %NOMS HealthcareHematocrit (Bld) [Volume fraction]26.3 %Low36.0 - 48.0 %NOMS HealthcareHemoglobin (Bld) [Mass/Vol]8.3 g/dLLow12.0 - 16.0 g/dLNOMS Healthcare IMMATURE GRANULOCYTES ABS AUTO0.06HighNOMS HealthcareImmature granulocytes/100 WBC (Bld)0.5 %0.0 - 0.5 %[facility] HospitalInterpretation and review of laboratory resultsAbnormalNOMO HealthcareLYMPHOCYTES ABSOLUTE AUTO2.8NOColumbia Regional Hospital Lymphocytes/100 WBC (Bld)23.4 %20.5 - 60.0 %[facility] (RBC) [Entitic mass]25.8 pgLow26.7 - 34.0 pgHawthorn Children's Psychiatric HospitalHC (RBC) [Mass/Vol]31.6 g/dL29.9 - 35.2 g/dLHawthorn Children's Psychiatric HospitalV (RBC) [Entitic vol]81.7 fL81.0 - 99.0 fLBarton County Memorial HospitalMONOCYTES ABSOLUTE AUTO0.6NOColumbia Regional HospitalMonocytes/100 WBC (Bld)5 %1.7 - 12.0 %[facility] HospitalNEUTROPHILS ABSOLUTE AUTO8.4HighBarton County Memorial Hospital Neutrophils/100 WBC (Bld)70.6 %43.0 - 75.0 %[facility] EO #0NOColumbia Regional HospitalTB TMZ137FzdQGANWestern [facility] RBC3.22LowNOWestern [facility] Medical Center WBC11.8 HighNOColumbia Regional HospitalCLINISYNPrisma Health Patewood HospitalTB UA (CLEAN/CATCH) STOCK FITTER/MICRO IF IND.on [id number] URINENegativeNEGATIVENOColumbia Regional HospitalBLOOD URINELARGE AbnormalNEGATIVENOMO HealthcareClarity (U)CLEARCLEARNOMO HealthcareColor (U) YELLOWYELLOWNOColumbia Regional HospitalGLUCOSE URINE UANegativeNEGATIVE mg/dLBarton County Memorial Hospital Interpretation and review of laboratory resultsAbnormalNOMS HealthcareKetones Ql (U)NegativeNEGATIVE mg/dLBarton County Memorial HospitalLeukocyte esterase Test strip Ql (U) NegativeNEGATIVENOMO HealthcareNITRITE URINENegativeNEGATIVENOMO HealthcarepH (U)6.0 [pH]5.0 - 9.0NOMO HealthcareProtein (U) [Mass/Vol]100 mg/dLAbnormal NEG/TRACENOMS HealthcareSPECIFIC GRAVITY URINE1.0251.005 - 1.025NOColumbia Regional Hospital URINE MICROSCOPIC INDICATEDYESNOMO HealthcareUROBILINOGEN URINE0.2 EU/dL0.2 - 1.0 EU/dLBarton County Memorial HospitalCLINISYNCNCox BransonALL CBC WITH AUTO DIFFon [id number] ABSOLUTE SLAI2EZBSColumbia Regional HospitalBasophils/100 WBC (Bld)0.2 %0.2 - 2.0 %[facility] HospitalEosinophils/100 WBC (Bld)0.2 %Low0.9 - 7.0 %[facility] Memorial HospitalErythrocyte distribution width (RBC) [Ratio]13.4 %11.0 - 15.0 %[facility] HospitalHematocrit (Bld) [Volume fraction]31.7 %Low36.0 - 48.0 %[facility] HospitalHemoglobin (Bld) [Mass/Vol]10.5 g/dLLow12.0 - 16.0 g/dLBarton County Memorial Hospital IMMATURE GRANULOCYTES ABS AUTO0.04HighBarton County Memorial HospitalImmature granulocytes/100 WBC (Bld)0.4 %0.0 - 0.5 %[facility] HospitalInterpretation and review of laboratory resultsAbnormTitusville Area HospitalLYMPHOCYTES ABSOLUTE AUTO1.6NOColumbia Regional Hospital Lymphocytes/100 WBC (Bld)16.9 %Low20.5 - 60.0 %[facility] Psychiatric HospitalH (RBC) [Entitic mass]26.5 pgLow26.7 - 34.0 pgHawthorn Children's Psychiatric HospitalHC (RBC) [Mass/Vol]33.1 g/dL29.9 - 35.2 g/dLHawthorn Children's Psychiatric HospitalV (RBC) [Entitic vol]80.1 fLLow81.0 - 99.0 fLBarton County Memorial HospitalMONOCYTES ABSOLUTE AUTO0.4NOColumbia Regional HospitalMonocytes/100 WBC (Bld)4.3 % 1.7 - 12.0 %[facility] HospitalNEUTROPHILS ABSOLUTE AUTO7.4HighBarton County Memorial Hospital Neutrophils/100 WBC (Bld)78 %High43.0 - 75.0 %[facility] HospitalPlatelet mean volume (Bld) [Entitic vol]14.3 fLHigh9.5 - 13.5 fLBarton County Memorial HospitalTBH EO #0NOMS [facility] HospitalTB OAT732TrdOREMWestern [facility] Medical Center RBC3.96LowNOWestern Missouri Medical Center WBC9.5 [facility] HospitalCLINISYNCNOMS [facility] URINE T PROTEIN CREAT RATIOon 20-89-6312ORSOXFFZOX URINE MUEZKK369.19 mg/dL20.00 - 300.00 mg/dLBarton County Memorial Hospital Interpretation and review of laboratory resultsAbnormalNOMS HealthcareProtein (U) [Mass/Vol]43.5 mg/dLHighNINF - 11.9 mg/dLNOMS HealthcarePROTEIN CREATININE RATIO URINE0.22NOMS HealthcareCLINISYNCNOMS HealthcareUrinalysis macro (dipstick) panel (U)on 78-51-8999Fxchhenuv, UANegativeNegative - 4(70) +++ mg/dL NOMS HealthcareBlood, UAPositiveNegative - 50 Massimo/mcLNOMS HealthcareClarity, UA ClearNOMS HealthcareColor, UAYellowNOMS HealthcareGlucose, UANegativeNegative - 2000(110) ++++ mg/dLNOMS HealthcareInterpretation and review of laboratory resultsAbnormalNOMS HealthcareKetones, UANegativeNegative - 160(16) ++++ mg/dL NOMS HealthcareLeukocytes, UAManyNegative - 500+++ Heather/mcLNOMS Healthcare Nitrite, UANegativeNegative - PositiveNOMS HealthcarepH, UA55 - 9NOMS Healthcare Protein, UAPositiveNegative - 2000(20) ++++ mg/dLNOMO HealthcareSpec Grav, UA 1.021 - 1.03NOMS HealthcareUrobilinogen, UA0.20.2 - 12 mg/dLNOMS HealthcareNOMS HealthcareCOMPLETE BLOOD COUNTon 78-79-1886Gddbdtithxr distribution width (RBC) [Ratio]13.8 %Dnnkjc38.5-15.0[facility] Cross HospitalComment on above:Performed By: #### CBC, CMP #### [facility] ([id number]) [address] [place] [address]Elxpnahmne (Bld) [Volume fraction]33.4 %Mqs81-67ZrgWxaejqChristus Spohn Hospital Corpus Christi – ShorelineComment on above:Performed By: #### CBC, CMP #### [facility] ([id number]) [address] [place] [address]Ywmbdeasry (Bld) [Mass/Vol]11.8 g/fWGtfwzv21.7-15.5ProMedica [facility] Regional Medical CenterComment on above:Performed By: #### CBC, CMP #### [facility] ([id number]) [address] [place] [address]FFW (RBC) [Entitic mass]30.5 fqDakekq61-50GnbVgcoivGreen Cross HospitalComment on above:Performed By: #### CBC, CMP #### [facility] ([id number]) [address] [place] [address]NZFF (RBC) [Mass/Vol]35.4 g/mZJngfkp89-99RtaYetrhvChristus Spohn Hospital Corpus Christi – ShorelineComment on above:Performed By: #### CBC, CMP #### [facility] ([id number]) [address] [place] [address]MPA (RBC) [Entitic vol]86 hRWyqzll49-435LvuHmftkv [facility]remont HospitalComment on above:Performed By: #### CBC, CMP #### [facility] ([id number]) [address] [place] [address]Zfxzigkx mean volume (Bld) [Entitic vol]12.5 fLHigh7-12 [facility] HospitalComment on above:Performed By: #### CBC, CMP #### [facility] ([id number]) [address] [place] [address]Cpazregxi (Bld) [#/Vol]108 10*3/bRQwq009-309QqjMnukamChristus Spohn Hospital Corpus Christi – ShorelineComment on above:Performed By: #### CBC, CMP #### [facility] ([id number]) [address] [place] [address]KNB COUNT3.87 X10E12/LNormal3.80-5.20[facility] Comment on above:Performed By: #### CBC, CMP #### [facility] ([id number]) [address] [place] [address]DRU (Bld) [#/Vol]7.1 10*3/uLNormal4.0-11.0ProChristus Spohn Hospital Corpus Christi – ShorelineComment on above:Performed By: #### CBC, CMP #### [facility] ([id number]) [address] [place] [address], [place] [address]BJCAJLPVBVVEP METABOLIC PANELon 29-66-1253Dngyppi [Mass/Vol]3.0 g/dLLow3.2-5.3PGalion Community HospitalComment on above:Performed By: #### CBC, CMP #### [facility] ([id number]) [address] [place] [address], [place] [id number] [Catalytic activity/Vol]53 U/EGatfpx03-878YjbVtspsfChristus Spohn Hospital Corpus Christi – ShorelineComment on above:Performed By: #### CBC, CMP #### [facility] ([id number]) [address] [place] [address], [place] [address]OQK [Catalytic activity/Vol]13 U/LNormal0-31PGalion Community HospitalComment on above:Performed By: #### CBC, CMP #### [facility] ([id number]) [address] [place] [address], [place] [address]Dvwou gap [Moles/Vol]11 mmol/LNormal5-15ProChristus Spohn Hospital Corpus Christi – ShorelineComment on above:Performed By: #### CBC, CMP #### [facility] ([id number]) [address] [place] [address], [place] [address]RDS [Catalytic activity/Vol]20 U/LNormal0-41ProChristus Spohn Hospital Corpus Christi – ShorelineComment on above:Performed By: #### CBC, CMP #### [facility] ([id number]) [address] [place] [address], [place] [address]Thmefacrp [Mass/Vol]0.2 mg/dLLow0.3-1.2PGalion Community HospitalComment on above:Performed By: #### CBC, CMP #### [facility] ([id number]) [address] [place] [address], [place] [address]Lrdoolm [Mass/Vol]8.5 mg/dLNormal8.5-10.5PGalion Community HospitalComment on above:Performed By: #### CBC, CMP #### [facility] ([id number]) [address] [place] [address] 55351Cqtwxvif [Moles/Vol]102 mmol/CKmtfuv06-581CsdCuwejkChristus Spohn Hospital Corpus Christi – ShorelineComment on above:Performed By: #### CBC, CMP #### [facility] ([id number]) [address] [place] [address] 01512RP9 [Moles/Vol]21 mmol/PCwc81-11NnvYdwnuaGalion Community Hospital Comment on above:Performed By: #### CBC, CMP #### [facility] ([id number]) [address] [place] [address] 41525Ieqnkdwdeu [Mass/Vol]0.54 mg/dLNormal0.40-1.00Green Cross HospitalComment on above:Result Comment: METHOD TRACEABLE TO IDMS STANDARD Performed By: #### COLETTE, CMP #### [facility] ([id number]) [address] [place] [address] 21003mRKY (CKD-EPI) NON-RACE DEPENDENT>90Normal>59ProChristus Spohn Hospital Corpus Christi – ShorelineComment on above:Result Comment: Reported eGFR is based on the CKD-EPI 2020 equation that does not use a race coefficient.Performed By: #### CBC, CMP #### [facility] ([id number]) [address] [place] [address] 65056Qwavwmi [Mass/Vol]85 mg/zJAwaaqg27-77MkpEpywcaGreen Cross Hospital Comment on above:Performed By: #### CBC, CMP #### [facility] ([id number]) [address] [place] [address] 74811Pmpyyjhcf [Moles/Vol]3.4 mmol/LLow3.5-5.0Green Cross HospitalComment on above:Performed By: #### CBC, CMP #### [facility] ([id number]) [address] [place] [address] 49845Rebmvjh [Mass/Vol]6.3 g/dLNormal6.0-8.0ProChristus Spohn Hospital Corpus Christi – ShorelineComment on above:Performed By: #### CBC, CMP #### [facility] ([id number]) [address] [place] [address] 73464Wucbqg [Moles/Vol]134 mmol/BGgcpcz007-928PtvLpwcdc [facility]remont HospitalComment on above:Performed By: #### CBC, CMP #### [facility] ([id number]) [address] [place] [address] 74256Nmuy nitrogen [Mass/Vol]8 mg/dLNormal5-23ProChristus Spohn Hospital Corpus Christi – ShorelineComment on above:Performed By: #### CBC, CMP #### [facility] ([id number]) [address] [place] [address] [place] [address]GYTM SCREEN, URINEon 56-28-6118TMZIUJOLUYP/METHAMPNegative NormalNEGGreen Cross HospitalComment on above:Result Comment: AMPH/METH screening cut off = 1000 ng/mLPerformed By: #### DSU #### [facility] ([id number]) [address] [place] [address] 15464NAOWSXXMVQCIKpqaldwjXxtwqiVIXJcyRbnidt [facility]ont HospitalComment on above:Result Comment: Barbiturates screening cut off value = 200 ng/mL Performed By: #### DSU #### [facility] ([id number]) [address] [place] [address] [place] [address]CSYBWDHBGAYCNVHUkapkcylHhpelkBDHSjrWvolik [facility] Comment on above:Result Comment: Benzodiazepines screening cut off value = 200 ng/mLPerformed By: #### DSU #### [facility] ([id number]) [address] [place] [address], [place] [address]WGXXOMVHBXZHRjttfxmcYpyfsqUGXMdbDmidsp [facility]ont HospitalComment on above:Result Comment: Cannabinoids/THC screening cut off value = 50 ng/mL Performed By: #### DSU #### [facility] ([id number]) [address] [place] [address], [place] [address]AEMUYCH METABOLITENegativeNocarolinas continuecare hospital at kings mountainNEGGreen Cross Hospital Comment on above:Result Comment: Cocaine screening cut off value = 300 ng/mL Performed By: #### DSU #### [facility] ([id number]) [address] [place] [address] [place] [address]QNTKZECZuaqyacwWuuswnFBWFruXwkshm [facility]ont HospitalComment on above:Result Comment: Ecstasy screening cut off value = 500 ng/mL This report is intended for use in clinical monitoring or management of patients.Performed By: #### DSU #### [facility] ([id number]) [address] [place] [address], [place] [address]CVFMKNZNNMdsamsisBptuqxCHQSyhNkrcjn [facility]ont HospitalComment on above:Result Comment: Methadone screening cut off value = 300 ng/mL.Performed By: #### DSU #### [facility] ([id number]) [address] [place] [address] [place] [address]YKYYOURLlnzhefdXmcuodBHBKlhEmnzxv [facility]remont HospitalComholland hospital on above:Result Comment: Opiates screening cut off value = 300 ng/mL NOTE: This test is used for the detection of codeine, hydrocodone (>1000 ng/mL), morphine and hydromorphone (>900 ng/mL) in urine.Performed By: #### DSU #### [facility] ([id number]) [address] [place] [address], [place] [address]CQRKJCPSAUatwqkrqLaiemiYROHmvNnekjr [facility]remont HospitalComment on above:Result Comment: Oxycodone screening cut off value = 300 ng/mL NOTE: This test is used for the detection of oxycodone and oxymorphone in urine.Performed By: #### DSU #### [facility] ([id number]) [address] [place] [address] 6[address]SPHNPIYPCMFSDFdbmkifvWzxdgaVZMTeyDvsnoy [facility]remont HospitalComment on above:Result Comment: Phencyclidine screening cut off value = 25 ng/mL Performed By: #### DSU #### [facility] ([id number]) [address] [place] [address] 46046U. pyogenes Ag Ql (Throat)on 01-40-7729YXVPZH STREP ANegative NormalNEGProChristus Spohn Hospital Corpus Christi – ShorelineComholland hospital on above:Performed By: #### 83507-0 #### [facility] ([id number]) [address] [place] [address], [address] [place] [address] #### 69645-4 #### [facility] ([id number]) [address] [place] [address] 37230L. pyogenes DNA GHAZALA+probe Nom (Unsp spec)on 15-05-3743NMHNX PCR THROATNegativeNormalNEGProChristus Spohn Hospital Corp[facility] Christi – ShorelineComholland hospital on above:Result Comment: Streptococcus Group A NOT detected by nucleic acid amplification.Performed By: #### 83892-8 #### [facility] ([id number]) [address] [place] [address], [address] [place] [address] #### 17809-9 #### [facility] ([id number]) [address] [place] [address] 01759QCHS/FLU A+B/RSV by NAAT/Molecularon 29-00-6851LKPL/FLU A+B/RSV by NAAT/MolecularFLU A PCR Negative (qualifier value) FLU B [...] operators who are performing tests using either [employer] or [employer] systems and is limited to laboratories that [...] specimen repeat. Fact Sheet for Healthcare Providers: https://www.fda.gov/media/076304/download Fact Sheet for Patients: https://www.fda.gov/media/470592/downloadNormalProMedica El Centro Regional Medical CenterComment on above:Performed By: #### COVFLR #### [facility] ([id number]) [address] [place] [address] [place] [address]XFRWDGWPBYej 82-73-0366Ntxjsldjg Ql (U)NegativeNormalNEG [facility] Medical CenterComment on above:Performed By: #### UA #### [facility] ([id number]) [address] [place] [address], [place] [address]ZMYQV/HGBNegativeNormalNEGGreen Cross HospitalComment on above:Performed By: #### UA #### [facility] ([id number]) [address] [place] [address], [place] [address]Bjxmd (U)YELLOWNormalYELLOWGreen Cross HospitalComment on above:Performed By: #### UA #### [facility] ([id number]) [address] [place] [address], [place] [address]Kpdshir Ql (U)NegativeNormalProtestant Deaconess Hospital Comment on above:Performed By: #### UA #### [facility] ([id number]) [address] [place] [address], [place] [address]Mzzaaht Ql (U)NegativeNormalProtestant Deaconess Hospital Comment on above:Performed By: #### UA #### [facility] ([id number]) [address] [place] [address], [place] [address]Fjflflfvc esterase Test strip Ql (U)TraceAbnormalProtestant Deaconess HospitalComment on above:Performed By: #### UA #### [facility] ([id number]) [address] [place] [address], [place] [address]Fkwmypb Ql (U)NegativeNormalProtestant Deaconess Hospital Comment on above:Performed By: #### UA #### [facility] ([id number]) [address] [place] [address], [place] [address]nP (U)6.0 [pH]Normal5.0-8.5ProMedica [facility] Centro Regional Medical CenterComment on above:Performed By: #### UA #### [facility] ([id number]) [address] [place] [address], [place] [address]Lhusowv Ql (U)NegativeNormalProtestant Deaconess Hospital Comment on above:Performed By: #### UA #### [facility] ([id number]) [address] [place] [address] 57272Y.B.CELLS0 /hpfNormal0-5PGalion Community HospitalComment on above:Performed By: #### UA #### [facility] ([id number]) [address] [place] [address] 23333Igeelzew gravity (U) [Rel density]1.215Yylxcr3.003-1.035 Pro[facility] Cent[facility] Regional Medical CenterComment on above:Performed By: #### UA #### [facility] ([id number]) [address] [place] [address] 12255MWUAKCOS EPITHELIUM6 /hpfHigh0-[address] [place] [address] Comment on above:Performed By: #### UA #### [facility] ([id number]) [address] [place] [address] 85775QMBKXZLBXVZFRXKaswtsXEEKXNwrEesggb [facility]ont HospitalComment on above:Performed By: #### UA #### [facility] ([id number]) [address] [place] [address] 540[address]Hgyipupmffne Qn (U)0.2 {Kyra'U}/dLNormal<1.1PGalion Community HospitalComment on above:Performed By: #### UA #### [facility] ([id number]) [address] [place] [address] 99442J.B.CELLS1 /hpfNormal0-5PGalion Community HospitalComment on above:Performed By: #### UA #### [facility] ([id number]) [address] [place] [address] 669[address]ENTIT CULTUREon 96-08-9248Kwhlzmux identified Cx Nom (U)CULTURE RESULTS 10-50,000 ORGANISMS/mL NORMAL UROGENITAL [facility]ARiver[facility] Comment on above:Performed By: #### 630-4 #### [facility] ([id number]) [address], [address] [place], [place] [address]SD RETROPERITONEAL COMPLETEon 27-60-2783OJ RETROPERITONEAL COMPLETEUS RETROPERITONEAL COMPLETE COMPLETE RETROPERITONEAL ULTRASOUND CLINICAL STATEMENT: [...] Lit Leonard DO on 12/27/2023 2:19 PM I, Donte Rey MD have personally reviewed the image(s) and agree with and/or edited the report Finalized by Donte Rey MD on 12/27/2023 2:34 PMNormalProKettering Healthca El Centro Regional Medical CenterHCG ( test) Ql (U)on 44-51-4142Ngbogzbncnvtkq and review of laboratory resultsAbnormalNOColumbia Regional HospitalPreg Test, UrPositiveNOColumbia Regional Hospital NOMS HealthcareUS RETROPERITONEAL COMPLETEon 71-23-7940LJ RETROPERITONEAL COMPLETEUS RETROPERITONEAL COMPLETE HISTORY: A 27-year-old female with [...] by Renny York MD on 09/21/2023 10:14 AMNormalProMedica El Centro Regional Medical CenterHCG ( test) Ql (U)on 99-37-7736Igqo HCG ( test) Ql (U) NegativeNormalNEGProElyria Memorial HospitalComment on above:Result Comment: TEST PERFORMED AT [facility] [address] [facility] [address] Vital Signs Date TimeVital SignValuePerforming WnizkdbbtUguybvjl03-00-6749 10:45-0400Body mass index (BMI) [Ratio]41.1 kg/k3MkyqwvvSteve ROBLES Work Phone: [facility] HospitalLgyaafuugc86-40-3503 10:45-0400Body xvxfro118.23 kgAltavistaelmo Stover [facility] Work Phone: [facility] HospitalRqumbubgde25-74-9601 10:45-0400Diastolic blood salbdykg81 mm[Hg]Steve Floro CNM Work Phone: [phone] [address]-30-2025 10:45-0400Systolic blood vwrdwivo064 mm[Hg]Steve Floro CNM Work Phone: [phone] [address]-24-2025 14:49-0400Diastolic blood ntdavefa41 mm[Hg]Steve Floro CNM Work Phone: [phone])[address] [place] [address]-24-2025 14:49-0400Systolic blood rjpsvrze928 mm[Hg]Setve Floro CNM Work Phone: [phone])[address] [place] [address]-21-2025 11:37-0400Body mass index (BMI) [Ratio]43.75 kg/b5Zizbfsu Floro CNM Work Phone: [phone])[address] [place] [address]-21-2025 11:37-0400Body xmejqt660.04 kgValerie Floro CNM Work Phone: [phone])[address] [place], [place] 7955604-21-2025 11:37-0400Diastolic blood xiwcjlvi59 mm[Hg]Steve Floro CNM Work Phone: [phone])[address] [place] [address]-21-2025 11:37-0400Systolic blood dxittxwr753 mm[Hg]Steve Floro CNM Work Phone: [phone])[address] [place] [address]-16-2025 10:33-0400Body mass index (BMI) [Ratio]45.53 kg/v0Faklxqt Floro CNM Work Phone: 1(522)[address] [place] [address]-16-2025 10:33-0400Body jizxhf385.57 kgValerie Floro CNM Work Phone: [phone])[address] [place] [address]-16-2025 10:33-0400Diastolic blood maolkmvf874 mm[Hg]Steve Floro CNM Work Phone: [phone] [place], [place] [address]Comment on above:recheck 150/100 07-01-2024 10:33-0400Systolic blood ajcwasyq539 mm[Hg]Steve Floro CNM Work Phone: noMO HealthcareComment on above:recheck 150/100 06-26-2024 09:52-0400Body .6 Sandra Mota MD Work Phone: [facility]04-11-2025 09:52-0400Body mass index (BMI) [Ratio]44.5 kg/r9TosmxJackie Mota MD Work Phone: [facility]04-11-2025 09:52-0400Body pbvxwixmcrk23.9 [degF]Jackie Mota MD Work Phone: [facility]04-11-2025 09:52-0400Body hguglq793.66 kgJackie Mota MD Work Phone: [facility]04-11-2025 09:52-0400Diastolic blood rtcdpwif05 mm[Hg]Jackie Mota MD Work Phone: [facility]04-11-2025 09:52-0400Heart rate 81 /minJackie Mota MD Work Phone: [facility]04-11-2025 09:52-0400 Respiratory rate20 /minJackie Mota MD Work Phone: [facility]04-11-2025 09:52-4765RjF3% (BldA) [Mass fraction]100 %Jackie Mota MD Work Phone: [facility]04-11-2025 09:52-0400Systolic blood acdrmdzl075 mm[Hg]Jackie Moat MD Work Phone: [facility]04-09-2025 11:35-0400Body mass index (BMI) [Ratio]45.53 kg/u5WlfbrvaSteve ROBLES Work Phone: [facility] HospitalMmndznhkph90-13-4346 11:35-0400Body .57 kgSteve ROBLES Work Phone: [facility] HospitalPshoytwrvf62-17-7296 11:35-0400Diastolic blood uexdxcte37 mm[Hg]Steve Floro CNM Work Phone: [facility] HospitalMxlsaltxwg63-33-0619 11:35-0400Systolic blood ucqczjpr032 mm[Hg]Steve Floro CNM Work Phone: [facility] HospitalKfsjqghhaq55-30-8392 10:55-0400Body mass index (BMI) [Ratio]45.7 kg/a2Izdnasx Vielkao CNM Work Phone: [phone] HospitalRvlmzehxnk30-73-9107 10:55-0400Body pyfbav992.03 kgValerie Floro CNM Work Phone: [phone] HospitalKcepldrxie74-97-7183 10:55-0400Diastolic blood oceliztv89 mm[Hg]Steve Floro CNM Work Phone: [facility] HealthcareComment on above:142/ 10:55-0400Systolic blood tgsokolg930 mm[Hg]Steve Floro CNM Work Phone: [phone] HealthcareComment on above:142/ 10:50-0400Body mass index (BMI) [Ratio]45.17 kg/j2Bjmbfqi Vielkao CNM Work Phone: [facility] HospitalOsctjmhotq27-44-4748 10:50-0400Body .67 kgGwendolynrie Vielkao CNM Work Phone: [phone] HospitalKxmbitbagh17-08-3042 10:50-0400Diastolic blood dzszkujh93 mm[Hg]Steve Floro CNM Work Phone: [phone] HospitalNbjttdvzns89-51-9103 10:50-0400Systolic blood cxsmzdod388 mm[Hg]Steve Floro CNM Work Phone: [facility] HospitalTxooqsxhfu29-43-7524 09:33-0500Body mass index (BMI) [Ratio]42.51 kg/p9Kyfmgha Floro CNM Work Phone: [phone] HospitalNhkdkfyvnz11-97-2487 09:33-0500Body zlucej166.86 kgSteve Stover CNM Work Phone: [facility] HospitalYsqfogamyw45-12-4112 09:33-0500Diastolic blood fpngdemy88 mm[Hg]Steve Vorao CNM Work Phone: [facility] HospitalCkutdafybs76-46-3003 09:33-0500Systolic blood tmynvmas436 mm[Hg]Steve Vorao CNM Work Phone: [facility] HospitalNqnowugnbj03-65-3299 16:18-0500Body .6 cmDonte Villatoro MD Work Phone: [facility]01-13-2025 16:18-0500Body mass index (BMI) [Ratio]39.99 kg/v7VcdhpfiDonte Villatoro MD Work Phone: [facility]01-13-2025 16:18-0500Body kipwpu665.69 kgDonte Villatoro MD Work Phone: [phone]01-13-2025 16:18-0500Diastolic blood ugujfyrp01 mm[Hg]Donte Villatoro MD Work Phone: [facility]01-13-2025 16:18-0500Heart rate 79 /minDonte Villatoro MD Work Phone: [facility]01-13-2025 16:18-0500Systolic blood reafblpj662 mm[Hg]Donte Villatoro MD Work Phone: [facility]01-02-2025 09:52-0500Body mass index (BMI) [Ratio]41.81 kg/r4GtxphxySteve Vorao CNM Work Phone: [facility] HospitalVcpifkbkkw35-44-9814 09:52-0500Body fqooyg617.05 kgSteve Stover CNM Work Phone: [facility] HospitalTyluwmdyhi76-27-7007 09:52-0500Diastolic blood dyizpcig03 mm[Hg]Steve Stover CNM Work Phone: [phone] HospitalImnvfxeixm71-15-2737 09:52-0500Systolic blood enbdxwtq734 mm[Hg]Stvee Floro CNM Work Phone: [phone] HospitalPznzuucpwx87-13-4444 09:09-0500Body mass index (BMI) [Ratio]40.21 kg/o6Nolfnkr Floro CNM Work Phone: [phone] HospitalVcterfmike42-70-5132 09:09-0500Body .97 kgValerie Floro CNM Work Phone: [phone] [place], [place] [address]Rystaufrzx59-13-2207 09:09-0500Diastolic blood ggztzyou48 mm[Hg]Steve Floro CNM Work Phone: 1([phone] [place], [place] [address]Ralwpgyqaq35-12-8171 09:09-0500Systolic blood hqqivjfk560 mm[Hg]Steve Floro CNM Work Phone: [phone] [place], [place] [address]Gxtfzemlgi65-23-3580 10:04-0400Body mass index (BMI) [Ratio]39.33 kg/b7Myjmblc Floro CNM Work Phone: [phone] [place], [place] [address]Ssgxkicsau43-16-9704 10:04-0400Body zslahf070.7 kgValerie Floro CNM Work Phone: [phone] [place], [place] [address]Qoiznnoyss89-16-6733 10:04-0400Diastolic blood ykkldnjq11 mm[Hg]Steve Floro CNM Work Phone: [phone] HospitalMfxzaeznos16-91-2916 10:04-0400Systolic blood mm[Hg]Steve Floro CNM Work Phone: [phone]09-04-2024 11:14-0400Diastolic blood fopaezsn00 mm[Hg]Steve Floro CNM Work Phone: [phone] [place], [place] [address]Adcaoedskf78-05-2330 11:14-0400Systolic blood kystclht177 mm[Hg]Steve Floro CNM Work Phone: 1(675)315-[address] [place], [place] [address]Gecbtjdcog04-64-7965 15:00-0400Body ysdejf086.6 cmDonte Villatoro MD Work Phone: [facility]08-05-2024 15:00-0400Body mass index (BMI) [Ratio]38.11 kg/a6OcjqvgaDonte Villatoro MD Work Phone: [facility]08-05-2024 15:00-0400Body izxiql855.7 kgDonte Villatoro MD Work Phone: [facility]08-05-2024 15:00-0400Diastolic blood moclsrfc58 mm[Hg]Donte Villatoro MD Work Phone: [facility]08-05-2024 15:00-0400Heart rate 65 /minDonte Villatoro MD Work Phone: [facility]08-05-2024 15:00-0400Systolic blood aklvemaq165 mm[Hg]Donte Villatoro MD Work Phone: [facility]05-21-2024 15:29-0400Body yyftnx246.[address]05-21-2024 15:29-0400Body mass index (BMI) [Ratio]38.11 kg/t0Ggzgj [address] [place], [place] 1194705-21-2024 15:29-0400Body orytui845.7 kgOrange Regional Medical Centerro [address] [place], [place] 1194705-15-2024 14:09-0400Body height 162.6 cmDonte Villatoro MD Work Phone: [facility]05-15-2024 14:09-0400Body mass index (BMI) [Ratio]38.11 kg/g2RgubrldDonte Villatoro MD Work Phone: [facility]05-15-2024 14:09-0400Body algtei084.7 kgDonte Villatoro MD Work Phone: [facility]05-15-2024 14:09-0400Diastolic blood xgzlansl70 mm[Hg]Donte Villatoro MD Work Phone: [facility]05-15-2024 14:09-0400Heart rate 58 /minDonte Villatoro MD Work Phone: [facility]05-15-2024 14:09-0400Systolic blood mm[Hg]Donte Villatoro MD Work Phone: [facility]07-27-2023 13:56-0400Body .48 cmAimeanthony Parks CNP Work Phone: [facility] Work Phone: 1(406) 524-226507-27-2023 13:56-0400Body mass index (BMI) [Ratio]43.5 kg/d9Fbedkcheikh Parks CNP Work Phone: [facility] Work Phone: 1(189) 988-234707-27-2023 13:56-0400Body surface area Derived from formula2.1 u6QvccqAdelaida Parks CNP Work Phone: [facility] Work Phone: 1(739) 773-554707-27-2023 13:56-0400Body psdhxazqvtc87.4 [degF]Adelaida Parks CNP Work Phone: [facility] Work Phone: 1(685) 452-266807-27-2023 13:56-0400Body .96 kgAicheikh Parks CNP Work Phone: [facility] Work Phone: 1(965) 552-321007-27-2023 13:56-0400Diastolic blood ioerandf19 mm[Hg] Adelaida Parks CNP Work Phone: [facility] Work Phone: 1(128) 181-154907-27-2023 13:56-0400Heart rate78 /minAdelaida Parks CNP Work Phone: [facility] Work Phone: 1(596) 250-142307-27-2023 13:56-2023ZdQ3% (BldA) [Mass fraction]98 % Adelaida Parks CNP Work Phone: [facility] Work Phone: 1(714) 390-982507-27-2023 13:56-0400Systolic blood gelfyzem432 mm[Hg] Adelaida Parks [employer] Work Phone: [facility] Work Phone: 1(864) 110-413807-05-2023 17:02-0400Diastolic blood jnjbmsaq82 mm[Hg] Adelaida Parks [employer] Work Phone: [facility] Work Phone: 1(170) 343-247407-05-2023 17:02-0400Heart rate71 /minAdelaida Parks [employer] Work Phone: [facility] Work Phone: 1(407) 739-766207-05-2023 17:02-0400Systolic blood aroesygs263 mm[Hg] Adelaida Parks [employer] Work Phone: [facility] Work Phone: 1(261) [phone] 16:33-0400Diastolic blood mhjprizv24 mm[Hg] Adelaida Parks [employer] Work Phone: [facility] Work Phone: 1(358) [phone] 16:33-0400Systolic blood bknjafau063 mm[Hg] Adelaida Parks [employer] Work Phone: [facility] Work Phone: 1(895) 801-304006-27-2023 16:29-0400Body svyezo649.48 cmAimeanthony Parks [employer] Work Phone: [facility] Work Phone: 1(543) 402-999106-27-2023 16:29-0400Body mass index (BMI) [Ratio]43.9 kg/c8XsurdAdelaida Parks [employer] Work Phone: [facility] Work Phone: 1(459) [phone] 16:29-0400Body surface area Derived from formula2.1 k0Ujdozcheikh Parks [employer] Work Phone: [facility] Work Phone: 1(973) 641-957506-27-2023 16:29-0400Body ujuzlsgxocf94.6 [degF]Adelaida Parks CNP Work Phone: [facility] Work Phone: 1(396) [phone] 16:29-0400Body .86 kgAicheikh Parks CNP Work Phone: [facility] Work Phone: 1(244) [phone] 16:29-0400Diastolic blood kxuvtfrr82 mm[Hg] Adelaida Parks CNP Work Phone: [facility] Work Phone: 1(397) [phone] 16:29-0400Heart rate68 /minAdelaida Parks CNP Work Phone: [facility] Work Phone: 1(225) [phone] 16:29-3871QzH1% (BldA) [Mass fraction]98 % Adelaida Parks CNP Work Phone: [facility] Work Phone: 1(623) 409-490906-27-2023 16:29-0400Systolic blood wggzacym870 mm[Hg] Adelaida Parks CNP Work Phone: [facility] Work Phone: 1(102) 502-819405-24-2023 17:13-0400Body auepgj891.48 cmAimeanthony Parks CNP Work Phone: [facility] Work Phone: 1(750) 750-583705-24-2023 17:13-0400Body mass index (BMI) [Ratio]43.2 kg/v4YwuqwAdelaida Parks CNP Work Phone: [facility] Work Phone: 1(754) 449-884405-24-2023 17:13-0400Body surface area Derived from formula2.1 p7Rtsdq Kasey CARRIAGE [employer]GGER Work Phone: [facility] Work Phone: 1(239) 725-427905-24-2023 17:13-0400Body vqcaiaqetph44.4 [degF]Adelaida Parks [employer] Work Phone: [facility] Work Phone: 1(776) 667-422105-24-2023 17:13-0400Body hohhqz863.05 kgAicheikh Parks [employer] Work Phone: [facility] Work Phone: 1(614) 293-530105-24-2023 17:13-0400Diastolic blood ckhfzsdy37 mm[Hg] Adelaida Parks [employer] Work Phone: [facility] Work Phone: 1(280) 280-650205-24-2023 17:13-0400Heart aawp774 /minAdelaida Parks [employer] Work Phone: [facility] Work Phone: 1(519) 587-834205-24-2023 17:13-6909DkB0% (BldA) [Mass fraction]98 % Adelaida Parks [employer] Work Phone: [facility] Work Phone: 1(312) 297-426705-24-2023 17:13-0400Systolic blood xsczoyqj209 mm[Hg] Adelaida Parks [employer]GG[employer] Work Phone: [facility] Work Phone: Encounters Encounter DateEncounter TypeCare ProviderFacilityStart: 01-69-1874fifhoalhbx Tigist Beltran LueFacility:EU [place]Start: 01-20-2025 End: 79-95-5985fbzluqeknkThmsp M. LueFacility:EU [place]Start: 01-20-2025 End: 27-00-6789Vnsxkyq encounter procedureTigist Blount [facility] start: 10-12-2024 End: 15-17-0391ikgacbeobaHneem M. LueFacility:FTMCStart: 10-07-2024 End: 10-18-4255uhioyszjsyUipex M. LueFacility:CD:[id number]: 09-24-2024 End: 21-33-1605gwvmoevtowMkurl MTae LueFacility:EU [place]art: 09-24-2024 End: 01-75-5914Ldgkydj encounter procedureTigist Blount [facility] Start: 84-02-3410fzopjgcfcpZlarh LueFacility:EU [place]Start: 09-21-2024 End: 20-88-8952Gdmksoskh encounterMichelthai Roberson RMAProMedica Physicians Genito- Urinary SurgeonsStart: 09-16-2024 End: 24-30-5053Fbcdcqdps department patient visitNO PCP NO PCPProMedica Fresno Heart & Surgical Hospitaltart: 07-15-2024 End: 91-77-4237Tvcoeq outpatient visit 15 minutesValerie L Floro CNM Work Phone: N[facility] FNR OBComment on above:Elevated blood pressure affecting in third trimester, antepartum (Primary Dx)Start: 07-09-2024 End: 38-22-2248heaknsqxvtDnbnltj L Floro CNM Work Phone: [facility] OBGYNComment on above:Elevated blood pressure affecting in third trimester, antepartum (HHS-HCC) (Primary Dx)Start: 07-06-2024 End: 42-66-1013Rqbjbs outpatient visit 15 minutesValerie L Floro CNM Work Phone: NOYN FNR OBComment on above:Elevated blood pressure affecting in third trimester, antepartum (Primary Dx)Start: 07-03-2024 End: 46-11-7457Cgstnvebz Result EncounterValerie L Floro CNM Work Phone: NORS External Department UnsolicitedStart: 07-03-2024 End: 50-48-7522Hsmjtnzeo Result EncounterValerie Ian Vorao CNM Work Phone: noms External Department UnsolicitedStart: 07-01-2024 End: 47-68-9663Zfpcus flowsheetValerie L Floro CNM Work Phone: noms FNR OBStart: 07-01-2024 End: 19-47-1956Ewmjfb flowsheetValerie L Floro CNM Work Phone: noms FNR OBStart: 07-01-2024 End: 05-62-6607Ukpmnuxhu Result EncounterValerie Ian Floro CNM Work Phone: noms External Department UnsolicitedStart: 07-01-2024 End: 79-10-9383Tlyttx outpatient visit 15 minutesValerie Ian Vorao CNM Work Phone: noms FNR OBComment on above:Encounter for care of first , third trimester (Primary Dx); Low platelet count (CMS/HCC); History of COVID-19; Elevated blood pressure affecting in third trimester, antepartumStart: 06-26-2024 End: 18-46-8496Xawihyzfglvai procedureContreras CaraballoHelen [facility] - Medical OncologyStart: 06-26-2024 End: 70-96-9033nwhzsdftmvVDHJR N [facility] Dublintart: 06-26-2024 End: 65-47-3302Fclzpm outpatient new 60 Debbie Mota MD Work Phone: [facility] - Medical OncologyComment on above:Thrombocytopenia affecting (Primary Dx); Normocytic anemiaStart: 06-24-2024 End: 68-62-2502Kpnibx flowsheetValerie L Floro CNM Work Phone: noms FNR OBStart: 06-24-2024 End: 51-81-9535Dkztaf flowsheetValerie L Floro CNM Work Phone: noms FNR OBStart: 06-24-2024 End: 80-90-7542Lhjief outpatient visit 15 minutesValerie L Floro CNM Work Phone: noms FNR OBComment on above:Encounter for care of first , third trimester (Primary Dx); Low platelet count (CMS/HCC)Start: 06-17-2024 End: 56-21-2946Ssnpol flowsheetValerie L Floro CNM Work Phone: noms FNR OBStart: 06-17-2024 End: 29-26-3078Hacubu flowsheetValerie L Floro CNM Work Phone: noms FNR OBStart: 06-17-2024 End: 74-31-5698Moznnglcj Result EncounterValerie L Floro CNM Work Phone: noms External Department UnsolicitedStart: 06-17-2024 End: 09-19-8127Ceofvg outpatient visit 15 minutesValerie L Floro CNM Work Phone: noms [facility] OBGYNComment on above:Acute cystitis with hematuria (Primary Dx); Hematuria, unspecified typeStart: 06-10-2024 End: 48-23-3137Ilkckc flowsheetValerie L Floro CNM Work Phone: noms FNR OBStart: 06-10-2024 End: 51-81-0195Eojuuf flowsheetValerie L Floro CNM Work Phone: noms FNR OBStart: 06-10-2024 End: 50-00-5927Kveocg outpatient visit 15 minutesValerie L Floro CNM Work Phone: noms FNR OBComment on above:Encounter for care of first , third trimester (Primary Dx)Start: 05-13-2024 End: 40-67-4448Zjyhrm flowsheetValerie L Floro CNM Work Phone: noms FNR OBStart: 05-13-2024 End: 74-76-1043Dmxxxj flowsheetValerie L Floro CNM Work Phone: [facility] FNR OBStart: 04-16-2024 End: 48-44-7177Rnvwob flowsheetValerie L Floro CNM Work Phone: [facility] FNR OBStart: 04-16-2024 End: 68-75-9232Boditv flowsheetValerie L Floro CNM Work Phone: [facility] FNR OBStart: 04-16-2024 End: 62-15-0686Nqdlac outpatient visit 15 minutesValerie L Floro CNM Work Phone: [facility] FNR OBComment on above:Encounter for care of first , third trimester (Primary Dx); Screening for diabetes mellitus (DM); Screening for iron deficiency anemia; related condition in third trimesterStart: 03-30-2024 End: 82-23-6446Xrqiqz outpatient visit 15 Vidya Villatoro MD Work Phone: [facility] Genito-Urinary SurgeonsComment on above:Nephrolithiasis (Primary Dx); Mineral metabolism disorderStart: 03-30-2024 End: 63-49-9876bahxyyiqufJLBSNDO G RASHIDHolzer Medical Center – [facility] Ambulatory PPGStart: 03-19-2024 End: 19-88-6001Eglptg flowsheetValerie L Floro CNM Work Phone: [facility] FNR OBStart: 03-19-2024 End: 53-23-7913Klexmc flowsheetValerie L Floro CNM Work Phone: [facility] FNR OBStart: 03-19-2024 End: 40-33-6492Azchej outpatient visit 15 minutesValerie L Floro CNM Work Phone: NOM[facility] FNR OBComment on above:Encounter for care of first , second trimester (Primary Dx); History of COVID-19Start: 03-03-2024 End: 55-66-1693Rjpypwbys encounterValerie L Floro CNM Work Phone: [facility] FNR FMStart: 03-02-2024 End: 26-27-5886zawzbqusehYPWWX Cindy [facility]ITALSHANDAUC Health HospitalStart: 02-11-2024 End: 31-49-4923Zijyek outpatient visit 15 minutesValerie L Floro CNM Work Phone: noms FNR OBComment on above:Encounter for care of first , second trimester (Primary Dx)Start: 01-16-2024 End: 97-25-5663Tgrcol flowsheetValerie L Floro CNM Work Phone: [facility] FNR OBStart: 01-16-2024 End: 00-04-4551Qcyyjb flowsheetValerie L Floro CNM Work Phone: noms FNR OBStart: 01-16-2024 End: 66-43-8760Tbupsz outpatient visit 15 minutesValerie L Floro CNM Work Phone: noms FNR OBComment on above:Encounter for care of first , second trimester (Primary Dx); related condition in second trimesterStart: 12-26-2023 End: 74-94-7006oanubxqnqzHEEAXRP G. RASHIDUC Health HospitalStart: 11-20-2023 End: 01-52-5398Npwcpg flowsheetValerie L Floro CNM Work Phone: noms FNR OBStart: 11-20-2023 End: 41-18-2340Euscfa flowsheetValerie L Floro CNM Work Phone: noms FNR OBStart: 11-20-2023 End: 29-22-1891Uwmpjm outpatient visit 15 minutesValerie L Floro CNM Work Phone: noms FNR OBComment on above: examination or test, positive result; AmenorrheaStart: 10-23-2023 End: 85-79-7185Hrzmchevc encounterCiara BarrientesProMedica Physicians Genito- Urinary SurgeonsStart: 10-21-2023 End: 51-83-9354Xcxhqg outpatient visit 15 minutesDonte Villatoro MD Work Phone: [facility] Genito-Urinary SurgeonsComment on above:Mineral metabolism disorder (Primary Dx); NephrolithiasisStart: 10-21-2023 End: 56-25-4629ezzxenfzvkMKIDNFQ John DELMISIDProMedica [facility] Start: 09-20-2023 End: 05-72-8057vmyurdqhfhUZAKOYS John. RASHGENEProMedica Saucier HospitalStart: 08-20-2023 End: 68-15-0115Futejnuuh encounterDonte Villatoro MD Work Phone: [facility]Urinary SurgeonsStart: 08-20-2023 End: 24-98-4309Ioipdezpdf and management of inpatientMICHAEL G. RASHIDProMedica Carbajal HospitalStart: 08-09-2023 End: 55-85-5473Sgiqqnewu encounterDonte Villatoro MD Work Phone: [facility] HospitalMed[facility]icians Genito-Urinary SurgeonsStart: 08-09-2023 End: 60-78-8528Sdfcotvheg and management of inpatientROBERT C FRIESSProMedica Teague HospitalStart: 08-09-2023 End: 04-49-8792Evicxyfgrq and management of inpatientMICHAEL John. RASHIDProMedica Teague HospitalStart: 08-06-2023 End: 44-07-9712Xspwdxnmkt and management of inpatientNO PCP NO PCPProMedica Teague HospitalStart: 08-05-2023 End: 84-72-2669Scvjgsufw to establishmentMetro Pat Phone Call Provider 3 ProM[facility]art: 07-31-2023 End: 44-85-2291Ardpzz outpatient new 45 minutesDonte Villatoro MD Work Phone: [facility]ito-Urinary SurgeonsComment on above:Nephrolithiasis (Primary Dx)Start: 07-31-2023 End: 71-40-7835Quifaiykq encounterDonte Villatoro MD Work Phone: [facility] HospitalMedica [facility]icians Genito-Urinary SurgeonsStart: 07-31-2023 End: 26-92-3147ysympmshtcSNTISPU G [facility] Ambulatory PPGStart: 10-11-2022 End: 58-92-2926RMLM visit, dustin GOODWS Work Phone: [facility] Work Phone: Start: 09-19-2022 End: 78-27-8262FziobrqJctffb Rahman DDS Work Phone: [facility] Work Phone: Start: 09-11-2022 End: 37-11-0927JQNF visit, dustin Perdue LISWS Work Phone: [facility] Work Phone: Start: 08-08-2022 End: 79-54-5685AvbeyscAcqzwn Rahman DDS Work Phone: [facility] Work Phone: Start: 08-08-2022 End: 68-41-2106Qkrii health examinationAicheikh Parks CNP Work Phone: [facility] Work Phone: Start: 08-08-2022 End: 61-95-0875NRFZ visit new patientAdelaida Parks CNP Work Phone: [facility] Work Phone: Start: 08-08-2022 End: 20-97-4296DZMG visit, dustin Kee CAR[employer]AGE [employer]GGER Work Phone: [facility] Work Phone: Start: 59-54-1349mfjxaeshdokch oral evaluation - new or established patientLeah Phillips DDS Work Phone: [facility] HospitalStart: 07-06-2022 ambulatoryAicheikh Parks CNPPlunkett Memorial Hospital - HPWO Procedures DateProcedureProcedure DetailPerforming ClinicianStart: 13-06-1300QHY CBC WITH AUTO DIFFValerie L Floro CNM Work Phone: Start: 57-81-3436ZHH UA (CLEAN/CATCH) STOCK FITTER/MICRO IF IND.Steve Ian Vorao CNM Work Phone: Start: 06-96-8118CKU CBC WITH AUTO DIFFValerie L Floro CNM Work Phone: Start: 88-26-7529IHD URINE T PROTEIN CREAT RATIO Steve L Vielkao CNM Work Phone: Start: 01-10-5865Rnsjv dip stick/tablet rgnt non-auto w/o micrscpValerie L Floro CNM Work Phone: Start: 35-89-4034Bxvcv test visual color cmprsn methsValerie L Vielkao CNM Work Phone: Start: 19-17-2844Lcuzdc-up visitFollow-upMICHAEL G RASHIDStart: 20-90-3222Mlkkfm-up visitFollow-upMICHAEL G RASHIDStart: 10-11-2022 Most recent diastolic blood pressure 80-89 mm hgAdelaida Parks CNP Work Phone: Start: 48-28-5907Lswk recent systolic blood pressure <130 mm hgAdelaida Parks CNP Work Phone: Start: 17-60-6398Kdwnxiovinnta w/patient 30 minutes Tran MCCOY Work Phone: Start: 23-62-6032bdyypupguw, erupted tooth or exposed root (elevation and/or forceps removal)Leah Phillips DDS Work Phone: Start: 45-90-4657Kodn recent diastolic blood pressure 80-89 mm hgCassandra Kee CNP Work Phone: Start: 78-59-6025Fbkp recent systolic blood pressure <130 mm hgCassandra Kee [employer] Work Phone: Start: 70-84-7941Fpingdzjbomdy w/patient 30 minutes Tran MCCOY Work Phone: Start: 93-67-3415Iapvapxo hiv-1&hiv-2 single result Adelaida Parks CNP Work Phone: Start: 12-19-3254Unubdpimhe of wisdom toothAicheikh Parks [employer]ER Work Phone: Start: 02-19-1407Glijcujdbf glycosylated x2fZgckjAdelaida Parks [employer]ER Work Phone: Start: 65-88-2050wkbxhqtfo - complete series of radiographic imagesTadee Phillips DD Work Phone: Start: 82-24-9616Nylo recent diastolic blood pressure 80-89 mm hgAdelaida Parks [employer]ER Work Phone: Start: 94-57-8350Skcc recent systolic blood press 130- 139mm hgAdelaida Parks CNP Work Phone: Start: 96-70-8081hmpyftdzo radiographic imageTadee Phillips DDS Work Phone: Start: 45-08-0304Aa-focused hlth risk assmt score doc stnd instrmAimeanthony Parks [employer]GGER Work Phone: Plan of Treatment DateCare ActivityDetailAuthorStart: 68-86-4361Ojiqj BMI ScreeningAdult BMI ScreeningProMedica Health SystemStart: 59-96-4847Hcnacfn ScreeningTobacco ScreeningProMedica Health SystemStart: 59-46-0617Qtorr BMI ScreeningAdult BMI ScreeningProMedica Health SystemStart: 00-12-7272Exurbfq ScreeningTobacco ScreeningProMedica Health SystemStart: 88-50-3032Tjscanjxp vaccinationBEAVER VAL[facility] HealthcareStart: 77-31-2788Hlexz BMI ScreeningAdult BMI ScreeningProMedica Health SystemStart: 43-93-7783Ufpvzvg ScreeningTobacco ScreeningProMedica Health SystemStart: 09-30-2024 End: 41-78-4762Zahhofg encounter xqjendvwi29/16/2025 2:15 PM EDT Office Visit [facility] [address] [facility] [address] Donte Villatoro MD [address] [id number] [facility]-Urinary SurgeonsStart: 09-15-2024 End: 03-44-2960SAN W Auto Differential panel - BloodCBC with auto diff Lab Routine Nephrolithiasis Thrombocytopenia affecting Expected: 2024, Expires: 06/26/2025[facility] Work Phone: Comment on above:Expected: 09/15/2024, Expires: 06/26/2025Start: 09-15-2024 End: 41-42-8501Asfwpsiu [Mass/volume] in Serum or PlasmaFerritin Lab Routine Nephrolithiasis Thrombocytopenia affecting Expected: 09/15/2024, Expi res: 06/26/2025[facility] Precog SystemComment on above:Expected: 09/15/2024, Expires: 06/26/2025Start: 09-15-2024 End: 36-90-4352Igqw and TIBCIron and TIBC Lab Routine Nephrolithiasis Thrombocytopenia affecting Expected: 09/15/2024, Expires: 06/26/2025 [facility] Precog SystemComment on above:Expected: 09/15/2024, Expires: 06/26/2025Start: 87-19-0456Whsit BMI ScreeningAdult BMI ScreeningDayton Children's Hospitalca Health SystemStart: 03-58-6899Hwbpqet ScreeningTobacco ScreeningDayton Children's Hospitalca [facility] SystemStart: 51-32-3915Cuktk BMI ScreeningAdult BMI ScreeningProMedica Health SystemStart: 27-90-5499Nzpkbln ScreeningTobacco ScreeningDayton Children's Hospitalca Health System Start: 76-51-1218Nfapl BMI ScreeningAdult BMI ScreeningWashington County Tuberculosis HospitalMedica [facility] System Start: 63-29-5829Gvmdaok ScreeningTobacco ScreeningDayton Children's Hospitalca [facility] Brooklyntart: 07-22-2024 End: 11-51-8468soirygynyl51/07/2025 11:00 AM EDT Visit [facility] [address] [facility] [place] [address] Steve Stover, CNM [address] [facility] [place] [address] [facility] Start: 07-09-2024 End: 85-27-6661gvejpoyryt96/24/2025 2:30 PM EDT Visit [facility] [address] [facility] [place] [address] Steve Stover, CNM [address] [facility] [place] [address] [facility] Start: 07-06-2024 End: 60-13-4332Aulhhsw encounter hxcacszcl25/21/2025 1:30 PM EDT Routine [facility] [address] [facility] [place] [address] Steve Stover, CNM [address] [facility] [place] [address] NOMS FNR OBStart: 07-01-2024 End: 08-43-1615Lsdxzip encounter puubkcdzb13/16/2025 10:30 AM EDT Routine [facility] [address] [facility] [place] [address] Steve Stover, CNM [address] [facility] [place] [address] [facility]S FNR OBStart: 06-24-2024 End: 64-23-4087Ypagemt encounter htmtiekiu13/09/2025 11:30 AM EDT Routine [facility] [address] [facility] [place] [address] Steve Stover, CNM [address] [facility] [place] [address] [facility]S FNR OBStart: 06-17-2024 End: 57-96-2654Szwzmlg encounter rtpbipvfj50/02/2025 10:45 AM EDT Routine [facility] [address] [facility] [place] [address] Steve Stover, CNM [address] [facility] [place] [address] NOMS FNR OBStart: 05-13-2024 End: 87-95-5099Djchjem encounter procedureNOMS FNR OBComment on above:Arrived Start: 05-01-2024 End: 80-01-2577Dtzxdbcmhght / ancillary services gnazosgdjq42/14/2025 10:00 AM EST Ancillary Procedure [facility] [address] [place] [address] DAJI FNR ULTRASOUNDStart: 04-29-2024 End: 32-33-7472Qserygi encounter spodyiyms20/12/2025 3:00 PM EST Office Visit [facility] [address] [facility] [place] [address] Steve Stover, CNM [address] [facility] [place] [address] [facility]OMS FNR OBStart: 04-16-2024 End: 51-83-0000ZPZ panel - Blood by Automated countCBC Lab Routine Screening for iron deficiency anemia Expected: 04/16/2024 (Approximate), Expires: 04/16/2025 [facility] HealthcareComment on above:Expected: 04/16/2024 (Approximate), Expires: 04/16/2025Start: 04-16-2024 End: 11-65-5218PSFPPSZ, GESTATIONAL SCREEN (50G)-135 CUTOFFGLUCOSE, GESTATIONAL SCREEN (50G)-135 CUTOFF Lab Routine Screening for diabetes mellitus (DM) Expect ed: 04/16/2024 (Approximate), Expires: 04/16/2025[facility] Work Phone: Comment on above:Expected: 04/16/2024 (Approximate), Expires: 04/16/2025Start: 04-16-2024 End: 22-04-9852HC for pregnancyUS OB follow up transabdominal approach Imaging Routine related condition in third trimester Expected: 04/16/2024, Expires: 04/16/2025N[facility]S HealthcareComment on above:Expected: 04/16/2024, Expires: 04/16/2025Start: 04-16-2024 End: 71-88-4763Qqbzlli encounter zqotydyix07/30/2025 9:30 AM EST Routine [facility] [address] [facility] [place] [address] Setve Stover, [facility] [address] [facility] [place] [address] NOMS FNR OBStart: 02-11-2024 End: 88-46-1684Yrdqhpr encounter uluxslzcp76/26/2024 10:30 AM EST Routine [facility] [address] [facility] [place] [address] Steve Stover, [facility] [address] [facility] [place] [address] [facility] FNR OBStart: 02-11-2024 End: 43-56-7463Jpfvsfupmcvq / ancillary services nocmjpwabv63/26/2024 10:00 AM EST Ancillary Procedure [facility] [address] [place] [address] MAIU FNR ULTRASOUNDStart: 01-16-2024 End: 66-28-6252AH for pregnancyUS OB 14+ weeks anatomy scan Imaging Routine related condition in second trimester Expected: 01/16/2024, Expires: 01/15/2025[facility] Work Phone: Comment on above:Expected: 01/16/2024, Expires: 01/15/2025Start: 01-16-2024 End: 33-30-3630Qbionlr encounter pbqsxegus63/31/2024 10:00 AM EDT Routine [facility] [address] [place] [address] Steve Stover, CN[facility] [place] [address] ArrivedNOMS FNR OBComment on above:ArrivedStart: 12-30-2023 End: 79-24-0271Rwbaukt encounter akxwhzsif64/14/2024 3:15 PM EDT Office Visit [facility] [address] [place] [address] [address] [facility] [address] Donte Villatoro MD [address] [place] [address] [facility]Urinary SurgeonsStart: 12-26-2023 End: 31-97-0908DE RetroperitoneumUltrasound retroperitoneal complete Imaging Routine Mineral metabolism disorder Nephrolithiasis Expected: 12/26/2023 (Approximate), Expires: 10/20/2024[facility] Work Phone: Comment on above:Expected: 12/26/2023 (Approximate), Expires: 10/20/2024Start: 12-19-2023 End: 28-22-8217Reftpjg encounter sfznfwzyt07/03/2024 10:00 AM EDT Routine [facility] [address] [place] [address] Steve Stover, [id number] [place], [place] [id number] NOMS FNR OBStart: 11-20-2023 End: 05-50-2066Cudwuucu identified in Urine by CultureUrine culture Microbiology Routine Amenorrhea examination or test, positive result Expected: 11/20/2023 (Approximate), Expires: 11/19/2024[facility] HealthcareComment on above: Expected: 11/20/2023 (Approximate), Expires: 11/19/2024Start: 11-20-2023 End: 77-62-7152CLNL TOX MONITORIGN 6 W/ CONF,URINEDRUG TOX MONITORIGN 6 W/ CONF,URINE Lab Routine Amenorrhea examination or test, positive result Expected: 11/20/2023 (Approximate), Expires: 11/19/2024[facility] HealthcareComment on above:Expected: 11/20/2023 (Approximate), Expires: 11/19/2024Start: 11-20-2023 End: 30-97-1574Gahfzqmxr gonorrhoeae DNA [Presence] in Cervical mucus by GHAZALA with probe detectionC. trachomatis / N. gonorrhoeae, DNA probe Lab Routine Amenorrhea examination or test, positive result Expected: 11/20/2023 (Approximate), Expires: 11/19/2024[facility] HealthcareComment on above:Expected: 11/20/2023 (Approximate), Expires: 11/19/2024Start: 11-20-2023 End: 89-96-7738AIG W/REFLEX TO FT4TSH W/REFLEX TO FT4 Lab Routine Amenorrhea examination or test, positive result Expected:11/20/2023 (Approximate), Expires: 11/19/2024[facility] HealthcareComment on above:Expected: 11/20/2023 (Approximate), Expires: 11/19/2024Start: 11-20-2023 End: 45-20-0593BOXUBVURLE MICROSCOPICURINALYSIS MICROSCOPIC Lab Routine Amenorrhea examination or test, positive result Expected: 11/20/2023 (Approximate), Expires: 11/19/2024[facility] HealthcareComment on above:Expected: 11/20/2023 (Approximate), Expires: 11/19/2024Start: 11-20-2023 End: 40-55-8783Qutjssa encounter qkyehttpj52/04/2024 11:30 AM EDT Routine [facility] [address] [place] [address] Steve Stover, TRAVISM [address] [place] [address] ArrivedNOMS FNR OBComment on above:ArrivedStart: 11-20-2023 End: 19-38-0070Aagkkeagsziq / ancillary services bwhzazmigx82/04/2024 10:30 AM EDT Ancillary Procedure [facility] [address] [place] [address] YVYT FNR ULTRASOUNDStart: 63-42-1338Eylqxmtnd vaccination [facility]: 08-09-2023 End: 19-01-1919Kmujrdyhs to same day surgery ujndlk8108/09/2023 7:00 AM EDT - 08/09/2023 8:15 AM EDT Surgery [facility] Surgery A Division of [facility] Surgery [address] [place] [address] 2 [place] [address] Donte Villatoro MD [address] [place] [address] LASER HOLMIUM URETEROSCOPY RENAL STONES < OR=1CM [21331 (CPT )][facility] Surgery A Division of [facility] CenterComment on above:LASER HOLMIUM URETEROSCOPY RENAL STONES < OR=1CM [70994 (CPT )]Start: 08-09-2023 End: 70-73-5264Mxuqbjodcj qguaxlnkygig49/24/2024 7:00 AM EDT Anesthesia Event [facility] Surgery A Division of [facility] Surgery [address] [place] [address] 2 [place] [address] Gelacio Boston DO [address] [place] [address] [facility] Ambulatory Surgery A Division of [facility] Surgery Start: 08-09-2023 End: 66-89-4253Qtwri w/insert ureteral stentPARVANDERBILT [facility] AMBULATORY SURGERYStart: 08-09-2023 End: 96-20-8197Dszzf w/ureteroscopy w/lithotripsyPARVANDERBILT REHABILIT[facility] AMBUL[facility]ORY SURGERY Start: 96-21-1683Renyfkvseg hospital visit by physicianKate [facility] - SurgeryComment on above: ArrivedStart: 44-00-5512GWSA visit, estab ptMedical Established [facility]Health [facility] Work Phone: Start: [id number] department patient visit Dental [facility] Work Phone: Start: 19-91-1116Lbfnaluzr department patient visit [facility] Work Phone: Start: 95-77-7730VTBY visit, estab ptMedical Established [facility] Work Phone: Start: 10-11-2022 End: 88-22-6918Zivswbq education based on identified needHealth [facility] HospitalStart: 84-89-1806MsmzviodqdMelhfy [facility] Work Phone: Start: 09-11-2022 End: 47-91-9644Tejbvre education based on identified needHealth [facility] HospitalStart: 23-44-6814MOH W Auto Differential panel - BloodHealth [facility] HospitalStart: 13-36-1388Ujmfq 1996 panel - Serum or PlasmaLIPID PROFILEHealth [facility] Community HospitalStart: 08-08-2022 End: 71-90-9111Weguwsy education based on identified needHealth [facility] HospitalStart: 27-68-3502JHwT,Tdap and Td Vaccines (6 - Td or Tdap)DTaP,Tdap and Td Vaccines (6 - Td or Tdap)[facility] SystemStart: 2017 Screening for malignant neoplasm of cervixPap SmearMercy Health Allen Hospital SystemStart: 11-59-9492RVrB,Tdap and Td Vaccines (1 - Tdap)DTaP,Tdap and Td Vaccines (1 - Tdap)[facility] SystemStart: 45-30-2905Isueo BMI Follow Up PlanAdult BMI Follow Up PlanMercy Health Allen Hospital SystemStart: 38-30-2306Fosmtebavf Screening Depression ScreeningOhioHealth Mansfield HospitalABO/RhABO/Rh Lab Routine Amenorrhea examination or test, positive result Ordered: 11/20/2023[facility] HealthcareComment on above:Ordered: 11/20/2023ntibody screenAntibody screen Lab Routine Amenorrhea examination or test, positive result Ordered: 11/19[facility] HealthcareComment on above:Ordered: 11/20/2023BC panel - Blood by Automated countCBC Lab Routine Amenorrhea examination or test, positive result Ordered: 11/20/2023[facility] HealthcareComment on above:Ordered: 11/20/2023Hemoglobin A1c/Hemoglobin.total in BloodHemoglobin A1c Lab Routine Amenorrhea examination or test, positive result Ordered: 11/20/2023 [facility] HealthcareComment on above:Ordered: 11/20/2023Hepatitis B virus surface Ag [Presence] in Serum or Plasma by ImmunoassayHepatitis B surface antigen Lab Routine Amenorrhea examination or test, positive result Ordered: 11/20/2023[facility] Healthcare Work Phone: Comment on above:Ordered: 11/20/2023Hepatitis C virus Ab [Presence] in Serum or Plasma by ImmunoassayHepatitis C antibody Lab Routine Amenorrhea examination or test, positive result Ordered:11/20/2023[facility] HospitalComment on above:Ordered: 11/20/2023HIV-1/HIV-2 antigen/antibody combination immunoassayHIV-1 and HIV-2 antibodies Lab Routine Amenorrhea examination or test, positive result Ordered: 11/20/2023[facility] HealthcareComment on above:Ordered: 11/20/2023 End: 30-79-5313Nqayxvcxp 48 HourLitholink 48 Hour Lab Routine Mineral metabolism disorder Nephrolithiasis 1 Occurrences starting 10/21/2023 until 10/20/2024 [facility] SystemComment on above:1 Occurrences starting 10/21/2023 until 10/20/2024Reagin Ab [Presence] in Serum by RPRRPR Lab Routine Amenorrhea examination or test, positive result Ordered: 11/20/2023[facility] HealthcareComment on above:Ordered: 11/20/2023ubella antibody, IgGRubella antibody, IgG Lab Routine Amenorrhea examination or test, positive result Ordered: 09/04/[address] [place], [place] [address]Comment on above:Ordered: 11/20/2023 Immunizations Immunization DateImmunizationNotesCare RzfnrncbHzljfpsk50-24-5884svzzsgz toxoid, reduced diphtheria toxoid, and acellular pertussis vaccine, adsorbedAicheikh Morinen [employer] Work Phone: [facility] IslandWcyl09-22-4224zhzakuqfd B vaccine, pediatric or pediatric/adolescent dosageAimee Kasey [employer] Work Phone: [facility] IslandXrzv91-62-8157ylwhrveyzc vaccine, inactivatedAimee Kasey [employer] Work Phone: [facility] IslandNjpz92-37-5344vqerynz, mumps and rubella virus vaccineAimee Kasey [employer] Work Phone: [facility] IslandXlsl93-82-6697fmdmgotwhu vaccine, inactivatedAimee Kasey [employer] Work Phone: [facility] IslandCbvl69-37-4089czlobgsjt B vaccine, pediatric or pediatric/adolescent dosageAimee Kasey [employer] Work Phone: [facility] IslandCafl66-42-2956rupntql, mumps and rubella virus vaccineAimee Kasey [employer] Work Phone: [facility] IslandQexx57-84-7000cymtmedmsh vaccine, inactivatedAimee Kasey [employer] Work Phone: [facility] IslandVhuu85-88-2345jykftnroj B vaccine, pediatric or pediatric/adolescent dosageAimee Kasey [employer] Work Phone: [facility] Payers DatePayer CategoryPayerPolicy ID2023Medicaid [id number] [id number] 2..[id number]2-4476Qfabjjk [id number] 05.03.840.1.800905.3.57[id number] 2.16840.1.970786.3.57[id number] 2.16840.1.462624.3.57[id number] 2.0.1.417092.3.57[id number] 2.0.1.644980.3.57[id number] 2..1.708136.3.57[id number] 2..1.053915.3.57[id number] 2..1.822525.3.57[id number] 2.0.1.329193.3.57[id number] 2..1.601642.3.57[id number] 2..1.393020.3.57[id number] 2..1.303838.3.57[id number] 2..1.908951.3.57[id number] 2..1.189466.3.57[id number] 2.0.1.103613.3.57[id number] 2.16.840.1.734746.3.57[id number] 2.16.840.1.303796.3.57[id number] 2.16.840.1.736893.3.57[id number] 2.16.840.1.814613.3.579.2.72Self-[id number] 2.16.840.1.970522.3.140.1.97447.5.4 Social History DateTypeDetailFacilityAssertionLives with director of institutional research (finding)[facility] IslandAsspresbyterian medical center-rio ranchoionEmotional stress (finding)[facility] AssertionGender identity finding (finding)[facility] AssertionExposure to pollution (event)[facility] Finding of sexual orientation (finding)[facility] Social drinker (finding)[facility] HospitalAttending school (finding)[facility] HospitalLives alone (finding)[facility] HospitalHealth [facility] HospitalFull- time employment (finding)[facility] Unitexually active (finding)[facility] IslandTobaselect [facility] [facility] [place] smoking statusUnknown if ever smokedHealth [facility] Work Phone: Start: 04-25-2023 End: 85-38-8151Wvdcqrc smoking status NHISNever smoked tobaccoProAccess Hospital Dayton SystemStart: 04-25-2023 End: 64-48-1264Krzpava use and exposureSmokeless tobacco non-userProUab Hospital Health SystemStart: 11-20-2023 End: 36-48-2776Yuitexhys beverage intakeCurrent drinker of alcohol (finding) [facility] Health SystemStart: 04-25-2023 End: 68-77-8074Elhxpks of Social functionProAccess Hospital Dayton SystemStart: 04-25-2023 End: 00-40-8078Rpmyojn use panelProMedica Health SystemStart: 10-11-2023 PregnancyNOMS HealthcareStart: 12-18-6841Zkt assigned at birthFemaleNOMO HealthcareStart: 87-94-0644Slqkhx identityIdentifies as female gender (finding) [facility] HealthcareStart: 20-09-5439Ucibfi orientationHeterosexual (finding)[facility] HealthcareHow hard is it for you to pay for the very basics like food, housing, medical care, and heatingNot very hardMercy Health Allen Hospital SystemStart: 03-30-2024 Alcohol CommentMaybe once ever 3 monthsMercy Health Allen Hospital SystemStart: 1995 Sex assigned at birthNot on fileMercy Health Allen Hospital SystemStart: 38-00-3137Ejg Female (finding)[facility] SystemStart: 31-82-1493Aetidbg Comment occasionalProAccess Hospital Dayton SystemStart: 08-06-2023 End: 83-69-7375Bscmkpjgm beverage intakeEx-drinker (finding)[facility] SystemSexual OrientationExecutive [facility] NEGATED: Highlighted rowAssertionCurrent drinker of alcohol (finding)[facility] IslandNEGATED: Highlighted row AssertionHealth Partners of [facility] IslandNEGATED: Highlighted rowAssertion Contraception (finding)[facility] IslandNEGATED: Highlighted row AssertionExposure to pollution (event)[facility] Medical Equipment Procedure CodeEquipment CodeEquipment Original TextEquipment IdentifierDates Stent Uret 6fr 26cm 2 Pgtl Crv Rdpq Pstnr Mfl [facility] [id number] - [id number])[id number], [id number]_exp, [id number]_imp FDAStart: 67-35-9077Xnczndc on above:Description: string off Goals DatePatient GoalDesired Activity/StatePersonal health goal Mental Status DateAssessmentResultFacilityCognitive functionThe estimated intelligence was normal Intelligence finding (finding)[facility] Work Phone: Clinical Notes 08-08-2022 to 10-12-2024 Note Date & JlnxAwylRrakocif65-07-6909 NotePatient Education Cystoscopy with Stent Removal ??? Voiding after the procedure: there may be some pain, burning, urgency, frequency and blood tinged urine following the procedure. These symptoms usually resolve within 2-5 days. Drink the amount of fluid it takes to keep the urine pink to yellow or clear in color. Drinking enough water and fluids will help to ease any discomfort after your procedure. ??? If you are having problems that seem out of the ordinary, please call. ??? If unable to contact your physician and you feel it is an emergency, go to the nearest emergency room or call 911 ??? Diet ??? you may resume your normal diet. ??? Activity ??? you may resume your normal activities ??? Call if you have a fever over 100 degrees. Nephrology Dietary Guidelines to Help Prevent Kidney [...] ? 8 oz (237 mL) of milk, nylfwsn-oglzjdoassil-pavvn milk, and calcium- fortifiedfruit juice. Calcium-fortified means [...] Spinach (cooked), rhubarb, beets, sweet potatoes, and Uzbek chard. ? Peanuts. ? Potato chips, kenyan fries, and baked potatoes with skin on. ? Nuts and nut products. ? Chocolate. ??? If you regularly take a diuretic medicine, make sure to eat at least 1 or 2 servings of fruits or vegetables that are high in potassium each day. These include: ? Avocado. ? Banana. ? [place], prune, carrot, or tomato juice. ? Baked [...] drink equals one 12 oz bottle of b (morecontent not included)...[facility] 09-24-2024 Hospital Discharge instructions Patient Education 09/24/2024 10:51:25 Dietary Guidelines [...] about 300 mg of calcium at each meal.Foods that contain 200 500 mg of calcium a serving include: ?8 oz (237 mL) of milk, tiqlkqv-ssfhcxlkqbcr-eppym milk, and calcium- fortifiedfruit juice. Calcium-fortified means [...] the table and allow each person to addtheir own salt to taste. Use vegetable protein, such as beans, textured vegetable protein (TVP), or tofu, instead of meat inpasta, casseroles, and soups. Meal planning Eat less salt, if told by your dietitian. To do this: ?Avoid eating processed or pre-made food. ?Avoid eating fast food. Eat less animal protein, including cheese, meat, poultry, or fish, if told by your dietitian. To dothis: ?Limit the number of times you have meat, poultry, fish, or cheese each week. Eat a diet free of meat at least 2 days a week. ?Eat only one serving each day of meat, poultry, fish, or seafood. ?When you prepare animal proteins, cut pieces into small portion sizes. For most meat and fish, oneserving is about the size of the palm [...] ?Spinach (cooked), rhubarb, beets, sweet potatoes, and Uzbek chard. ?Peanuts. ?Potato chips, kenyan fries, and baked potatoes with skin on. ?Nuts and nut products. ?Chocolate. If you regularly take a diuretic medicine, make sure to eat at least 1 or 2 servings of fruits or vegetables that are high in potassium each day. These include: ?Avocado. ?Banana. ?Bellevue, prune, carrot, or tomato juice. ?Baked potato. [...] magnesium, fish oil, or vitamin B6. Take amcm-rcn-ymfyosm and prescription medicines only as told by [...] Casseroles. Pizza. Lasagna. Frozen meals. Potato chips. Hungarian fries. The items listed above may not [...] avoid. Contact adietitian for more information. Summary Kidney stones are [...] provider. Document Revised: 06/14/2022 Document Reviewed: 06/14/2022 [employer] Patient Education 2023 [employer]. 09/24/2024 10:51:24 Ureteroscopy Ureteroscopy Ureteroscopy is a [...] including vitamins, herbs, eye drops, creams, and egpg-cbl-ulorbgd medicines. Any problems you or family members [...] These include any diabetes medicines or blood thinnersyou take. Taking medicines such as aspirin and ibuprofen. These medicines can thin your blood. Do not take these medicines unless your health care provider tells you to. Taking iqqm-udw-cfjgyvx medicines, vitamins, herbs, and supplements. General instructions Do not use any products that contain nicotine or tobacco for at least 4 weeks before the procedure.These products include cigarettes, chewing tobacco, and vaping [...] blood oxygen level will be monitored until youleave the hospital or clinic. It is up [...] provider. Document Revised: 02/04/2023 Document Reviewed: 02/04/2023 [employer] Patient Education 2023 [employer]. Follow Up Care 09/23/2024 16:13:48 With:Jose Alejandro RUBIO, MAGGIE Gonzalez, URO Address: When: Unknown [facility] 07-10-2025 NotePatient Education Nephrology Dietary Guidelines to Help Prevent [...] ? 8 oz (237 mL) of milk, xbtjlah-spapqhifzssq-xidji milk, and calcium- fortifiedfruit juice. Calcium-fortified means [...] Spinach (cooked), rhubarb, beets, sweet potatoes, and Uzbek chard. ? Peanuts. ? Potato chips, kenyan fries, and baked potatoes with skin on. ? Nuts and nut products. ? Chocolate. ??? If you regularly take a diuretic medicine, make sure to eat at least 1 or 2 servings of fruits or vegetables that are high in potassium each day. These include: ? Avocado. ? Banana. ? Bellevue, prune, carrot, or tomato juice. ? Baked [...] fish oil, or vitamin B6. ??? Take nppw-pvz-jiaptsr and prescription medicines only as told by your health (more content not included)...[facility]07-07-2025 Miscellaneous Notes* Telephone Encounter - ANTHONY Carbajal - 09/21/2024 2:22 PM EDT Pt calls stating she was in the ED on 09/16/2024 for a kidney stone. She is asking if you can look ather CT and advise from there? * Telephone Encounter - Donte Villatoro MD - 09/21/2024 2:22 PM EDT [...] call back and schedule. documented in this encounterOhioHealth [facility]field Hospital07-07-2025 Telephone encounter Note* Telephone Encounter - ANTHONY Carbajal - 09/21/2024 2:22 PM EDT Pt calls stating she was in the ED on 09/16/2024 for a kidney stone. She is asking if you can look ather CT and advise from there? [facility]07-07-[facility] Telephone encounter Note* Telephone Encounter - Donte Villatoro MD - 09/21/2024 2:22 PM EDT Sorry I was off last week and just getting to messages. Patient should be seen in the office with myself or mid level provider for further discussion as to what to do regarding the stone. [facility]07-07-[facility] Telephone encounter Note* Telephone Encounter - ANTHONY Carbajal - 09/21/2024 2:22 PM EDT I left a detailed vm to call back and schedule. [facility]04-30-20[facility] History of Present illness Narrative* Steve Stover CNM - 07/15/2024 10:45 AM EDT Blood pressure visit today. BP today is 120/80 and patient has no c/o. She denies headache, visual changes, and no pain. She iscurrently taking Labetalol 100 mg BID We will decrease it to 100 mg Daily. Recheck next week for blood pressure check. PVU and statSubjective Patient ID: Osiris Hayward is a 28 y.o. female who presents for Care. HPI patient is 2 weeks post Review of Systems Objective Physical Exam Cardiovascular: Rate and Rhythm: Normal rate. Pulses: Normal pulses. Heart sounds: Normal heart sounds. Pulmonary: Effort: Pulmonary effort is normal. Breath sounds: Normal breath sounds. Abdominal: General: Bowel sounds are normal. Tenderness: There is no abdominal tenderness. Assessment/Plan Diagnoses and all orders for this visit: Elevated blood pressure affecting in third trimester, antepartum She states she feels good. documented in this [facility]04-24-2025 History of Present illness Narrative* Steve Stover CNM - 07/09/2024 2:30 PM EDT Pt here for PP blood pressure follow up. Pt's Bp today is 122/74. Doing well. She will continue to monitor and call if any readings are 130/90 or greater. documented in this [facility]04-21-2025 History of Present illness Narrative* Steve Stover CNM - 07/06/2024 11:30 AM EDT Osiris Hayward is here for visit. She is 4 days . Complaints: has no unusual complaints Weeks at delivery: 39 week Type of delivery: Vaginal, Spontaneous Delivery; Gender: male Baby is healthy: yes Breast or bottle feeding: breast Complaints or complications: chronic hypertension mood: well Contraception: none Resumed Sexual activity: no Resumed Menses: no EXAM: Patient has no c/o today. Her blood pressure is 142/90 today and she states with the busy weekend she got off schedule taking the Labetalol. She was late taking it yesterday and has not taken it yet today. I did educate her on the importance of taking the medication on time so we can see if it is working and if and when she can come off of them. PVU I want her to take her meds BID on time for this week and I want to recheck her blood pressure on . PVU ASSESSMENT/PLAN: There are no diagnoses linked to this encounter. normal exam documented in this encounterBarton County Memorial HospitalDxbxkmcpsq20-47-0233 History of Present illness Narrative* Steve Stover CNM - 07/01/2024 10:30 AM EDT Subjective No chief complaint on file. Osiris Hayward is a 28 y.o. at 39w5d with a working estimated date of delivery of 07/03/2024,by Last Menstrual Period who presents for a [...] pressure is elevated today, orders called to [facility] for patient. I want her to go to the hospital for pre-clampsia work up documented in this encounterMeagan Ville [address]Nnrfioftxn00-58-5866 History of Present illness Narrative* Contreras Whitten RN - 06/26/2024 10:16 AM EDT Pt here for consult low plt. Per Dr. Mota: Ok for procedure as long as plt over 100K. CBC and iron studies 3 months after delivery. Hold aspirin from now. Labs scheduled. documented in this encounterOhioHealth Mansfield Hospital04-11-2025 History of Present illness Narrative* Jackie Mota MD - 06/26/2024 9:45 AM EDT Images from the original note were not included. [facility] 06/26/24 Osiris Hayward is a 28 y.o. [...] 08/09/2023 Performed by Donte Villatoro MD at [facility] CYSTOSCOPY REMOVAL STENT Left 08/20/2023 Performed by Donte Villatoro MD at [facility] CYSTOSCOPY RETROGRADE PYELOGRAM Left 08/09/2023 Performed by Donte Villatoro MD at [facility] LASER HOLMIUM URETEROSCOPY RENAL STONES < OR=1CM Left 08/09/2023 Performed by Donte Villatoro MD at [facility] Family History Problem Relation Age of [...] were clear to auscultation. There was no dullnessto percussion. Cardiac: Regular rate and rhythm, S1 [...] Return to Hematology as needed. Thank you. Jackie Mota MD Please note that portions of this note were generated using voice recognition M*Pirq dictation software. Although every effort was made to ensure the accuracy of this automated director video, some errors in director video may have occurred. CC: Patient Care Team: No Pcp No Pcp as PCP - General (Family Medicine) PCP:NO PCP, NO PCP Referring MD: Steve Stover APRN-CNM documented in this encounterDayton Children's HospitalADstruc04-11-2025 Instructions* Patient Instructions* Jackie Mota MD - 06/26/2024 9:45 AM EDT Ok for procedure as long as plt over 100K. CBC and iron studies 3 months after delivery. Hold aspirin from now. documented in this encounterOhioHealth Mansfield Hospital04-09-2025 History of Present illness Narrative* Steve Stover CNM - 06/24/2024 11:30 AM EDT Subjective No chief complaint on file. Osiris Hayward is a 28 y.o. at 38w5d with a working estimated date of delivery of 07/03/2024,by Last Menstrual Period who presents for a [...] for a routine visit. documented in this encounterBarton County Memorial [id number] History of Present illness Narrative* Steve Stover CNM - 06/17/2024 10:45 AM EDT Subjective No chief complaint on file. Osiris Hayward is a 28 y.o. at 37w5d with a working estimated date of delivery of 07/03/2024,by Last Menstrual Period who presents for a [...] is complicated by: Objective Physical Exam weight: 258 lb Expected Total Weight Gain: 11 lb-19 lb Pregravid BMI: 38.27 BP: 150/90 Urine protein-30 Urine glucose-negative Assessment/Plan Diagnoses and all orders for this visit: Acute cystitis with hematuria - cephalexin (Keflex) 500 MG capsule; Take 1 capsule (500 mg) by mouth in the morning and 1 capsule(500 mg) in the evening and 1 capsule (500 mg) before bedtime. Do all this for 10 days. Hematuria, unspecified type - POCT Urinalysis dipstick - cephalexin (Keflex) 500 MG capsule; Take 1 capsule (500 mg) by mouth in the morning and 1 capsule(500 mg) in the evening and 1 capsule (500 mg) before bedtime. Do all this for 10 days. Continue vitamin. Labs reviewed. GBS taken. Expected mode of delivery Follow up in 1 week for a routine visit. documented in this encounterBarton County Memorial [id number] History of Present illness Narrative* Steve Stover CNM - 06/10/2024 10:45 AM EDT Subjective No chief complaint on file. Osiris Hayward is a 28 y.o. at 36w5d with a working estimated date of delivery of 07/03/2024,by Last Menstrual Period who presents for a [...] for a routine visit. documented in this encounterBarton County Memorial [id number] History of Present illness Narrative* Steve Stover CNM - 04/16/2024 9:30 AM EST Subjective No chief complaint on file. Osiris Leal is a 28 y.o. at 28w6d with a working estimated date of delivery of 07/03/2024,by Last Menstrual Period who presents for a [...] for a routine visit. documented in this encounterBarton County Memorial [id number] History of Present illness Narrative* Donte Villatoro MD - 03/30/2024 4:00 PM EST Images from the original note were not included. [address] [place] [address] [address] [facility] [id number] Patient: Osiris Hayward Date of : 1995 [...] , EXTPOCUBAC , EXTPOCUTREP , EXTPOCUPH , EXTPOCUL EE in the last 72 hours. Last BUN [...] past medical history, past social history, past surgicalhistory and problem list. Past Medical History: Diagnosis Date Arthritis Kidney stones 10/28/2023 Past Surgical History: Procedure Laterality Date CYSTOSCOPY INSERTION STENT URETER Left 08/09/2023 Performed by Donte Villatoro MD at [facility] CYSTOSCOPY REMOVAL STENT Left 08/20/2023 Performed by Donte Villatoro MD at [facility] CYSTOSCOPY RETROGRADE PYELOGRAM Left 08/09/2023 Performed by Donte Villatoro MD at [facility] LASER HOLMIUM URETEROSCOPY RENAL STONES < OR=1CM Left 08/09/2023 Performed by Donte Villatoro MD at [facility] Family History Problem Relation Age of [...] serum calcium is below 9. No chronic diarrhea.Potentially family history stones but not strong PLAN: [...] you for your understanding. documented in this encounterOhioHealth Mansfield Hospital01-02-2025 History of Present illness Narrative* Steve Stover CNM - 03/19/2024 9:45 AM EST Subjective No chief complaint on file. Osiris Leal is a 28 y.o. at 24w6d with a working estimated date of delivery of 07/03/2024,by Last Menstrual Period who presents for a [...] complicated by: early hyperemesis, and COVID before [place]. Taking baby ASA daily The following portions [...] for a routine visit. documented in this encounterBarton County Memorial HospitalCqxvoturlu35-83-0680 Telephone encounter Note* Telephone Encounter - Keily Gambino MA - 03/16/2024 1:47 PM EST Called pt left vm to call me back. [facility] HospitalWskkmvkbjb59-55-1917 Miscellaneous Notes* Telephone Encounter - Keily Gambino MA - 03/16/2024 1:47 PM EST Called pt left vm to call me back. * Telephone Encounter - Deb Howe - 03/13/2024 3:22 PM EST Pt called back, read vals message. Pt is scheduled. She states she feels better from ER visit, theyonly gave tylenol and something for nausea while pt was there- nothing sent home with her * Telephone Encounter - Keily Gambino MA - 03/13/2024 1:09 PM EST I have called pt multiple times. She is due to for an appt with June as well. * Telephone Encounter - Keily Gambino MA - 03/06/2024 12:38 PM EST Left vm to call me back * Telephone Encounter - Keily Gambino MA - 03/04/2024 9:19 AM EST Called pt left vm to call me back * Telephone Encounter - Deb Howe - 03/03/2024 3:38 PM EST Pt is currently 22 wks and was at [facility] last night diagnosted with covid, sx headache, body aches, sore throat, was vomitting and vomit had blood which is why she went to ER. Fever was 107 did break with tylenol. Pt states she feels better, but not her best, they advised her to let OB know in case you wanted to see her at all. documented in this encounterBarton County Memorial HospitalOgkfqqxyhp31-90-2791 Telephone encounter Note* Telephone Encounter - Deb Howe - 03/13/2024 3:22 PM EST Pt called back, read [employer] message. Pt is scheduled. She states she feels better from ER visit, theyonly gave tylenol and something for nausea while pt was there- nothing sent home with her [facility] HospitalUybchzoudm75-86-7847 Telephone encounter Note* Telephone Encounter - Keily Gambino MA - 03/13/2024 1:09 PM EST I have called pt multiple times. She is due to for an appt with [facility] as well. [facility] HospitalKkkslssytk28-65-9674 Telephone encounter Note* Telephone Encounter - Keily Gambino MA - 03/06/2024 12:38 PM EST Left vm to call me back [facility] HospitalPzkizaykqg91-40-1814 Telephone encounter Note* Telephone Encounter - Keily Gambino MA - 03/04/2024 9:19 AM EST Called pt left vm to call me back [facility] HospitalQwohmwhihd86-14-7166 Telephone encounter Note* Telephone Encounter - Deb Howe - 03/03/2024 3:38 PM EST Pt is currently 22 wks and was at [facility] last night diagnosted with covid, sx headache, body aches, sore throat, was vomitting and vomit had blood which is why she went to ER. Fever was 107 did break with tylenol. Pt states she feels better, but not her best, they advised her to let OB know in case you wanted to see her at all. [facility] HospitalWljkmesxxc35-30-6744 History of Present illness Narrative* Steve Stover CNM - 02/11/2024 10:30 AM EST Subjective No chief complaint on file. Osiris Leal is a 28 y.o. at 19w5d with a working estimated date of delivery of 07/03/2024,by Last Menstrual Period who presents for a [...] for a routine visit. documented in this [facility]10-31-2024 History of Present illness Narrative* Steve Stover CNM - 01/16/2024 10:00 AM EDT Subjective No chief complaint on file. Osiris Leal is a 28 y.o. at 15w6d with a working estimated date of delivery of 07/03/2024,by Last Menstrual Period who presents for a [...] for a routine visit. documented in this [facility]09-04-2024 History of Present illness Narrative* Steve Stover CNM - 11/20/2023 11:30 AM EDT Subjective Osiris Leal is a 28 y.o. at 7w5d with a working estimated date of delivery of 07/03/2024, by Last Menstrual Period who presents for an initial visit. This is planned. No care operations team leader to display OB History Para Term AB [...] also given office phone number and [facility] number to call in case of an emergency or after hours needs. PVU and all questions answered. We did discuss place of delivery. Patient should plan to go to [facility] for all services unless an emergency and they need to go to the closest ER. We can make other arrangements possibly ifpatient would like to deliver at another facility but I did explain I am now at [place] 100% of the time and would like to do all deliveries there. Patient was smoking marijuana and states she stopped when she found out she was . She does not desire genetic testing and we will obtain labs at the next appt. documented in this encounterBarton County Memorial HospitalStazsakwzp95-59-9077 Miscellaneous Notes* Telephone Encounter - Soha Kitchen - 10/23/2023 8:23 AM EDT [employer] order faxed 10/23/23 documented in this encounterOhioHealth Mansfield Hospital08-07-2024 Telephone encounter Note* Telephone Encounter - Soha Kitchen - 10/23/2023 8:23 AM EDT [employer] order faxed 10/23/23 [facility]08-05-20[facility] History of Present illness Narrative* Donte Villatoro MD - 10/21/2023 3:15 PM EDT Images from the original note were not included. [address] [place] [address] [address] [facility] [address] Patient: Osiris Hayward Date of : 1995 [...] past medical history, past social history, past surgicalhistory and problem list. Past Medical History: Diagnosis Date Kidney stones Past Surgical History: Procedure Laterality Date CYSTOSCOPY INSERTION STENT URETER Left 08/09/2023 Performed by Donte Villatoro MD at [facility] CYSTOSCOPY REMOVAL STENT Left 08/20/2023 Performed by Donte Villatoro MD at [facility] CYSTOSCOPY RETROGRADE PYELOGRAM Left 08/09/2023 Performed by Donte Villatoro MD at [facility] LASER HOLMIUM URETEROSCOPY RENAL STONES < OR=1CM Left 08/09/2023 Performed by Donte Villatoro MD at [facility] History reviewed. No pertinent family history. [...] you for your understanding. documented in this encounterDayton Children's HospitalWesabe [facility] [id number] Miscellaneous Notes* Telephone Encounter - Donte Villatoro MD - 08/20/2023 12:28 PM EDT Have patient see me in the office in about 6 weeks or so renal ultrasound 1 week prior. * Telephone Encounter - Vandana Payan - 08/20/2023 12:28 PM EDT Spoke with pt, she is going to call central scheduling to get the US and will call back to schedulefollow up documented in this encounterOhioHealth Mansfield Hospital06-04-2024 Telephone encounter Note* Telephone Encounter - Donte Villatoro MD - 08/20/2023 12:28 PM EDT Have patient see me in the office in about 6 weeks or so renal ultrasound 1 week prior. [facility]06-04-2024 Telephone encounter Note* Telephone Encounter - Vandana Payan - 08/20/2023 12:28 PM EDT Spoke with pt, she is going to call central scheduling to get the US and will call back to schedulefollow up [facility]05-24-2024 Miscellaneous Notes* Telephone Encounter - Donte Villatoro MD - 08/09/2023 8:02 AM EDT Approximately 10 day cysto stent removal local [place] left side diagnosis left stent documented in this encounterOhioHealth Mansfield Hospital05-24-2024 Telephone encounter Note* Telephone Encounter - Donte Villatoro MD - 08/09/2023 8:02 AM EDT Approximately 10 day cysto stent removal local [place] left side diagnosis left stent [facility]05-20-2024 Instructions* Pre-Procedure Instructions - Bia Lane RN - 08/05/2023 10:30 AM EDT Your Procedure/Surgery is scheduled at [facility] on 08/09/2023 [facility], [address] [place] [address] You will receive a phone call from [facility] the day before your surgery to verify your arrival time. If you have any questions prior to your surgery, please call Pre-Admission Clinic at [phone] between 7:30 am and 4:30 pm Saturday through Saturday. For questions the day of surgery, please call the Pre-op Department at [phone]. Notify your SURGEON if you develop any [...] specifically instructed by your surgeon to stop. STOPtaking all herbal products/teas one week prior to [...] accompanied by somone over 18 years of age.You cannot ride alone. You should not smoke [...] items and leave them in the car untilyou are taken to your room after surgery. [...] following some types of surgeries involving the eyes,ears, sinuses and throat. Always follow your doctor's [...] clean their hands before and after touching you.Be sure your family and friends clean their [...] RIGHTS AND RESPONSIBILITIES As a patient at [facility], you have the right to: Receive medical care and be informed of who is taking care of you Be treated with dignity and respect Have a family member/textile designs sales representative of choice and your physician notified of your admission Receive information and actively participate in decisions about your care and treatment Refuse care, treatment and services Decide who may provide your support and speak for you Access islam and spiritual services Participate in ethical issues [...] of hospital charges and payment methods Patient/patient textile designs sales representative responsibilities are to: Provide information about [...] RIGHTS AND RESPONSIBILITIES As a patient at [facility], you have the right to: Receive medical care and be informed of who is taking care of you Be treated with dignity and respect Have a family member/textile designs sales representative of choice and your physician notified of your admission Receive information and actively participate in decisions about your care and treatment Refuse care, treatment and services Decide who may provide your support and speak for you Access islam and spiritual services Participate in ethical issues [...] of hospital charges and payment methods Patient/patient textile designs sales representative responsibilities are to: Provide information about [...] Control department if you have any questions. [facility]05-20-2024 Miscellaneous Notes* Pre-Procedure Instructions - Bia Lane RN - 08/05/2023 10:30 AM EDT Your Procedure/Surgery is scheduled at [facility] on 08/09/2023 [facility], [address] [place] [address] You will receive a phone call from [facility] the day before your surgery to verify your arrival time. If you have any questions prior to your surgery, please call Pre-Admission Clinic at [phone] between 7:30 am and 4:30 pm Saturday through Saturday. For questions the day of surgery, please call the Pre-op Department at [phone]. Notify your SURGEON if you develop any [...] specifically instructed by your surgeon to stop. STOPtaking all herbal products/teas one week prior to [...] accompanied by somone over 18 years of age.You cannot ride alone. You should not smoke [...] items and leave them in the car untilyou are taken to your room after surgery. [...] following some types of surgeries involving the eyes,ears, sinuses and throat. Always follow your doctor's [...] clean their hands before and after touching you.Be sure your family and friends clean their [...] RIGHTS AND RESPONSIBILITIES As a patient at [facility], you have the right to: Receive medical care and be informed of who is taking care of you Be treated with dignity and respect Have a family member/textile designs sales representative of choice and your physician notified of your admission Receive information and actively participate in decisions about your care and treatment Refuse care, treatment and services Decide who may provide your support and speak for you Access islam and spiritual services Participate in ethical issues [...] of hospital charges and payment methods Patient/patient textile designs sales representative responsibilities are to: Provide information about [...] RIGHTS AND RESPONSIBILITIES As a patient at [facility], you have the right to: Receive medical care and be informed of who is taking care of you Be treated with dignity and respect Have a family member/textile designs sales representative of choice and your physician notified of your admission Receive information and actively participate in decisions about your care and treatment Refuse care, treatment and services Decide who may provide your support and speak for you Access islam and spiritual services Participate in ethical issues [...] of hospital charges and payment methods Patient/patient textile designs sales representative responsibilities are to: Provide information about [...] you have any questions. documented in this encounterOhioHealth Mansfield Hospital05-15-2024 Miscellaneous Notes* Telephone Encounter - Donte Villatoro MD - 07/31/2023 2:35 PM EDT Left ureteroscopy holmium laser lithotripsy. [facility]. First available. General anesthesia. Diagnosis left renal pelvic stone. Size 7- 8 mm documented in this encounterOhioHealth Mansfield Hospital05-15-2024 Telephone encounter Note* Telephone Encounter - Donte Villatoro MD - 07/31/2023 2:35 PM EDT Left ureteroscopy holmium laser lithotripsy. [facility]. First available. General anesthesia. Diagnosis left renal pelvic stone. Size 7- 8 mm [facility]05-15-2024 Evaluation + Plan note* Assessment & Plan Note - Donte Villatoro MD - 07/31/2023 2:32 PM EDTAssociated Problem(s): Nephrolithiasis Stone I believe was too large the past. Would certainly require intervention. Some renal pelvis by the UPJ. Could be intermittently obstructing. Urine culture is negative. We discuss ESWL but given location of the stone certainly runs the risk of having a fragment too large to pass migrate distallywe talked about ureteroscopy holmium laser lithotripsy stenting as well. Wishes to proceed in that fashion. Will set it up. [facility]05-15-2024 Miscellaneous Notes* Assessment & Plan Note - Donte Villatoro MD - 07/31/2023 2:32 PM EDTAssociated Problem(s): Nephrolithiasis Stone I believe was too large the past. Would certainly require intervention. Some renal pelvis by the UPJ. Could be intermittently obstructing. Urine culture is negative. We discuss ESWL but given location of the stone certainly runs the risk of having a fragment too large to pass migrate distallywe talked about ureteroscopy holmium laser lithotripsy stenting as well. Wishes to proceed in that fashion. Will set it up. documented in this encounterOhioHealth Mansfield Hospital05-15-2024 History of Present illness Narrative* Donte Villatoro MD - 07/31/2023 2:00 PM EDT Images from the original note were not included. [address] [place] [address] [address] [facility] [address] Patient: Osiris Hayward Date of : 1995 Encounter Date: 07/31/2023 History of Present Illness: The patient is a 27 y.o. female, a new patient, and is here for history nephrolithiasis. Left renalpelvis. Some associated nausea. Subjective sense of fever but afebrile in the ER. Urinalysis today: No results for input(s): EXTPOCURCO , EXTPOCURCH , EXTPOCAPP , EXTPOCURBS , EXTPOCURBIL , EXTPOCUKET , EXTPOCUSPG , EXTPOCUHGB , EXTPOCUPRO , EXTPOCUURO , EXTPOCULEU , EXTPOCUNIT , EXTPOCUWBC , EXTPOCUBLD , EXTPOCURBC , EXTPOCUCRY , EXTPOCUBAC , EXTPOCUTREP , EXTPOCUPH , EXTPOCUL EE in the last 72 hours. Last BUN [...] past medical history, past social history, past surgicalhistory and problem list. History reviewed. No pertinent [...] tablet by mouth 3 (three) times a dayas needed for pain for up to 3 [...] of breath), cough, hemotypsis (blood in sputum), andwheezing. Cardiovascular: Patient denies chest pain, palpitations, and shortness of breath. Gastrointestinal: Abdominal pain, Nausea, Vomiting, Bloating, and Diarrhea (chronic) Musculoskeletal: Backache Neurologic: Patient denies weakness, dizziness, loss of consciousness, transient ischemic symptoms,and seizures. Integument: Patient denies rashes and non-healing [...] a fragment too large to pass migrate distallywe talked about ureteroscopy holmium laser lithotripsy stenting [...] you for your understanding. documented in this encounterOhioHealth Mansfield Hospital07-27-2023 Evaluation note Includes: Assessments for all patient encounters Findings Encounter Date Generalized anxiety disorder BH Establis hed Patient with Tran Short LISWS 10/11/2022 Last Documented On 3 2:10PM ; [facility] [Z68.41 - Body mass index [B TN] 40.0-44.9, adult] assessment of body mass index Medical Established Patient with Adelaida Parks CARRIAGE DOGGER 10/11/2022 Last Documented On 3 2:13PM ; [facility] Generalized anxiety disorder Medical Est ablished Patient with Adelaida Parks CARRIAGE DOGGER 10/11/2022 Last Documented On 3 2:13PM ; [facility] Generalized anxiety disorder BH Establis hed Patient with Tran Short LISWS 09/11/2022 Last Documented On 3 7:50PM ; [facility] [K08.89 - Other specified di sorders of teeth and supporting structures] tooth pain Medical Established Patient with Cassandra Kee CARRIAGE DOGGER 09/11/2022 Last Documented On 3 8:31AM ; [facility] [Z68.41 - Body mass index [B TN] 40.0-44.9, adult] assessment of body mass index Medical Established Patient with Cassandra Kee CARRIAGE DOGGER 09/11/2022 Last Documented On 3 8:31AM ; [facility] Generalized anxiety disorder Medical Est ablished Patient with Cassandra Kee CARRIAGE DOGGER 09/11/2022 Last Documented On 3 8:31AM ; [facility] Generalized anxiety disorder BH Establis hed Patient with Tran Short LISWS 08/08/2022 Last Documented On 3 7:40PM ; [facility] [F41.1 - Generalized anxiety disorder] generalized anxiety disorder Medical New Patient with Adelaida Parks CARRIAGE DOGGER 08/08/2022 Last Documented On 3 5:55PM ; [facility] [J01.10 - Acute frontal sinu sitis, unspecified] acute frontal sinusitis Medical New Patient with Adelaida Parks CARRIAGE DOGGER 08/08/2022 Last Documented On 3 5:55PM ; [facility] [Z68.41 - Body mass index [B TN] 40.0-44.9, adult] assessment of body mass index Medical New Patient with Adelaida Parks CNP 08/08/2022 Last Documented On 3 5:55PM ; [facility] Diabetes Risk Test Score was three score 08/08/2022 Medical New Patient with Adelaida Parks CNP 08/08/2022 Last Documented On 3 5:55PM ; [facility] Screening for HIV Medical New Patient with Adelaida Parks CARRIAGE DOGGER 08/08/2022 Last Documented On 3 5:55PM ; [facility] Visit for routine adult H&P without abnormal findings Medical New Patient with Adelaida Parks CNP 08/08/2022 Last Documented On 3 5:55PM ; [facility] Work Phone: 1(750) 864-594807-27-2023 Evaluation note Includes: Assessments for all patient encounters Findings Encounter Date Generalized anxiety disorder BH Establis hed Patient with Tran Short LISWS 10/11/2022 Last Documented On 3 9:45AM ; [facility] [Z68.41 - Body mass index [B TN] 40.0-44.9, adult] assessment of body mass index Medical Established Patient with Adelaida Parks CARRIAGE DOGGER 10/11/2022 Last Documented On 3 2:13PM ; [facility] Generalized anxiety disorder Medical Est ablished Patient with Adelaida Parks CARRIAGE DOGGER 10/11/2022 Last Documented On 3 2:13PM ; [facility] Generalized anxiety disorder BH Establis hed Patient with Tran Short LISWS 09/11/2022 Last Documented On 3 7:50PM ; [facility] [K08.89 - Other specified di sorders of teeth and supporting structures] tooth pain Medical Established Patient with Cassandra Kee CARRIAGE DOGGER 09/11/2022 Last Documented On 3 8:31AM ; [facility] [Z68.41 - Body mass index [B TN] 40.0-44.9, adult] assessment of body mass index Medical Established Patient with Cassandra Kee CARRIAGE DOGGER 09/11/2022 Last Documented On 3 8:31AM ; [facility] Generalized anxiety disorder Medical Est ablished Patient with Cassandra Kee CARRIAGE DOGGER 09/11/2022 Last Documented On 3 8:31AM ; [facility] Generalized anxiety disorder Establis hed Patient with Tran Short LISWS 08/08/2022 Last Documented On 3 7:40PM ; [facility] [F41.1 - Generalized anxiety disorder] generalized anxiety disorder Medical New Patient with Adelaida Parks CARRIAGE DOGGER 08/08/2022 Last Documented On 3 5:55PM ; [facility] [J01.10 - Acute frontal sinu sitis, unspecified] acute frontal sinusitis Medical New Patient with Adelaida Parks CARRIAGE DOGGER 08/08/2022 Last Documented On 3 5:55PM ; [facility] [Z68.41 - Body mass index [B TN] 40.0-44.9, adult] assessment of body mass index Medical New Patient with Adelaida Parks CARRIAGE DOGGER 08/08/2022 Last Documented On 3 5:55PM ; [facility] Diabetes Risk Test Score was three score 08/08/2022 Medical New Patient with Adelaida Parks CARRIAGE DOGGER 08/08/2022 Last Documented On 3 5:55PM ; [facility] Screening for HIV Medical New Patient with Adelaida Parks CARRIAGE DOGGER 08/08/2022 Last Documented On 3 5:55PM ; [facility] Visit for routine adult H&P without abnormal findings Medical New Patient with Adelaida Parks CARRIAGE DOGGER 08/08/2022 Last Documented On 3 5:55PM ; [facility] Work Phone: 1(643) 408-470807-27-2023 Progress note* Progress note Date Encounter Last Documented by 10/11/2022 Medical Established Patient Last documented on 10/11/2022; 2:13 PM, Adelaida Parks PAPITO; [facility] Active Problems & Conditions - F41.1 [...] quit taking her wellbutrin on 09/19 when shehad dry socket s/p extraction , still having [...] nose and sinus finding, no throat symptoms, nooral cavity symptoms, and no jaw symptoms. Breasts: [...] BP-Sitting L123/84 mmHg BP Cuff SizeLarge Pulse Rate-Alxutdl96 bpm Temp-Oral98.4 F Hhpcyu51 in Yhrzxr783 lbs Body Mass Index43.5 kg/m2 Body Surface Area2.1 m2 Oxygen Pzufuzslsv21 % Vital Signs: - Systolic blood pressure [...] Follow Up Plan BMI Management satisfied 10/11/2022. [facility]07-27-2023 Progress note* Progress note Date Encounter Last Documented by 10/11/2022 Established Patient Last docu mented on 10/12/2022; 9:45 AM, Tran MCCOY; [facility] Active Problems & Conditions - F41.1 - Generalized Anxiety Disorder Chief Complaint The Chief Complaint is: [facility] met with patient to follow-up regarding mood and medications. Patient reports having dental work done earlier this month and due to pain, she stopped taking her medications. Patient reports that she has also had issues at home with power being out and having to stay withboyfriends family. Patient reports that she has lost [...] significant other and housing stress with not havingelectricity at this time and cannot stay at [...] time. Patient was encouraged to resume taking medicationsas prescribed. Patient feels that they were somehwat helpful when she did take them. Collaborated with patient and provider: Counseling/Education P provided supportive and active listening, allowing patient the space to discuss concerns and explored with patient coping strategies to manage increased anxiety and stressors. P discussed community resourcces should they be needed. Health coach professional athletes to reach out to patient nextweek regarding additional resources. P discussed benefit in individual counseling and supports. Plan Patient to take medications as prescribed and contact the office with any questions or concerns. Patient to implement coping skills and positive supports as discussed. [facility] spoke with dental regarding follow-up and they will put patient on the schedule to further evaluate. [facility] to follow-up with patient at next visit as scheduled. Health Reminders - Assess Tobacco Use satisfied 10/11/2022. [facility]06-27-2023 Evaluation note Includes: Assessments for all patient encounters Findings Encounter Date Generalized anxiety disorder [facility] Patient with Tran MCCOY 09/11/2022 Last Documented On 3 7:50PM ; [facility] [K08.89 - Other specified di sorders of teeth and supporting structures] tooth pain Medical Established Patient with Cassandra Chilango [facility] 09/11/2022 Last Documented On 3 8:31AM ; [facility] [Z68.41 - Body mass index [B TN] 40.0-44.9, adult] assessment of body mass index Medical Established Patient with Cassandra Chilango [facility] 09/11/2022 Last Documented On 3 8:31AM ; [facility] Generalized anxiety disorder Medical Est ablished Patient with Cassandra Chilango [facility] 09/11/2022 Last Documented On 3 8:31AM ; [facility] Generalized anxiety disorder Establis hed Patient with Tran Short LISWS 08/08/2022 Last Documented On 3 7:40PM ; [facility] [F41.1 - Generalized anxiety disorder] generalized anxiety disorder Medical New Patient with Adelaida Parks CNP 08/08/2022 Last Documented On 3 5:55PM ; [facility] [J01.10 - Acute frontal sinu sitis, unspecified] acute frontal sinusitis Medical New Patient with Adelaida Parks CNP 08/08/2022 Last Documented On 3 5:55PM ; [facility] [Z68.41 - Body mass index [B TN] 40.0-44.9, adult] assessment of body mass index Medical New Patient with Adelaida Parks CNP 08/08/2022 Last Documented On 3 5:55PM ; [facility] Diabetes Risk Test Score was three score 08/08/2022 Medical New Patient with Adelaida Parks CNP 08/08/2022 Last Documented On 3 5:55PM ; [facility] Screening for HIV Medical New Patient with Adelaida Parks CNP 08/08/2022 Last Documented On 3 5:55PM ; [facility] Visit for routine adult H&P without abnormal findings Medical New Patient with Adelaida Parks CNP 08/08/2022 Last Documented On 3 5:55PM ; [facility] Work Phone: 1(237) 826-110506-27-2023 History general Narrative - Reported Includes: Medical History in patient's chart Description Last Updated No previous hospitalizations 09/11/2022 Last Documented On 3 8:31AM ; [facility] No previous suicide attempt 08/08/2022 Last Documented On 3 7:40PM ; [facility] Safety Measures [facility] discusse d with patient crisis resource information should it be needed 08/08/2022 Last Documented On 3 7:40PM ; [facility] broke left wrist as a child 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 ~history of kidney stones 08/08/2022 Last Documented On 3 5:55PM ; [facility] Planning to have a baby in the next 12 m ont 08/08/2022 Last Documented On 3 5:55PM ; [facility] Work Phone: [phone]) 581-443606-27-2023 History general Narrative - Reported Includes: Medical History in patient's chart Description Last Updated No previous hospitalizations 09/11/2022 Last Documented On 3 8:31AM ; [facility] No previous suicide attempt 08/08/2022 Last Documented On 3 7:40PM ; [facility] Safety Measures [facility] discusse d with patient crisis resource information should it be needed 08/08/2022 Last Documented On 3 7:40PM ; [facility] broke left wrist as a child 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 ~history of kidney stones 08/08/2022 Last Documented On 3 5:55PM ; [facility] Planning to have a baby in the next 12 m [facility] 08/08/2022 Last Documented On 3 5:55PM ; [facility] Work Phone: 1(684) 363-168606-27-2023 History general Narrative - Reported Includes: Medical History in patient's chart Description Last Updated No previous hospitalizations 09/11/2022 Last Documented On 3 8:31AM ; [facility] No previous suicide attempt 08/08/2022 Last Documented On 3 7:40PM ; [facility] Safety Measures [facility] discusse d with patient crisis resource information should it be needed 08/08/2022 Last Documented On 3 7:40PM ; [facility] broke left wrist as a child 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 ~history of kidney stones 08/08/2022 Last Documented On 3 5:55PM ; [facility] Planning to have a baby in the next 12 m [facility] 08/08/2022 Last Documented On 3 5:55PM ; [facility] Work Phone: 1([phone]) 124-167206-27-2023 Progress note* Progress note Date Encounter Last Documented by 09/11/2022 Established Patient Last docu mented on 09/11/2022; 7:50 PM, Tran MCCOY; [facility] Active Problems & Conditions - F41.1 - Generalized Anxiety Disorder Chief Complaint The Chief Complaint is: [facility] met with patient to follow-up regarding mood [...] tablet by mouth twice daily x 7 days,7 days, 0 refills - busPIRone HCl 10 [...] Wellbutrin XL 150 MG in the morning. Patientverbalized understanding and Collaborated with patient and provider: [...] Reminders - Assess Tobacco Use satisfied 09/11/2022. [facility]06-27-2023 Progress note* Progress note Date Encounter Last Documented by 09/11/2022 Medical Established Patient Last documented on 09/12/2022; 8:31 AM, Cassandra Kee CNP; [facility] Active Problems & Conditions - F41.1 [...] She is sleeping and states this is morethan usual d/t her sleep schedule changing. She [...] BP-Sitting R137/91 mmHg BP Cuff SizeLarge Pulse Rate-Flvaiay91 bpm Temp-Oral98.6 F Ltrtfj89 in Pqetxb383 lbs Body Mass Index43.9 kg/m2 Body Surface Area2.1 m2 Oxygen Vvtfeaqayi33 % - Vitals taken 09/11/2022 04:33 pm [...] Follow Up Plan BMI Management satisfied 09/11/2022. [facility]05-24-2023 Progress note* Progress note Date Encounter Last Documented by 08/08/2022 Established Patient Last docu mented on 08/08/2022; 7:40 PM, Tran MCCOY; [facility] Active Problems & Conditions - F41.1 - Generalized Anxiety Disorder Chief Complaint The Chief Complaint is: Patient is in to establish care and [facility] met with patient to follow-up regarding mood and PHQ score of 4 and DEUCE score of 11. Patient reports that she has not been to a family doctor as an adult and only saw a doctor growing up if something was wrong. Patient reports that shehas noticed increased anxiety with racing thoughts, worry, trouble relaxing, restlessness and feeling easily annoyed. Patient reports that she has about 3 weeks left of school at [employer] and her graduation date keeps getting pushed back due to calling in due to anxiety. Patient reports that she is experiencing low energy, feeling poorly about herself and trouble concentrating in addition to anxiety. Patient is open to starting medications. Patient reports no thoughts of harm towardsself or others. History of Present Illness Osiris Haywadr is a 26 year old female. - [...] No previous suicide attempt Reported: Safety Measures [facility] discussed with patient crisis resource information should it be needed. Social History Environmental Exposure: No secondhand cigarette smoke exposure. Personal: Recent emotional stress. Behavioral: Not a current tobacco user. Alcohol: A social drinker. Drug Use: Using marijuana only from dispensary. Housing And Economic Circumstances: Lives alone. Education: Currently in school. 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 Physical Findings [...] engage in SIB but ex called the design/animation instructor and she was admitted in [facility]. - No access to weapons / guns in home. Assessment - F41.1 - Generalized anxiety disorder Therapy - SBIRT Screen Neg. - Brief solution-focused therapy. - Referral to mental health team. - Plan - PCP to start patient on Buspar 5mg twice daily. Patient verbalized understanding of plan and Collaborated with patient and provider: Counseling/Education [facility] introduced patient to [facility] integrated model of care. P offered active and supportive listening, normalized emotions and feelings, and processed current stressors related to school. P discussed with patient coping skills and supports that can be implemented such as breathing techniques, mindfulness and meditation. [facility] discussed potential benefit in individual therapy. Patient discussed history of previous therapy as a teenager and feeling that the therapist was not helpful and is not sure that she wants to tryagain. [facility] discussed with patient potential resources where she is able to pick her own therapist and talk with them prior to establishing care. [facility] discussed with patient dental services and connected patient with [facility] dental team. Plan Patient to take medications [...] at all, [PHQ-9-4] Feeling tired or having littleenergy? + 1 pt : Several days, [PHQ-9-5] Poor appetite or overeating? + 0 pt : Not at all, [PHQ-9-6] Feeling bad about yourself-or that you are a failure + 1 pt : Several days, [PHQ-9-7] Trouble concentrating on things such as reading the newspaper + 2 pt : More than half the days, [PHQ-9-8] Movingor speaking so slowly that other people have noticed. + 0 pt : Not at all, [PHQ-9-9] Thoughts that you would be better off or hurting yourself? + 0 pt : Not at all, and DEUCE If you checked off problems, how difficult is it for you to do your work, take care of things, or get along? Somewhat difficult. [facility]05-24-2023 Progress note* Progress note Date Encounter Last Documented by 08/08/2022 Medical New Patient Last molly zavala on 08/08/2022; 5:55 PM, Adelaida Parks CNP; [facility] Active Problems & Conditions - F41.1 [...] about anxiety . getting ready to graduate [employer]. upper respiratory congestion x 1 week Patient [...] BP-Sitting L130/80 mmHg BP Cuff SizeLarge Pulse Rate-Fceuxbb648 bpm Temp-Xxhuldgz44.4 F Ijdwls34 in Tnwazj950 lbs Body Mass Index43.2 kg/m2 Body Surface Area2.1 m2 Oxygen Coshbebdxg00 % General Appearance: - Awake. - Alert. [...] tablet daily on days 2-5, 5 days, 0refills EndCited StartCited- Encntr for general adult medical [...] Less than 40 years (0 points) [Pre-DM]. [facility]05-24-2023 Reason for referral (narrative)* Date Encounter Description Provider Reason for Referral 08/08/22 Established Patient Tran Glover Referral To Mental Health Team [facility] Work Phone: Evaluation + Plan note No data available for this section [facility] Evaluation note* Diagnosis Encounter for care of first , second trimester- Primary related condition in second trimester documented in this encounter [facility]* Diagnosis examination or test, positive result Amenorrhea Absence of menstruation documented in this encounter 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* Diagnosis Nephrolithiasis- Primary Calculus of kidney 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 Diagnosis Encounter for care of first , third trimester- Primary Low platelet count (CMS/HCC) History of COVID-19 Elevated blood pressure affecting in third trimester, antepartum documented [facility] Diagnosis Elevated blood pressure affecting in third trimester, antepartum- Primary documented [facility]* Diagnosis Elevated blood pressure affecting in third trimester, antepartum- Primary [facility]* Diagnosis Encounter for care of first , second trimester- Primary History of COVID-19 documented [facility]* Diagnosis Acute cystitis with hematuria- Primary Hematuria, unspecified type [facility]* Diagnosis Elevated blood pressure affecting in third trimester, antepartum (HHS-HCC)- Primary [facility] this encounter [facility] Present illness Narrative History of Present Illness not supported for this document type No History of [facility] Illness [facility] Work Phone: Hospital Discharge instructions No data available for this section [facility] Instructions Includes: Instructions for all patient encounters Education and Decision Aids were provided during visit for: [facility] offered active and suppo rtive listening. ~[facility] discussed coping skills to implement in daily routine. P encouraged patient to contact a therapist to schedule counseling Last Documented On 3 7:49PM ; [facility] Discussed nutritional needs teach healthy choices including fruits and vegetables Last Documented On 3 4:31PM ; [facility] Patient education about a pr oper diet Last Documented On 3 4:31PM ; [facility] Lifestyle education Last Documented On 3 5:08PM ; [facility] Patient education about medi cation Last Documented On 3 5:08PM ; [facility] Patient education about ment al health Last Documented On 3 5:08PM ; [facility] Discussed concerns about exe rcise : promote physical activity Last Documented On 3 4:31PM ; [facility] introduced patient to [facility] integrated model of care. ~[facility] offered active and supportive listening, normalized emotions and feelings, and processed current stressors related to school. ~[facility] discussed with patient coping skills and supports that can be implemented such as breathing techniques, mindfulness and meditation. ~[facility] discussed potential benefit in individual therapy. Patient discussed history of previous therapy as a teenager and feeling that the therapist was not helpful and is not sure that she wants to try again. P discussed with patient potential resources where she is able to pick her own therapist and talk with them prior to establishing care. ~[facility] discussed with patient dental services and connected patient with [facility] dental team Last Documented On 3 7:35PM ; [facility] Discussed nutritional needs teach healthy choices including fruits and vegetables Last Documented On 3 5:17PM ; [facility] Patient education about a pr oper diet Last Documented On 3 5:17PM ; [facility] Discussed concerns about exe rcise : promote physical activity Last Documented On 3 5:17PM ; [facility] Work Phone: Instructions Includes: Instructions for all patient encounters Education and Decision Aids were provided during visit for: Discussed nutritional needs teach healthy choices including fruits and vegetables Last Documented On 3 1:59PM ; [facility] Patient education about a pr oper diet Last Documented On 3 1:59PM ; [facility] Discussed concerns about exe rcise : promote physical activity Last Documented On 3 1:59PM ; [facility] offered active and suppo rtive listening. ~[facility] discussed coping skills to implement in daily routine. [facility] encouraged patient to contact a therapist to schedule counseling Last Documented On 3 7:49PM ; [facility] Discussed nutritional needs teach healthy choices including fruits and vegetables Last Documented On 3 4:31PM ; [facility] Patient education about a pr oper diet Last Documented On 3 4:31PM ; [facility] Lifestyle education Last Documented On 3 5:08PM ; [facility] Patient education about medi cation Last Documented On 3 5:08PM ; [facility] Patient education about ment al health Last Documented On 3 5:08PM ; [facility] Discussed concerns about exe rcise : promote physical activity Last Documented On 3 4:31PM ; [facility] introduced patient to [facility] integrated model of care. ~[facility] offered active and supportive listening, normalized emotions and feelings, and processed current stressors related to school. ~[facility] discussed with patient coping skills and supports that can be implemented such as breathing techniques, mindfulness and meditation. ~[facility] discussed potential benefit in individual therapy. Patient discussed history of previous therapy as a teenager and feeling that the therapist was not helpful and is not sure that she wants to try again. [facility] discussed with patient potential resources where she is able to pick her own therapist and talk with them prior to establishing care. ~[facility] discussed with patient dental services and connected patient with [facility] dental team Last Documented On 3 7:35PM ; [facility] Discussed nutritional needs teach healthy choices including fruits and vegetables Last Documented On 3 5:17PM ; [facility] Patient education about a pr oper diet Last Documented On 3 5:17PM ; [facility] Discussed concerns about exe rcise : promote physical activity Last Documented On 3 5:17PM ; [facility] Work Phone: Instructions Includes: Instructions for all patient encounters Education and Decision Aids were provided during visit for: [facility] provided supportive and active listening, allowing patient the space to discuss concerns and explored with patient coping strategies to manage increased anxiety and stressors. ~[facility] discussed community resourcces should they be needed. Health coach professional athletes to reach out to patient next week regarding additional resources. ~[facility] discussed benefit in individual counseling and supports Last Documented On 3 9:45AM ; [facility] Discussed nutritional needs teach healthy choices including fruits and vegetables Last Documented On 3 1:59PM ; [facility] Patient education about a pr oper diet Last Documented On 3 1:59PM ; [facility] Discussed concerns about exe rcise : promote physical activity Last Documented On 3 1:59PM ; [facility] offered active and suppo rtive listening. ~[facility] discussed coping skills to implement in daily routine. [facility] encouraged patient to contact a therapist to schedule counseling Last Documented On 3 7:49PM ; [facility] Discussed nutritional needs teach healthy choices including fruits and vegetables Last Documented On 3 4:31PM ; [facility] Patient education about a pr oper diet Last Documented On 3 4:31PM ; [facility] Lifestyle education Last Documented On 3 5:08PM ; [facility] Patient education about medi cation Last Documented On 3 5:08PM ; [facility] Patient education about ment al health Last Documented On 3 5:08PM ; [facility] Discussed concerns about exe rcise : promote physical activity Last Documented On 3 4:31PM ; [facility] introduced patient to [facility] integrated model of care. ~[facility] offered active and supportive listening, normalized emotions and feelings, and processed current stressors related to school. ~[facility] discussed with patient coping skills and supports that can be implemented such as breathing techniques, mindfulness and meditation. ~[facility] discussed potential benefit in individual therapy. Patient discussed history of previous therapy as a teenager and feeling that the therapist was not helpful and is not sure that she wants to try again. P discussed with patient potential resources where she is able to pick her own therapist and talk with them prior to establishing care. ~[facility] discussed with patient dental services and connected patient with [facility] dental team Last Documented On 3 7:35PM ; [facility] Discussed nutritional needs teach healthy choices including fruits and vegetables Last Documented On 3 5:17PM ; [facility] Patient education about a pr oper diet Last Documented On 3 5:17PM ; [facility] Discussed concerns about exe rcise : promote physical activity Last Documented On 3 5:17PM ; [facility] Work Phone: InstructionsNot on filedocumented in this [...] & Outcomes for active Goals No Outcomes [facility] Work Phone: Progress note No data available for this section [facility] Review of systems Narrative - Reported Review of Systems not supported for this document type No [facility] of [facility] Work [facility]: Summary Purpose Family History No Family History Records Found Description Last Updated Family history of systemic hypertension paternal grandfather 08/08/2022 Last Documented On 3 5:55PM ; [facility] Description Last Updated Family history of systemic hypertension paternal grandfather 08/08/2022 Last Documented On 3 5:55PM ; [facility] Description Last Updated Family history of systemic hypertension paternal grandfather 08/08/2022 Last Documented On 3 5:55PM ; [facility] Advance Directives No Advanced Directives Records [...] section and content) DATE CREATED AUTHOR 07/07/2022 [facility] DATE CREATED AUTHOR AUTHOR'S ORGANIZ ATION 08/21/2023 [facility] DATE CREATED AUTHOR AUTHOR'S ORGANIZ ATION 10/23/2023 [facility] DATE CREATED AUTHOR AUTHOR'S ORGANIZ ATION 04/03/2024 [facility] DATE CREATED AUTHOR AUTHOR'S ORGANIZ ATION 09/19/2024 [facility] DATE CREATED AUTHOR AUTHOR'S ORGANIZ ATION 01/21/2025 [facility] Reason for Visit (unrecogniz ed section and content) ReasonCommentsInitial VisitReasonCommentsFollow-upReasonComments NephrolithiasisFollow-upReasonCommentsNew PatientSpecialtyDiagnoses / Procedures Referred By ContactReferred To ContactHematology Diagnoses Low platelet count Procedures ME OFFICE OUTPATIENT VISIT 60-74 MINS HIGH MDM [id number] (SNOMED CT) - AMB REFERRAL TO HEMATOLOGY Steve Stover APRN-CNCindy [address] [place] [address] Phone: tel: fax: Jackie Mota MD [address] [facility] [address] [place] [address] Phone: tel: fax: Referral IDStatusReasonStart DateExpiration DateVisits RequestedVisits [id number] Care Care Teams (unrecognized sec tion and content) Team MemberRelationshipSpecialtyStart DateEnd Date No Pcp, [place] [address] PCP - GeneralFamily Medicine06/19/23Team MemberRelationshipSpecialtyStart DateEnd Date No Pcp, [place] [address] PCP - GeneralFamily Medicine06/19/23Team MemberRelationshipSpecialtyStart DateEnd Date No Pcp, [place] [address] PCP - GeneralFamily Medicine06/19/23Team MemberRelationshipSpecialtyStart DateEnd Date No Pcp, [place] [address] PCP - GeneralFamily Medicine06/19/23Team MemberRelationshipSpecialtyStart DateEnd Date No Pcp, [place] [address] PCP - GeneralFamily Medicine06/19/23Team MemberRelationshipSpecialtyStart DateEnd Date No Pcp, [place] [address] PCP - GeneralFamily Medicine06/19/23Team MemberRelationshipSpecialtyStart DateEnd Date No Pcp, [place] [address] PCP - GeneralFamily Medicine06/19/23Team MemberRelationshipSpecialtyStart DateEnd Date No Pcp, [place] [address] PCP - GeneralFamily Medicine06/19/23Team MemberRelationshipSpecialtyStart DateEnd Date No Pcp, [place] [address] PCP - GeneralFamily Medicine06/19/23Team MemberRelationshipSpecialtyStart DateEnd Date No Pcp, [place] [address] PCP - GeneralFamily Medicine09/16/24 FOR RECORDS PERTAINING TO PATIENTS WHO ARE [...] BE BASED ON THE PRIMARY CLINICAL RECORDS. [employer] [facility]. provides no warranty or guarantee of the accuracy or completeness of information in this document.
--- NOTE | 2025-01-21 11:07 | US_ITS ---
The [address] [address] Patient Name: RITA PAUL MRN: [id number] date: 1995 Sex: F Assigned Patient Location: US Current Patient Location: US Accession/Order Number: [id number] Exam Date: 01/21/2025 11:08 Report Date: 01/21/2025 12:12 At the request of: ELO BURNETT MD Procedure: US renal BI BILATERAL RENAL AND BLADDER ULTRASOUND CLINICAL HISTORY: History of kidney stones COMPARISON: Retrograde urogram 10/07/2024 Estimation of renal size is approximately 11.0 cm on the right and 12.1 cm on the left. There is a tiny echogenic focus at the midpole the right kidney that may be a stone measuring 4 mm in size. On the left, there are additional potential renal stones measuring up to 7 mm at the upper pole. There is mild distention of an extrarenal pelvis on the right. There is mild pelvicaliectasis on the left. No renal mass lesions were imaged. There is no perinephric fluid. The urinary bladder is partially distended with a volume of 464 mL. No contour or intraluminal abnormalities are seen. US/US renal BI IMPRESSION: BILATERAL NEPHROLITHIASIS. MILD HYDRONEPHROSIS, LEFT WORSE THAN RIGHT. Impression dictated by: Lona Askew M.D. 01/21/2025 12:12 PM Dictation Location: [place] [address] Electronically authenticated by: [id number] Y Date: 01/21/2025 12:12
== END 2025-01-21 11:00 | disposition home or self-care (01) ==
LOC: US 10:59
PROVIDERS: Visit Provider Urology
DX: N20.0 Calculus of kidney (principal); N13.30 Unspecified hydronephrosis
CPT/HCPCS: 76775